=== PATIENT | male | born 1975 | race Caucasian/White ===

== ENCOUNTER 2016-06-03 14:25 | Emergency (ER) | payer OTHER ==
[2016-06-03] MEDS ORDERED: MORPHINE 4 MG/ML 1ML SYRINGE As Ordered ONE (16:33)
[2016-06-03] MEDS ORDERED: KETOROLAC 30 MG/ML VIAL (J1885) As Ordered ONE (16:33)
[2016-06-03] MEDS ORDERED: diphenhydrAMINE INJ 50MG/ML VIAL (J1200) As Ordered ONE ×2 (16:33→16:34)
[2016-06-03] MEDS ORDERED: PROMETHAZINE INJ 25 MG/ML VIAL (J2550) As Ordered ONE (16:33)
--- NOTE | 2016-06-03 17:58 | EDDOCDS ---
Physician Documentation [facility] Name: Ramakrishna Miller Age: 40 yrs Sex: Male : 1975 Arrival Date: 06/03/2016 Time: 14:25 Bed 8 Private MD: Batool Aguilar Disposition: 06/03/16 17:04 Discharged to Home/Self Care. Impression: Headache. - Condition is Stable. - Discharge Instructions: General Headache Without Cause. - Prescriptions for Fioricet 50- 300-40 mg Oral Capsule - take 1 capsule by ORAL route every 8 hours As needed MDD: 6 tabs; 10 capsule. - Medication Reconciliation, Local Pharmacy Hours form. - Follow up: Private Physician; When: Call to arrange an appointment; Reason: Continuance of care. Follow up: Batool Aguilar; When: Call to arrange an appointment; Reason: Continuance of care. - Problem is chronic. - Symptoms have improved. Historical: - Allergies: Amitriptyline; Effexor XR; Lrpmfrk-Ipl-Efe Reductase Inhibitors; - Home Meds: 1. aspirin 325 mg Oral TbEC 1 tab once daily 2. Crestor 10 mg Oral tab 1 tab once daily 3. lisinopril 2.5 mg oral tab 1 tab once daily 4. Magnesium Oxide Oral daily 5. metoprolol tartrate 50 mg Oral tab once daily 6. omeprazole 20 mg Oral cpDR 1 cap once daily 7. Vitamin B-2 oral daily 8. Plavix 50 mg Oral tab 1 tab once daily - PMHx: CVA; GERD; Hypercholesterolemia; Hypertension; - PSHx: exploratory laprotomy of abd; - Social history: Smoking status: Patient uses tobacco products, light tobacco smoker. No barriers to communication noted, The patient speaks fluent Paraguayan. - Family history: Not pertinent. - : The pt / caregiver states he / she is on anticoagulants: Plavix. Home medication list is obtained from the patient. - Exposure Risk Screening:: None identified. Vital Signs: 06/03 14:55 BP 139 / 87; Pulse 67; Resp 17; Temp 98.3(O); Pulse Ox 95% ; Weight 94.35 kg / 208.01 mb9 lbs; Height 5 ft. 10 in. (177.80 cm); Pain 9/10; 17:48 BP 141 / 66; Pulse 62; Resp 18; Temp 98; Pulse Ox 95% on R/A; Pain 4/10; bcj 14:55 Body Mass Index 29.84 (94.35 kg, 177.80 cm) mike MDM: 15:42 Financial registration complete. gjb 15:50 morphine 4 mg IVP once ordered. fg 15:50 ketorolac 30 mg IVP once ordered. fg 15:50 diphenhydrAMINE 25 mg IVP once ordered. fg 15:50 Promethazine 12.5 mg IVP once; dilute and administer 30-60 minutes ordered. fg 15:50 IV Saline Lock ordered. 16:11 [facility] Payment Agreement was scanned into [employer] and attached to record. gjb Administered Medications: 16:46 Drug: diphenhydrAMINE 25 mg [diphenhydramine 50 mg/mL injection solution (0.5 mL)] [facility] Route: IVP; Site: left hand; 16:46 Drug: Promethazine 12.5 mg [promethazine 25 mg/mL injection solution (0.5 mL)] Route: j IVP; Site: left hand; 16:47 Drug: morphine 4 mg [morphine 4 mg/mL intravenous cartridge (1 mL)] Route: IVP; Site: j left hand; 17:55 Follow up: Response: Pain is decreased [facility] 16:47 Drug: ketorolac 30 mg [ketorolac 30 mg/mL (1 mL) injection solution (1 mL)] Route: IVP; [facility] Site: left hand; 17:55 Follow up: Response: Pain is decreased [facility] Signatures: Al Contreras RN RN Ramakrishna Newman RN RN mb9 Yuko Pinto MD MD fg Beck, Gabriela gjb The chart was reviewed and I authenticate all verbal orders and agree with the evaluation and treatment provided.Attachments: 16:11 [facility] Payment Agreement gjb CORRY
--- NOTE | 2016-06-03 17:58 | EDDOCDS ---
Nurse's Notes [facility] Name: Ramakrishna Miller Age: 40 yrs Sex: Male : 1975 Arrival Date: 06/03/2016 Time: 14:25 Bed 8 Private MD: Batool Aguilar Diagnosis: Headache Presentation: 06/03 14:39 Presenting complaint: Patient states: "Earlier I was watching tv and I went to stand up mb9 and it felt like the energy drained out of me. Then I got this headache out of nowhere and the left side of my body was numb". pt reports he has a history of migraines but that this didn't feel like a typical migraine. pt also reports blurred vision at this time. This patient has no additional risk factors. Adult Sepsis Screening: The patient does not have new or worsening altered mentation. Patient's respiratory rate is less than 22. Systolic blood pressure is greater than 100. Patient has a qSOFA score of 0- Negative Sepsis Screen. Suicide/Homicide risk assessment- the patient denies having any suicidal and/or homicidal ideations and does not present with any other emotional, behavioral or mental health complaints. Status: Patient is not a dental service chief or dependent. Transition of care: patient was not received from another setting of care. Care prior to arrival: See EMS report. 14:39 Acuity: KATHERYN Level 2 mb9 14:39 Method Of Arrival: Ambulance mb9 Triage Assessment: 14:55 Headache History: A change in the character of the headache the patient is experiencing mb9 has occured. General: Appears in no apparent distress. Pain: Location: headache Pain currently is 9 out of 10 on a pain scale. Pain began 2 hours ago Also complains of no other associated symptoms. HIV screening NA for this visit Offered previously. The patient is triaged at the bedside. See Assessment in Nurses Notes section of ED record. Neurological: Level of Consciousness is awake, alert, Oriented to person, place, time, Travel Trailer Components Assembler are equal bilaterally Moves all extremities. Speech is normal, Facial symmetry appears normal, Pupils are PERRLA. Respiratory: Airway is patent Respiratory effort is even, unlabored. Historical: - Allergies: Amitriptyline; Effexor XR; Ipfsuzg-Pzs-Gco Reductase Inhibitors; - Home Meds: 1. aspirin 325 mg Oral TbEC 1 tab once daily 2. Crestor 10 mg Oral tab 1 tab once daily 3. lisinopril 2.5 mg oral tab 1 tab once daily 4. Magnesium Oxide Oral daily 5. metoprolol tartrate 50 mg Oral tab once daily 6. omeprazole 20 mg Oral cpDR 1 cap once daily 7. Vitamin B-2 oral daily 8. Plavix 50 mg Oral tab 1 tab once daily - PMHx: CVA; GERD; Hypercholesterolemia; Hypertension; - PSHx: exploratory laprotomy of abd; - Social history: Smoking status: Patient uses tobacco products, light tobacco smoker. No barriers to communication noted, The patient speaks fluent Faroese. - Family history: Not pertinent. - : The pt / caregiver states he / she is on anticoagulants: Plavix. Home medication list is obtained from the patient. - Exposure Risk Screening:: None identified. Screenin:49 Screening information is obtained from the patient. Fall risk: No risks identified. bcj Assistance ADL's: requires no assistance with activities of daily living. Abuse/DV Screen: The patient / caregiver reports he/she is: not in a situation that causes fear, pain or injury. Nutritional screening: No deficits noted. Advance Directives: Currently, there is no health care proxy. home support is adequate. Assessment: 16:49 General: Appears in no apparent distress, comfortable, Behavior is cooperative. Pain: bcj Location: face Pain currently is 9 out of 10 on a pain scale. Neurological: Level of Consciousness is awake, alert, Oriented to person, place, time, Travel Trailer Components Assembler are equal bilaterally Moves all extremities. Gait is steady. Derm: Skin is pink, warm & dry. 17:48 General: Appears in no apparent distress, comfortable, Behavior is cooperative. Pain: bcj Location: face Pain currently is 3 out of 10 on a pain scale. Derm: Skin is pink, warm & dry. Vital Signs: 14:55 BP 139 / 87; Pulse 67; Resp 17; Temp 98.3(O); Pulse Ox 95% ; Weight 94.35 kg; Height 5 mb9 ft. 10 in. (177.80 cm); Pain 9/10; 17:48 BP 141 / 66; Pulse 62; Resp 18; Temp 98; Pulse Ox 95% on R/A; Pain 4/10; bcj 14:55 Body Mass Index 29.84 (94.35 kg, 177.80 cm) mb9 Vitals: 14:55 Log In Time N/A - ambulance arrival. mb9 ED Course: 14:26 Patient visited by Laverne Dos Santos Infection Control Practitioner. lbd 14:26 Batool Aguilar is Private Physician. lbd 14:26 Patient moved to Waiting lbd 14:38 Patient moved to 8 lbd 14:53 Triage Initiated mb9 15:17 Yuko Pinto MD is Attending Physician. fg 15:17 Patient visited by Yuko Pinto MD. fg 16:11 [facility] Payment Agreement was scanned into [employer] and attached to record. gjb 16:49 No apparent distress. Resting quietly. Awaiting disposition. bcj 16:49 The patient / caregiver is instructed regarding the plan of care and ED course. bcj 16:49 Maintain field IV. Gauge & site: 20 LEFT HAND. bcj 16:51 Patient visited by Al Contreras RN. bcj 17:03 Batool Aguilar is Referral Physician. fg 17:55 No apparent distress. Resting quietly. Awaiting disposition. bcj 17:55 Discontinued lock intact. bcj 17:56 No procedures done that require assistance. bcj 17:57 Patient visited by Al Contreras, BERTA. bcj Administered Medications: 16:46 Drug: diphenhydrAMINE 25 mg [diphenhydramine 50 mg/mL injection solution (0.5 mL)] bcj Route: IVP; Site: left hand; 16:46 Drug: Promethazine 12.5 mg [promethazine 25 mg/mL injection solution (0.5 mL)] Route: bcj IVP; Site: left hand; 16:47 Drug: morphine 4 mg [morphine 4 mg/mL intravenous cartridge (1 mL)] Route: IVP; Site: bcj left hand; 17:55 Follow up: Response: Pain is decreased bcj 16:47 Drug: ketorolac 30 mg [ketorolac 30 mg/mL (1 mL) injection solution (1 mL)] Route: IVP; j Site: left hand; 17:55 Follow up: Response: Pain is decreased bcj Order Results: There are currently no results for this order. Outcome: 17:04 Discharge ordered by Provider. fg 17:55 Discharge Assessment: patient administered narcotics - yes. Pt provided with safe bcj discharge. The following High Risk Discharge criteria are identified: None. Discharged to home ambulatory, with family. Condition: stable. Discharge instructions given to patient, Instructed on discharge instructions, follow up and referral plans. medication usage, Prescriptions given X 1. No special radiology studies were completed. Property :Personal belongings accompany Pt. 17:57 Patient left the ED. [facility] Signatures: Laverne Dos Santos, Infection Control Practitioner Unit lbd Al Contreras RN RN bcj Belles, Michael, RN RN mb9 Yuko Pinto MD MD fg Beck, Gabriela gjb MTDD
--- NOTE | 2016-06-05 18:58 | EDDOCDS ---
Physician Documentation [facility] Name: Ramakrishna Miller Age: 40 yrs Sex: Male : 1975 Arrival Date: 06/03/2016 Time: 14:25 Bed 8 Private MD: Batool Aguilar Disposition: 06/03/16 17:04 Discharged to Home/Self Care. Impression: Headache. - Condition is Stable. - Discharge Instructions: General Headache Without Cause. - Prescriptions for Fioricet 50- 300-40 mg Oral Capsule - take 1 capsule by ORAL route every 8 hours As needed MDD: 6 tabs; 10 capsule. - Medication Reconciliation, Local Pharmacy Hours form. - Follow up: Private Physician; When: Call to arrange an appointment; Reason: Continuance of care. Follow up: Batool Aguilar; When: Call to arrange an appointment; Reason: Continuance of care. - Problem is chronic. - Symptoms have improved. Historical: - Allergies: Amitriptyline; Effexor XR; Pgmahjr-Jgn-Gpa Reductase Inhibitors; - Home Meds: 1. aspirin 325 mg Oral TbEC 1 tab once daily 2. Crestor 10 mg Oral tab 1 tab once daily 3. lisinopril 2.5 mg oral tab 1 tab once daily 4. Magnesium Oxide Oral daily 5. metoprolol tartrate 50 mg Oral tab once daily 6. omeprazole 20 mg Oral cpDR 1 cap once daily 7. Vitamin B-2 oral daily 8. Plavix 50 mg Oral tab 1 tab once daily - PMHx: CVA; GERD; Hypercholesterolemia; Hypertension; - PSHx: exploratory laprotomy of abd; - Social history: Smoking status: Patient uses tobacco products, light tobacco smoker. No barriers to communication noted, The patient speaks fluent Guinean. - Family history: Not pertinent. - : The pt / caregiver states he / she is on anticoagulants: Plavix. Home medication list is obtained from the patient. - Exposure Risk Screening:: None identified. Vital Signs: 06/03 14:55 BP 139 / 87; Pulse 67; Resp 17; Temp 98.3(O); Pulse Ox 95% ; Weight 94.35 kg / 208.01 mb9 lbs; Height 5 ft. 10 in. (177.80 cm); Pain 9/10; 17:48 BP 141 / 66; Pulse 62; Resp 18; Temp 98; Pulse Ox 95% on R/A; Pain 4/10; bcj 14:55 Body Mass Index 29.84 (94.35 kg, 177.80 cm) mike MDM: 15:42 Financial registration complete. gjb 15:50 morphine 4 mg IVP once ordered. fg 15:50 ketorolac 30 mg IVP once ordered. fg 15:50 diphenhydrAMINE 25 mg IVP once ordered. fg 15:50 Promethazine 12.5 mg IVP once; dilute and administer 30-60 minutes ordered. fg 15:50 IV Saline Lock ordered. fg 16:11 [facility] Payment Agreement was scanned into [employer] and attached to record. b 06/04 11:05 T-Sheet-- Draft Copy was scanned into [employer] and attached to record. gb 11:06 PCR was scanned into [employer] and attached to record. gb Administered Medications: 06/03 16:46 Drug: diphenhydrAMINE 25 mg [diphenhydramine 50 mg/mL injection solution (0.5 mL)] [facility] Route: IVP; Site: left hand; 16:46 Drug: Promethazine 12.5 mg [promethazine 25 mg/mL injection solution (0.5 mL)] Route: bcj IVP; Site: left hand; 16:47 Drug: morphine 4 mg [morphine 4 mg/mL intravenous cartridge (1 mL)] Route: IVP; Site: bcj left hand; 17:55 Follow up: Response: Pain is decreased [facility] 16:47 Drug: ketorolac 30 mg [ketorolac 30 mg/mL (1 mL) injection solution (1 mL)] Route: IVP; [facility] Site: left hand; 17:55 Follow up: Response: Pain is decreased [facility] Signatures: Al Contreras RN RN bcGianna Galaviz, Reg Reg Ramakrishna QuintanaRN RN mb9 Yuko Pinto MD MD fg Beck, Gabriela gjb The chart was reviewed and I authenticate all verbal orders and agree with the evaluation and treatment provided.Attachments: 16:11 [facility] Payment Agreement [facility] 06/04 11:05 T-Sheet-- Draft Copy gb Chart Complete MTDD
--- NOTE | 2016-06-05 18:58 | EDDOCDS ---
Nurse's Notes [facility] Name: Ramakrishna Miller Age: 40 yrs Sex: Male : 1975 Arrival Date: 06/03/2016 Time: 14:25 Bed 8 Private MD: Batool Aguilar Diagnosis: Headache Presentation: 06/03 14:39 Presenting complaint: Patient states: "Earlier I was watching tv and I went to stand up mb9 and it felt like the energy drained out of me. Then I got this headache out of nowhere and the left side of my body was numb". pt reports he has a history of migraines but that this didn't feel like a typical migraine. pt also reports blurred vision at this time. This patient has no additional risk factors. Adult Sepsis Screening: The patient does not have new or worsening altered mentation. Patient's respiratory rate is less than 22. Systolic blood pressure is greater than 100. Patient has a qSOFA score of 0- Negative Sepsis Screen. Suicide/Homicide risk assessment- the patient denies having any suicidal and/or homicidal ideations and does not present with any other emotional, behavioral or mental health complaints. Status: Patient is not a community service specialist or dependent. Transition of care: patient was not received from another setting of care. Care prior to arrival: See EMS report. 14:39 Acuity: KATHERYN Level 2 mb9 14:39 Method Of Arrival: Ambulance mb9 Triage Assessment: 14:55 Headache History: A change in the character of the headache the patient is experiencing mb9 has occured. General: Appears in no apparent distress. Pain: Location: headache Pain currently is 9 out of 10 on a pain scale. Pain began 2 hours ago Also complains of no other associated symptoms. HIV screening NA for this visit Offered previously. The patient is triaged at the bedside. See Assessment in Nurses Notes section of ED record. Neurological: Level of Consciousness is awake, alert, Oriented to person, place, time, Bulk System Operator are equal bilaterally Moves all extremities. Speech is normal, Facial symmetry appears normal, Pupils are PERRLA. Respiratory: Airway is patent Respiratory effort is even, unlabored. Historical: - Allergies: Amitriptyline; Effexor XR; Icgwbwt-Asj-Qie Reductase Inhibitors; - Home Meds: 1. aspirin 325 mg Oral TbEC 1 tab once daily 2. Crestor 10 mg Oral tab 1 tab once daily 3. lisinopril 2.5 mg oral tab 1 tab once daily 4. Magnesium Oxide Oral daily 5. metoprolol tartrate 50 mg Oral tab once daily 6. omeprazole 20 mg Oral cpDR 1 cap once daily 7. Vitamin B-2 oral daily 8. Plavix 50 mg Oral tab 1 tab once daily - PMHx: CVA; GERD; Hypercholesterolemia; Hypertension; - PSHx: exploratory laprotomy of abd; - Social history: Smoking status: Patient uses tobacco products, light tobacco smoker. No barriers to communication noted, The patient speaks fluent Luxembourgish. - Family history: Not pertinent. - : The pt / caregiver states he / she is on anticoagulants: Plavix. Home medication list is obtained from the patient. - Exposure Risk Screening:: None identified. Screenin:49 Screening information is obtained from the patient. Fall risk: No risks identified. bcj Assistance ADL's: requires no assistance with activities of daily living. Abuse/DV Screen: The patient / caregiver reports he/she is: not in a situation that causes fear, pain or injury. Nutritional screening: No deficits noted. Advance Directives: Currently, there is no health care proxy. home support is adequate. Assessment: 16:49 General: Appears in no apparent distress, comfortable, Behavior is cooperative. Pain: bcj Location: face Pain currently is 9 out of 10 on a pain scale. Neurological: Level of Consciousness is awake, alert, Oriented to person, place, time, Bulk System Operator are equal bilaterally Moves all extremities. Gait is steady. Derm: Skin is pink, warm & dry. 17:48 General: Appears in no apparent distress, comfortable, Behavior is cooperative. Pain: bcj Location: face Pain currently is 3 out of 10 on a pain scale. Derm: Skin is pink, warm & dry. Vital Signs: 14:55 BP 139 / 87; Pulse 67; Resp 17; Temp 98.3(O); Pulse Ox 95% ; Weight 94.35 kg; Height 5 mb9 ft. 10 in. (177.80 cm); Pain 9/10; 17:48 BP 141 / 66; Pulse 62; Resp 18; Temp 98; Pulse Ox 95% on R/A; Pain 4/10; bcj 14:55 Body Mass Index 29.84 (94.35 kg, 177.80 cm) mb9 Vitals: 14:55 Log In Time N/A - ambulance arrival. mb9 ED Course: 14:26 Patient visited by Laverne Dos Santos, Finisher Operator. lbd 14:26 Batool Aguilar is Private Physician. lbd 14:26 Patient moved to Waiting lbd 14:38 Patient moved to 8 lbd 14:53 Triage Initiated mb9 15:17 Yuko Pinto MD is Attending Physician. fg 15:17 Patient visited by Yuko Pinto MD. fg 16:11 [facility] Payment Agreement was scanned into [email or web address] and attached to record. gjb 16:49 No apparent distress. Resting quietly. Awaiting disposition. bcj 16:49 The patient / caregiver is instructed regarding the plan of care and ED course. bcj 16:49 Maintain field IV. Gauge & site: 20 LEFT HAND. bcj 16:51 Patient visited by Al Contreras, BERTA. bcj 17:03 Batool Aguilar is Referral Physician. fg 17:55 No apparent distress. Resting quietly. Awaiting disposition. bcj 17:55 Discontinued lock intact. bcj 17:56 No procedures done that require assistance. bcj 17:57 Patient visited by Al Contreras, BERTA. j 06/04 11:05 T-Sheet-- Draft Copy was scanned into [email or web address] and attached to record. gb 11:06 PCR was scanned into [email or web address] and attached to record. gb Administered Medications: 06/03 16:46 Drug: diphenhydrAMINE 25 mg [diphenhydramine 50 mg/mL injection solution (0.5 mL)] [facility] Route: IVP; Site: left hand; 16:46 Drug: Promethazine 12.5 mg [promethazine 25 mg/mL injection solution (0.5 mL)] Route: j IVP; Site: left hand; 16:47 Drug: morphine 4 mg [morphine 4 mg/mL intravenous cartridge (1 mL)] Route: IVP; Site: bcj left hand; 17:55 Follow up: Response: Pain is decreased [facility] 16:47 Drug: ketorolac 30 mg [ketorolac 30 mg/mL (1 mL) injection solution (1 mL)] Route: IVP; [facility] Site: left hand; 17:55 Follow up: Response: Pain is decreased [facility] Order Results: There are currently no results for this order. Outcome: 17:04 Discharge ordered by Provider. fg 17:55 Discharge Assessment: patient administered narcotics - yes. Pt provided with safe j discharge. The following High Risk Discharge criteria are identified: None. Discharged to home ambulatory, with family. Condition: stable. Discharge instructions given to patient, Instructed on discharge instructions, follow up and referral plans. medication usage, Prescriptions given X 1. No special radiology studies were completed. Property :Personal belongings accompany Pt. 17:57 Patient left the ED. [facility] Signatures: Laverne Dos Santos, Finisher Operator Unit lbd Al Contreras, RN RN Gianna Rodrigues, Reg Reg Ramakrishna QuintanaRN RN mb9 Yuko Pinto MD MD fg Beck, Gabriela gjb Chart Complete CORRY
--- NOTE | 2016-06-05 18:58 | EDDOCDS ---
Physician Documentation [facility] Name: Ramakrishna Miller Age: 40 yrs Sex: Male : 1975 Arrival Date: 06/03/2016 Time: 14:25 Bed 8 Private MD: Batool Aguilar Disposition: 06/03/16 17:04 Discharged to Home/Self Care. Impression: Headache. - Condition is Stable. - Discharge Instructions: General Headache Without Cause. - Prescriptions for Fioricet 50- 300-40 mg Oral Capsule - take 1 capsule by ORAL route every 8 hours As needed MDD: 6 tabs; 10 capsule. - Medication Reconciliation, Local Pharmacy Hours form. - Follow up: Private Physician; When: Call to arrange an appointment; Reason: Continuance of care. Follow up: Batool Aguilar; When: Call to arrange an appointment; Reason: Continuance of care. - Problem is chronic. - Symptoms have improved. Historical: - Allergies: Amitriptyline; Effexor XR; Ygpymbd-Dbb-Spw Reductase Inhibitors; - Home Meds: 1. aspirin 325 mg Oral TbEC 1 tab once daily 2. Crestor 10 mg Oral tab 1 tab once daily 3. lisinopril 2.5 mg oral tab 1 tab once daily 4. Magnesium Oxide Oral daily 5. metoprolol tartrate 50 mg Oral tab once daily 6. omeprazole 20 mg Oral cpDR 1 cap once daily 7. Vitamin B-2 oral daily 8. Plavix 50 mg Oral tab 1 tab once daily - PMHx: CVA; GERD; Hypercholesterolemia; Hypertension; - PSHx: exploratory laprotomy of abd; - Social history: Smoking status: Patient uses tobacco products, light tobacco smoker. No barriers to communication noted, The patient speaks fluent Austrian. - Family history: Not pertinent. - : The pt / caregiver states he / she is on anticoagulants: Plavix. Home medication list is obtained from the patient. - Exposure Risk Screening:: None identified. Vital Signs: 06/03 14:55 BP 139 / 87; Pulse 67; Resp 17; Temp 98.3(O); Pulse Ox 95% ; Weight 94.35 kg / 208.01 mb9 lbs; Height 5 ft. 10 in. (177.80 cm); Pain 9/10; 17:48 BP 141 / 66; Pulse 62; Resp 18; Temp 98; Pulse Ox 95% on R/A; Pain 4/10; bcj 14:55 Body Mass Index 29.84 (94.35 kg, 177.80 cm) mike MDM: 15:42 Financial registration complete. gjb 15:50 morphine 4 mg IVP once ordered. fg 15:50 ketorolac 30 mg IVP once ordered. fg 15:50 diphenhydrAMINE 25 mg IVP once ordered. fg 15:50 Promethazine 12.5 mg IVP once; dilute and administer 30-60 minutes ordered. fg 15:50 IV Saline Lock ordered. fg 16:11 [facility] Payment Agreement was scanned into [employer] and attached to record. b 06/04 11:05 T-Sheet-- Draft Copy was scanned into [employer] and attached to record. gb 11:06 PCR was scanned into [employer] and attached to record. gb Administered Medications: 06/03 16:46 Drug: diphenhydrAMINE 25 mg [diphenhydramine 50 mg/mL injection solution (0.5 mL)] [facility] Route: IVP; Site: left hand; 16:46 Drug: Promethazine 12.5 mg [promethazine 25 mg/mL injection solution (0.5 mL)] Route: bcj IVP; Site: left hand; 16:47 Drug: morphine 4 mg [morphine 4 mg/mL intravenous cartridge (1 mL)] Route: IVP; Site: bcj left hand; 17:55 Follow up: Response: Pain is decreased [facility] 16:47 Drug: ketorolac 30 mg [ketorolac 30 mg/mL (1 mL) injection solution (1 mL)] Route: IVP; [facility] Site: left hand; 17:55 Follow up: Response: Pain is decreased [facility] Signatures: Al Contreras RN RN bcGianna Galaviz, Reg Reg Ramakrishna QuintanaRN RN mb9 Yuko Pinto MD MD fg Beck, Gabriela gjb The chart was reviewed and I authenticate all verbal orders and agree with the evaluation and treatment provided.Attachments: 16:11 [facility] Payment Agreement [facility] 06/04 11:05 T-Sheet-- Draft Copy gb Chart Complete MTDD
== END 2016-06-03 17:57 | disposition home or self-care (01) ==
LOC: M ED 14:25
DX: G43.809 Other migraine, not intractable, without status migrainosus (principal); I10 Essential (primary) hypertension; E78.00 Pure hypercholesterolemia, unspecified; Z86.73 Personal history of transient ischemic attack (TIA), and cerebral infarction without residual deficits; F17.200 Nicotine dependence, unspecified, uncomplicated; Z79.899 Other long term (current) drug therapy; Z79.82 Long term (current) use of aspirin; Z79.02 Long term (current) use of antithrombotics/antiplatelets; Z88.8 Allergy status to other drugs, medicaments and biological substances
CPT/HCPCS: 96374; 96375; 99283; J1200; J1885

== ENCOUNTER 2018-01-16 22:08 | Emergency (ER) | payer OTHER ==
[2018-01-16] MEDS: PERCOCET 5MG/325MG TAB PO (22:43)
[2018-01-16] MEDS: OXYCODONE/APAP 5MG/325MG(BULK FOR ED) 1 TABLET PO (22:45)
== END 2018-01-16 23:33 | disposition home or self-care (01) ==
LOC: M ED 22:08
DX: S92.002D Unspecified fracture of left calcaneus, subsequent encounter for fracture with routine healing (principal); W11.XXXD Fall on and from ladder, subsequent encounter; Y92.9 Unspecified place or not applicable; Y93.9 Activity, unspecified; Y99.9 Unspecified external cause status; I25.10 Atherosclerotic heart disease of native coronary artery without angina pectoris; Z86.73 Personal history of transient ischemic attack (TIA), and cerebral infarction without residual deficits; K21.9 Gastro-esophageal reflux disease without esophagitis; Z86.718 Personal history of other venous thrombosis and embolism; Z79.01 Long term (current) use of anticoagulants; Z79.899 Other long term (current) drug therapy; Z88.1 Allergy status to other antibiotic agents; Z88.8 Allergy status to other drugs, medicaments and biological substances
CPT/HCPCS: 99284

== ENCOUNTER 2018-01-25 12:12 | Emergency (ER) | payer OTHER ==
[2018-01-25 13:18] LABS: BASO % 0.5 % (0.0-1.0); EOS # 0.1 10^3/uL (0.0-0.50); HEMATOCRIT 41.6 % (42.0-52.0); HEMOGLOBIN 14.7 g/dl (13.5-17.5); IMMATURE GRANULOCYTE % 0.3 % (0-3.0); LYMPH # 1.6 10^3/uL (1.5-4.5); LYMPH % 20.2 % (24.0-44.0); MEAN CORPUSCULAR HEMOGLOBIN 32.5 pg (27.0-33.0); MEAN CORPUSCULAR HGB CONC 35.3 g/dl (32.0-36.5); MONO # 0.9 10^3/uL (0.0-0.8); MONO % 10.8 % (0.0-5.0); NEUTROPHILS # 5.3 10^3/uL (1.8-7.7); NEUTROPHILS % 67.2 % (36.0-66.0); PLATELET COUNT, AUTOMATED 376 10^3/uL (150-450); RED BLOOD COUNT 4.52 10^6/uL (4.30-6.10); RED CELL DISTRIBUTION WIDTH 11.7 % (11.5-14.5); WHITE BLOOD COUNT 7.8 10^3/uL (4.0-10.0)
[2018-01-25] MEDS: NS 1,000 ML IV (13:21)
[2018-01-25] MEDS: METOCLOPRAMIDE INJ 10MG/2ML VIAL (J2765) IV (13:22)
[2018-01-25] MEDS: KETOROLAC 30 MG/ML VIAL (J1885) IV (13:22)
[2018-01-25 13:32] LABS: INR 0.98; KETONE, URINE AUTO RFX NEGATIVE (NEGATIVE); LEUKOCYTE ESTERASE UR AUTO RFX NEGATIVE (NEGATIVE); NITRITE, URINE AUTO RFX NEGATIVE (NEGATIVE); PROTHROMBIN TIME 13.1 SECONDS (12.1-14.4); RBC, URINE AUTO RFX 0 /HPF (0-3); SQUAM EPITHELIAL CELL UR AURFX 0 /HPF (0-6); WBC, URINE AUTO RFX 0 /HPF (0-3)
[2018-01-25 13:53] LABS: ALBUMIN 3.5 GM/DL (3.2-5.2); ALKALINE PHOSPHATASE 124 U/L (45-117); ALT/SGPT 27 U/L (12-78); ANION GAP 5 MEQ/L (8-16); AST/SGOT 20 U/L (7-37); BILIRUBIN,DIRECT 0.1 MG/DL (0.0-0.2); BILIRUBIN,TOTAL 0.4 MG/DL (0.2-1.0); BLOOD UREA NITROGEN 8 MG/DL (7-18); CALCIUM LEVEL 9.3 MG/DL (8.5-10.1); CARBON DIOXIDE LEVEL 27 MEQ/L (21-32); CHLORIDE LEVEL 105 MEQ/L (98-107); GLOMERULAR FILTRATION RATE > 60.0 (>60); GLUCOSE, FASTING 89 MG/DL (70-100); LIPASE 149 U/L (73-393); POTASSIUM SERUM 4.3 MEQ/L (3.5-5.1); SODIUM LEVEL 137 MEQ/L (136-145); TOTAL PROTEIN 7.4 GM/DL (6.4-8.2)
== END 2018-01-25 14:40 | disposition home or self-care (01) ==
LOC: M ED 12:12
DX: R10.9 Unspecified abdominal pain (principal); R11.0 Nausea; F17.200 Nicotine dependence, unspecified, uncomplicated; Z86.73 Personal history of transient ischemic attack (TIA), and cerebral infarction without residual deficits; Z79.899 Other long term (current) drug therapy; Z79.01 Long term (current) use of anticoagulants
CPT/HCPCS: J1885

== ENCOUNTER 2018-02-03 06:07 | Inpatient (IN) | payer OTHER ==
[2018-02-03] MEDS ORDERED: ROPIvacaine 0.5% 30 ML INJECTION (J2795 PER 1MG) (06:08)
[2018-02-03] MEDS ORDERED: EPINEPHrine INJ 1 MG/ML 1ML AMP (06:08)
[2018-02-03] MEDS ORDERED: dexameTHASONE 10 MG/1 ML VIAL PRES.FREE (J1100) (06:08)
[2018-02-03] MEDS ORDERED: LIDOCAINE 1% MDV 20ML VIAL (06:08)
[2018-02-03] MEDS ORDERED: MIDAZOLAM INJ 2 MG/2 ML VIAL (J2250) As Ordered ×2 (06:54→08:49)
[2018-02-03] MEDS ORDERED: fentaNYL 100 MCG/2 ML INJECTION (J3010) As Ordered (06:54)
[2018-02-03] MEDS ORDERED: ceFAZolin 2 GM/D5W 50 ML IV BAG (J0690 PER 500MG) As Ordered (07:01)
[2018-02-03] MEDS: MIDAZOLAM INJ 2 MG/2 ML VIAL (J2250) IV (07:21)
[2018-02-03] MEDS: fentaNYL 100 MCG/2 ML INJECTION (J3010) IV (07:21)
[2018-02-03] MEDS: ceFAZolin 2 GM/D5W 50 ML IV BAG (J0690 PER 500MG) As Ordered ×2 (08:44→13:05)
[2018-02-03] MEDS ORDERED: GLYCOPYRROLATE INJ 0.2 MG/ML 2 ML VIAL As Ordered (08:49)
[2018-02-03] MEDS ORDERED: METOCLOPRAMIDE INJ 10MG/2ML VIAL (J2765) As Ordered (08:49)
[2018-02-03] MEDS ORDERED: ROCURONIUM BROMIDE 50 MG/5 ML VIAL As Ordered ×3 (08:49→10:35)
[2018-02-03] MEDS ORDERED: dexameTHASONE 4 MG/ML 1ML VIAL (J1100) As Ordered (08:49)
[2018-02-03] MEDS ORDERED: PROPOFOL 200 MG/20 ML VIAL As Ordered (08:49)
[2018-02-03] MEDS ORDERED: HYDROmorphone HCL 2 MG/ML 1ML VIAL (J1170) As Ordered (08:49)
[2018-02-03] MEDS ORDERED: LIDOCAINE 2% INJ 100 MG/5 ML SDV (FOR ANES.) As Ordered (08:49)
[2018-02-03] MEDS ORDERED: fentaNYL 250 MCG/5 ML INJECTION (J3010) As Ordered ×2 (08:49→12:14)
[2018-02-03] MEDS ORDERED: NEOSTIGMINE 10 MG/10 ML VIAL (J2710) As Ordered (08:49)
[2018-02-03] MEDS ORDERED: ONDANSETRON 4MG/2ML VIAL (J2405) As Ordered (08:49)
[2018-02-03] MEDS ORDERED: LABETALOL HCL 100 MG/20 ML VIAL As Ordered (09:40)
[2018-02-03] MEDS ORDERED: ONDANSETRON 4MG/2ML VIAL (J2405) IV (14:30)
[2018-02-03] MEDS ORDERED: PERCOCET 5MG/325MG TAB PO (14:30)
[2018-02-03] MEDS: LR 1,000 ML IV ×2 (14:30)
[2018-02-03] MEDS ORDERED: MORPHINE 10 MG/ML 1ML VIAL (J2270) IV (14:30)
[2018-02-03] MEDS ORDERED: fentaNYL 100 MCG/2 ML INJECTION (J3010) IV (14:30)
[2018-02-03] MEDS ORDERED: oxyCODONE 5MG TAB PO (14:45)
[2018-02-03] MEDS: ACETAMINOPHEN 500 MG TAB PO ×2 (17:15→21:08)
[2018-02-03] MEDS: oxyCODONE 5MG TAB PO (21:34)
[2018-02-04] MEDS: ACETAMINOPHEN 500 MG TAB PO ×3 (05:36→21:45)
[2018-02-04] MEDS: oxyCODONE 5MG TAB PO ×4 (05:36→20:31)
[2018-02-04 06:45] LABS: HEMATOCRIT 33.3 % (42.0-52.0); HEMOGLOBIN 11.4 g/dl (13.5-17.5); MEAN CORPUSCULAR HGB CONC 34.2 g/dl (32.0-36.5); MEAN CORPUSCULAR VOLUME 93.5 fl (80.0-96.0); PLATELET COUNT, AUTOMATED 274 10^3/uL (150-450); RED BLOOD COUNT 3.56 10^6/uL (4.30-6.10); RED CELL DISTRIBUTION WIDTH 11.5 % (11.5-14.5); WHITE BLOOD COUNT 14.1 10^3/uL (4.0-10.0)
[2018-02-04 06:56] LABS: INR 0.99; PROTHROMBIN TIME 13.2 SECONDS (12.1-14.4)
[2018-02-04 07:06] LABS: ANION GAP 7 MEQ/L (8-16); BLOOD UREA NITROGEN 9 MG/DL (7-18); CALCIUM LEVEL 8.4 MG/DL (8.5-10.1); CARBON DIOXIDE LEVEL 28 MEQ/L (21-32); CHLORIDE LEVEL 105 MEQ/L (98-107); CREATININE FOR GFR 0.87 MG/DL (0.70-1.30); GLOMERULAR FILTRATION RATE > 60.0 (>60); GLUCOSE, FASTING 119 MG/DL (70-100); POTASSIUM SERUM 4.2 MEQ/L (3.5-5.1); SODIUM LEVEL 140 MEQ/L (136-145)
[2018-02-04] MEDS: APIXABAN 5 MG TAB (ELIQUIS) PO ×2 (09:40→20:30)
[2018-02-04] MEDS ORDERED: NITROGLYCERIN 0.3 MG SUBL TAB SL (11:30)
[2018-02-04] MEDS: OMEPRAZOLE 20 MG CAP PO (11:40)
[2018-02-04] MEDS: NITROGLYCERIN 0.3 MG SUBL TAB SL (11:41)
[2018-02-04] MEDS: MORPHINE 4 MG/ML 1ML VIAL/SYRINGE (J2270) IV ×3 (11:43→22:27)
[2018-02-04] MEDS: GI COCKTAIL 50ML BTL(HYOSCYAMINE/MAALOX/LIDOCAINE VISCOUS)(1:3:1) PO (12:00)
[2018-02-04 12:24] LABS: CPK CREATINE PHOSPHOKINASE 422 U/L (39-308); MB/CK RELATIVE INDEX 0.59 (< OR =4); TROPONIN I < 0.02 NG/ML (< 0.10)
[2018-02-04] MEDS ORDERED: ISOVUE-370 76% 100ML VIAL (Q9967) As Ordered (12:44)
[2018-02-04 18:18] LABS: CPK CREATINE PHOSPHOKINASE 498 U/L (39-308); TROPONIN I < 0.02 NG/ML (< 0.10)
[2018-02-04] MEDS: ROSUVASTATIN 10 MG TAB (CRESTOR) PO (20:30)
[2018-02-04 23:45] LABS: CPK CREATINE PHOSPHOKINASE 532 U/L (39-308); MB/CK RELATIVE INDEX 0.36 (< OR =4); TROPONIN I < 0.02 NG/ML (< 0.10)
[2018-02-05] MEDS: oxyCODONE 5MG TAB PO ×6 (00:36→23:46)
[2018-02-05] MEDS: MORPHINE 4 MG/ML 1ML VIAL/SYRINGE (J2270) IV ×3 (02:55→14:21)
[2018-02-05] MEDS: ACETAMINOPHEN 500 MG TAB PO ×3 (05:02→21:48)
[2018-02-05 07:13] LABS: HEMATOCRIT 31.4 % (42.0-52.0); HEMOGLOBIN 10.6 g/dl (13.5-17.5); MEAN CORPUSCULAR HEMOGLOBIN 31.7 pg (27.0-33.0); MEAN CORPUSCULAR HGB CONC 33.8 g/dl (32.0-36.5); PLATELET COUNT, AUTOMATED 252 10^3/uL (150-450); RED BLOOD COUNT 3.34 10^6/uL (4.30-6.10); RED CELL DISTRIBUTION WIDTH 11.8 % (11.5-14.5); WHITE BLOOD COUNT 11.2 10^3/uL (4.0-10.0)
[2018-02-05 07:23] LABS: INR 1.08; PROTHROMBIN TIME 14.1 SECONDS (12.1-14.4)
[2018-02-05 07:40] LABS: ANION GAP 6 MEQ/L (8-16); BLOOD UREA NITROGEN 7 MG/DL (7-18); CALCIUM LEVEL 8.2 MG/DL (8.5-10.1); CARBON DIOXIDE LEVEL 28 MEQ/L (21-32); CHLORIDE LEVEL 107 MEQ/L (98-107); CREATININE FOR GFR 0.76 MG/DL (0.70-1.30); GLOMERULAR FILTRATION RATE > 60.0 (>60); GLUCOSE, FASTING 90 MG/DL (70-100); POTASSIUM SERUM 3.8 MEQ/L (3.5-5.1); SODIUM LEVEL 141 MEQ/L (136-145)
[2018-02-05] MEDS: APIXABAN 5 MG TAB (ELIQUIS) PO ×2 (08:18→20:31)
[2018-02-05] MEDS: OMEPRAZOLE 20 MG CAP PO (08:18)
[2018-02-05] MEDS: ROSUVASTATIN 10 MG TAB (CRESTOR) PO (20:31)
[2018-02-05] MEDS: traZODone 50 MG TAB PO (21:48)
[2018-02-05] MEDS: MAGNESIUM CITRATE 300 ML BTL PO (23:44)
[2018-02-05] MEDS: ONDANSETRON 4 MG TAB (S0181) PO (23:46)
[2018-02-06] MEDS: ACETAMINOPHEN TAB 650MG DOSE (2X325MG) PO (02:20)
[2018-02-06] MEDS: METOCLOPRAMIDE INJ 10MG/2ML VIAL (J2765) IV ×2 (02:21→04:48)
[2018-02-06] MEDS: FLEET ENEMA PR (02:21)
[2018-02-06] MEDS: MORPHINE 4 MG/ML 1ML VIAL/SYRINGE (J2270) IV ×2 (03:46→08:04)
[2018-02-06] MEDS ORDERED: ISOVUE-370 76% 100ML VIAL (Q9967) As Ordered (04:45)
[2018-02-06] MEDS: ACETAMINOPHEN 500 MG TAB PO (05:47)
[2018-02-06] MEDS ORDERED: MAGNESIUM CITRATE 300 ML BTL PO (06:45)
[2018-02-06] MEDS ORDERED: FLEET ENEMA PR (06:45)
[2018-02-06 07:09] LABS: HEMOGLOBIN 12.4 g/dl (13.5-17.5); MEAN CORPUSCULAR HGB CONC 35.4 g/dl (32.0-36.5); MEAN CORPUSCULAR VOLUME 90.4 fl (80.0-96.0); PLATELET COUNT, AUTOMATED 279 10^3/uL (150-450); RED BLOOD COUNT 3.87 10^6/uL (4.30-6.10); RED CELL DISTRIBUTION WIDTH 11.6 % (11.5-14.5)
[2018-02-06 07:28] LABS: INR 0.98; PROTHROMBIN TIME 13.1 SECONDS (12.1-14.4)
[2018-02-06] MEDS ORDERED: MORPHINE 4 MG/ML 1ML VIAL/SYRINGE (J2270) IV ×2 (07:30→10:15)
[2018-02-06 07:40] LABS: ANION GAP 9 MEQ/L (8-16); BLOOD UREA NITROGEN 11 MG/DL (7-18); CALCIUM LEVEL 8.7 MG/DL (8.5-10.1); CARBON DIOXIDE LEVEL 27 MEQ/L (21-32); CHLORIDE LEVEL 100 MEQ/L (98-107); CREATININE FOR GFR 1.11 MG/DL (0.70-1.30); GLOMERULAR FILTRATION RATE > 60.0 (>60); GLUCOSE, FASTING 111 MG/DL (70-100); POTASSIUM SERUM 4.1 MEQ/L (3.5-5.1); SODIUM LEVEL 136 MEQ/L (136-145)
[2018-02-06] MEDS ORDERED: HEPARIN SOD (PORCINE) 5000 UNITS/ML VIAL IV (07:45)
[2018-02-06] MEDS: D5W/0.45% SODIUM CHLORIDE 1,000 ML IV (08:04)
[2018-02-06] MEDS: HEPARIN SOD (PORCINE) 5000 UNITS/ML VIAL IV (08:07)
[2018-02-06 08:11] LABS: LACTIC ACID SEPSIS PROTOCOL 1.3 MMOL/L (0.4-2.0)
[2018-02-06 08:12] LABS: PARTIAL THROMBOPLASTIN TIME 30.3 SECONDS (25.4-37.6)
[2018-02-06] MEDS: OMEPRAZOLE 20 MG CAP PO ×2 (08:38→08:41)
[2018-02-06] MEDS: HEPARIN DRIP 25,000 UNITS in APPROPRIATE DILUENT 1 EA IV (08:39)
[2018-02-06] MEDS: oxyCODONE 5MG TAB PO (10:33)
[2018-02-06] MEDS: KETOROLAC 30 MG/ML VIAL (J1885) IV (10:34)
== END 2018-02-06 11:14 | disposition short-term general hospital (02) | DRG 314 ==
LOC: M SDC 06:07 → M MS5PR 14:55 → M SDC 02-04 08:03 → M ICU 02-06 08:47 → M MS5PR 02-04 08:04
PROC: 0QSM04Z Reposition Left Tarsal with Internal Fixation Device, Open Approach (ICD-10-PCS; principal; 2018-02-03 07:43)
DX: S92.062A Displaced intraarticular fracture of left calcaneus, initial encounter for closed fracture (principal); K55.069 Acute infarction of intestine, part and extent unspecified; N28.0 Ischemia and infarction of kidney; I10 Essential (primary) hypertension; E78.00 Pure hypercholesterolemia, unspecified; K21.9 Gastro-esophageal reflux disease without esophagitis; Z79.01 Long term (current) use of anticoagulants; Z86.73 Personal history of transient ischemic attack (TIA), and cerebral infarction without residual deficits; W18.30XA Fall on same level, unspecified, initial encounter; Y92.009 Unspecified place in unspecified non-institutional (private) residence as the place of occurrence of the external cause; I71.4 Abdominal aortic aneurysm, without rupture; Z88.8 Allergy status to other drugs, medicaments and biological substances; G47.00 Insomnia, unspecified

== ENCOUNTER 2018-02-18 13:05 | Inpatient (IN) | payer OTHER ==
[2018-02-18 18:16] LABS: APPEARANCE, URINE CLEAR (CLEAR); BACTERIA, URINE AUTO NEGATIVE (NEGATIVE); BILIRUBIN, URINE AUTO NEGATIVE (NEGATIVE); BLOOD, URINE BLOOD 2+ (NEGATIVE); COLOR, URINE STRAW (YELLOW); GLUCOSE, URINE (UA) AUTO NEGATIVE (NEGATIVE); KETONE, URINE AUTO NEGATIVE (NEGATIVE); LEUKOCYTE ESTERASE, URINE AUTO NEGATIVE (NEGATIVE); MUCUS, URINE SMALL (NEGATIVE); NITRITE, URINE AUTO NEGATIVE (NEGATIVE); PROTEIN, URINE AUTO NEGATIVE (NEGATIVE); RBC, URINE AUTO 1 /HPF (0-3); SPECIFIC GRAVITY URINE AUTO 1.009 (1.002-1.035); SQUAMOUS EPITHELIAL CELL UR AU 0 /HPF (0-6); UROBILINOGEN, URINE AUTO 0.2 mg/dL (0.0-2.0); WBC, URINE AUTO 1 /HPF (0-3)
[2018-02-18] MEDS: APIXABAN 5 MG TAB (ELIQUIS) PO (21:12)
[2018-02-18] MEDS: DOCUSATE SODIUM 100 MG CAP PO (21:12)
[2018-02-18] MEDS: traZODone 50 MG TAB PO (21:13)
[2018-02-19] MEDS: ACETAMINOPHEN TAB 650MG DOSE (2X325MG) PO ×3 (01:27→20:35)
[2018-02-19] MEDS: METHOCARBAMOL 500 MG TAB PO ×2 (01:27→08:30)
[2018-02-19 07:36] LABS: BASO # 0.1 10^3/uL (0.0-0.2); BASO % 0.4 % (0.0-1.0); EOS # 0.2 10^3/uL (0.0-0.50); EOS % 1.9 % (0.0-3.0); HEMATOCRIT 25.5 % (42.0-52.0); HEMOGLOBIN 8.6 g/dl (13.5-17.5); IMMATURE GRANULOCYTE % 1.2 % (0-3.0); LYMPH # 2.6 10^3/uL (1.5-4.5); LYMPH % 23.1 % (24.0-44.0); MEAN CORPUSCULAR HEMOGLOBIN 31.6 pg (27.0-33.0); MEAN CORPUSCULAR HGB CONC 33.7 g/dl (32.0-36.5); MEAN CORPUSCULAR VOLUME 93.8 fl (80.0-96.0); MONO % 8.8 % (0.0-5.0); NEUTROPHILS # 7.3 10^3/uL (1.8-7.7); NEUTROPHILS % 64.6 % (36.0-66.0); PLATELET COUNT, AUTOMATED 588 10^3/uL (150-450); RED BLOOD COUNT 2.72 10^6/uL (4.30-6.10); RED CELL DISTRIBUTION WIDTH 13.3 % (11.5-14.5); WHITE BLOOD COUNT 11.3 10^3/uL (4.0-10.0)
[2018-02-19 08:00] LABS: ALBUMIN 2.8 GM/DL (3.2-5.2); ALBUMIN/GLOBULIN RATIO 0.68 (1.00-1.93); ALKALINE PHOSPHATASE 274 U/L (45-117); ALT/SGPT 83 U/L (12-78); ANION GAP 7 MEQ/L (8-16); AST/SGOT 51 U/L (7-37); BILIRUBIN,TOTAL 0.4 MG/DL (0.2-1.0); BLOOD UREA NITROGEN 13 MG/DL (7-18); CALCIUM LEVEL 8.7 MG/DL (8.5-10.1); CARBON DIOXIDE LEVEL 26 MEQ/L (21-32); CHLORIDE LEVEL 105 MEQ/L (98-107); CREATININE FOR GFR 1.37 MG/DL (0.70-1.30); GLOMERULAR FILTRATION RATE > 60.0 (>60); GLUCOSE, FASTING 109 MG/DL (70-100); POTASSIUM SERUM 4.1 MEQ/L (3.5-5.1); SODIUM LEVEL 138 MEQ/L (136-145); TOTAL PROTEIN 6.9 GM/DL (6.4-8.2)
[2018-02-19] MEDS: amLODIPine 5 MG TAB PO (08:29)
[2018-02-19] MEDS: OMEPRAZOLE 20 MG CAP PO (08:30)
[2018-02-19] MEDS: DOCUSATE SODIUM 100 MG CAP PO ×2 (08:30→21:22)
[2018-02-19] MEDS: CLOPIDOGREL 75 MG TAB PO (08:30)
[2018-02-19] MEDS: ROSUVASTATIN 10 MG TAB (CRESTOR) PO (08:30)
[2018-02-19] MEDS: POTASSIUM CHLORIDE 10 MEQ SR TABLET PO (08:30)
[2018-02-19] MEDS: APIXABAN 5 MG TAB (ELIQUIS) PO ×2 (08:30→21:22)
[2018-02-19 14:51] LABS: HEPATITIS C VIRUS ABY INDEX 0.2 INDEX (<0.8)
[2018-02-19 14:51] LABS: HEPATITIS A ANTIBODY IGM NEGATIVE (NEGATIVE); HEPATITIS B CORE ANTIBODY IGM NEGATIVE (NEGATIVE); HEPATITIS B SURFACE ANTIGEN NEGATIVE (NEGATIVE)
[2018-02-19 16:14] LABS: HEMATOCRIT 25.8 % (42.0-52.0); HEMOGLOBIN 8.4 g/dl (13.5-17.5); MEAN CORPUSCULAR HEMOGLOBIN 31.5 pg (27.0-33.0); MEAN CORPUSCULAR HGB CONC 32.6 g/dl (32.0-36.5); MEAN CORPUSCULAR VOLUME 96.6 fl (80.0-96.0); PLATELET COUNT, AUTOMATED 645 10^3/uL (150-450); RED BLOOD COUNT 2.67 10^6/uL (4.30-6.10); RED CELL DISTRIBUTION WIDTH 13.6 % (11.5-14.5); WHITE BLOOD COUNT 12.5 10^3/uL (4.0-10.0)
[2018-02-19] MEDS: traZODone 50 MG TAB PO (21:22)
[2018-02-19] MEDS: traMADol 50 MG TAB PO (21:33)
[2018-02-19 21:34] LABS: HEMATOCRIT 26.8 % (42.0-52.0); HEMOGLOBIN 8.9 g/dl (13.5-17.5); MEAN CORPUSCULAR HEMOGLOBIN 32.2 pg (27.0-33.0); MEAN CORPUSCULAR HGB CONC 33.2 g/dl (32.0-36.5); MEAN CORPUSCULAR VOLUME 97.1 fl (80.0-96.0); PLATELET COUNT, AUTOMATED 675 10^3/uL (150-450); RED BLOOD COUNT 2.76 10^6/uL (4.30-6.10); RED CELL DISTRIBUTION WIDTH 13.7 % (11.5-14.5); WHITE BLOOD COUNT 13.8 10^3/uL (4.0-10.0)
[2018-02-19] MEDS ORDERED: ISOVUE-370 76% 100ML VIAL (Q9967) As Ordered (22:50)
[2018-02-19] MEDS: NS 1,000 ML IV (23:33)
[2018-02-20 05:10] LABS: KETONE, URINE AUTO RFX NEGATIVE (NEGATIVE); LEUKOCYTE ESTERASE UR AUTO RFX NEGATIVE (NEGATIVE); NITRITE, URINE AUTO RFX NEGATIVE (NEGATIVE); RBC, URINE AUTO RFX 2 /HPF (0-3); SPECIFIC GRAVITY UR AUTO RFX 1.028 (1.002-1.035); SQUAM EPITHELIAL CELL UR AURFX 0 /HPF (0-6); WBC, URINE AUTO RFX 1 /HPF (0-3)
[2018-02-20 06:59] LABS: HEMATOCRIT 25.2 % (42.0-52.0); HEMOGLOBIN 8.5 g/dl (13.5-17.5); MEAN CORPUSCULAR HEMOGLOBIN 32.3 pg (27.0-33.0); MEAN CORPUSCULAR HGB CONC 33.7 g/dl (32.0-36.5); MEAN CORPUSCULAR VOLUME 95.8 fl (80.0-96.0); PLATELET COUNT, AUTOMATED 587 10^3/uL (150-450); RED BLOOD COUNT 2.63 10^6/uL (4.30-6.10); RED CELL DISTRIBUTION WIDTH 13.7 % (11.5-14.5); WHITE BLOOD COUNT 9.9 10^3/uL (4.0-10.0)
[2018-02-20 07:25] LABS: ALBUMIN 2.9 GM/DL (3.2-5.2); ALBUMIN/GLOBULIN RATIO 0.71 (1.00-1.93); ALKALINE PHOSPHATASE 269 U/L (45-117); ALT/SGPT 79 U/L (12-78); ANION GAP 8 MEQ/L (8-16); AST/SGOT 43 U/L (7-37); BILIRUBIN,TOTAL 0.4 MG/DL (0.2-1.0); BLOOD UREA NITROGEN 13 MG/DL (7-18); CALCIUM LEVEL 8.6 MG/DL (8.5-10.1); CARBON DIOXIDE LEVEL 24 MEQ/L (21-32); CHLORIDE LEVEL 102 MEQ/L (98-107); CREATININE FOR GFR 1.48 MG/DL (0.70-1.30); FERRITIN 428 NG/ML (26-388); GLOMERULAR FILTRATION RATE 55.5 (>60); GLUCOSE, FASTING 98 MG/DL (70-100); IRON (FE) 20 UG/DL (65-175); PERCENT SATURATION 7.1 % (19.7-50.0); POTASSIUM SERUM 4.5 MEQ/L (3.5-5.1); SODIUM LEVEL 134 MEQ/L (136-145); TOTAL IRON BINDING CAPACITY 281 UG/DL (250-450)
[2018-02-20 07:26] LABS: LACTIC ACID SEPSIS PROTOCOL 1.1 MMOL/L (0.4-2.0)
[2018-02-20] MEDS: CLOPIDOGREL 75 MG TAB PO (09:00)
[2018-02-20] MEDS: amLODIPine 5 MG TAB PO ×2 (09:19→16:11)
[2018-02-20] MEDS: APIXABAN 5 MG TAB (ELIQUIS) PO ×2 (09:19→20:12)
[2018-02-20] MEDS: OMEPRAZOLE 20 MG CAP PO (09:19)
[2018-02-20] MEDS: ROSUVASTATIN 10 MG TAB (CRESTOR) PO (09:19)
[2018-02-20] MEDS: DOCUSATE SODIUM 100 MG CAP PO ×3 (09:20→20:12)
[2018-02-20] MEDS: MIRALAX *UNIT DOSE* 17GM PACKET PO (09:20)
[2018-02-20] MEDS: traMADol 50 MG TAB PO ×3 (09:20→21:54)
[2018-02-20] MEDS: POTASSIUM CHLORIDE 10 MEQ SR TABLET PO (09:21)
[2018-02-20 10:39] LABS: C REACTIVE PROTEIN QUANTITATIV 2.43 MG/DL (0.00-0.30)
[2018-02-20 10:46] LABS: ERYTHROCYTE SEDIMENTATION RATE 74 mm/hr (0-15)
[2018-02-20 14:07] LABS: ESTIMATED AVERAGE GLUCOSE 88 MG/DL (60-110); HEMOGLOBIN A1c 4.7 %
[2018-02-20 14:30] LABS: CHOLESTEROL LEVEL 141 MG/DL (<200); GAMMA GLUTAMYLTRANSPEPTIDASE 365 U/L (15-85); HDL CHOLESTEROL 23 MG/DL (>40); LDL CHOLESTEROL 81 MG/DL (<100); NON-HDL-C 118 MG/DL; TRIGLYCERIDES LEVEL 186 MG/DL (<150)
[2018-02-20] MEDS: traZODone 50 MG TAB PO (20:12)
[2018-02-21 06:46] LABS: HEMOGLOBIN 8.7 g/dl (13.5-17.5); MEAN CORPUSCULAR HEMOGLOBIN 31.5 pg (27.0-33.0); MEAN CORPUSCULAR HGB CONC 33.5 g/dl (32.0-36.5); MEAN CORPUSCULAR VOLUME 94.2 fl (80.0-96.0); PLATELET COUNT, AUTOMATED 540 10^3/uL (150-450); RED BLOOD COUNT 2.76 10^6/uL (4.30-6.10); RED CELL DISTRIBUTION WIDTH 13.4 % (11.5-14.5); WHITE BLOOD COUNT 8.1 10^3/uL (4.0-10.0)
[2018-02-21 07:14] LABS: ALBUMIN 2.9 GM/DL (3.2-5.2); ALBUMIN/GLOBULIN RATIO 0.66 (1.00-1.93); ALKALINE PHOSPHATASE 243 U/L (45-117); ALT/SGPT 75 U/L (12-78); ANION GAP 8 MEQ/L (8-16); AST/SGOT 45 U/L (7-37); BILIRUBIN,TOTAL 0.4 MG/DL (0.2-1.0); BLOOD UREA NITROGEN 14 MG/DL (7-18); CALCIUM LEVEL 8.9 MG/DL (8.5-10.1); CARBON DIOXIDE LEVEL 25 MEQ/L (21-32); CHLORIDE LEVEL 100 MEQ/L (98-107); CREATININE FOR GFR 1.31 MG/DL (0.70-1.30); GLOMERULAR FILTRATION RATE > 60.0 (>60); GLUCOSE, FASTING 98 MG/DL (70-100); POTASSIUM SERUM 4.2 MEQ/L (3.5-5.1); SODIUM LEVEL 133 MEQ/L (136-145); TOTAL PROTEIN 7.3 GM/DL (6.4-8.2)
[2018-02-21] MEDS: CLOPIDOGREL 75 MG TAB PO (08:50)
[2018-02-21] MEDS: traMADol 50 MG TAB PO ×3 (08:50→20:43)
[2018-02-21] MEDS: amLODIPine 10 MG TAB PO (08:50)
[2018-02-21] MEDS: DOCUSATE SODIUM 100 MG CAP PO ×3 (08:50→20:42)
[2018-02-21] MEDS: MIRALAX *UNIT DOSE* 17GM PACKET PO (08:50)
[2018-02-21] MEDS: OMEPRAZOLE 20 MG CAP PO (08:50)
[2018-02-21] MEDS: APIXABAN 5 MG TAB (ELIQUIS) PO ×2 (08:51→20:43)
[2018-02-21] MEDS: POTASSIUM CHLORIDE 10 MEQ SR TABLET PO (08:51)
[2018-02-21] MEDS: traZODone 50 MG TAB PO (20:43)
[2018-02-22 07:16] LABS: HEMATOCRIT 26.8 % (42.0-52.0); HEMOGLOBIN 8.9 g/dl (13.5-17.5); MEAN CORPUSCULAR HEMOGLOBIN 31.3 pg (27.0-33.0); MEAN CORPUSCULAR HGB CONC 33.2 g/dl (32.0-36.5); MEAN CORPUSCULAR VOLUME 94.4 fl (80.0-96.0); PLATELET COUNT, AUTOMATED 533 10^3/uL (150-450); RED BLOOD COUNT 2.84 10^6/uL (4.30-6.10); RED CELL DISTRIBUTION WIDTH 13.2 % (11.5-14.5); WHITE BLOOD COUNT 7.4 10^3/uL (4.0-10.0)
[2018-02-22] MEDS: amLODIPine 10 MG TAB PO (07:35)
[2018-02-22] MEDS: traMADol 50 MG TAB PO ×2 (07:36→21:04)
[2018-02-22] MEDS: CLOPIDOGREL 75 MG TAB PO (07:36)
[2018-02-22] MEDS: POTASSIUM CHLORIDE 10 MEQ SR TABLET PO (07:36)
[2018-02-22] MEDS: OMEPRAZOLE 20 MG CAP PO (07:36)
[2018-02-22] MEDS: DOCUSATE SODIUM 100 MG CAP PO ×3 (07:36→21:03)
[2018-02-22] MEDS: MIRALAX *UNIT DOSE* 17GM PACKET PO (07:37)
[2018-02-22] MEDS: APIXABAN 5 MG TAB (ELIQUIS) PO ×2 (07:37→21:03)
[2018-02-22 07:41] LABS: ALBUMIN/GLOBULIN RATIO 0.67 (1.00-1.93); ALKALINE PHOSPHATASE 229 U/L (45-117); ALT/SGPT 66 U/L (12-78); ANION GAP 9 MEQ/L (8-16); AST/SGOT 38 U/L (7-37); BILIRUBIN,TOTAL 0.4 MG/DL (0.2-1.0); BLOOD UREA NITROGEN 16 MG/DL (7-18); CALCIUM LEVEL 8.9 MG/DL (8.5-10.1); CARBON DIOXIDE LEVEL 25 MEQ/L (21-32); CHLORIDE LEVEL 99 MEQ/L (98-107); CREATININE FOR GFR 1.27 MG/DL (0.70-1.30); GLOMERULAR FILTRATION RATE > 60.0 (>60); GLUCOSE, FASTING 100 MG/DL (70-100); POTASSIUM SERUM 4.1 MEQ/L (3.5-5.1); SODIUM LEVEL 133 MEQ/L (136-145); TOTAL PROTEIN 7.5 GM/DL (6.4-8.2)
[2018-02-22 10:05] LABS: FOLATE 5.2 NG/ML (>5.4)
[2018-02-22] MEDS: traZODone 50 MG TAB PO (21:03)
[2018-02-23] MEDS: traMADol 50 MG TAB PO ×2 (05:13→14:46)
[2018-02-23 06:59] LABS: HEMATOCRIT 27.4 % (42.0-52.0); HEMOGLOBIN 9.2 g/dl (13.5-17.5); MEAN CORPUSCULAR HEMOGLOBIN 31.8 pg (27.0-33.0); MEAN CORPUSCULAR HGB CONC 33.6 g/dl (32.0-36.5); MEAN CORPUSCULAR VOLUME 94.8 fl (80.0-96.0); PLATELET COUNT, AUTOMATED 529 10^3/uL (150-450); RED BLOOD COUNT 2.89 10^6/uL (4.30-6.10); RED CELL DISTRIBUTION WIDTH 13.1 % (11.5-14.5); WHITE BLOOD COUNT 8.2 10^3/uL (4.0-10.0)
[2018-02-23 07:31] LABS: ALBUMIN 2.9 GM/DL (3.2-5.2); ALBUMIN/GLOBULIN RATIO 0.66 (1.00-1.93); ALKALINE PHOSPHATASE 229 U/L (45-117); ALT/SGPT 56 U/L (12-78); ANION GAP 9 MEQ/L (8-16); AST/SGOT 26 U/L (7-37); BILIRUBIN,TOTAL 0.3 MG/DL (0.2-1.0); BLOOD UREA NITROGEN 19 MG/DL (7-18); CALCIUM LEVEL 8.9 MG/DL (8.5-10.1); CARBON DIOXIDE LEVEL 25 MEQ/L (21-32); CHLORIDE LEVEL 101 MEQ/L (98-107); CREATININE FOR GFR 1.32 MG/DL (0.70-1.30); GLOMERULAR FILTRATION RATE > 60.0 (>60); GLUCOSE, FASTING 96 MG/DL (70-100); SODIUM LEVEL 135 MEQ/L (136-145); TOTAL PROTEIN 7.3 GM/DL (6.4-8.2)
[2018-02-23] MEDS: OMEPRAZOLE 20 MG CAP PO (08:25)
[2018-02-23] MEDS: MIRALAX *UNIT DOSE* 17GM PACKET PO (08:25)
[2018-02-23] MEDS: POTASSIUM CHLORIDE 10 MEQ SR TABLET PO (08:25)
[2018-02-23] MEDS: CLOPIDOGREL 75 MG TAB PO (08:25)
[2018-02-23] MEDS: DOCUSATE SODIUM 100 MG CAP PO ×3 (08:25→20:29)
[2018-02-23] MEDS: amLODIPine 10 MG TAB PO (08:25)
[2018-02-23] MEDS: APIXABAN 5 MG TAB (ELIQUIS) PO ×2 (08:26→20:29)
[2018-02-23 14:13] LABS: CERULOPLASMIN 31.8 mg/dL (16.0-31.0)
[2018-02-23 14:13] LABS: ANTINUCLEAR ANTIBODIES DIRECT Negative (Negative)
[2018-02-23] MEDS: ROSUVASTATIN 10 MG TAB (CRESTOR) PO (14:46)
[2018-02-23] MEDS: traZODone 50 MG TAB PO (20:29)
[2018-02-24 06:48] LABS: HEMATOCRIT 26.8 % (42.0-52.0); MEAN CORPUSCULAR HEMOGLOBIN 31.1 pg (27.0-33.0); MEAN CORPUSCULAR HGB CONC 33.6 g/dl (32.0-36.5); MEAN CORPUSCULAR VOLUME 92.7 fl (80.0-96.0); PLATELET COUNT, AUTOMATED 552 10^3/uL (150-450); RED BLOOD COUNT 2.89 10^6/uL (4.30-6.10); RED CELL DISTRIBUTION WIDTH 13.1 % (11.5-14.5); WHITE BLOOD COUNT 8.6 10^3/uL (4.0-10.0)
[2018-02-24 07:12] LABS: ALBUMIN 3.1 GM/DL (3.2-5.2); ALBUMIN/GLOBULIN RATIO 0.79 (1.00-1.93); ALKALINE PHOSPHATASE 217 U/L (45-117); ALT/SGPT 56 U/L (12-78); ANION GAP 11 MEQ/L (8-16); AST/SGOT 30 U/L (7-37); BILIRUBIN,TOTAL 0.3 MG/DL (0.2-1.0); BLOOD UREA NITROGEN 19 MG/DL (7-18); CALCIUM LEVEL 9.2 MG/DL (8.5-10.1); CARBON DIOXIDE LEVEL 26 MEQ/L (21-32); CHLORIDE LEVEL 101 MEQ/L (98-107); CREATININE FOR GFR 1.28 MG/DL (0.70-1.30); GLOMERULAR FILTRATION RATE > 60.0 (>60); GLUCOSE, FASTING 102 MG/DL (70-100); POTASSIUM SERUM 4.2 MEQ/L (3.5-5.1); SODIUM LEVEL 138 MEQ/L (136-145)
[2018-02-24] MEDS: DOCUSATE SODIUM 100 MG CAP PO (08:34)
[2018-02-24] MEDS: ROSUVASTATIN 10 MG TAB (CRESTOR) PO (08:34)
[2018-02-24] MEDS: amLODIPine 10 MG TAB PO (08:35)
[2018-02-24] MEDS: CLOPIDOGREL 75 MG TAB PO (08:35)
[2018-02-24] MEDS: APIXABAN 5 MG TAB (ELIQUIS) PO (08:35)
[2018-02-24] MEDS: OMEPRAZOLE 20 MG CAP PO (08:35)
[2018-02-24] MEDS: POTASSIUM CHLORIDE 10 MEQ SR TABLET PO (08:35)
[2018-02-24] MEDS: traMADol 50 MG TAB PO (08:37)
[2018-02-24] MEDS: MIRALAX *UNIT DOSE* 17GM PACKET PO (08:38)
== END 2018-02-24 09:55 | disposition home or self-care (01) | DRG 862 ==
LOC: M PM&R 13:05
DX: S92.002D Unspecified fracture of left calcaneus, subsequent encounter for fracture with routine healing (principal); I10 Essential (primary) hypertension; S62.002D Unspecified fracture of navicular [scaphoid] bone of left wrist, subsequent encounter for fracture with routine healing; K21.9 Gastro-esophageal reflux disease without esophagitis; E78.5 Hyperlipidemia, unspecified; D50.0 Iron deficiency anemia secondary to blood loss (chronic); R94.5 Abnormal results of liver function studies; K92.1 Melena; R79.89 Other specified abnormal findings of blood chemistry; D63.8 Anemia in other chronic diseases classified elsewhere; R10.9 Unspecified abdominal pain; D72.829 Elevated white blood cell count, unspecified; E78.00 Pure hypercholesterolemia, unspecified; G47.00 Insomnia, unspecified; R53.81 Other malaise; Z95.9 Presence of cardiac and vascular implant and graft, unspecified; Z79.01 Long term (current) use of anticoagulants; Z79.02 Long term (current) use of antithrombotics/antiplatelets; Z79.899 Other long term (current) drug therapy; Z88.8 Allergy status to other drugs, medicaments and biological substances; W01.0XXD Fall on same level from slipping, tripping and stumbling without subsequent striking against object, subsequent encounter; Z86.73 Personal history of transient ischemic attack (TIA), and cerebral infarction without residual deficits; Z72.0 Tobacco use

== ENCOUNTER 2018-02-24 12:43 | Emergency (ER) | payer OTHER ==
[2018-02-24] MEDS: ACETAMINOPHEN TAB 650MG DOSE (2X325MG) PO (13:52)
[2018-02-24 14:32] LABS: INFLUENZA A AMPLIFICATION NEGATIVE (NEGATIVE); INFLUENZA B AMPLIFICATION NEGATIVE (NEGATIVE)
[2018-02-24 16:00] LABS: KETONE, URINE AUTO RFX NEGATIVE (NEGATIVE); LEUKOCYTE ESTERASE UR AUTO RFX NEGATIVE (NEGATIVE); NITRITE, URINE AUTO RFX NEGATIVE (NEGATIVE); RBC, URINE AUTO RFX 1 /HPF (0-3); SPECIFIC GRAVITY UR AUTO RFX 1.012 (1.002-1.035); SQUAM EPITHELIAL CELL UR AURFX 0 /HPF (0-6); WBC, URINE AUTO RFX 1 /HPF (0-3)
== END 2018-02-24 16:50 | disposition home or self-care (01) ==
LOC: M ED 12:43
DX: R50.9 Fever, unspecified (principal); R51 Headache; I10 Essential (primary) hypertension; K21.9 Gastro-esophageal reflux disease without esophagitis; Z95.828 Presence of other vascular implants and grafts
CPT/HCPCS: 74176

== ENCOUNTER → 2018-12-09 | Outpatient (REF) | payer OTHER ==
[~2018-12-09] MED LIST: ACET1TAB55 PO; AMLO10TA5 PO; AMLO5TAB6 PO; CLOP75TA2 PO; COLA100C5 PO; CRES10TA PO; DOCU100C16 PO; ELIQ5TAB PO; KLOR10TA76 PO; METH1TAB40 PO; OMEP10CASR PO; OMEP1CAP73 PO; OXYC1SOL3 PO; OXYCO5TA PO; PEG1POW PO; PERC5TAB12 PO; POTA20TA6 PO; TRAZ-252 PO; TRAZ1TAB10 PO
== END ==
LOC: M LABNEURO 10:09
PROVIDERS: ATTEND Physician Assistant Medical
DX: R56.9 Unspecified convulsions (principal)

== ENCOUNTER 2019-12-23 22:11 | Emergency (ER) | payer OTHER ==
[~2019-12-23] VITALS: Ht 177.8 cm; Wt 96.8 kg
[2019-12-23 22:11] VITALS: BP 141/100
[~2019-12-23 22:11] MED LIST changes: -AMLO10TA5 PO; +AMLO1TAB24 PO; +AMLO1TAB25 PO; -AMLO5TAB6 PO
[2019-12-23] MEDS ORDERED: LANS15CA PO (22:18)
[2019-12-23] MEDS ORDERED: KEPP10002 PO (22:26)
[2019-12-23] MEDS ORDERED: LISI-538 PO (22:26)
[2019-12-23] MEDS ORDERED: KEPP1TAB PO (22:26)
[2019-12-23] MEDS ORDERED: NS 1,000 ML IV ONE (22:45)
[2019-12-23] MEDS ORDERED: METOCLOPRAMIDE INJ 10MG/2ML VIAL (J2765 PER 1) IV ONE (22:45)
[2019-12-23] MEDS ORDERED: GASTROGRAFIN SOLUTION 30ML (Q9963) As Ordered ONE (23:00)
--- NOTE | 2019-12-23 23:13 | REPVR ---
PROCEDURE INFORMATION: Exam: CT Head Without Contrast Exam date and time: 12/23/2019 10:56 PM Age: 44 years old Clinical indication: Pain; Headache; Additional info: HTN, headache TECHNIQUE: Imaging protocol: Computed tomography of the head without contrast. Radiation optimization: All CT scans at this facility use at least one of these dose optimization techniques: automated exposure control; mA and/or kV adjustment per patient size (includes targeted exams where dose is matched to clinical indication); or iterative reconstruction. COMPARISON: No relevant prior studies available. FINDINGS: Brain: Chronic right temporal lobe infarct. Small chronic infarct at the right lentiform nucleus. Small chronic right cerebellar infarct. No acute intracranial hemorrhage or midline shift. Small calcification at the right centrum semiovale, likely dystrophic. Ventricles: No hydrocephalus. Bones/joints: Unremarkable. No acute fracture. Sinuses: Mild paranasal sinus disease. Mastoid air cells: Visualized mastoid air cells are well aerated. Soft tissues: Unremarkable. IMPRESSION: No acute intracranial abnormality. Electronically signed by: Indra Briones On 12/23/2019 23:12:56 PM
[2019-12-23] MEDS: GASTROGRAFIN SOLUTION 30ML PO SCH ×2 (23:18→23:50)
[2019-12-23 23:25] LABS: BASO # 0.1 10^3/uL (0.0-0.2); BASO % 1.1 % (0.0-1.0); EOS # 0.3 10^3/uL (0.0-0.5); HEMATOCRIT 43.7 % (42.0-52.0); HEMOGLOBIN 14.9 g/dl (13.5-17.5); LYMPH # 3.5 10^3/uL (1.5-5.0); LYMPH % 41.9 % (24.0-44.0); MEAN CORPUSCULAR HEMOGLOBIN 32.1 pg (27.0-33.0); MEAN CORPUSCULAR HGB CONC 34.1 g/dl (32.0-36.5); MEAN CORPUSCULAR VOLUME 94.2 fl (80.0-96.0); MONO % 11.6 % (0.0-5.0); NEUTROPHILS # 3.5 10^3/uL (1.5-8.5); NEUTROPHILS % 42.2 % (36.0-66.0); PLATELET COUNT, AUTOMATED 293 10^3/uL (150-450); RED BLOOD COUNT 4.64 10^6/uL (4.30-6.10); WHITE BLOOD COUNT 8.4 10^3/uL (4.0-10.0)
[2019-12-23] MEDS ORDERED: ISOVUE-370 76% 100ML VIAL As Ordered ONE (23:36)
[2019-12-23 23:53] LABS: ALBUMIN 3.5 GM/DL (3.2-5.2); ALT/SGPT 39 U/L (12-78); BILIRUBIN,DIRECT 0.1 MG/DL (0.0-0.2); BILIRUBIN,TOTAL 0.2 MG/DL (0.2-1.0); BLOOD UREA NITROGEN 13 MG/DL (7-18); CARBON DIOXIDE LEVEL 25 MEQ/L (21-32); CHLORIDE LEVEL 106 MEQ/L (98-107); CREATININE FOR GFR 1.27 MG/DL (0.70-1.30); GLOMERULAR FILTRATION RATE > 60.0 (>60); GLUCOSE, FASTING 98 MG/DL (70-100); LIPASE 234 U/L (73-393); POTASSIUM SERUM 4.1 MEQ/L (3.5-5.1); SODIUM LEVEL 138 MEQ/L (136-145); TOTAL PROTEIN 6.8 GM/DL (6.4-8.2)
[2019-12-24] MEDS ORDERED: ACETAMINOPHEN TAB 650MG DOSE (2X325MG) PO ONE
--- NOTE | 2019-12-24 00:37 | REPVR ---
PROCEDURE INFORMATION: Exam: CT Abdomen And Pelvis With Contrast Exam date and time: 12/23/2019 10:39 PM Age: 44 years old Clinical indication: Abdominal pain; Generalized; Additional info: Gen abd pain TECHNIQUE: Imaging protocol: Computed tomography of the abdomen and pelvis with intravenous contrast. Radiation optimization: All CT scans at this facility use at least one of these dose optimization techniques: automated exposure control; mA and/or kV adjustment per patient size (includes targeted exams where dose is matched to clinical indication); or iterative reconstruction. Contrast material: ISO; Contrast volume: 100 ml; Contrast route: INTRAVENOUS (IV); COMPARISON: CT ABD PELVIS W/O CONTRAST 02/24/2018 1:48 PM FINDINGS: Liver: Normal. No mass. Gallbladder and bile ducts: Normal. No calcified stones. No ductal dilation. Pancreas: Normal. No ductal dilation. Spleen: Normal. No splenomegaly. Adrenals: Normal. No mass. Kidneys and ureters: There is cortical scarring involving both kidneys. Stomach and bowel: Diverticulosis without diverticulitis. Regions of colonic thickening likely secondary to under distention. Appendix: Normal appendix. Intraperitoneal space: Unremarkable. No free air. No significant fluid collection. Vasculature: There has been previous stenting of the proximal SMA. Stent appears occluded. There is reconstitution of the SMA distal to the stent. Vascular calcification. Lymph nodes: Unremarkable. No enlarged lymph nodes. Bladder: Unremarkable as visualized. Reproductive: Unremarkable as visualized. Bones/joints: Unremarkable. No acute fracture. Soft tissues: Unremarkable. IMPRESSION: 1. No acute inflammatory process. 2. Stent at the proximal aspect of the SMA is occluded. SMA is reconstituted distal to the stent. Electronically signed by: Indra Briones On 12/24/2019 00:37:12 AM
--- NOTE | 2019-12-24 06:49 | ED PDOC ---
Post-Departure Follow-Up dr marquez and khalida sanches faxed formal report of ct abd/p for fu Chris Snider MD Dec 24, 2019 06:49
== END 2019-12-24 01:48 | disposition home or self-care (01) ==
LOC: M ED 22:11
DX: R51 Headache (principal); R10.9 Unspecified abdominal pain; I10 Essential (primary) hypertension; K21.9 Gastro-esophageal reflux disease without esophagitis; I65.29 Occlusion and stenosis of unspecified carotid artery; G12.9 Spinal muscular atrophy, unspecified; Z86.73 Personal history of transient ischemic attack (TIA), and cerebral infarction without residual deficits; Z90.49 Acquired absence of other specified parts of digestive tract; F17.200 Nicotine dependence, unspecified, uncomplicated; Z79.01 Long term (current) use of anticoagulants; Z79.899 Other long term (current) drug therapy; Z88.8 Allergy status to other drugs, medicaments and biological substances
CPT/HCPCS: 70450; 74177; 80048; 80076; 81001; 83605; 83690; 85025; 93041; 96361; 96374; 99284; J2765; Q9967

== ENCOUNTER → 2020-01-23 | Outpatient (CLI) | payer OTHER ==
[~2020-01-23] MED LIST changes: +KEPP10002 PO; +KEPP1TAB PO; +LANS15CA PO; +LISI-538 PO
--- NOTE | 2020-01-30 15:05 | REP ---
MESENTERIC ARTERIAL ULTRASOUND HISTORY: Superior mesenteric artery (SMA) stent. FINDINGS: The supraceliac aortic peak systolic flow velocity is recorded at 73.3 cm/s. The proximal SMA stent is occluded. At mid SMA beyond the stent, a peak systolic flow velocity is recorded in the SMA of 159.6 cm/s. Celiac axis peak systolic velocity (PSV) is 288.4 cm/s. 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 MTDD
== END ==
LOC: M RAD 07:11
PROVIDERS: ATTEND Surgery
DX: K55.069 Acute infarction of intestine, part and extent unspecified (principal)

== ENCOUNTER 2020-04-23 23:27 | Emergency (ER) | payer OTHER ==
[~2020-04-23] VITALS: Ht 177.8 cm; Wt 101.2 kg
[~2020-04-23 23:27] MED LIST changes: -LISI-538 PO; +LISI20TA33 PO; +METH-1164 PO; -METH1TAB40 PO
[2020-04-23 23:29] VITALS: BP 117/80
[2020-04-23] MEDS ORDERED: LISI30TA4 (23:41)
[2020-04-23] MEDS ORDERED: PROP10TA56 (23:41)
[2020-04-24] MEDS ORDERED: NS 1,000 ML IV ONE (00:30)
[2020-04-24] MEDS ORDERED: METOCLOPRAMIDE INJ 10MG/2ML VIAL (J2765 PER 1) IV ONE (00:30)
[2020-04-24] MEDS ORDERED: MORPHINE 4 MG/ML 1ML VIAL/SYRINGE (J2270) IV ONE (00:45)
[2020-04-24 00:56] LABS: BASO # 0.1 10^3/uL (0.0-0.2); BASO % 0.6 % (0.0-1.0); EOS # 0.4 10^3/uL (0.0-0.5); EOS % 3.9 % (0.0-3.0); HEMATOCRIT 44.8 % (42.0-52.0); HEMOGLOBIN 14.5 g/dl (13.5-17.5); LYMPH # 3.4 10^3/uL (1.5-5.0); LYMPH % 36.5 % (24.0-44.0); MEAN CORPUSCULAR HEMOGLOBIN 30.6 pg (27.0-33.0); MEAN CORPUSCULAR HGB CONC 32.4 g/dl (32.0-36.5); MEAN CORPUSCULAR VOLUME 94.5 fl (80.0-96.0); MONO # 1.1 10^3/uL (0.0-0.8); MONO % 11.8 % (0.0-5.0); NEUTROPHILS # 4.4 10^3/uL (1.5-8.5); PLATELET COUNT, AUTOMATED 257 10^3/uL (150-450); RED BLOOD COUNT 4.74 10^6/uL (4.30-6.10); WHITE BLOOD COUNT 9.4 10^3/uL (4.0-10.0)
[2020-04-24 01:07] LABS: INR 1.01; PROTHROMBIN TIME 13.5 SECONDS (12.5-14.3)
[2020-04-24 01:08] LABS: PARTIAL THROMBOPLASTIN TIME 29.2 SECONDS (24.2-38.5)
[2020-04-24 01:31] LABS: ALBUMIN 3.7 GM/DL (3.2-5.2); ALT/SGPT 34 U/L (12-78); BILIRUBIN,DIRECT 0.1 MG/DL (0.0-0.2); BILIRUBIN,TOTAL 0.2 MG/DL (0.2-1.0); BLOOD UREA NITROGEN 14 MG/DL (7-18); CALCIUM LEVEL 9.3 MG/DL (8.5-10.1); CARBON DIOXIDE LEVEL 27 MEQ/L (21-32); CHLORIDE LEVEL 108 MEQ/L (98-107); CREATININE FOR GFR 1.29 MG/DL (0.70-1.30); GLOMERULAR FILTRATION RATE > 60.0 (>60); GLUCOSE, FASTING 96 MG/DL (70-100); LIPASE 201 U/L (73-393); SODIUM LEVEL 139 MEQ/L (136-145); TOTAL PROTEIN 7.1 GM/DL (6.4-8.2)
[2020-04-24] MEDS ORDERED: ISOVUE-370 76% 100ML VIAL As Ordered ONE (01:31)
--- NOTE | 2020-04-24 02:17 | REPVR ---
PROCEDURE INFORMATION: Exam: CT Abdomen And Pelvis With Contrast Exam date and time: 04/24/2020 12:30 AM Age: 44 years old Clinical indication: Abdominal pain; Localized; Right; Additional info: R sided abd pain x 2 days, HX occluded stent for similar TECHNIQUE: Imaging protocol: Computed tomography of the abdomen and pelvis with intravenous contrast. Radiation optimization: All CT scans at this facility use at least one of these dose optimization techniques: automated exposure control; mA and/or kV adjustment per patient size (includes targeted exams where dose is matched to clinical indication); or iterative reconstruction. Contrast material: ISO; Contrast volume: 100 ml; Contrast route: INTRAVENOUS (IV); COMPARISON: CT ABD/PEL W/IV ORAL CONTRAS 12/24/2019 12:05 AM FINDINGS: Lungs: No suspicious mass or airspace process in the visualized lung bases. Liver: Liver appears normal with no focal abnormality. Gallbladder and bile ducts: Gallbladder is present and shows no evidence of gallstone. Pancreas: Pancreas appears normal. No focal mass or peripancreatic inflammation. Spleen: Spleen appears homogeneous without focal mass. Adrenal glands: Adrenal glands are normal in appearance. Kidneys and ureters: Kidneys are unremarkable aside from areas of lobular scarring. Stomach and bowel: No evidence of small bowel obstruction. Terminal ileum has normal appearance. No evidence of acute diverticulitis. Appendix: Normal caliber appendix is identified, with no adjacent inflammation. Intraperitoneal space: No pneumoperitoneum. Focal right lower abdomen omental infarct anterior to the ascending colon, axial image [id number] and coronal image [id number] . Vasculature: No aortic aneurysm. SMA stent is present with partial opacification through the stent and normal opacification distal to the stent. Unchanged appearance. Main portal and splenic veins enhance normally. Lymph nodes: . No enlarged lymph nodes. Urinary bladder: Urinary bladder appears normal. Reproductive: No overt enlargement of the prostate gland. Bones/joints: Bony structures show no acute fracture or destructive process. IMPRESSION: 1. Findings are suggestive of a small omental infarct in the right lower quadrant anterior to the cecum. This is generally a self-limited but painful entity. The adjacent bowel is unremarkable. 2. SMA stent with unchanged appearance since the prior CT with limited enhancement through the stent but normal enhancement distal to the stent. Electronically signed by: Angelo Brown On 04/24/2020 02:17:48 AM
--- OUTSIDE RECORDS SUMMARY | 2020-05-21 09:58 | CCD | Continuity of Care Document ---
Author Author Ramakrishna ALEGRE P.A.-C. Organization Unknown Address [address] [place] [id number] Phone [phone] Care Team Providers Care X Ray Technologist Name Role Phone Batool Aguilar D.O. AUTM [phone] Problems Active Problems Provider Date Headache Orly Turcios M.D. Onset: 06/25/2016 Paresthesia Orly Turcios M.D. Onset: 07/08/2018 Altered mental status Orly Turcios M.D. Onset: 07/08/2018 Aphasia Orly Turcios M.D. Onset: 07/08/2018 Social History Type Date Description Comments Sex Unknown Tobacco Use Start: Unknown Patient is a current smoker, smo kes every day Allergies, Adverse Reactions, Alerts Active Allergies Reaction Severity Comments Date Statins 06/25/2016 Lexapro headache, mental fogginess 0 10/25/2019 Amitriptyline 01/27/2020 Medications Active Medications SIG Qnty Indications Ordering Provide r Date Aimovig 70mg/ml Solution Auto-Inje ct inject 70mg subcutaneously once monthly 1ml Orly zamora M.D. 04/06/2020 Levetiracetam 500mg Tablets Take One Tablet By Mouth Every Morning And 2 AT Bedtime Maximum Daily Dose = 3 270tabs Orly Turcios M.D. 01/30/2020 Propranolol HCL 10mg Tablets Take One Tablet By Mouth AT Bedtime Maximum Daily Dose = 1 30tabs G43.009 Orly Turcios M.D. 01/25/2020 Medrol 4mg TBPK take d osepak as directed 1pack R51 Orly Turcios M.D. 08/10/2019 Plavix 75mg Tablets 1 by mouth every day Unknown Eliquis 5mg Tablets Unknown Immunizations Description No Information Available Vital Signs Date Vital Result Comment 01/25/2020 4:45am BP Systolic 130 mmHg BP Diastolic 80 mmHg Heart Rate 80 /min Respiratory Rate 16 /min 04/18/2019 7:51am BP Systolic 110 mmHg BP Diastolic 80 mmHg Heart Rate 76 /min Respiratory Rate 16 /min Results Description No Information Available Procedures Description No Information Available Medical Devices Description No Information Available Encounters Type Date Location Provider Dx Diagnosis Office Visit 04/24/2020 12:00p Main office - [place] Magalis rosenberg P.A.-C. G43.719 Chronic migraine w/o aura, intractable, w/o stat migr I63.89 Other cerebral infarction G40.89 Other seizures Office Visit 04/02/2020 8:30a Main office - [place] Magalis rosenberg P.A.-C. G43.719 Chronic migraine w/o aura, intractable, w/o stat migr G40.89 Other seizures I63.89 Other cerebral infarction F51.02 Adjustment insomnia G56.03 Carpal tunnel syndrome, bila teral upper limbs Office Visit 01/25/2020 8:45a Main office - [place] Magalis rosenberg P.A.-C. I63.89 Other cerebral infarction G40.89 Other seizures G43.009 Migraine w/o aura, not intra ctable, w/o status migrainosus G56.03 Carpal tunnel syndrome, bila teral upper limbs F51.02 Adjustment insomnia Assessments Date Code Description Provider 04/24/2020 G43.719 Chronic migraine wit hout aura, intractable, without status migrainosus Magalis Alegre P.A.-C. 04/24/2020 I63.89 Other cerebral infarction Magalis Alegre P.A.-C. 04/24/2020 G40.89 Other seizures Magalis Alegre P.A.-C. 04/02/2020 G43.719 Chronic migraine wit hout aura, intractable, without status migrainosus Magalis Alegre P.A.-C. 04/02/2020 G40.89 Other seizures Magalis Alegre P.A.-C. 04/02/2020 I63.89 Other cerebral infarction Raymundo Chen.A.-C. 04/02/2020 F51.02 Adjustment insomnia Raymundo Hankins.A.-C. 04/02/2020 G56.03 Carpal tunnel syndrome, bilatera l upper limbs Magalis Alegre P.A.-C. 01/25/2020 I63.89 Other cerebral infarction Magalis Alegre P.A.-C. 01/25/2020 G40.89 Other seizures Magalis Alegre P.A.-C. 01/25/2020 G43.009 Migraine without aur a, not intractable, without status migrainosus Raymundo Emanuel.A.-C. 01/25/2020 G56.03 Carpal tunnel syndrome, bilatera l upper limbs Magalis Alegre P.A.-C. 01/25/2020 F51.02 Adjustment insomnia Raymundo Hankins.A.-C. Plan of Treatment 04/24/2020 - Raymundo Emanuel.A.-C.* G43.719 Chronic migraine without aura, intractable, without status migrainosus* Comments:* I will speak to the staff about his Aimovig authorization. 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 Lot # [id number] with exp date of 05/10. Add Medrol dosepak to break this headache cycle. He will check with his PCP regarding Medrol due to his recent diagnosis of blood clotting disorder. * I63.89 Other cerebral infarction* Comments:* He has resumed Eliquis and Plavix. Follow up with hematology. * G40.89 Other seizures* Comments:* Continue Keppra. * Follow up:* 1 month Functional Status Description No Information Available Mental Status Description No Information Available Referrals Description No Information Available
--- OUTSIDE RECORDS SUMMARY | 2020-05-21 09:58 | CCD | Summary of Care ---
Author Author [facility] Organization [facility] Address Unknown Phone Unavailable Care Team Providers Care Staff Training And Development Manager Name Role Phone Batool Aguilar DO PCP Reason for Visit * Reason Comments New Patient * Consultation (Routine) Referred By Contact Referred To Contact Status Reason Specialty Diagnoses / Procedures Nate Arshad MD [address] [facility] 4th Floor [address] [place] [id number] Email: [email or web address] Oncology-[facility] [address] [place] [address] Open Specialty Services Hematology and Diagnoses Required Oncology Superior mesenteric artery thrombosis Encounter Details Care Team Description Date Type Department Yoshi Patten, [facility] [address] [facility] 4th Floor, [address] [place] [id number] [phone] Kaila Barr MD [address] [place] [address] [phone] Hypercoagulable state (Primary Dx) 04/30/2020 Office Visit Hematology Oncology [address] [place] [address] Allergies Comments Active Allergy Reactions Severity Noted Date Amitriptyline Nausea Only Medium 07/13/2012 Venlafaxine Hydrochloride Nausea Only Medium 06/19 Cramps, muscle weakness Atorvastatin Calcium Other (See Medium 3 Comments) Cramp, muscle weakness Statins Other (See Medium 05/27/2014 Comments) documented as of this encounter (statuses as of 05/08/2020) Medications End Date Status Medication Sig Dispensed Refills Start Date Active rosuvastatin (CRESTOR) 10 Take 1 tablet 0 01/20 MG tablet by mouth 8 daily Additional Information Patient taking differently: 10 mg Oral Nightly, Reported on 03/03/2018 2:36 PM Active amlodipine (NORVASC) 5 MG Take 1 tablet 30 tablet 11 tablet by mouth 8 daily Additional Information Patient taking differently: 5 mg Oral Every morning, Reported on 03/03/2018 2:36 PM Active apixaban (ELIQUIS) 5 MG Take 1 tablet 60 tablet 0 tablet by mouth Two 8 Times Daily Active levETIRAcetam (KEPPRA) Take 500 mg 5 01 500 MG tablet by mouth 9 nightly Active lisinopril Take 20 mg by 6 (PRINIVIL,ZESTRIL) 20 MG mouth daily 9 tablet Active levETIRAcetam 500 MG Oral Take 1,000 mg 0 Tablet (KEPPRA) by mouth Two Times Daily 1000 qam, 500 qhs 01/18/2020 Active Clopidogrel Bisulfate 75 Take 75 mg by 0 MG Oral Tablet (PLAVIX) mouth daily Active Lansoprazole 15 MG Oral Take 15 mg by 0 Capsule Delayed Release mouth daily 0 (PREVACID) Active Propranolol HCl 10 MG Take 10 mg by 0 Oral Tablet (INDERAL) mouth every evening Active Aimovig 70 MG/ML Inject 70 mg 0 Subcutaneous Solution into the skin Auto-injector every 30 (erenumab-aooe) (thirty) days 05/07/2021 Active Folic Acid 1 MG Oral Take 1 tablet 60 tablet 11 Tablet by mouth Two 1 (FOLVITE)Indications: Times Daily Hypercoagulable state documented as of this encounter (statuses as of 05/08/2020) Active Problems Problem Noted Date Acute ischemic stroke 04/14/2020 Anal fissure 12/08/2019 Colon polyp 12/08/2019 Bilateral carpal tunnel syndrome 04/27/2019 Mesenteric artery insufficiency 03/03/2019 Migraine without aura 03/03/2019 Overview: Has frequent migraine headaches Occlusion of superior mesenteric artery 03/02/2019 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 of brachial artery 03/05/2018 Pain and swelling of upper extremity, right 03/02/20 18 Overview: Added automatically from request for jones rgery [id number] Pseudoaneurysm of brachial artery following procedure 03/02/2018 Overview: Added automatically from request for jones rgery [id number] Superior mesenteric artery thrombosis 02/06/2018 Renal infarct 06/10/2017 Abscess of abdominal cavity 05/10/2015 Partial small bowel obstruction 05/10/2015 Small bowel stricture 04/27/2015 Leukocytosis 03/27/2015 Ileus, postoperative 03/13/2015 Superior mesenteric artery (trunk) injury 03/06/2015 Mixed hyperlipidemia 03/05/2015 Overview: Continue statin Gastroesophageal reflux disease without esophagitis 03/05/2015 Overview: Protonix IV BID Epigastric pain 03/04/2015 Essential hypertension 03/04/2015 Overview: Continue Lisinopril History of CVA (cerebrovascular accident) 03/04/2015 documented as of this encounter (statuses as of 05/08/2020) Resolved Problems Problem Noted Date Resolved Date Occlusion of stent of peripheral artery 03/02/2019 03/03/2019 documented as of this encounter (statuses as of 05/08/2020) Immunizations Name Administration Dates Next Due Influenza Quad IM with 05/10/2015 Pres (0.5 mL dose) documented as of this encounter Social History Date Tobacco Use Types Packs/Day Years Used Quit: 02/2019 Current Every Day Smoker Cigarettes, 0.25 15 Cigars Smokeless Tobacco: Never Used Comments: cigars 1-2 daily 01/18/2020 Drinks/Week oz/Week Comments Alcohol Use 0 Glasses of wine 0 Cans of beer 0 Shots of liquor 0 Standard drinks or equivalent 0.0 3-4 beers yearly Not Currently Sex Assigned at Date Recorded Not on file Date Recorded COVID-19 Exposure Response 04/30/2020 11:00 AM EST In the last month, have you been in contact with No / Unsure someone who was confirmed or suspected to have Coronavirus / COVID-19? documented as of this encounter Last Filed Vital Signs Reading Time Taken Comments Vital Sign 105/75 04/30/2020 11:21 AM EST Blood Pressure 89 04/30/2020 11:21 AM EST Pulse 36.7 C (98 F) 04/30/2020 11:21 AM EST Temperature 14 04/30/2020 11:21 AM EST Respiratory Rate 98% 04/30/2020 11:21 AM EST ra Oxygen Saturation - - Inhaled Oxygen Concentration 103.1 kg (227 lb 6.4 oz) 04/30/2020 11:21 AM EST Weight 177.8 cm (5' 10") 04/30/2020 11:21 AM EST Height 32.63 04/30/2020 11:21 AM EST Body Mass Index documented in this encounter Progress Notes * Kaila Barr MD - 04/30/2020 11:00 AM EST I saw and evaluated the patient with the resident. I discussed findings and mounika n and I agree with documentation by the resident. Labwork shows elevated homocy steine and factor VIII levels, both contribute to thrombophilia. Will prescribe d folic acid 1 mg po bid; continue lifelong anticoagulation. Can check MTHFR mu tation to see if there is a hereditary component. Office Visit on 04/30/2020 Component Date Value Ref Range Status Homocysteine 04/30/2020 37.8* <15.0 umol/L Final Hemolyzed White Blood Cell 04/30/2020 10.9* 4 - 10 10*3/uL Final Red Blood Cell 04/30/2020 5.05 4.6 - 6.1 10*6/uL Final Hemoglobin 04/30/2020 16.2 13.5 - 18 g/dL Final Hematocrit 04/30/2020 48.0 41 - 53 % Final Mean Cell Volume 04/30/2020 95.0 80 - 96 fL Final Mean Cell Hemoglobin 04/30/2020 32.0 27 - 33 pg Final Mean Cell Hgb Conc 04/30/2020 33.7 32.0 - 36.0 g/dL Final Red Cell Dist Width 04/30/2020 13.4 11.5 - 14.5 % Final Platelet Count 04/30/2020 328 150 - 400 10*3/uL Final Differential Type 04/30/2020 Automated Diff Final Neutrophil 04/30/2020 63 % Final Lymphocyte 04/30/2020 24 % Final Monocyte 04/30/2020 9 % Final Eosinophil 04/30/2020 3 % Final Basophil 04/30/2020 1 % Final Abs Neutrophil 04/30/2020 6.84 1.8 - 7.0 10*3/uL Final Abs Lymphocyte 04/30/2020 2.63 1.2 - 4.0 10*3/uL Final Abs Monocyte 04/30/2020 0.95* 0 - 0.8 10*3/uL Final Abs Eosinophil 04/30/2020 0.36 0 - 0.5 10*3/uL Final Abs Basophil 04/30/2020 0.11 0 - 0.2 10*3/uL Final Nucleated Red Blood Cells 04/30/2020 0 0 - 0 /100 Final Albumin 04/30/2020 4.7 3.5 - 5.2 g/dL Final Bilirubin, Total 04/30/2020 0.4 <1.2 mg/dL Final Calcium 04/30/2020 9.5 8.6 - 10.0 mg/dL Final Chloride 04/30/2020 103 98 - 107 mmol/L Final Creatinine 04/30/2020 1.37* 0.70 - 1.20 mg/dL Final Glucose 04/30/2020 96 70 - 140 mg/dL Final Alkaline Phosphatase 04/30/2020 91 40 - 129 U/L Final Potassium 04/30/2020 4.5 3.4 - 5.1 mmol/L Final Total Protein 04/30/2020 7.7 6.4 - 8.3 g/dL Final Sodium 04/30/2020 138 136 - 145 mmol/L Final AST/SGO 04/30/2020 13 <40 U/L Final Blood Urea Nitrogen 04/30/2020 15 6 - 20 mg/dL Final Osmolality, Eric 04/30/2020 287 275 - 300 mosm/kg Final BUN/Cre Ratio 04/30/2020 11 Final Bicarbonate 04/30/2020 25 22 - 29 mmol/L Final ALT/SGP 04/30/2020 18 <41 U/L Final Anion Gap 04/30/2020 10 8 - 15 mmol/L Final GFR Non 2008 CDK-* 04/30/2020 61 >60 mL/min/1.73m2 Final GFR 2008 CKD-EPI 04/30/2020 71 >60 mL/min/1.73m2 Final PT Patient 04/30/2020 13.8 12.5 - 14.9 s Final Int'l Normalized Ratio 04/30/2020 1.05 Final Routine intensity oral anticoagulation INR is typically 2.0-3.0. Target INR mus t be clinically individualized. PTT 04/30/2020 28.0 24.0 - 33.0 s Final PTT 1:1 Mix Immediate 04/30/2020 Not Indicated s Final PTT 1:1 Mix Incubated 04/30/2020 Not Indicated s Final PTT Mix Interpretation 04/30/2020 Mixing studies not performed if PTT<38 seconds Final dRVV Ratio 04/30/2020 1.09 <1.20 Ratio Final Hex Phase Phospho Neut 04/30/2020 3.7 <8.0 sec Final Cardiolipin IgM Ab 04/30/2020 9.8 <20.0 U/mL Final Negative results do not rule out Antiphospholipid syndrome. Additional APL test ing should be considered. Cardiolipin IgG Ab 04/30/2020 <2.6 <20.0 U/mL Final Negative results do not rule out Antiphospholipid syndrome. Additional APL test ing should be considered. B2 Glycoprotein IgM 04/30/2020 3.3 <20.0 U/mL Final Negative results do not rule out Antiphospholipid syndrome. Other APL testing s hould be considered. B2 Glycoprotein IgG 04/30/2020 <6.4 <20.0 U/mL Final Negative results do not rule out Antiphospholipid syndrome. Other APL testing s hould be considered. Factor VIII Activity 04/30/2020 292* 50 - 150 U/dL Final ] * Hernandez Cummings MD - 04/30/2020 11:00 AM EST ID: Ramakrishna Miller is a 44 y.o. male No chief complaint on file. PCP: Batool Aguilar DO Reason for current visit: New patient visit Diagnosis: Concern for hypercoagulable state Current Treatment: Eliquis Performance Status: 1- Restricted in physically strenuous activity but ambulator y and able to carry out work of a light or sedentary nature, e.g., light house w ork, office work HISTORY OF PRESENT ILLNESS Mr. Ramakrishna Miller is a 44 y.o. 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 In regards to patient's history, he was initially diagnosed with a CVA in 2006 a nd was on ASA+Plavis. Subsequently, years later, he was noted to have a SMA diss ection that was being medically managed. In 05/2017, he was noted to have a right kidney infarct and was placed on Coumadin. Then in January 2018, patient fractu res his foot, underwent elective ORIF, but was then diagnosed with acute SMA thr ombosis and underwent stent placement at [facility]. He was started on Eliquis and continued on Plavix. In 02/2019, patient had abdominal pain and imaging showed o cclusion of SMA, but patient celiac and retrograde/collateral filling of SMA dis jose alfredo branches as well as HIDA showing acute cholecystitis managed with cholecysto stomy catheter. Due to his complex history, vascular intervention was not recomm ended. Patient mentions a family history of grandfather had stomach cancer (25 years ag o), maternal uncle of a colon cancer, father from a heart attac k thought to be secondary to [employer]. 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 Social drinker (2 beers/month). Lives at home with his kids (3) and fianc e. PAST MEDICAL / SURGICAL / SOCIAL / FAMILY HISTORY (including ADR & MEDs) PAST MEDICAL HISTORY: Past Medical History: Diagnosis Date Blood clotting disorder Unknown diagnosis per patient Carpal tunnel syndrome Clotting disorder blood clot with Stroke 11 yrs ago and recent clott 01/2018. 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 10/20/2018 Renal infarct 06/10/2017 Seizures 11/2018 "6 Months ago, well controlled with medications" Does not lose conciousness Small bowel stricture 04/27/2015 Stroke 2007 No deficits PAST SURGICAL HISTORY: Past Surgical History: Procedure Laterality Date ABDOMINAL SURGERY ANKLE FRACTURE SURGERY CARPAL TUNNEL RELEASE Right COLON SURGERY EXPLORATORY LAPAROTOMY N/A 03/09/2015 Procedure: EXPLORATORY LAPAROTOMY; Surgeon: Adrian Garner MD; Location: OR 5E; Service: General; Laterality: N/A; EXPLORATORY LAPAROTOMY N/A 05/10/2015 Procedure: EXPLORATORY LAPAROTOMY WITH RESECTION FO SMALL BOWEL STRICTURE, SMAL L BOWEL RESTECTION X1, AND LYSIS OF ADHESIONS PER DR. SÁNCHEZ; Surgeon: Farhad Sánchez MD; Location: OR 5E; Service: General; Laterality: N/A; FOOT SURGERY FRACTURE SURGERY Left heel HUMERUS FRACTURE SURGERY INTESTINAL BYPASS MN EGD TRANSORAL BIOPSY SINGLE/MULTIPLE N/A 04/18/2015 Procedure: UPPER GI ENDOSCOPY W/BX, SINGLE/MULTIPLE; Surgeon: Segundo Almonte MD; Location: OR ENDO; Service: Endoscopy; Laterality: N/A; MN ENDOSCOPY UPPER SMALL INTESTINE N/A 04/18/2015 Procedure: SMALL INTESTINAL ENDO/ENTEROSCOPY, > 2ND PORTION DUODENUM, NOT W/ILEUM DX W/WO SPECIMEN (SEP PROC); Surgeon: Segundo Almonte MD; Location: OR ENDO; Service: Endoscopy; Laterality: N/A; MN ENDOSCOPY UPPER SMALL INTESTINE W/BIOPSY N/A 03/06/2015 Procedure: SMALL INTESTINAL ENDO/ENTEROSCOPY, > 2ND PORTION DUODENUM, NOT W/ILEUM W/BX, SINGLE/MULTIPLE; Surgeon: Segundo Almonte MD; Location: OR ENDO; Service: Endoscopy; Laterality: N/A; MN ESOPHAGOGASTRODUODENOSCOPY SUBMUCOSAL INJECTION N/A 04/18/2015 Procedure: UPPER GI ENDOSCOPY W/DIRECTED SUBMUCOSAL INJECTION(S), ANY SUBSTANCE ; Surgeon: Segundo Almonte MD; Location: OR ENDO; Service: Endoscopy; Lateral ity: N/A; MN REBL VES DIRECT,UP EXTREM Right 03/05/2018 Procedure: REPAIR RIGHT BRACHIAL ARTERY PSEUDOANEURYSM; Surgeon: Ramakrishna oconnor MD; Location: OR 5E; Service: Vascular; Laterality: Right; MN WRIST ARTHROSCOP,RELEASE XVERS LIG Right 05/30/2019 Procedure: RIGHT ENDOSCOPIC CARPAL TUNNEL RELEASE; Surgeon: Ramakrishna Ventura MD; Location: OR ; Service: Orthopedics; Laterality: Right; MN WRIST ARTHROSCOP,RELEASE XVERS LIG Left 06/20/2019 Procedure: LEFT ENDOSCOPIC CARPAL TUNNEL RELEASE; Surgeon: Ramakrishna Ventura MD; Location: OR CC; Service: Orthopedics; Laterality: Left; RADIAL ARTERY ANEURYSM REPAIR Right Stent in Mesenteric Artery UPPER GASTROINTESTINAL ENDOSCOPY VASCULAR SURGERY Right 2006 removed 3 blood clots Patient Active Problem List Diagnosis Epigastric pain Essential hypertension History of CVA (cerebrovascular accident) Mixed hyperlipidemia Gastroesophageal reflux disease without esophagitis Superior mesenteric artery (trunk) injury Ileus, postoperative Leukocytosis Small bowel stricture Abscess of abdominal cavity Partial small bowel obstruction Renal infarct Superior mesenteric artery thrombosis Pain and swelling of upper extremity, right Pseudoaneurysm of brachial artery following procedure 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 Migraine without aura Bilateral carpal tunnel syndrome Anal fissure Colon polyp Acute ischemic stroke ALLERGIES: Allergies Allergen Reactions Amitriptyline Nausea Only Effexor [Venlafaxine Hydrochloride] Nausea Only Lipitor [Atorvastatin Calcium] Other (See Comments) Cramps, muscle weakness Statins Other (See Comments) Cramp, muscle weakness MEDICATIONS: Current Outpatient Medications on File Prior to Visit Medication Sig Dispense Refill Aimovig 70 MG/ML Subcutaneous Solution Auto-injector (erenumab-aooe) Inje ct 70 mg into the skin every 30 (thirty) days apixaban (ELIQUIS) 5 MG tablet Take 1 tablet by mouth Two Times Daily 60 tablet Clopidogrel Bisulfate 75 MG Oral Tablet (PLAVIX) Take 75 mg by mouth jayson y Lansoprazole 15 MG Oral Capsule Delayed Release (PREVACID) Take 15 mg by mouth daily levETIRAcetam (KEPPRA) 500 MG tablet Take 500 mg by mouth nightly 5 levETIRAcetam 500 MG Oral Tablet (KEPPRA) Take 1,000 mg by mouth Two Time s Daily 1000 qam, 500 qhs 01/18/2020 lisinopril (PRINIVIL,ZESTRIL) 20 MG tablet Take 20 mg by mouth daily 6 Propranolol HCl 10 MG Oral Tablet (INDERAL) Take 10 mg by mouth every mere manjit rosuvastatin (CRESTOR) 10 MG tablet Take 1 tablet by mouth daily (Patient taking differently: Take 10 mg by mouth nightly ) amlodipine (NORVASC) 5 MG tablet Take 1 tablet by mouth daily (Patient ta trino differently: Take 5 mg by mouth every morning ) 30 tablet 11 No current facility-administered medications on file prior to visit. SOCIAL AND FAMILY HISTORY: Social History Socioeconomic History Marital status: Legally Spouse name: Micaela Miller Number of children: 3 Years of education: None Highest education level: None Occupational History None Social Needs Financial resource strain: None Food insecurity Worry: None Inability: None Transportation needs Medical: None Non-medical: None Tobacco Use Smoking status: Current Every Day Smoker Packs/day: 0.25 Years: 15.00 Pack years: 3.75 Types: Cigarettes, Cigars Last attempt to quit: 02/2019 Years since quittin.1 Smokeless tobacco: Never Used Tobacco comment: cigars 1-2 daily 01/18/2020 Substance and Sexual Activity Alcohol use: Not Currently Alcohol/week: 0.0 standard drinks Comment: 3-4 beers yearly Drug use: No Sexual activity: Never Partners: Female control/protection: Condom Lifestyle Physical activity Days per week: None Minutes per session: None Stress: None Relationships Social connections Talks on phone: None Gets together: None Attends oriental orthodox service: None Active member of club or organization: None Attends meetings of clubs or organizations: None Relationship status: None Intimate partner violence Fear of current or ex partner: None Emotionally abused: None Physically abused: None Forced sexual activity: None Other Topics Concern None Social History Narrative None family history includes Colon cancer in his maternal uncle; Heart disease in his father. REVIEW OF SYSTEMS 1. Constitutional: fever, chills, night sweats, changes in appetite. 2. Cardiovascular: chest pressure or pain, palpitations, edema. 3. Respiratory: shortness of breath, wheeze, cough, sputum/phlegm. 4. GI: abdominal pain, nausea, vomiting, diarrhea, constipation, heartburn, and blood in stool. 5. Neurology: headache, dizziness, weakness, numbness, and tingling. 6. Musculoskeletal: joint/extremity pain and back pain. 7. Skin: rash and pruritis. 8. : dysuria, frequency, urgency, and hematuria. ALL ABOVE SYSTEMS REVIEWED LISTED AND ARE NEGATIVE, EXCEPT THOSE MENTIONED IN HPI. PHYSICAL EXAM The following systems were examined: Neck: Neck* and thyroid* inspection and palpation for mass or tenderness. CV: Auscultation* for normal heart sounds without murmur or gallop at apex and b ase. Calves and legs inspection and palpation for suppleness, edema* Respiratory: inspection for respiratory effort; auscultationof lungs for normal vesicular breath sounds without wheezes, crackles Abdomen: palpation for firmness, tenderness, mass; palpation, percussion for HSM . Psychiatric: assessment for normal mood and affect*, judgment and insight* Neurological: assessment of: cognition, speech Musculoskeletal: station, gait General Appearance: (habitus, hygiene, grooming, demeanor, major deformity, size , gross mobility)* Vital signs Visit Vitals BP 105/75 (BP Location: Right arm, Patient Position: Sitting, Cuff size: Adult L arge) Pulse 89 Temp 36.7 C (98 F) (Oral) Resp 14 Ht 1.778 m (5' 10") Wt 103.1 kg (227 lb 6.4 oz) SpO2 98% Comment: ra BMI 32.63 kg/m THE ABOVE SYSTEMS UNREMARKABLE EXCEPT: Patient appears in no acute distress. Cruz ign cardiac, lung, abdominal and musculoskeletal exam with no evidence of murmur s/rubs, crackles/wheezes, tenderness/distention or focal neurological deficits. DATA REVIEW Labs: Lab Results Component Value Date WBC 7.0 04/15/2020 RBC 4.38 (L) 04/15/2020 HGB 13.9 04/15/2020 HCT 41.5 04/15/2020 MCV 94.7 04/15/2020 MCH 31.8 04/15/2020 MCHC 33.5 04/15/2020 RDW 13.3 04/15/2020 PLT 266 04/15/2020 LYMPHOPCT 34 04/14/2020 MONOPCT 12 04/14/2020 EOSPCT 4 04/14/2020 NEUTROABS 3.95 04/14/2020 EOSABS 0.28 04/14/2020 BASOSABS 0.07 04/14/2020 Lab Results Component Value Date NA 136 04/15/2020 K 4.5 04/15/2020 CL 107 04/15/2020 BICARBONATE 21 (L) 04/15/2020 ANIONGAP 8 04/15/2020 GLUCOSE 90 04/15/2020 BUN 13 04/15/2020 CREATININE 1.21 (H) 04/15/2020 GFRAA 83 04/15/2020 GFRNONAA 71 04/15/2020 CALCIUM 9.1 04/15/2020 TBILI 0.2 04/14/2020 TBILI Duplicate Request 04/14/2020 ALKPHOS 83 04/14/2020 ALKPHOS Duplicate Request 04/14/2020 ALT 26 04/14/2020 ALT Duplicate Request 04/14/2020 AST 17 04/14/2020 AST Duplicate Request 04/14/2020 ALBUMIN 3.6 04/14/2020 ALBUMIN Duplicate Request 04/14/2020 PROT 6.2 (L) 04/14/2020 PROT Duplicate Request 04/14/2020 ASSESSMENT AND PLAN: Mr. Ramakrishna Miller is a 44 y.o. male with a complicated PMH of HTN/HLD, cur rent tobacco use (20 pack years), prior ICA stroke (2006) on Plavix, superior me senteric artery occlusion s/p stent placement (01/2018) and on Eliquis, migraine s, h/o right renal infarct and seizure disorder ([facility]) who presented on for evaluation and management of suspected undiagnosed hypercoagulable state . Reviewed patient's complicated HPI and available records. Given persistent clott ing episodes, will perform comprehensive hypercogulable work-up including evalua tion for antiphospholipid antibody syndrome. Previously has been tested for Fact or V Leiden and Prothrombin gene mutations in 2014 and found to be negative, bernard s will hold off on repeating those. Patient to continue on ASA and Eliquis as he appears to be tolerating it fine. Also awaiting genetic counseling given titi us polyps on recent GI assessment with possible consideration for FAP? Lastly, andra durham reports being transitioned from Warfarin to Eliquis as a matter of conven ience (not failure). # Palliative Measures: - Pain: Tylenol - Constipation: No - Nausea: No - Anxiety/ depression: Seems coping with disease, we offered support - Nutrition: Tolerating a regular diet - Code status and advance directive: Not discussed - Nicotine abuse: None RTC telemedicine on 05/28/2020 for labs review. Advised patient that if he develop s any problems or issues prior to return to clinic, he should give our office a call. In addition, we have a 24-hour on-call service. Patient agreeable with mounika n of care. Patient did have questions answered to his satisfaction and to the be st of my knowledge. Patient was discussed with Dr. Barr who agrees with the above assessment and plan Hernandez Cummings MD Hematology & Oncology Fellow [phone] documented in this encounter Plan of Treatment Care Team Description Date Type Specialty Kaila Barr MD [address], [place] [id number] 05/28/2020 Telemedicine Hematology and Onco Alejandra Freire NP [address] [facility] [address] [place], [place] [id number] 08/21/2020 Office Visit Neurology Yonatan Byrd MD [address] [facility] [address] [place] [address] 03/28/2021 Office Visit Surgery Order Schedule Name Type Priority Associated Diag noses Expected: 08/06/2020, Expires: Molecular Diagnostics, Pathology and Routine [facility] Genetics Cytology 1 Occurrences starting 05/08/2020 until 11/05/2020 Homocysteine, serum Lab Routine [facility] Health Maintenance Due Date Last Done Comments MMR Vaccines (1 of - 1976 Standard series) Varicella Vaccines (1 of 1976 2 - 2-dose childhood series) Pneumococcal Vaccine: 1981 Pediatrics (0 to 5 Years) and At-Risk Patients (6 to 64 Years) (1 of 1 - PPSV23) HIV Screening 1988 DTaP,Tdap,and Td Vaccines 05/18/2012 04/20/2012 (2 - Tdap) Influenza Vaccine 01/19/2020 03/24/2019, 02/02/2018, 02/02/2018, Additional history exists Pneumococcal Vaccine: 65+ 2040 Years (1 of 1 - PPSV23) HIB Vaccines Aged Out No longer eligible based on patient's age to complete this topic Hepatitis A Vaccines Aged Out No longer eligibl e based on patient's age to complete this topic Hepatitis B Vaccines Aged Out No longer eligibl e based on patient's age to complete this topic IPV Vaccines Aged Out No longer eligible based on patient's age to complete this topic documented as of this encounter Implants Device Identifier Shelf Expiration Date Model / Serial / L ot Implanted Type Area Manufactur er 05/20/2017 [id number] / / [id number] Barrier Adhesion Seprafilm 5x6 - N/A: Abdomen GENZ YME [id number] SURGICAL Implanted: Qty: 1 on 05/10/2015 by Farhad Brown MD at OR 5E 10/17/2020 [id number] / / Stent-Omnilnk Elt [id number] - [facility] [id number] [facility] Implanted: Qty: 1 on 02/07/2018 by Ramakrishna Gould MD at [facility] INPATIENT 08/18/2019 [id number] / / [id number] Vas Radhika - Mynx Elizabeth-5fr - NO [id number] MANUFACTUR Implanted: Qty: 1 on 02/07/2018 by Ramakrishna Swanson MD at [facility] INPATIENT [id number] / / [id number] Drn - Resolve - 8 Fr. - [id number] Right: Abdomen ME RIT Implanted: Qty: 1 on 03/07/2019 by Binta Kelley MD at [facility] INPATIENT 07/13/2021 [id number] / / [id number] Resolution Clip - [id number] N/A: Colon [place]ON Implanted: Qty: 1 on 03/28/2020 by Yonatan Martínez MD at OR ENDO documented as of this encounter Procedures Comments Procedure Name Priority Date/Time Associated Diag nosis PTT MIXING STUDIES Routine 04/30/2020 Hypercoagul able state 12:41 PM EST B2 GLYCOPROTEIN IGG/IGM Routine 04/30/2020 Hyperc oagulable state 12:41 PM EST HEXAGONAL PHASE PHOSPHO Routine 04/30/2020 Hyperc oagulable state NEUT 12:41 PM EST CARDIOLIPIN IGG/IGM AB Routine 04/30/2020 Hyperco agulable state 12:41 PM EST PROTIME INR STAT 04/30/2020 Hypercoagulable state 12:41 PM EST DRVVT Routine 04/30/2020 Hypercoagulable state 12:41 PM EST FACTOR 8 ASSAY Routine 04/30/2020 Hypercoagulable state 12:41 PM EST CBC AND DIFFERENTIAL STAT 04/30/2020 Hypercoag ulable state 12:41 PM EST HOMOCYSTEINE, SERUM Routine 04/30/2020 Hypercoagu lable state 12:41 PM EST COMPREHENSIVE METABOLIC Routine 04/30/2020 Hyperc oagulable state PANEL 12:41 PM EST documented in this encounter Results * Homocysteine, serum (04/30/2020 12:41 PM EST) Homocysteine 37.8 (H)Comment: Hemolyzed <15.0 umol/L [facility] CLINICAL PATHOLOGY Specimen Plasma Performing Organization Address [facility] one Number [facility] [address] [place], [place] [address] PATHOLOGY * Factor 8 assay (04/30/2020 12:41 PM EST) Factor VIII 292 (H) 50 - 150 U/dL [facility] Clin Pathology Specimen Plasma Performing Organization Address [facility] one Number [address] [address] Clin Pathology * B2 glycoprotein IgG/IgM (04/30/2020 12:41 PM EST) B2 Glycoprotein 3.3Comment: Negative results <20.0 U/mL [facility] IgM do not rule out [facility] Clin Antiphospholipid syndrome. Pathology Other APL testing should be considered. B2 Glycoprotein <6.4Comment: Negative results <20.0 U/mL [facility] IgG do not rule out [facility] Clin Antiphospholipid syndrome. Pathology Other APL testing should be considered. Specimen Serum Performing Organization Address [facility] one Number [facility] [address] [place], [place] [address] [address] Clin Pathology * Cardiolipin IgG/IgM Ab (04/30/2020 12:41 PM EST) Cardiolipin IgM 9.8Comment: Negative results <20.0 U/mL [facility] Ab do not rule out [facility] Clin Antiphospholipid syndrome. Pathology Additional APL testing should be considered. Cardiolipin IgG <2.6Comment: Negative results <20.0 U/mL [facility] Ab do not rule out [facility] Clin Antiphospholipid syndrome. Pathology Additional APL testing should be considered. Specimen Serum Performing Organization Address [facility] one Number [facility] [address] [place], [place] [address] [address] Clin Pathology * Hexagonal Phase Phospho Neut (04/30/2020 12:41 PM EST) Pathologist [facility] Hex Phase 3.7 <8.0 sec [facility] Phospho Neut Med [facility] Clin Pathology Specimen Plasma Performing Organization Address [facility] one Number [address] [address] Clin Pathology * DRVVT (04/30/2020 12:41 PM EST) Pathologist [facility] dRVV Ratio 1.09 <1.20 Ratio [facility] Clin Pathology Specimen Plasma Performing Organization Address [facility] one Number [address] [address] Clin Pathology * PTT MIXING STUDIES (04/30/2020 12:41 PM EST) PTT 28.0 24.0 - 33.0 s [facility] Univ Clin Pathology PTT 1:1 Mix Not Indicated s [facility] Immediate Med Univ Clin Pathology PTT 1:1 Mix Not Indicated s [facility] Incubated Med Univ Clin Pathology PTT Mix Mixing studies not performed [facility] Interpretation if PTT<38 seconds Med Univ Clin Pathology Specimen Plasma Performing Organization Address [facility] Ph one Number [address] 132[address] PATHOLOGY [facility] [address] [place], [place] [address] Clin Pathology * Protime-INR (04/30/2020 12:41 PM EST) PT Patient 13.8 12.5 - 14.9 s [facility] Clin Pathology Int'l 1.05Comment: Routine intensity [facility] U pstate Normalized oral anticoagulation INR is Med [facility] Clin Ratio typically 2.0-3.0. Target INR Patholo gy must be clinically individualized. Specimen Plasma Performing Organization Address City/State/[facility] Ph one Number [facility] [address] [place], [place] [address] PATHOLOGY [facility] [address] [place], [place] [address] Clin Pathology * Comprehensive Metabolic Panel (04/30/2020 12:41 PM EST) Albumin 4.7 3.5 - 5.2 g/dL [facility] CLINICAL PATHOLOGY Bilirubin, 0.4 <1.2 mg/dL [facility] Total CLINICAL PATHOLOGY Calcium 9.5 8.6 - 10.0 mg/dL [facility] CLINICAL PATHOLOGY Chloride 103 98 - 107 mmol/L [facility] CLINICAL PATHOLOGY Creatinine 1.37 (H) 0.70 - 1.20 mg/dL [facility] CLINICAL PATHOLOGY Glucose 96 70 - 140 mg/dL [facility] CLINICAL PATHOLOGY Alkaline 91 40 - 129 U/L [facility] Phosphatase CLINICAL PATHOLOGY Potassium 4.5 3.4 - 5.1 mmol/L [facility] CLINICAL PATHOLOGY Total Protein 7.7 6.4 - 8.3 g/dL [facility] CLINICAL PATHOLOGY Sodium 138 136 - 145 mmol/L [facility] CLINICAL PATHOLOGY AST/SGO 13 <40 U/L [facility] CLINICAL PATHOLOGY Blood Urea 15 6 - 20 mg/dL [facility] Nitrogen CLINICAL PATHOLOGY Osmolality, Eric 287 275 - 300 mosm/kg [facility] CLINICAL PATHOLOGY BUN/Cre Ratio 11 [facility] CLINICAL PATHOLOGY Bicarbonate 25 22 - 29 mmol/L [facility] CLINICAL PATHOLOGY ALT/SGP 18 <41 U/L [facility] PATHOLOGY Anion Gap 10 8 - 15 mmol/L [facility] CLINICAL PATHOLOGY GFR Non 61 >60 mL/min/1.73m2 [facility] 2008 CLINICAL CDK-EPI PATHOLOGY GFR 71 >60 mL/min/1.73m2 [facility] 2009 CLINICAL CKD-EPI PATHOLOGY Specimen Plasma Performing Organization Address City/[facility]/Zipcode Ph one Number [facility] [address] [place], [place] [address] PATHOLOGY * CBC and differential (04/30/2020 12:41 PM EST) White Blood 10.9 (H) 4 - 10 10*3/uL [facility] Cell [facility] Univ Clin Pathology Red Blood Cell 5.05 4.6 - 6.1 10*6/uL [facility] Clin Pathology Hemoglobin 16.2 13.5 - 18 g/dL [facility] Clin Pathology Hematocrit 48.0 41 - 53 % [facility] Clin Pathology Mean Cell 95.0 80 - 96 fL [facility] Volume [facility] Univ Clin Pathology Mean Cell 32.0 27 - 33 pg [facility] Hemoglobin [facility] Univ Clin Pathology Mean Cell Hgb 33.7 32.0 - 36.0 g/dL [facility] Univ Clin Pathology Red Cell Dist 13.4 11.5 - 14.5 % [facility] Width [facility] Univ Clin Pathology Platelet Count 328 150 - 400 10*3/uL [facility] Clin Pathology Differential Automated Diff [facility] Type [facility] Univ Clin Pathology Neutrophil 63 % [facility] Clin Pathology Lymphocyte 24 % [facility] Clin Pathology Monocyte 9 % [facility] Clin Pathology Eosinophil 3 % [facility] Clin Pathology Basophil 1 % [facility] Clin Pathology Abs Neutrophil 6.84 1.8 - 7.0 10*3/uL [facility] Clin Pathology Abs Lymphocyte 2.63 1.2 - 4.0 10*3/uL [facility] Clin Pathology Abs Monocyte 0.95 (H) 0 - 0.8 10*3/uL [facility] Clin Pathology Abs Eosinophil 0.36 0 - 0.5 10*3/uL [facility] Clin Pathology Abs Basophil 0.11 0 - 0.2 10*3/uL [facility] Clin Pathology Nucleated Red 0 0 - 0 /100{WBCs} [facility] Blood Cells [facility] Clin Pathology Specimen EDTA Whole Blood Performing Organization Address City/[facility]/Zipcode Ph one Number [facility] [address] [place], [place] [address] PATHOLOGY [place] [address] [place], [place] [address] Clin Pathology documented in this encounter Visit Diagnoses Diagnosis Hypercoagulable state - Primary Primary hypercoagulable state documented in this encounter
--- OUTSIDE RECORDS SUMMARY | 2020-05-21 09:58 | CCD | Continuity of Care Document ---
Author Author Ramakrishna ALEGRE P.A.-C. Organization Unknown Address [address] [place] [address] Phone [phone] Care Team Providers Care Welding Tester Name Role Phone Batool Aguilar D.O. AUTM [phone] Problems Active Problems Provider Date Headache Orly [...] Date Location Provider Dx Diagnosis Office Visit 04/02/2020 8:30a Main office - [place] Magalis rosenberg P.A.-C. G43.719 Chronic migraine w/o aura, intractable, w/o stat migr G40.89 Other seizures I63.89 Other cerebral infarction F51.02 Adjustment insomnia G56.03 Carpal tunnel syndrome, bila teral upper limbs Office Visit 01/25/2020 8:45a Main office - [place] Raymundo Hankins.A.-C. I63.89 Other cerebral infarction G40.89 Other seizures G43.009 Migraine w/o aura, not intra ctable, w/o status migrainosus G56.03 Carpal tunnel syndrome, bila teral upper limbs F51.02 Adjustment insomnia Office Visit 10/24/2019 10:30a Main office - [place] Raymundo Hankins.A.-C. G40.89 Other seizures I63.89 Other cerebral infarction R51 Headache R26.81 Unsteadiness on feet G56.03 Carpal tunnel syndrome, bila teral upper limbs F51.02 Adjustment insomnia Assessments Date Code Description Provider 04/24/2020 G43.719 Chronic migraine wit hout aura, intractable, without status migrainosus Magalis Alegre P.A.-C. 04/24/2020 I63.89 Other cerebral infarction Magalis Alegre P.A.-C. 04/24/2020 G40.89 Other seizures Magalis Alegre P.A.-C. 04/24/2020 F51.02 Adjustment insomnia Magalis rosenberg P.A.-C. 04/24/2020 G56.03 Carpal tunnel syndrome, bilatera l upper limbs Magalis Alegre P.A.-C. 04/02/2020 G43.719 Chronic migraine wit hout aura, intractable, without status migrainosus Magalis Chetna Alegre, P.A.-C. 04/02/2020 G40.89 Other seizures Magalis Chetna Alegre, P.A.-C. 04/02/2020 I63.89 Other cerebral infarction Magalis Alegre, P.A.-C. 04/02/2020 F51.02 Adjustment insomnia Magalis Chetna rosenberg, P.A.-C. 04/02/2020 G56.03 Carpal tunnel syndrome, bilatera l upper limbs Magalis Chetna Alegre, P.A.-C. 01/25/2020 I63.89 Other cerebral infarction Magalis Todd Alegre, P.A.-C. 01/25/2020 G40.89 Other seizures Magalis Chetna Alegre, P.A.-C. 01/25/2020 G43.009 Migraine without aur a, not intractable, without status migrainosus Magalis Alegre, P.A.-C. 01/25/2020 G56.03 Carpal tunnel syndrome, bilatera l upper limbs Magalis Chetna Alegre, P.A.-C. 01/25/2020 F51.02 Adjustment insomnia Magalis rosenberg, P.A.-C. 10/24/2019 G40.89 Other seizures Magalis Chetna Alegre, P.A.-C. 10/24/2019 I63.89 Other cerebral infarction Magalis Alegre, P.A.-C. 10/24/2019 R51 Headache Magalis Chetna Alegre, P.A.-C. 10/24/2019 R26.81 Unsteadiness on feet Magalis wild, P.A.-C. 10/24/2019 G56.03 Carpal tunnel syndrome, bilatera l upper limbs Magalis Chetna Alegre, P.A.-C. 10/24/2019 F51.02 Adjustment insomnia Magalis rosenberg, P.A.-C. Plan of Treatment No Information Available Functional Status Description No Information Available Mental Status Description No Information Available Referrals Description No Information Available
--- OUTSIDE RECORDS SUMMARY | 2020-05-21 10:28 | CCD ---
Author Author [facility] Organization [facility] Address Unknown Phone Unavailable Care Team Providers Care Frame Hand Name Role Phone Maria Isabel BIGGS MD Unavailable Unavailable SUROWIEMaria Isabel Cope MD Unavailable Unavailable SUROWIEMaria Isabel Cope MD Unavailable Unavailable SUROWIEMaria Isabel Cope MD Unavailable Unavailable SUROWIEMaria Isabel Cope MD Unavailable Unavailable SUROWIEMaria Isabel Cope MD Unavailable Unavailable SUROWIEMaria Isabel Cope MD Unavailable Unavailable SUROWIEMaria Isabel Cope MD Unavailable Unavailable SUROWIEMaria Isabel Cope MD Unavailable Unavailable SUROWIEMaria Isabel Cope MD Unavailable Unavailable SUROWIECMaria Isabel MD Unavailable Unavailable SUROWIECMaria Isabel MD Unavailable Unavailable ESEOWMaria Isabel SCHNEIDER MD Unavailable Unavailable SUROWMaria Isabel SCHNEIDER MD Unavailable Unavailable SUROWIEMaria Isabel Cope MD Unavailable Unavailable SUROWIEMaria Isabel Cope MD Unavailable Unavailable SUROWIEMaria Isabel Cope MD Unavailable Unavailable ESEOWMaria Isabel SCHNEIDER MD Unavailable Unavailable ESEOWMaria Isabel SCHNEIDER MD Unavailable Unavailable ESEOWKENZIECMaria Isabel MD Unavailable Unavailable SUROWKENZIECMaria Isabel MD Unavailable Unavailable SUROWIECMaria Isabel MD Unavailable Unavailable SUROWIEC, Maria Isabel LUNDBERG MD Unavailable Unavailable SUROWIEC, Maria Isabel LUNDBERG MD Unavailable Unavailable SUROWIEC, Maria Isabel LUNDBERG MD Unavailable Unavailable SUROWIEC, Maria Isabel LUNDBERG MD Unavailable Unavailable SUROWIEC, Maria Isabel LUNDBERG MD Unavailable Unavailable SUROWIEC, Maria Isabel LUNDBERG MD Unavailable Unavailable SUROWIEC, Maria Isabel LUNDBERG MD Unavailable Unavailable SUROWIEC, Maria Isabel LUNDBERG MD Unavailable Unavailable SUROWIEC, Maria Isabel LUNDBERG MD Unavailable Unavailable SUROWIEC, Maria Isabel LUNDBERG MD Unavailable Unavailable SUROWIEC, Maria Isabel LUNDBERG MD Unavailable Unavailable SUROWIEC, Maria Isabel LUNDBERG MD Unavailable Unavailable SUROWIEC, Maria Isabel LUNDBERG MD Unavailable Unavailable SUROWIEC, Maria Isabel LUNDBERG MD Unavailable Unavailable SUROWIEC, Maria Isabel LUNDBERG MD Unavailable Unavailable SUROWIEC, Maria Isabel LUNDBERG MD Unavailable Unavailable SUROWIEC, Maria Isabel LUNDBERG MD Unavailable Unavailable SUROWIEC, Maria Isabel LUNDBERG MD Unavailable Unavailable SUROWIEC, Maria Isabel LUNDBERG MD Unavailable Unavailable SUROWIEC, Maria Isabel LUNDBERG MD Unavailable Unavailable SUROWIEC, Maria Isabel LUNDBERG MD Unavailable Unavailable SUROWIEC, Maria Isabel LUNDBERG MD Unavailable Unavailable SUROWIEC, Maria Isabel LUNDBERG MD Unavailable Unavailable SUROWIEC, Maria Isabel LUNDBERG MD Unavailable Unavailable SUROWIEC, Maria Isabel LUNDBERG MD Unavailable Unavailable SUROWIEC, Maria Isabel LUNDBERG MD Unavailable Unavailable SUROWIEC, Maria Isabel LUNDBERG MD Unavailable Unavailable SUROWIEC, Maria Isabel LUNDBERG MD Unavailable Unavailable SUROWIEC, Maria Isabel LUNDBERG MD Unavailable Unavailable SUROWIEC, Maria Isabel LUNDBERG MD Unavailable Unavailable SUROWIEC, Maria Isabel LUNDBERG MD Unavailable Unavailable SUROWIEC, Maria Isabel LUNDBERG MD Unavailable Unavailable SUROWIEC, Maria Isabel ULNDBERG MD Unavailable Unavailable SUROWIEC, Maria Isabel LUNDBERG MD Unavailable Unavailable SUROWIEC, Maria Isabel LUNDBERG MD Unavailable Unavailable SUROWIEC, Maria Isabel LUNDBERG MD Unavailable Unavailable SUROWIEC, Maria Isabel LUNDBERG MD Unavailable Unavailable SUROWIEC, Maria Isabel LUNDBERG MD Unavailable Unavailable SUROWIEC, Maria Isabel LUNDBERG MD Unavailable Unavailable SUROWIEC, Maria Isabel LUNDBERG MD Unavailable Unavailable SUROWIEC, Maria Isabel LUNDBERG MD Unavailable Unavailable SUROWIEC, Maria Isabel LUNDBERG MD Unavailable Unavailable SUROWIEC, Maria Isabel LUNDBERG MD Unavailable Unavailable SUROWIEC, Maria Isabel LUNDBERG MD Unavailable Unavailable SUROWIEC, Maria Isabel LUNDBERG MD Unavailable Unavailable SUROWIEC, Maria Isabel LUNDBERG MD Unavailable Unavailable SUROWIEC, Maria Isabel LUNDBERG MD Unavailable Unavailable SUROWIEC, Maria Isabel LUNDBERG MD Unavailable Unavailable SUROWIEC, Maria Isabel LUNDBERG MD Unavailable Unavailable SUROWIEC, Maria Isabel LUNDBERG MD Unavailable Unavailable SUROWIEC, Maria Isabel LUNDBERG MD Unavailable Unavailable SUROWIEC, Maria Isabel LUNDBERG MD Unavailable Unavailable SUROWIEC, Maria Isabel LUNDBERG MD Unavailable Unavailable SUROWIEC, Maria Isabel LUNDBERG MD Unavailable Unavailable SUROWIEC, Maria Isabel LUNDBERG MD Unavailable Unavailable SUROWIEC, Maria Isabel LUNDBERG MD Unavailable Unavailable GIANFRANCO CASTELAN MD Unavailable Unavailable GIANFRANCO CASTELAN MD Unavailable Unavailable GIANFRANCO CASTELAN MD Unavailable Unavailable GIANFRANCO CASTELAN MD Unavailable Unavailable GIANFRANCO CASTELAN MD Unavailable Unavailable GIANFRANCO CASTELAN MD Unavailable Unavailable GIANFRANCO CASTELAN MD Unavailable Unavailable GIANFRANCO CASTELAN MD Unavailable Unavailable GIANFRANCO CASTELAN MD Unavailable Unavailable GIANFRANCO CASTELAN MD Unavailable Unavailable GIANFRANCO CASTELAN MD Unavailable Unavailable GIANFRANCO CASTELAN MD Unavailable Unavailable GIANFRANCO CASTELAN MD Unavailable Unavailable GIANFRANCO CASTELAN MD Unavailable Unavailable GIANFRANCO CASTELAN MD Unavailable Unavailable GIANFRANCO CASTELAN MD Unavailable Unavailable GIANFRANCO CASTELAN MD Unavailable Unavailable GIANFRANCO CASTELAN MD Unavailable Unavailable GIANFRANCO CASTELAN MD Unavailable Unavailable GIANFRANCO CASTELAN MD Unavailable Unavailable GIANFRANCO CASTELAN MD Unavailable Unavailable GIANFRANCO CASTELAN MD Unavailable Unavailable GIANFRANCO CASTELAN MD Unavailable Unavailable GIANFRANCO CASTELAN MD Unavailable Unavailable GIANFRANCO CASTELAN MD Unavailable Unavailable GIANFRANCO CASTELAN MD Unavailable Unavailable GIANFRANCO CASTELAN MD Unavailable Unavailable GIANFRANCO CASTELAN MD Unavailable Unavailable GIANFRANCO CASTELAN MD Unavailable Unavailable GIANFRANCO CASTELAN MD Unavailable Unavailable GIANFRANCO CASTELAN MD Unavailable Unavailable GIANFRANCO CASTELAN MD Unavailable Unavailable GIANFRANCO CASTELAN MD Unavailable Unavailable GIANFRANCO CASTELAN MD Unavailable Unavailable GIANFRANCO CASTELAN MD Unavailable Unavailable GIANFRANCO CASTELAN MD Unavailable Unavailable GIANFRANCO CASTELAN MD Unavailable Unavailable GIANFRANCO CASTELAN MD Unavailable Unavailable GIANFRANCO CASTELAN MD Unavailable Unavailable GIANFRANCO CASTELAN MD Unavailable Unavailable GIANFRANCO CASTELAN MD Unavailable Unavailable GIANFRANCO CASTELAN MD Unavailable Unavailable GIANFRANCO CASTELAN MD Unavailable Unavailable GIANFRANCO CASTELAN MD Unavailable Unavailable GIANFRANCO CASTELAN MD Unavailable Unavailable GIANFRANCO CASTELAN MD Unavailable Unavailable GIANFRANCO CASTELAN MD Unavailable Unavailable FLIPGIANFRANCO MD Unavailable Unavailable GIANFRANCO CASTELAN MD Unavailable Unavailable Plocek, Phyllis MD Unavailable Unavailable PlPhyllis isaac MD Unavailable Unavailable PlPhyllis isaac MD Unavailable Unavailable PlPhyllis isaac MD Unavailable Unavailable PlPhyllis isaac MD Unavailable Unavailable PlPhyllis isaac MD Unavailable Unavailable PlPhyllis isaac MD Unavailable Unavailable PlPhyllis isaac MD Unavailable Unavailable PlPhyllis isaac MD Unavailable Unavailable PlPhyllis isaac MD Unavailable Unavailable PlPhyllis isaac MD Unavailable Unavailable PlPhyllis isaac MD Unavailable Unavailable PlPhyllis isaac MD Unavailable Unavailable PlPhyllis isaac MD Unavailable Unavailable PlPhyllis isaac MD Unavailable Unavailable PlPhyllis isaac MD Unavailable Unavailable PlPhyllis isaac MD Unavailable Unavailable Phyllis Morfin MD Unavailable Unavailable Phyllis Morfin MD Unavailable Unavailable Phyllis Morfin MD Unavailable Unavailable Phyllis Morfin MD Unavailable Unavailable Phyllis Morfin MD Unavailable Unavailable Phyllis Morfin MD Unavailable Unavailable Phyllis Morfin MD Unavailable Unavailable Phyllis Morfin MD Unavailable Unavailable Phyllis Morfin MD Unavailable Unavailable Phyllis Morfin MD Unavailable Unavailable Phyllis Morfin MD Unavailable Unavailable Phyllis Morfin MD Unavailable Unavailable Phyllis Morfin MD Unavailable Unavailable Phyllis Morfin MD Unavailable Unavailable Phyllis Morfin MD Unavailable Unavailable Phyllis Morfin MD Unavailable Unavailable Phyllis Morfin MD Unavailable Unavailable Phlylis Morfin MD Unavailable Unavailable Phyllis Morfin MD Unavailable Unavailable Phyllis Morfin MD Unavailable Unavailable Phyllis Morfin MD Unavailable Unavailable Phyllis Morfin MD Unavailable Unavailable Phyllis Morfin MD Unavailable Unavailable Phyllis Morfin MD Unavailable Unavailable Phyllis Morfin MD Unavailable Unavailable PlPhyllis isaac MD Unavailable Unavailable Phyllis Morfin MD Unavailable Unavailable Phyllis Morfin MD Unavailable Unavailable Phyllis Morfin MD Unavailable Unavailable Phyllis Morfin MD Unavailable Unavailable Phyllis Morfin MD Unavailable Unavailable PlPhyllis isaac MD Unavailable Unavailable PlPhyllis isaac MD Unavailable Unavailable Plocek, Phyllis MD Unavailable Unavailable PlPhyllis isaac MD Unavailable Unavailable PlPhyllis isaac MD Unavailable Unavailable PlPhyllis isaac MD Unavailable Unavailable PlPhyllis isaac MD Unavailable Unavailable PlPhyllis isaac MD Unavailable Unavailable PlPhyllis isaac MD Unavailable Unavailable PlPhyllis isaac MD Unavailable Unavailable PlPhyllis isaac MD Unavailable Unavailable PlPhyllis isaac MD Unavailable Unavailable PlPhyllis isaac MD Unavailable Unavailable PlPhyllis isaac MD Unavailable Unavailable PlPhyllis isaac MD Unavailable Unavailable PlPhyllis isaac MD Unavailable Unavailable PlPhyllis isaac MD Unavailable Unavailable PlPhyllis isaac MD Unavailable Unavailable PlPhyllis isaac MD Unavailable Unavailable Phyllis Morfin MD Unavailable Unavailable PlPhyllis isaac MD Unavailable Unavailable PlPhyllis isaac MD Unavailable Unavailable PlPhyllis isaac MD Unavailable Unavailable LINDSAY, W SHAHANA PA Unavailable Unavailable LINDSAY, W SHAHANA PA Unavailable Unavailable LINDSAY, W SHAHANA PA Unavailable Unavailable LINDSAY, W SHAHANA PA Unavailable Unavailable LINDSAY, W SHAHANA PA Unavailable Unavailable LINDSAY, W SHAHANA PA Unavailable Unavailable LINDSAY, W SHAHANA PA Unavailable Unavailable LINDSAY, W SHAHANA PA Unavailable Unavailable LINDSAY, W SHAHANA PA Unavailable Unavailable LINDSAY, W SHAHANA PA Unavailable Unavailable LINDSAY, W SHAHANA PA Unavailable Unavailable LINDSAY, W SHAHANA PA Unavailable Unavailable LINDSAY, W SHAHANA PA Unavailable Unavailable LINDSAY, W SHAHANA PA Unavailable Unavailable LINDSAY, W SHAHANA PA Unavailable Unavailable LINDSAY, W SHAHANA PA Unavailable Unavailable LINDSAY, W SHAHANA PA Unavailable Unavailable LINDSAY, W SHAHANA PA Unavailable Unavailable LINDSAY, W SHAHANA PA Unavailable Unavailable LINDSAY, W SHAHANA PA Unavailable Unavailable LINDSAY, W SHAHANA PA Unavailable Unavailable LINDSAY, W SHAHANA PA Unavailable Unavailable LINDSAY, W SHAHANA PA Unavailable Unavailable LINDSAY, W SHAHANA PA Unavailable Unavailable LINDSAY, W SHAHANA PA Unavailable Unavailable LINDSAY, W SHAHANA PA Unavailable Unavailable LINDSAY, W SHAHANA PA Unavailable Unavailable LINDSAY, W SHAHANA PA Unavailable Unavailable LINDSAY, W SHAHANA PA Unavailable Unavailable LINDSAY, W SHAHANA PA Unavailable Unavailable LINDSAY, W SHAHANA PA Unavailable Unavailable LINDSAY, W SHAHANA PA Unavailable Unavailable LINDSAY, W SHAHANA PA Unavailable Unavailable LINDSAY, W SHAHANA PA Unavailable Unavailable LINDSAY, W SHAHANA PA Unavailable Unavailable LINDSAY, W SHAHANA PA Unavailable Unavailable LINDSAY, W SHAHANA PA Unavailable Unavailable LINDSAY, W SHAHANA PA Unavailable Unavailable LINDSAY, W SHAHANA PA Unavailable Unavailable LINDSAY, W SHAHANA PA Unavailable Unavailable LINDSAY, W SHAHANA PA Unavailable Unavailable LINDSAY, W SHAHANA PA Unavailable Unavailable LINDSAY, W SHAHANA PA Unavailable Unavailable LINDSAY, W SHAHANA PA Unavailable Unavailable LINDSAY, W SHAHANA PA Unavailable Unavailable LINDSAY, W SHAHANA PA Unavailable Unavailable ALIASES , DEFAULT / GENERIC / UNKNOWN PROVIDER * Unavailable Unavailable ALIASES , DEFAULT / GENERIC / UNKNOWN PROVIDER * Unavailable Unavailable ALIASES , DEFAULT / GENERIC / UNKNOWN PROVIDER * Unavailable Unavailable ALIASES , DEFAULT / GENERIC / UNKNOWN PROVIDER * Unavailable Unavailable ALIASES , DEFAULT / GENERIC / UNKNOWN PROVIDER * Unavailable Unavailable ALIASES , DEFAULT / GENERIC / UNKNOWN PROVIDER * Unavailable Unavailable ALIASES , DEFAULT / GENERIC / UNKNOWN PROVIDER * Unavailable Unavailable ALIASES , DEFAULT / GENERIC / UNKNOWN PROVIDER * Unavailable Unavailable ALIASES , DEFAULT / GENERIC / UNKNOWN PROVIDER * Unavailable Unavailable ALIASES , DEFAULT / GENERIC / UNKNOWN PROVIDER * Unavailable Unavailable ALIASES , DEFAULT / GENERIC / UNKNOWN PROVIDER * Unavailable Unavailable ALIASES , DEFAULT / GENERIC / UNKNOWN PROVIDER * Unavailable Unavailable ALIASES , DEFAULT / GENERIC / UNKNOWN PROVIDER * Unavailable Unavailable ALIASES , DEFAULT / GENERIC / UNKNOWN PROVIDER * Unavailable Unavailable ALIASES , DEFAULT / GENERIC / UNKNOWN PROVIDER * Unavailable Unavailable ALIASES , DEFAULT / GENERIC / UNKNOWN PROVIDER * Unavailable Unavailable ALIASES , DEFAULT / GENERIC / UNKNOWN PROVIDER * Unavailable Unavailable ALIASES , DEFAULT / GENERIC / UNKNOWN PROVIDER * Unavailable Unavailable ALIASES , DEFAULT / GENERIC / UNKNOWN PROVIDER * Unavailable Unavailable ALIASES , DEFAULT / GENERIC / UNKNOWN PROVIDER * Unavailable Unavailable ALIASES , DEFAULT / GENERIC / UNKNOWN PROVIDER * Unavailable Unavailable ALIASES , DEFAULT / GENERIC / UNKNOWN PROVIDER * Unavailable Unavailable ALIASES , DEFAULT / GENERIC / UNKNOWN PROVIDER * Unavailable Unavailable ALIASES , DEFAULT / GENERIC / UNKNOWN PROVIDER * Unavailable Unavailable ALIASES , DEFAULT / GENERIC / UNKNOWN PROVIDER * Unavailable Unavailable ALIASES , DEFAULT / GENERIC / UNKNOWN PROVIDER * Unavailable Unavailable ALIASES , DEFAULT / GENERIC / UNKNOWN PROVIDER * Unavailable Unavailable ALIASES , DEFAULT / GENERIC / UNKNOWN PROVIDER * Unavailable Unavailable ALIASES , DEFAULT / GENERIC / UNKNOWN PROVIDER * Unavailable Unavailable ALIASES , DEFAULT / GENERIC / UNKNOWN PROVIDER * Unavailable Unavailable ALIASES , DEFAULT / GENERIC / UNKNOWN PROVIDER * Unavailable Unavailable ALIASES , DEFAULT / GENERIC / UNKNOWN PROVIDER * Unavailable Unavailable ALIASES , DEFAULT / GENERIC / UNKNOWN PROVIDER * Unavailable Unavailable ALIASES , DEFAULT / GENERIC / UNKNOWN PROVIDER * Unavailable Unavailable ALIASES , DEFAULT / GENERIC / UNKNOWN PROVIDER * Unavailable Unavailable ALIASES , DEFAULT / GENERIC / UNKNOWN PROVIDER * Unavailable Unavailable ALIASES , DEFAULT / GENERIC / UNKNOWN PROVIDER * Unavailable Unavailable ALIASES , DEFAULT / GENERIC / UNKNOWN PROVIDER * Unavailable Unavailable ALIASES , DEFAULT / GENERIC / UNKNOWN PROVIDER * Unavailable Unavailable ALIASES , DEFAULT / GENERIC / UNKNOWN PROVIDER * Unavailable Unavailable ALIASES , DEFAULT / GENERIC / UNKNOWN PROVIDER * Unavailable Unavailable ALIASES , DEFAULT / GENERIC / UNKNOWN PROVIDER * Unavailable Unavailable ALIASES , DEFAULT / GENERIC / UNKNOWN PROVIDER * Unavailable Unavailable ALIASES , DEFAULT / GENERIC / UNKNOWN PROVIDER * Unavailable Unavailable ALIASES , DEFAULT / GENERIC / UNKNOWN PROVIDER * Unavailable Unavailable ALIASES , DEFAULT / GENERIC / UNKNOWN PROVIDER * Unavailable Unavailable [place], A Debi AUTOMOBILE DESIGNER Unavailable Unavailable [place], A Debi AUTOMOBILE DESIGNER Unavailable Unavailable [place], A Debi AUTOMOBILE DESIGNER Unavailable Unavailable [place], A Debi AUTOMOBILE DESIGNER Unavailable Unavailable Rno, A Debi AUTOMOBILE DESIGNER Unavailable Unavailable [place], A Debi AUTOMOBILE DESIGNER Unavailable Unavailable Ron, A Debi AUTOMOBILE DESIGNER Unavailable Unavailable Ron, A Debi AUTOMOBILE DESIGNER Unavailable Unavailable [place], A Debi AUTOMOBILE DESIGNER Unavailable Unavailable [place], A Debi AUTOMOBILE DESIGNER Unavailable Unavailable [place], A Debi AUTOMOBILE DESIGNER Unavailable Unavailable [place], A Debi AUTOMOBILE DESIGNER Unavailable Unavailable [place], A Debi AUTOMOBILE DESIGNER Unavailable Unavailable [place], A Debi AUTOMOBILE DESIGNER Unavailable Unavailable [place], A Debi AUTOMOBILE DESIGNER Unavailable Unavailable [place], A Debi AUTOMOBILE DESIGNER Unavailable Unavailable [place], A Debi AUTOMOBILE DESIGNER Unavailable Unavailable [place], A Debi AUTOMOBILE DESIGNER Unavailable Unavailable Ron, A Debi AUTOMOBILE DESIGNER Unavailable Unavailable Ron, A Debi AUTOMOBILE DESIGNER Unavailable Unavailable [place], A Debi AUTOMOBILE DESIGNER Unavailable Unavailable Naun Briones MD Unavailable Unavailable Naun Briones MD Unavailable Unavailable Naun Briones MD Unavailable Unavailable Naun Briones MD Unavailable Unavailable Naun Briones MD Unavailable Unavailable Naun Briones MD Unavailable Unavailable Naun Briones MD Unavailable Unavailable Naun Briones MD Unavailable Unavailable Naun Briones MD Unavailable Unavailable Naun Briones MD Unavailable Unavailable Naun Briones MD Unavailable Unavailable Naun Briones MD Unavailable Unavailable Naun Briones MD Unavailable Unavailable Naun Briones MD Unavailable Unavailable Naun Briones MD Unavailable Unavailable Naun Briones MD Unavailable Unavailable Naun Briones MD Unavailable Unavailable Naun Briones MD Unavailable Unavailable Naun Briones MD Unavailable Unavailable Naun Briones MD Unavailable Unavailable Naun Briones MD Unavailable Unavailable Naun Briones MD Unavailable Unavailable Naun Briones MD Unavailable Unavailable Naun Briones MD Unavailable Unavailable Naun Briones MD Unavailable Unavailable Naun Briones MD Unavailable Unavailable Naun Briones MD Unavailable Unavailable Naun Briones MD Unavailable Unavailable Naun Briones MD Unavailable Unavailable Naun Briones MD Unavailable Unavailable Naun Briones MD Unavailable Unavailable Naun Briones MD Unavailable Unavailable Naun Briones MD Unavailable Unavailable Naun Briones MD Unavailable Unavailable Nanu Briones MD Unavailable Unavailable Naun Briones MD Unavailable Unavailable Naun Briones MD Unavailable Unavailable Naun Briones MD Unavailable Unavailable Naun Briones MD Unavailable Unavailable Naun Briones MD Unavailable Unavailable Naun Briones MD Unavailable Unavailable Naun Briones MD Unavailable Unavailable Naun Briones MD Unavailable Unavailable Naun Briones MD Unavailable Unavailable Naun Briones MD Unavailable Unavailable Naun Briones MD Unavailable Unavailable Naun Briones MD Unavailable Unavailable Naun Briones MD Unavailable Unavailable Naun Briones MD Unavailable Unavailable Naun Briones MD Unavailable Unavailable Naun Briones MD Unavailable Unavailable Naun Briones MD Unavailable Unavailable Naun Briones MD Unavailable Unavailable Naun Briones MD Unavailable Unavailable Naun Briones MD Unavailable Unavailable Naun Briones MD Unavailable Unavailable Naun Briones MD Unavailable Unavailable Naun Briones MD Unavailable Unavailable Naun Briones MD Unavailable Unavailable Naun Briones MD Unavailable Unavailable Naun Briones MD Unavailable Unavailable Naun Briones MD Unavailable Unavailable Naun Briones MD Unavailable Unavailable Naun Briones MD Unavailable Unavailable Naun Briones MD Unavailable Unavailable Naun Briones MD Unavailable Unavailable Naun Briones MD Unavailable Unavailable Naun Briones MD Unavailable Unavailable Naun Briones MD Unavailable Unavailable Naun Briones MD Unavailable Unavailable Naun Briones MD Unavailable Unavailable Naun Briones MD Unavailable Unavailable Naun Briones MD Unavailable Unavailable Naun Briones MD Unavailable Unavailable Naun Briones MD Unavailable Unavailable Naun Briones MD Unavailable Unavailable Naun Briones MD Unavailable Unavailable Naun Briones MD Unavailable Unavailable Naun Briones MD Unavailable Unavailable Naun Briones MD Unavailable Unavailable Maria Isabel YEE Unavailable Unavailable Sun, Rajat DO Unavailable Unavailable Sun, Rajat DO Unavailable Unavailable Sun, Rajat DO Unavailable Unavailable Sun, Rajat DO Unavailable Unavailable Sun, Rajat DO Unavailable Unavailable Sun, Rajat DO Unavailable Unavailable Sun, Rajat DO Unavailable Unavailable Sun, Rajat DO Unavailable Unavailable Sun, Rajat DO Unavailable Unavailable Sun, Rajat DO Unavailable Unavailable Sun, Rajat DO Unavailable Unavailable Sun, Rajat DO Unavailable Unavailable Sun, Rajat DO Unavailable Unavailable Sun, Rajat DO Unavailable Unavailable Sun, Rajat DO Unavailable Unavailable Sun, Rajat DO Unavailable Unavailable Sun, Rajat DO Unavailable Unavailable Sun, Rajat DO Unavailable Unavailable Sun, Rajat DO Unavailable Unavailable Sun, Rajat DO Unavailable Unavailable Sun, Rajat DO Unavailable Unavailable Sun, Rajat DO Unavailable Unavailable Sun, Rajat DO Unavailable Unavailable Sun, Rajat DO Unavailable Unavailable Sun, Rajat DO Unavailable Unavailable Sun, Rajat DO Unavailable Unavailable Sun, Rajat DO Unavailable Unavailable Sun, Rajat DO Unavailable Unavailable Sun, Rajat DO Unavailable Unavailable Sun, Rajat DO Unavailable Unavailable Sun, Rajat DO Unavailable Unavailable Sun, Rajat DO Unavailable Unavailable Sun, Rajat DO Unavailable Unavailable Sun, Rajat DO Unavailable Unavailable Sun, Rajat DO Unavailable Unavailable Sun, Rajat DO Unavailable Unavailable Sun, Rajat DO Unavailable Unavailable Sun, Rajat DO Unavailable Unavailable Sun, Rajat DO Unavailable Unavailable Sun, Rajat DO Unavailable Unavailable Sun, Rajat DO Unavailable Unavailable Sun, Rajat DO Unavailable Unavailable Sun, Rajat DO Unavailable Unavailable Sun, Rajat DO Unavailable Unavailable Sun, Rajat DO Unavailable Unavailable Sun, Rajat DO Unavailable Unavailable Sun, Rajat DO Unavailable Unavailable Sun, Rajat DO Unavailable Unavailable Sun, Rajat DO Unavailable Unavailable Sun, Rajat DO Unavailable Unavailable Sun, Rajat DO Unavailable Unavailable Sun, Rajat DO Unavailable Unavailable Sun, Rajat DO Unavailable Unavailable Sun, Rajat DO Unavailable Unavailable Sun, Rajat DO Unavailable Unavailable Sun, Rajat DO Unavailable Unavailable Sun, Rajat DO Unavailable Unavailable Sun, Rajat DO Unavailable Unavailable Sun, Rajat DO Unavailable Unavailable Sun, Rajat DO Unavailable Unavailable Sun, Rajat DO Unavailable Unavailable Sun, Rajat DO Unavailable Unavailable Sun, Rajat DO Unavailable Unavailable NGHIA BOSTON MD Unavailable NGHIA BOSTON MD Unavailable NGHIA BOSTON MD Unavailable NGHIA BOSTON MD Unavailable Maria Isabel Cunningham MD Unavailable Unavailable Maria Isabel Cunningham MD Unavailable Unavailable Maria Isabel Cunningham MD Unavailable Unavailable Maria Isabel Cunningham MD Unavailable Unavailable Maria Iasbel Cunningham MD Unavailable Unavailable Maria Isabel Cunningham MD Unavailable Unavailable Maria Isabel Cunningham MD Unavailable Unavailable Maria Isabel Cunningham MD Unavailable Unavailable Maria Isabel Cunningham MD Unavailable Unavailable Maria Isabel Cunningham MD Unavailable Unavailable Maria Isabel Cunningham MD Unavailable Unavailable Maria Isabel Cunningham MD Unavailable Unavailable ANISHA [id number], E JITENDRA [id number] Unavailable Unavailab le ANISHA [id number], E JITENDRA [id number] Unavailable Unavailab le ANISHA [id number], E JITENDRA [id number] Unavailable Unavailab le TAMIKO III, J STEVE Unavailable Unavailable TAMIKO III, J STEVE Unavailable Unavailable TAMIKO III, J STEVE Unavailable Unavailable TAMIKO III, J STEVE Unavailable Unavailable TAMIKO III, J STEVE Unavailable Unavailable TAMIKO III, J STEVE Unavailable Unavailable Ilana LAMAR MD Unavailable Unavailable Ilana LAMAR MD Unavailable Unavailable Ilana LAMAR MD Unavailable Unavailable Ilana LAMAR MD Unavailable Unavailable Ilana LAMAR MD Unavailable Unavailable Ilana LAMAR MD Unavailable Unavailable Ilana LAMAR MD Unavailable Unavailable Ilana LAMAR MD Unavailable Unavailable Ilana LAMAR MD Unavailable Unavailable Ilana LAMAR MD Unavailable Unavailable Ilana LAMAR MD Unavailable Unavailable Ilana LAMAR MD Unavailable Unavailable Ilana LAMAR MD Unavailable Unavailable Ilana LAMAR MD Unavailable Unavailable OPAL ZARAGOZA MD Unavailable Unavailable OPAL ZARAGOZA MD Unavailable Unavailable OPAL ZARAGOZA MD Unavailable Unavailable OPAL ZARAGOZA MD Unavailable Unavailable OPAL ZARAGOZA MD Unavailable Unavailable OPAL ZARAGOZA MD Unavailable Unavailable OPAL ZARAGOZA MD Unavailable Unavailable OPAL ZARAGOZA MD Unavailable Unavailable OPAL ZARAGOZA MD Unavailable Unavailable OPAL ZARAGOZA MD Unavailable Unavailable OPAL ZARAGOZA MD Unavailable Unavailable OPAL ZARAGOZA MD Unavailable Unavailable OPAL ZARAGOZA MD Unavailable Unavailable OPAL ZARAGOZA MD Unavailable Unavailable OPAL ZARAGOZA MD Unavailable Unavailable OPAL ZARAGOZA MD Unavailable Unavailable OPAL ZARAGOZA MD Unavailable Unavailable OPAL ZARAGOZA MD Unavailable Unavailable OPAL ZARAGOZA MD Unavailable Unavailable OPAL ZARAGOZA MD Unavailable Unavailable OPAL ZARAGOZA MD Unavailable Unavailable OPAL ZARAGOZA MD Unavailable Unavailable OPAL ZARAGOZA MD Unavailable Unavailable OPAL ZARAGOZA MD Unavailable Unavailable OPAL ZARAGOZA MD Unavailable Unavailable OPAL ZARAGOZA MD Unavailable Unavailable OPAL ZARAGOZA MD Unavailable Unavailable OPAL ZARAGOZA MD Unavailable Unavailable OPAL ZARAGOZA MD Unavailable Unavailable OPAL ZARAGOZA MD Unavailable Unavailable OPAL ZARAGOZA MD Unavailable Unavailable OPAL ZARAGOZA MD Unavailable Unavailable OPAL ZARAGOZA MD Unavailable Unavailable OPAL ZARAGOZA MD Unavailable Unavailable OPAL ZARAGOZA MD Unavailable Unavailable OPAL ZARAGOZA MD Unavailable Unavailable OPAL ZARAGOZA MD Unavailable Unavailable OPAL ZARAGOZA MD Unavailable Unavailable OPAL ZARAGOZA MD Unavailable Unavailable OPAL ZARAGOZA MD Unavailable Unavailable OPAL ZARAGOZA MD Unavailable Unavailable OPAL ZARAGOZA MD Unavailable Unavailable OPAL ZARAGOZA MD Unavailable Unavailable OPAL ZARAGOZA MD Unavailable Unavailable OPAL ZARAGOZA MD Unavailable Unavailable OPAL ZARAGOZA MD Unavailable Unavailable OPAL ZARAGOZA MD Unavailable Unavailable OPAL ZARAGOZA MD Unavailable Unavailable Todd CERVANTES [id number] Unavailable Unavailable Ryan CABRERA MD Unavailable Unavailable ANDRyan BUSH MD Unavailable Unavailable ANDRyan BUSH MD Unavailable Unavailable ANDRyan BUSH MD Unavailable Unavailable ANDRyan BUSH MD Unavailable Unavailable ANDRyan BUSH MD Unavailable Unavailable Ryan CABRERA MD Unavailable Unavailable Ryan CABRERA MD Unavailable Unavailable Todd BLOUNT MD Unavailable Unavailable Todd BLOUNT MD Unavailable Unavailable Todd BLOUNT MD Unavailable Unavailable Todd BLOUNT MD Unavailable Unavailable Todd BLOUNT MD Unavailable Unavailable Todd BLOUNT MD Unavailable Unavailable Todd BLOUNT MD Unavailable Unavailable Todd BLOUNT MD Unavailable Unavailable Todd BLOUNT MD Unavailable Unavailable Todd BLOUNT MD Unavailable Unavailable Todd BLOUNT MD Unavailable Unavailable Todd BLOUNT MD Unavailable Unavailable Todd BLOUNT MD Unavailable Unavailable Todd BLOUNT MD Unavailable Unavailable Todd BLOUNT MD Unavailable Unavailable Todd BLOUNT MD Unavailable Unavailable Todd BLOUNT MD Unavailable Unavailable Todd BLOUNT MD Unavailable Unavailable Todd BLOUNT MD Unavailable Unavailable Todd BLOUNT MD Unavailable Unavailable Todd BLOUNT MD Unavailable Unavailable Todd BLOUNT MD Unavailable Unavailable Todd BLOUNT MD Unavailable Unavailable Todd BLOUNT MD Unavailable Unavailable Todd BLOUNT MD Unavailable Unavailable Todd BLOUNT MD Unavailable Unavailable Todd BLOUNT MD Unavailable Unavailable Todd BLOUNT MD Unavailable Unavailable Todd BLOUNT MD Unavailable Unavailable Todd BLOUNT MD Unavailable Unavailable Todd BLOUNT MD Unavailable Unavailable Todd BLOUNT MD Unavailable Unavailable Todd BLOUNT MD Unavailable Unavailable Todd BLOUNT MD Unavailable Unavailable Todd BLOUNT MD Unavailable Unavailable Todd BLOUNT MD Unavailable Unavailable Todd BLOUNT MD Unavailable Unavailable Todd BLOUNT MD Unavailable Unavailable Todd BLOUNT MD Unavailable Unavailable Todd BLOUNT MD Unavailable Unavailable Todd BLOUNT MD Unavailable Unavailable Todd BLOUNT MD Unavailable Unavailable Todd BLOUNT MD Unavailable Unavailable Todd BLOUNT MD Unavailable Unavailable Todd BLOUNT MD Unavailable Unavailable Todd BLOUNT MD Unavailable Unavailable Todd BLOUNT MD Unavailable Unavailable Todd BLOUNT MD Unavailable Unavailable Todd BLOUNT MD Unavailable Unavailable Todd BLOUNT MD Unavailable Unavailable Todd BLOUNT MD Unavailable Unavailable Todd BLOUNT MD Unavailable Unavailable Todd BLOUNT MD Unavailable Unavailable Todd BLOUNT MD Unavailable Unavailable Todd BLOUNT MD Unavailable Unavailable Tdod BLOUNT MD Unavailable Unavailable Todd BLOUNT MD Unavailable Unavailable Todd BLOUNT MD Unavailable Unavailable Todd BLOUNT MD Unavailable Unavailable Todd BLOUNT MD Unavailable Unavailable Todd BLOUNT MD Unavailable Unavailable Todd BLOUNT MD Unavailable Unavailable Todd BLOUNT MD Unavailable Unavailable Todd BLOUNT MD Unavailable Unavailable Todd BLOUNT MD Unavailable Unavailable Laura Gonzalez MD Unavailable Unavailable Laura Gonzalez MD Unavailable Unavailable Laura Gonzalez MD Unavailable Unavailable Laura Gonzalez MD Unavailable Unavailable Laura Gonzalez MD Unavailable Unavailable Laura Gonzalez MD Unavailable Unavailable Laura Gonzalez MD Unavailable Unavailable Laura Gonzalez MD Unavailable Unavailable NiLaura clark MD Unavailable Unavailable NizamLaura MD Unavailable Unavailable NizamLaura MD Unavailable Unavailable NizamLaura MD Unavailable Unavailable Maria RzamLaura MD Unavailable Unavailable Laura Gonzalez MD Unavailable Unavailable Laura Gonzalez MD Unavailable Unavailable Maria RzaLaura nicolas MD Unavailable Unavailable NizaLaura nicolas MD Unavailable Unavailable NizamLaura MD Unavailable Unavailable NizaLaura nicolas MD Unavailable Unavailable NizaLaura nicolas MD Unavailable Unavailable Maria RzaLaura nicolas MD Unavailable Unavailable NiLaura clark MD Unavailable Unavailable NizamLaura MD Unavailable Unavailable Nizam Rayjr PICHARDO Unavailable Unavailable Nizam Rayjr MD Unavailable Unavailable Nizam, Rayjr MD Unavailable Unavailable Nizam Rayjr MD Unavailable Unavailable Nizam Rayjr MD Unavailable Unavailable Nizam Rayjr MD Unavailable Unavailable Nizam Rayjr MD Unavailable Unavailable Nizam Rayees MD Unavailable Unavailable Nizam, Rayjr MD Unavailable Unavailable Nizam, Rayjr MD Unavailable Unavailable Nizam Rayjr MD Unavailable Unavailable Nizam Rayjr MD Unavailable Unavailable Nizam Rayees MD Unavailable Unavailable Nizam Rayees MD Unavailable Unavailable Nizam, Rayees MD Unavailable Unavailable Nizam, Rayjr MD Unavailable Unavailable Nizam, Rayjr MD Unavailable Unavailable Nizam Rayjr PICHARDO Unavailable Unavailable Nizam Rayjr PICHARDO Unavailable Unavailable Nizam Rayjr MD Unavailable Unavailable Nizam Rayjr MD Unavailable Unavailable Nizam Rayjr MD Unavailable Unavailable Nizam Rayjr MD Unavailable Unavailable Nizam Rayjr PICHARDO Unavailable Unavailable Nizamaria isabel Rayjr PICHARDO Unavailable Unavailable Nieduardo Rayjr PICHARDO Unavailable Unavailable Nizam Rayjr PICHARDO Unavailable Unavailable Nizam Rayjr MD Unavailable Unavailable Nizam Rayjr MD Unavailable Unavailable Nizam, Rayjr MD Unavailable Unavailable Nizam, Rayjr PICHARDO Unavailable Unavailable Nieduardo Rayjr PICHARDO Unavailable Unavailable Nieduardo Rayjr PICHARDO Unavailable Unavailable Nizamaria isabel Rayjr PICHARDO Unavailable Unavailable Nizam Rayjr MD Unavailable Unavailable Nizamaria isabel Rayjr MD Unavailable Unavailable Nizamaria isabel Rayjr MD Unavailable Unavailable Nieduardo Rayjr PICHARDO Unavailable Unavailable Carlos Rayjr PICHARDO Unavailable Unavailable Laura Gonzalez MD Unavailable Unavailable Nieduardo Rayjr PICHARDO Unavailable Unavailable Nizamaria isabel Rayjr PICHARDO Unavailable Unavailable Nizamaria isabel Rayjr PICHARDO Unavailable Unavailable Nizam, Rayjr PICHARDO Unavailable Unavailable Nizam, Rayjr PICHARDO Unavailable Unavailable Nieduardo Rayjr PICHARDO Unavailable Unavailable Nieduardo Rayjr PICHARDO Unavailable Unavailable Nieduardo Rayjr PICHARDO Unavailable Unavailable Nieduardo Rayjr PICHARDO Unavailable Unavailable Nizamaria isabel Rayjr PICHARDO Unavailable Unavailable Nizamaria isabel Rayjr PICHARDO Unavailable Unavailable Nizamaria isabel Rayjr PICHARDO Unavailable Unavailable Carlos, Rayjr PICHARDO Unavailable Unavailable Zuleyka Duran MD Unavailable Unavailable Zuleyka Duran MD Unavailable Unavailable Zuleyka Duran MD Unavailable Unavailable CarsonZuleyka MD Unavailable Unavailable LorettoZuleyka MD Unavailable Unavailable CarsonZuleyka MD Unavailable Unavailable LorettoZuleyka MD Unavailable Unavailable LorettoZuleyka MD Unavailable Unavailable CarsonZuleyka MD Unavailable Unavailable LorettoZuleyka MD Unavailable Unavailable CarsonZuleyka MD Unavailable Unavailable CarsonZuleyka MD Unavailable Unavailable LorettoZuleyka MD Unavailable Unavailable CarsonZuleyka MD Unavailable Unavailable LorettoZuleyka MD Unavailable Unavailable CarsonZuleyka MD Unavailable Unavailable LorettoZuleyka MD Unavailable Unavailable CarsonZuleyka MD Unavailable Unavailable CarsonZuleyka MD Unavailable Unavailable CarsonZuleyka MD Unavailable Unavailable LorettoZuleyka MD Unavailable Unavailable CarsonZuleyka MD Unavailable Unavailable CarsonZuleyka MD Unavailable Unavailable LorettoZuleyka MD Unavailable Unavailable CarsonZuleyka MD Unavailable Unavailable CarsonZuleyka MD Unavailable Unavailable LorettoZuleyka MD Unavailable Unavailable LorettoZuleyka MD Unavailable Unavailable CarsonZuleyka MD Unavailable Unavailable CarsonZuleyka MD Unavailable Unavailable LorettoZuleyka MD Unavailable Unavailable LorettoZuleyka MD Unavailable Unavailable LorettoZuleyka MD Unavailable Unavailable LorettoZuleyka MD Unavailable Unavailable CarsonZuleyka MD Unavailable Unavailable CarsonZuleyka MD Unavailable Unavailable LorettoZuleyka MD Unavailable Unavailable LorettoZuleyka MD Unavailable Unavailable CarsonZuleyka MD Unavailable Unavailable LorettoZuleyka MD Unavailable Unavailable LorettoZuleyka MD Unavailable Unavailable LorettoZuleyka MD Unavailable Unavailable CarsonZuleyka MD Unavailable Unavailable Balog, Deya Unavailable Unavailable Balog, Deya Unavailable Unavailable Balog, Deya Unavailable Unavailable Balog, Deya Unavailable Unavailable Balog, Deya Unavailable Unavailable Gael Hua Unavailable Todd Alegre PA Unavailable Unavailable Trickey J Magalis PA Unavailable Unavailable Trickey J Magalis PA Unavailable Unavailable Trickey J Magalis PA Unavailable Unavailable Trickey, J Magalis PA Unavailable Unavailable Trickey, J Magalis PA Unavailable Unavailable Trickey, J Magalis PA Unavailable Unavailable Trickey, J Magalis PA Unavailable Unavailable Trickey, J Magalis PA Unavailable Unavailable Trickey, J Magalis PA Unavailable Unavailable Trickey, J Magalis PA Unavailable Unavailable Trickey, J Magalis PA Unavailable Unavailable Trickey, J Magalis PA Unavailable Unavailable Trickey, J Magalis PA Unavailable Unavailable Trickey, J Magalis PA Unavailable Unavailable Trickey, J Magalis PA Unavailable Unavailable Trickey, J Magalis PA Unavailable Unavailable Trickey, J Magalis PA Unavailable Unavailable Trickey, J Magalis PA Unavailable Unavailable Trickey, J Magalis PA Unavailable Unavailable Trickey, J Magalis PA Unavailable Unavailable Trickey, J Magalis PA Unavailable Unavailable Trickey, J Magalis PA Unavailable Unavailable Trickey, J Magalis PA Unavailable Unavailable Trickey, J Magalis PA Unavailable Unavailable Trickey, J Magalis PA Unavailable Unavailable Trickey, J Magalis PA Unavailable Unavailable Trickey, J Magalis PA Unavailable Unavailable Trickey, J Magalis PA Unavailable Unavailable Trickey, J Magalis PA Unavailable Unavailable Trickey, J Magalis PA Unavailable Unavailable Trickey, J Magalis PA Unavailable Unavailable Trickey, J Magalis PA Unavailable Unavailable Trickey, J Magalis PA Unavailable Unavailable Trickey, J Magalis PA Unavailable Unavailable Trickey, J Magalis PA Unavailable Unavailable Trickey, J Magalis PA Unavailable Unavailable Trickey, J Magalis PA Unavailable Unavailable Trickey, J Magalis PA Unavailable Unavailable Trickey, J Magalis PA Unavailable Unavailable Trickey, J Magalis PA Unavailable Unavailable Trickey, J Magalis PA Unavailable Unavailable Trickey, J Magalis PA Unavailable Unavailable Trickey, J Magalis PA Unavailable Unavailable Trickey, J Magalis PA Unavailable Unavailable Trickey, J Magalis PA Unavailable Unavailable Trickey, J Magalis PA Unavailable Unavailable Trickey, J Magalis PA Unavailable Unavailable Trickey, J Magalis PA Unavailable Unavailable Trickey, J Magalis PA Unavailable Unavailable Trickey, J Magalis PA Unavailable Unavailable Trickey, J Magalis PA Unavailable Unavailable Maria Isabel HENRIQUEZ MD Unavailable Unavailable Maria Isabel HENRIQUEZ MD Unavailable Unavailable Maria Isabel HENRIQUEZ MD Unavailable Unavailable Maria Isabel HENRIQUEZ MD Unavailable Unavailable Maria Isabel HENRIQUEZ MD Unavailable Unavailable Maria Isabel HENRIQUEZ MD Unavailable Unavailable Maria Isabel HENRIQUEZ MD Unavailable Unavailable Maria Isabel HENRIQUEZ MD Unavailable Unavailable VANVALKENBURG, M TOÑO PICHARDO Unavailable Unavailable VANVALKENBURG, M TOÑO PICHARDO Unavailable Unavailable VANVALKENBURG, M TOÑO PICHARDO Unavailable Unavailable VANVALKENBURG, M TOÑO PICHARDO Unavailable Unavailable VANVALKENBURG, M TOÑO PICHARDO Unavailable Unavailable VANVALKENBURG, Maria Isabel LUNDBERG MD Unavailable Unavailable VANVALKENBURG, Maria Isabel LUNDBERG MD Unavailable Unavailable VANVALKENBURG, Maria Isabel LUNDBERG MD Unavailable Unavailable VANVALKENBURG, M TOÑO PICHARDO Unavailable Unavailable VANVALKENBURG, M TOÑO PICHARDO Unavailable Unavailable VANVALKENBURG, M TOÑO PICHARDO Unavailable Unavailable VANVALKENBURG, M TOÑO PICHARDO Unavailable Unavailable VANVALKENBURG, M TOÑO PICHARDO Unavailable Unavailable VANVALKENBURG, M TOÑO PICHARDO Unavailable Unavailable VANVALKENBURG, M TOÑO PICHARDO Unavailable Unavailable VANVALKENBURG, M TOÑO PICHARDO Unavailable Unavailable VANVALKENBURG, M TOÑO PICHARDO Unavailable Unavailable VANVALKENBURG, M TOÑO PICHARDO Unavailable Unavailable VANVALKENBURG, M TOÑO PICHARDO Unavailable Unavailable VANVALKENBURG, Maria Isabel LUNDBERG MD Unavailable Unavailable VANVALKENBURG, M TOÑO PICHARDO Unavailable Unavailable VANVALKENBURG, Maria Isabel LUNDBERG MD Unavailable Unavailable VANVALKENBURG, M TOÑO PICHARDO Unavailable Unavailable VANVALKENBURG, Maria Isabel LUNDBERG MD Unavailable Unavailable VANVALKENBURG, Maria Isabel LUNDBERG MD Unavailable Unavailable VANVALKENBURG, Maria Isabel LUNDBERG MD Unavailable Unavailable VANVALKENBURG, M TOÑO PICHARDO Unavailable Unavailable VANVALKENBURG, Maria Isabel LUNDBERG MD Unavailable Unavailable VANVALKENBURG, M TOÑO PICHARDO Unavailable Unavailable VANVALKENBURG, Maria Isabel LUNDBERG MD Unavailable Unavailable VANVALKENBURG, Maria Isabel LUNDBERG MD Unavailable Unavailable VANVALKENBURG, Maria Isabel LUNDBERG MD Unavailable Unavailable VANVALKENBURG, Maria Isabel LUNDBERG MD Unavailable Unavailable VANVALKENBURG, Maria Isabel LUNDBERG MD Unavailable Unavailable VANVALKENBURG, Maria Isabel LUNDBERG MD Unavailable Unavailable VANVALKENBURG, Maria Isabel LUNDBERG MD Unavailable Unavailable VANVALKENBURG, Maria Isabel LUNDBERG MD Unavailable Unavailable VANVALKENBURG, Maria Isabel LUNDBERG MD Unavailable Unavailable VANVALKENBURG, Maria Isabel LUNDBERG MD Unavailable Unavailable VANVALKENBURG, Maria Isabel LUNDBERG MD Unavailable Unavailable VANVALKENBURG, Maria Isabel LUNDBERG MD Unavailable Unavailable VANVALKENBURG, Maria Isabel LUNDBERG MD Unavailable Unavailable VANVALKENBURG, Maria Isabel LUNDBERG MD Unavailable Unavailable VANVALKENBURG, Maria Isabel LUNDBERG MD Unavailable Unavailable VANVALKENBURG, Maria Isabel LUNDBERG MD Unavailable Unavailable VANVALKENBURG, Maria Isabel LUNDBERG MD Unavailable Unavailable VANVALKENBURG, Maria Isabel LUNDBERG MD Unavailable Unavailable VANVALKENBURG, Maria Isabel LUNDBERG MD Unavailable Unavailable VANVALKENBURG, Maria Isabel LUNDBERG MD Unavailable Unavailable VANVALKENBURG, Maria Isabel LUNDBERG MD Unavailable Unavailable VANVALKENBURG, M TOÑO MD Unavailable Unavailable Maria Isabel HENRIQUEZ MD Unavailable Unavailable Maria Isabel HENRIQUEZ MD Unavailable Unavailable Maria Isabel HENRIQUEZ MD Unavailable Unavailable Maria Isabel HENRIQUEZ MD Unavailable Unavailable LINDSAY, W SHAHANA PA Unavailable Unavailable LINDSAY, W SHAHANA PA Unavailable Unavailable LINDSAY, W SHAHANA PA Unavailable Unavailable LINDSAY, W SHAHANA PA Unavailable Unavailable LINDSAY, W SHAHANA PA Unavailable Unavailable LINDSAY, W SHAHANA PA Unavailable Unavailable LINDSAY, W SHAHANA PA Unavailable Unavailable LINDSAY, W SHAHANA PA Unavailable Unavailable LINDSAY, W SHAHANA PA Unavailable Unavailable LINDSAY, W SHAHANA PA Unavailable Unavailable LINDSAY, W SHAHANA PA Unavailable Unavailable LINDSAY, W SHAHANA PA Unavailable Unavailable LINDSAY, W SHAHANA PA Unavailable Unavailable LINDSAY, W SHAHANA PA Unavailable Unavailable LINDSAY, W SHAHANA PA Unavailable Unavailable LINDSAY, W SHAHANA PA Unavailable Unavailable LINDSAY, W SHAHANA PA Unavailable Unavailable LINDSAY, W SHAHANA PA Unavailable Unavailable LINDSAY, W SHAHANA PA Unavailable Unavailable LINDSAY, W SHAHANA PA Unavailable Unavailable LINDSAY, W SHAHANA PA Unavailable Unavailable LINDSAY, W SHAHANA PA Unavailable Unavailable LINDSAY, W SHAHANA PA Unavailable Unavailable LINDSAY, W SHAHANA PA Unavailable Unavailable LINDSAY, W SHAHANA PA Unavailable Unavailable LINDSAY, W SHAHANA PA Unavailable Unavailable LINDSAY, W SHAHANA PA Unavailable Unavailable LINDSAY, W SHAHANA PA Unavailable Unavailable LINDSAY, W SHAHANA PA Unavailable Unavailable LINDSAY, W SHAHANA PA Unavailable Unavailable LINDSAY, W SHAHANA PA Unavailable Unavailable LINDSAY, W SHAHANA PA Unavailable Unavailable LINDSAY, W SHAHANA PA Unavailable Unavailable LINDSAY, W SHAHANA PA Unavailable Unavailable LINDSAY, W SHAHANA PA Unavailable Unavailable LINDSAY, W SHAHANA PA Unavailable Unavailable LINDSAY, W SHAHANA PA Unavailable Unavailable LINDSAY, W SHAHANA PA Unavailable Unavailable LINDSAY, W SHAHANA PA Unavailable Unavailable LINDSAY, W SHAHANA PA Unavailable Unavailable LINDSAY, W SHAHANA PA Unavailable Unavailable LINDSAY, W SHAHANA PA Unavailable Unavailable LINDSAY, W SHAHANA PA Unavailable Unavailable LINDSAY, W SHAHANA PA Unavailable Unavailable LINDSAY, W SHAHANA PA Unavailable Unavailable LINDSAY, W SHAHANA PA Unavailable Unavailable Maria Isabel Romano MD Unavailable Unavailable Maria Isabel Romano MD Unavailable Unavailable Maria Isabel Romano MD Unavailable Unavailable Romano, M Burnham MD Unavailable Unavailable Romano, M Burnham MD Unavailable Unavailable Romano, M Burnham MD Unavailable Unavailable Romano, M Burnham MD Unavailable Unavailable Romano, M Burnham MD Unavailable Unavailable Romano, M Burnham MD Unavailable Unavailable Romano, M Burnham MD Unavailable Unavailable Romano, M Burnham MD Unavailable Unavailable Romano, M Burnham MD Unavailable Unavailable Romano, M Burnham MD Unavailable Unavailable Romano, M Burnham MD Unavailable Unavailable Romano, M Burnham MD Unavailable Unavailable Romano, M Burnham MD Unavailable Unavailable Romano, M Burnham MD Unavailable Unavailable Romano, M Burnham MD Unavailable Unavailable Romano, M Burnham MD Unavailable Unavailable Romano, M Burnham MD Unavailable Unavailable Romano, M Burnham MD Unavailable Unavailable Romano, M Burnham MD Unavailable Unavailable Romano, M Burnham MD Unavailable Unavailable Romano, M Burnham MD Unavailable Unavailable Romano, M Burnham MD Unavailable Unavailable Romano, M Burnham MD Unavailable Unavailable Romano, M Burnham MD Unavailable Unavailable Romano, M Burnham MD Unavailable Unavailable Romano, M Burnham MD Unavailable Unavailable Romano, M Burnham MD Unavailable Unavailable Romano, M Burnham MD Unavailable Unavailable Romano, M Burnham MD Unavailable Unavailable Romano, M Burnham MD Unavailable Unavailable Romano, M Burnham MD Unavailable Unavailable Romano, M Burnham MD Unavailable Unavailable Romano, M Burnham MD Unavailable Unavailable Romano, M Burnham MD Unavailable Unavailable Romano, M Burnham MD Unavailable Unavailable Romano, M Burnham MD Unavailable Unavailable Romano, M Burnham MD Unavailable Unavailable Romano, M Burnham MD Unavailable Unavailable Romano, M Burnham MD Unavailable Unavailable Romano, M Burnham MD Unavailable Unavailable Romano, M Burnham MD Unavailable Unavailable Romano, M Burnham MD Unavailable Unavailable Romano, M Burnham MD Unavailable Unavailable Romano, M Burnham MD Unavailable Unavailable Romano, M Burnham MD Unavailable Unavailable Romano, M Burnham MD Unavailable Unavailable Romano, M Burnham MD Unavailable Unavailable Romano, M Burnham MD Unavailable Unavailable Romano, M Burnham MD Unavailable Unavailable Romano, M Burnham MD Unavailable Unavailable Romano, M Burnham MD Unavailable Unavailable Romano, M Burnham MD Unavailable Unavailable Romano, M Burnham MD Unavailable Unavailable Romano, M Burnham MD Unavailable Unavailable Romano, M Burnham MD Unavailable Unavailable Romano, M Burnham MD Unavailable Unavailable Romano, M Burnham MD Unavailable Unavailable Maria Isabel Romano MD Unavailable Unavailable Porfirio ARSHADHAN Unavailable Unavailable MEEHANCHARLES MD Unavailable Unavailable MEEHANCHARLES MD Unavailable Unavailable MEEHANCHARLES MD Unavailable Unavailable MEEHANCHARLES MD Unavailable Unavailable MEEHANCHARLES MD Unavailable Unavailable MEEHANCHARLES MD Unavailable Unavailable MEEHANCHARLES MD Unavailable Unavailable MEEHANCHARLES MD Unavailable Unavailable MEEHANCHARLES MD Unavailable Unavailable MEEHANCHARLES MD Unavailable Unavailable MEEHANCHARLES MD Unavailable Unavailable MEEHANCHARLES MD Unavailable Unavailable MEEHANCHARLES MD Unavailable Unavailable MEEHANCHARLES MD Unavailable Unavailable MEEHANCHARLES MD Unavailable Unavailable MEEHANCHARLES MD Unavailable Unavailable MEEHANCHARLES MD Unavailable Unavailable MEEHANCHARLES MD Unavailable Unavailable MEEHANCHARLES MD Unavailable Unavailable MEEHANCHARLES MD Unavailable Unavailable MEEHANCHARLES MD Unavailable Unavailable MEEHANCHARLES MD Unavailable Unavailable MEEHANCHARLES MD Unavailable Unavailable MEEHANCHARLES MD Unavailable Unavailable MEEHANCHARLES MD Unavailable Unavailable MEEHANCHARLES MD Unavailable Unavailable MEEHANCHARLES MD Unavailable Unavailable MEEHANCHARLES MD Unavailable Unavailable MEEHANCHARLES MD Unavailable Unavailable MEEHANCHARLES MD Unavailable Unavailable Moore, Sadiq Lopez MD Unavailable Unavailable Moore, Sadiq Lopez MD Unavailable Unavailable Mooer, Sadiq Lopez MD Unavailable Unavailable Moore, Sadiq Lopez MD Unavailable Unavailable Moore, Sadiq Lopez MD Unavailable Unavailable Moore, Sadiq Lopez MD Unavailable Unavailable Moore, Sadiq Lopez MD Unavailable Unavailable Moore, Sadiq Lopez MD Unavailable Unavailable Moore, Sadiq Lopez MD Unavailable Unavailable Moore, Sadiq Lopez MD Unavailable Unavailable Moore, Sadiq Lopez MD Unavailable Unavailable Moore, Sadiq Lopez MD Unavailable Unavailable Moore, Sadiq Lopez MD Unavailable Unavailable Moore, Sadiq Lopez MD Unavailable Unavailable Moore, Sadiq Lopez MD Unavailable Unavailable Moore, Sadiq Lopez MD Unavailable Unavailable Adlakha, Jasjit Unavailable Unavailable Adlakha, Jasjit Unavailable Unavailable Adlakha, Jasjit Unavailable Unavailable Adlakha, Jasjit Unavailable Unavailable Adlakha, Jasjit Unavailable Unavailable Maria Isabel HAWK MD Unavailable Unavailable Maria Isabel HAWK MD Unavailable Unavailable Maria Isabel HAWK MD Unavailable Unavailable Maria Isabel HAWK MD Unavailable Unavailable Maria Isabel HAWK MD Unavailable Unavailable Maria Isabel HAWK MD Unavailable Unavailable Maria Isabel HAWK MD Unavailable Unavailable Maria Isabel HAWK MD Unavailable Unavailable Maria Isabel HAWK MD Unavailable Unavailable Maria Isabel HAWK MD Unavailable Unavailable Maria Isabel HAWK MD Unavailable Unavailable Maria Isabel HAWK MD Unavailable Unavailable Maria Isabel HAWK MD Unavailable Unavailable Maria Isabel HAWK MD Unavailable Unavailable Maria Isabel HAWK MD Unavailable Unavailable Maria Isabel HAWK MD Unavailable Unavailable Maria Isabel HAWK MD Unavailable Unavailable Maria Isabel HAWK MD Unavailable Unavailable Maria Isabel HAWK MD Unavailable Unavailable Maria Isabel HAWK MD Unavailable Unavailable Maria Isabel HAWK MD Unavailable Unavailable Maria Isabel HAWK MD Unavailable Unavailable Maria Isabel HAWK MD Unavailable Unavailable Maria Isabel HAWK MD Unavailable Unavailable Maria Isabel HAWK MD Unavailable Unavailable Maria Isabel HAWK MD Unavailable Unavailable Maria Isabel HAWK MD Unavailable Unavailable Maria Isabel HAWK MD Unavailable Unavailable Maria Isabel HAWK MD Unavailable Unavailable Maria Isabel HAWK MD Unavailable Unavailable Maria Isabel HAWK MD Unavailable Unavailable Maria Isabel HAWK MD Unavailable Unavailable Maria Isaebl HAWK MD Unavailable Unavailable Maria Isabel HAWK MD Unavailable Unavailable Maria Isabel HAWK MD Unavailable Unavailable Maria Isabel HAWK MD Unavailable Unavailable Maria Isabel HAWK MD Unavailable Unavailable Maria Isabel HAWK MD Unavailable Unavailable Maria Isabel HAWK MD Unavailable Unavailable Maria Isabel HAWK MD Unavailable Unavailable Maria Isabel HAWK MD Unavailable Unavailable Maria Isabel HAWK MD Unavailable Unavailable Maria Isabel HAWK MD Unavailable Unavailable Maria Isabel HAWK MD Unavailable Unavailable Maria Isabel HAWK MD Unavailable Unavailable Maria Isabel HAWK MD Unavailable Unavailable Maria Isabel HAWK MD Unavailable Unavailable Maria Isabel HAWK MD Unavailable Unavailable Anne M Terri PA Unavailable Unavailable Anne, M Terri PA Unavailable Unavailable Anne, M Terri PA Unavailable Unavailable Anne, M Terri PA Unavailable Unavailable Anne, M Terri PA Unavailable Unavailable Anne, M Terri PA Unavailable Unavailable Anne, M Terri PA Unavailable Unavailable Anne, M Terri PA Unavailable Unavailable Anne, M Terri PA Unavailable Unavailable Anne, M Terri PA Unavailable Unavailable Anne, M Terri PA Unavailable Unavailable Anne, M Terri PA Unavailable Unavailable Anne, M Terri PA Unavailable Unavailable Anne, M Terri PA Unavailable Unavailable Anne, M Terri PA Unavailable Unavailable Anne, M Terri PA Unavailable Unavailable Anne, M Terri PA Unavailable Unavailable Anne, M Terri PA Unavailable Unavailable Anne, M Terri PA Unavailable Unavailable Anne, M Terri PA Unavailable Unavailable Anne, M Terri PA Unavailable Unavailable Anne, M Terri PA Unavailable Unavailable Anne, M Terri PA Unavailable Unavailable Anne, M Terri PA Unavailable Unavailable Anne, M Terri PA Unavailable Unavailable Anne, M Terri PA Unavailable Unavailable Anne, M Terri PA Unavailable Unavailable Ray, L Batool Unavailable Unavailable Ray, L Batool Unavailable Unavailable Ray, L Batool Unavailable Unavailable Ray, L Batool Unavailable Unavailable Ray, L Batool Unavailable Unavailable Ray, L Batool Unavailable Unavailable Ray, L Batool Unavailable Unavailable Ray, L Batool Unavailable Unavailable Ray, L Batool Unavailable Unavailable Ray, L Batool Unavailable Unavailable Ray, L Batool Unavailable Unavailable Ray, L Batool Unavailable Unavailable Ray, L Batool Unavailable Unavailable Ray, L Batool Unavailable Unavailable Ray, L Batool Unavailable Unavailable Ray, L Batool Unavailable Unavailable Ray, L Batool Unavailable Unavailable Ray, L Batool Unavailable Unavailable Ray, L Batool Unavailable Unavailable Ray, L Batool Unavailable Unavailable Ray, L Batool Unavailable Unavailable Ray, L Batool Unavailable Unavailable Ray, L Batool Unavailable Unavailable Ray, L Batool Unavailable Unavailable Ray, L Batool Unavailable Unavailable Ray, L Batool Unavailable Unavailable Ray, L Batool Unavailable Unavailable Ray, L Batool Unavailable Unavailable Ray, L Batool Unavailable Unavailable Ray, L Batool Unavailable Unavailable Ray, L Batool Unavailable Unavailable Ray, L Batool Unavailable Unavailable Ray, L Batool Unavailable Unavailable Ray, L Batool Unavailable Unavailable Ray, L Batool Unavailable Unavailable Ray, L Batool Unavailable Unavailable Ray, L Batool Unavailable Unavailable Ray, L Batool Unavailable Unavailable Ray, L Batool Unavailable Unavailable Ray, L Batool Unavailable Unavailable Ray, L Batool Unavailable Unavailable Ray, L Btaool Unavailable Unavailable Ray, L Batool Unavailable Unavailable Ray, L Batool Unavailable Unavailable Ray, L Batool Unavailable Unavailable Ray, L Batool Unavailable Unavailable Ray, L Batool Unavailable Unavailable Ray, L Batool Unavailable Unavailable Ray, L Batool Unavailable Unavailable Ray, L Batool Unavailable Unavailable Ray, L Batool Unavailable Unavailable Ray, L Batool Unavailable Unavailable Ray, L Batool Unavailable Unavailable Ray, L Batool Unavailable Unavailable Ray, L Batool Unavailable Unavailable Ray, L Batool Unavailable Unavailable Ray, L Batool Unavailable Unavailable Ray, L Batool Unavailable Unavailable Ray, L Batool Unavailable Unavailable Ray, L Batool Unavailable Unavailable Ray, L Batool Unavailable Unavailable Ray, L Batool Unavailable Unavailable Ray, L Batool Unavailable Unavailable Ray, L Batool Unavailable Unavailable Ray, L Batool Unavailable Unavailable Ray, L Batool Unavailable Unavailable Ray, L Batool Unavailable Unavailable Ray, L Batool Unavailable Unavailable Ray, L Batool Unavailable Unavailable Ray, L Batool Unavailable Unavailable Ray, L Batool Unavailable Unavailable Ray, L Batool Unavailable Unavailable Todd BLOUNT MD Unavailable Unavailable Todd BLOUNT MD Unavailable Unavailable Todd BLOUNT MD Unavailable Unavailable Todd BLOUNT MD Unavailable Unavailable Todd BLOUNT MD Unavailable Unavailable Todd BLOUNT MD Unavailable Unavailable Todd BLOUNT MD Unavailable Unavailable Todd BLOUNT MD Unavailable Unavailable Todd BLOUNT MD Unavailable Unavailable Todd BLOUNT MD Unavailable Unavailable Todd BLOUNT MD Unavailable Unavailable Todd BLOUNT MD Unavailable Unavailable Todd BLOUNT MD Unavailable Unavailable Todd BLOUNT MD Unavailable Unavailable Todd BLOUNT MD Unavailable Unavailable Todd BLOUNT MD Unavailable Unavailable Todd BLOUNT MD Unavailable Unavailable Todd BLOUNT MD Unavailable Unavailable Todd BLOUNT MD Unavailable Unavailable Todd BLOUNT MD Unavailable Unavailable Todd BLOUNT MD Unavailable Unavailable Todd BLOUNT MD Unavailable Unavailable Todd BLOUNT MD Unavailable Unavailable Todd BLOUNT MD Unavailable Unavailable Todd BLOUNT MD Unavailable Unavailable Todd BLOUNT MD Unavailable Unavailable Todd BLOUNT MD Unavailable Unavailable Todd BLOUNT MD Unavailable Unavailable Todd BLOUNT MD Unavailable Unavailable Todd BLOUNT MD Unavailable Unavailable Todd BLOUNT MD Unavailable Unavailable Todd BLOUNT MD Unavailable Unavailable Todd BLOUNT MD Unavailable Unavailable Todd BLOUNT MD Unavailable Unavailable Todd BLOUNT MD Unavailable Unavailable Todd BLOUNT MD Unavailable Unavailable Todd BLOUNT MD Unavailable Unavailable Todd BLOUNT MD Unavailable Unavailable Todd BLOUNT MD Unavailable Unavailable Todd BLOUNT MD Unavailable Unavailable Todd BLOUNT MD Unavailable Unavailable Todd BLOUNT MD Unavailable Unavailable Todd BLOUNT MD Unavailable Unavailable Todd BLOUNT MD Unavailable Unavailable Todd BLOUNT MD Unavailable Unavailable Todd BLOUNT MD Unavailable Unavailable Todd BLOUNT MD Unavailable Unavailable Todd BLOUNT MD Unavailable Unavailable Todd BLOUNT MD Unavailable Unavailable Todd BLOUNT MD Unavailable Unavailable Todd BLOUNT MD Unavailable Unavailable Todd BLOUNT MD Unavailable Unavailable Todd BLOUNT MD Unavailable Unavailable Todd BLOUNT MD Unavailable Unavailable Todd BLOUNT MD Unavailable Unavailable Todd BLOUNT MD Unavailable Unavailable Todd BLOUNT MD Unavailable Unavailable Todd BLOUNT MD Unavailable Unavailable Todd BLOUNT MD Unavailable Unavailable Todd BLOUNT MD Unavailable Unavailable Todd BLOUNT MD Unavailable Unavailable Todd BLOUNT MD Unavailable Unavailable Todd BLOUNT MD Unavailable Unavailable Todd BLOUNT MD Unavailable Unavailable Todd BLOUNT MD Unavailable Unavailable Ahmed, Ali Sullivan Unavailable Unavailable Ahmed, Ali Sullivan Unavailable Unavailable Ahmed, Ali Sullivan Unavailable Unavailable Ahmed, Ali Sullivan Unavailable Unavailable Ahmed, Ali Sullivan Unavailable Unavailable Ahmed, Ali Sullivan Unavailable Unavailable Ahmed, Ali Sullivan Unavailable Unavailable Latham, Huma Nanette PA Unavailable Unavailable Latham, Huma Nanette PA Unavailable Unavailable Latham, Huma Nanette PA Unavailable Unavailable Latham, Huma Nanette PA Unavailable Unavailable Latham, Huma Nanette PA Unavailable Unavailable Latham, Huma Nanette PA Unavailable Unavailable Latham, Huam Nanette PA Unavailable Unavailable Latham, Huma Nanette PA Unavailable Unavailable Latham, Huma Nanette PA Unavailable Unavailable Latham, Huma Nanette PA Unavailable Unavailable Latham, Huma Nanette PA Unavailable Unavailable Latham, Huma Nanette PA Unavailable Unavailable Latham, Huma Nanette PA Unavailable Unavailable Latham, Huma Nanette PA Unavailable Unavailable Latham, Huma Nanette PA Unavailable Unavailable Latham, Huma Nanette PA Unavailable Unavailable Latham, Huma Nanette PA Unavailable Unavailable Latham, Huma Nanette PA Unavailable Unavailable Latham, Huma Nanette PA Unavailable Unavailable Walker, Kelly Baston Jaqueline AUTOMOBILE DESIGNER Unavailable Unavaila ble Walker, Kelly Baston Jaqueline AUTOMOBILE DESIGNER Unavailable Unavaila ble Walker, Kelly Baston Jaqueline AUTOMOBILE DESIGNER Unavailable Unavaila ble Walker, Kelly Baston Jaqueline AUTOMOBILE DESIGNER Unavailable Unavaila ble Walker, Kelly Baston Jaqueline AUTOMOBILE DESIGNER Unavailable Unavaila ble Walker, Kelly Baston Jaqueline AUTOMOBILE DESIGNER Unavailable Unavaila ble Walker, Kelly Baston Jaqueline AUTOMOBILE DESIGNER Unavailable Unavaila ble Walker, Kelly Baston Jaqueline AUTOMOBILE DESIGNER Unavailable Unavaila ble Walker, Kelly Baston Jaqueline AUTOMOBILE DESIGNER Unavailable Unavaila ble Walker, Kelly Baston Jaqueline AUTOMOBILE DESIGNER Unavailable Unavaila ble Walker, Kelly Baston Jaqueline AUTOMOBILE DESIGNER Unavailable Unavaila ble Walker, Kelly Baston Jaqueline AUTOMOBILE DESIGNER Unavailable Unavaila ble Walker, Kelly Baston Jaqueline AUTOMOBILE DESIGNER Unavailable Unavaila ble Walker, Kelly Baston Jaqueline AUTOMOBILE DESIGNER Unavailable Unavaila ble Walker, Kelly Baston Jaqueline AUTOMOBILE DESIGNER Unavailable Unavaila ble Walker, Kelly Baston Jaqueline AUTOMOBILE DESIGNER Unavailable Unavaila ble Walker, Kelly Baston Jaqueline AUTOMOBILE DESIGNER Unavailable Unavaila ble Walker, Kelly Baston Jaqueline AUTOMOBILE DESIGNER Unavailable Unavaila ble Walker, Kelly Baston Jaqueline AUTOMOBILE DESIGNER Unavailable Unavaila ble Walker, Kelly Baston Jaqueline AUTOMOBILE DESIGNER Unavailable Unavaila ble Walker, Kelly Baston Jaqueline AUTOMOBILE DESIGNER Unavailable Unavaila ble Walker, Kelly Baston Jaqueline AUTOMOBILE DESIGNER Unavailable Unavaila ble Walker, Kelly Baston Jaqueline AUTOMOBILE DESIGNER Unavailable Unavaila ble Walker, Kelly Baston Jaqueline AUTOMOBILE DESIGNER Unavailable Unavaila ble Walker, Kelly Baston Jaqueline AUTOMOBILE DESIGNER Unavailable Unavaila ble Walker, Kelly Baston Jaqueline AUTOMOBILE DESIGNER Unavailable Unavaila ble Walker, Kelly Baston Jaqueline AUTOMOBILE DESIGNER Unavailable Unavaila ble Walker, Kelly Baston Jaqueline AUTOMOBILE DESIGNER Unavailable Unavaila ble Walker, Kelly Baston Jaqueline AUTOMOBILE DESIGNER Unavailable Unavaila ble Walker, Kelly Baston Jaqueline AUTOMOBILE DESIGNER Unavailable Unavaila ble Walker, Kelly Baston Jaqueline AUTOMOBILE DESIGNER Unavailable Unavaila ble Walker, Kelly Baston Jaqueline AUTOMOBILE DESIGNER Unavailable Unavaila ble Walker, Kelly Baston Jaqueline AUTOMOBILE DESIGNER Unavailable Unavaila ble Walker, Kelly Baston Jaqueline AUTOMOBILE DESIGNER Unavailable Unavaila ble Walker, Kelly Baston Jaqueline AUTOMOBILE DESIGNER Unavailable Unavaila ble Walker, Kelly Baston Jaqueline AUTOMOBILE DESIGNER Unavailable Unavaila ble Supa, Anatoliy Etienne MD Unavailable Unavailable Supa, Anatoliy Etienne MD Unavailable Unavailable Supa, Anatoliy Etienne MD Unavailable Unavailable Supa, Anatoliy Etienne MD Unavailable Unavailable Supa, Anatoliy Etienne MD Unavailable Unavailable Supa, Anatoliy Etienne MD Unavailable Unavailable Supa, Anatoliy Etienne MD Unavailable Unavailable Supa, Anatoliy Etienne MD Unavailable Unavailable Supa, Anatoliy Etienne MD Unavailable Unavailable Supa, Anatoliy Etienne MD Unavailable Unavailable Supa, Anatoliy Etienne MD Unavailable Unavailable Supa, Anatoliy Etienne MD Unavailable Unavailable Loveless, A Alejandra AUTOMOBILE DESIGNER Unavailable Unavailable Loveless, A Alejandra AUTOMOBILE DESIGNER Unavailable Unavailable Loveless, A Alejandra AUTOMOBILE DESIGNER Unavailable Unavailable Loveless, A Alejandra AUTOMOBILE DESIGNER Unavailable Unavailable Loveless, A Alejandra AUTOMOBILE DESIGNER Unavailable Unavailable Loveless, A Alejandra AUTOMOBILE DESIGNER Unavailable Unavailable Loveless, A Alejandra AUTOMOBILE DESIGNER Unavailable Unavailable Loveless, A Alejandra AUTOMOBILE DESIGNER Unavailable Unavailable Loveless, A Alejandra AUTOMOBILE DESIGNER Unavailable Unavailable Loveless, A Alejandra AUTOMOBILE DESIGNER Unavailable Unavailable Loveless, A Alejandra AUTOMOBILE DESIGNER Unavailable Unavailable Loveless, A Alejandra AUTOMOBILE DESIGNER Unavailable Unavailable Loveless, A Alejandra AUTOMOBILE DESIGNER Unavailable Unavailable Loveless, A Alejandra AUTOMOBILE DESIGNER Unavailable Unavailable Loveless, A Alejandra AUTOMOBILE DESIGNER Unavailable Unavailable Loveless, A Alejandra AUTOMOBILE DESIGNER Unavailable Unavailable Loveless, A Alejandra AUTOMOBILE DESIGNER Unavailable Unavailable Loveless, A Alejandra AUTOMOBILE DESIGNER Unavailable Unavailable Loveless, A Alejandra AUTOMOBILE DESIGNER Unavailable Unavailable Loveless, A Alejandra AUTOMOBILE DESIGNER Unavailable Unavailable Loveless, A Alejandra AUTOMOBILE DESIGNER Unavailable Unavailable Loveless, A Alejandra AUTOMOBILE DESIGNER Unavailable Unavailable Loveless, A Alejandra AUTOMOBILE DESIGNER Unavailable Unavailable Loveless, A Alejandra AUTOMOBILE DESIGNER Unavailable Unavailable Loveless, A Alejandra AUTOMOBILE DESIGNER Unavailable Unavailable Loveless, A Alejandra AUTOMOBILE DESIGNER Unavailable Unavailable Loveless, A Alejandra AUTOMOBILE DESIGNER Unavailable Unavailable Loveless, A Alejandra AUTOMOBILE DESIGNER Unavailable Unavailable Loveless, A Alejandra AUTOMOBILE DESIGNER Unavailable Unavailable Loveless, A Alejandra AUTOMOBILE DESIGNER Unavailable Unavailable CHARLES MEEHAN MD Unavailable Unavailable CHARLES MEEHAN MD Unavailable Unavailable CHARLES MEEHAN MD Unavailable Unavailable CHARLES MEEHAN MD Unavailable Unavailable CHARLES MEEHAN MD Unavailable Unavailable CHARLES MEEHAN MD Unavailable Unavailable CHARLES MEEHAN MD Unavailable Unavailable CHARLES MEEHAN MD Unavailable Unavailable CHARLES MEEHAN MD Unavailable Unavailable CHARLES MEEHAN MD Unavailable Unavailable CHARLES MEEHAN MD Unavailable Unavailable CHARLES MEEHAN MD Unavailable Unavailable CHARLES MEEHAN MD Unavailable Unavailable CHARLES MEEHAN MD Unavailable Unavailable CHARLES MEEHAN MD Unavailable Unavailable CHARLES MEEHAN MD Unavailable Unavailable CHARLES MEEHAN MD Unavailable Unavailable CHARLES MEEHAN MD Unavailable Unavailable CHARLES MEEHAN MD Unavailable Unavailable CHARLES MEEHAN MD Unavailable Unavailable CHARLES MEEHAN MD Unavailable Unavailable CHARLES MEEHAN MD Unavailable Unavailable CHARLES MEEHAN MD Unavailable Unavailable CHARLES MEEHAN MD Unavailable Unavailable CHARLES MEEHAN MD Unavailable Unavailable CHARLES MEEHAN MD Unavailable Unavailable CHARLES MEEHAN MD Unavailable Unavailable CHARLES MEEHAN MD Unavailable Unavailable CHARLES MEEHAN MD Unavailable Unavailable CHARLES MEEHAN MD Unavailable Unavailable Re-disclosure Warning The records that you are about to access may contain information from federally-assisted alcohol or drug abuse programs. If such information is present, then the following federally mandated warning applies: This information has been disclosed to you from records protected by federal confidentiality rules (42 CFR part 2). The federal rules prohibit you from making any further disclosure of this information unless further disclosure is expressly permitted by the written consent of the person to whom it pertains or as otherwise permitted by 42 CFR part 2. A general authorization for the release of medical or other information is NOT sufficient for this purpose. The Federal rules restrict any use of the information to criminally investigate or prosecute any alcohol or drug abuse patient.The records that you are about to access may contain highly sensitive health information, the redisclosure of which is protected by Article 27-F of the [facility] Public Health law. If you continue you may have access to information: Regarding HIV / AIDS; Provided by facilities licensed or operated by the [facility] Office of Mental Health; or Provided by the [facility] Office for People With Developmental Disabilities. If such information is present, then the following [facility] mandated warning applies: This information has been disclosed to you from confidential records which are protected by state law. State law prohibits you from making any further disclosure of this information without the specific written consent of the person to whom it pertains, or as otherwise permitted by law. Any unauthorized further disclosure in violation of state law may result in a fine or custodial sentence or both. A general authorization for the release of medical or other information is NOT sufficient authorization for further disc losure. Advance Directives Directive Description [place] Turner Status Observation Descr iption Data Source(s) Ebola Screening Performed completed Ebol a Screening Performed [facility] ([facility]) Note: Within the last month, have you tr aveled outside of the [place]? -NO Ebola Screening Performed completed Ebol a Screening Performed [facility] ([facility]) Note: Within the last month, have you tr aveled outside of the [place]? -NO packet given Pt Bill of Rights, Priv Prac, Ad Dir completed packet given Pt Bill of Rights, Priv Prac, Ad Dir [facility] ([facility]) Note: Pt declined AD packet Ebola Screening Performed completed Ebol a Screening Performed [facility] ([facility]) Note: Within the last month, have you tr aveled outside of the [place]? -NO Ebola Screening Performed completed Ebol a Screening Performed [facility] ([facility]) Note: Within the last month, have you tr aveled outside of the [place]? -NO Ebola Screening Performed completed Ebol a Screening Performed [facility] ([facility]) Note: Within the last month, have you tr aveled outside of the [place]? -NO Ebola Screening Performed completed Ebol a Screening Performed [facility] ([facility]) Note: Within the last month, have you tr aveled outside of the [place]? -NO Family History Family Member Name Family Member Gender Family Member Status Date o f Status Description Data Source(s) Unknown Male Problem [facility] ([facility]) Encounters Encounter Providers Location Date Indications Data Source(s ) Outpatient Attender: Yonatan Duran MD 03/28/2021 12:00: 00 AM [facility] Outpatient Attender: Alejandra Rodarte NP 08/21/2020 12:0 0:00 AM [facility] Outpatient Attender: LARA HAWK MD 05/28/2020 12:00:00 AM [facility] Outpatient Attender: LARA HAWK MDReferrer: Nate leyva [id number] 04/30/2020 12:00:00 AM EST - 04/30/2020 12:20:51 PM EST 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 Unknown<td ID="encounterTypeDescriptionI D1">Chart Update</td><td>Debi Velasquez NP</td><td></td><td>04/15/2020</td><td>04/10/2020 8:11PM</td><td>04/10/2020 11:59PM</td><td></td> Attender: Debi Velasquez NP 04/10/2020 08 :11:00 PM EST - 04/10/2020 11:59:00 PM EST [facility] ([facility]) Unknown<td ID="encounterTypeDescriptionI D0">Chart Update</td><td>Batool Aguilar DO</td><td></td><td>04/16/2020</td><td>04/10/2020 11:50AM</td><td>04/10/2020 11:59PM</td><td></td> Attender: Batool Aguilar 04/10/2020 11:50: 00 AM EST - 04/10/2020 11:59:00 PM EST [facility] ([facility]) Outpatient<td ID="encounterTypeDescripti onID2">Acute L3</td><td>Debi Velasquez NP</td><td>[facility]</td><td>04/10/2020</td><td>10:13AM</td><td>11:18AM</td><td><content ID="encounterDiagnosisID2-0">Peripheral Vascular Disease</content>, <content ID="encounterDiagnosisID2-1">Limb Pain Right Arm</content>, <content ID="encounterDiagnosisID2-2">Numbness of Right Upper Arm</content></td> Attender: Debi Velasquez NP [facility] 04/10/2020 10:13:00 AM EST - 04/10/2020 11:18:39 AM EST Numbness of Right Upper ArmLimb Pain Rig ht ArmNumbness of Right Upper ArmLimb Pain Right ArmNumbness of Right Upper ArmLimb Pain Right ArmPeripheral Vascular DiseasePeripheral Vascular DiseasePeripheral Vascular Disease [facility] ([facility]) Numbness of Right Upper Arm Limb Pain Right Arm Numbness of Right Upper Arm Limb Pain Right Arm Numbness of Right Upper Arm Limb Pain Right Arm Peripheral Vascular Disease Peripheral Vascular Disease Peripheral Vascular Disease Unknown<td ID="encounterTypeDescriptionI D3">Chart Update</td><td>Batool Monroy Ray DO</td><td></td><td>04/02/2020</td><td>01/12/2020 3:51PM</td><td>01/12/2020 11:59PM</td><td></td> Attender: Batool Aguilar 04/02/2020 03:51: 00 PM EST - 01/12/2020 11:59:00 PM EDT [facility] ([facility]) Outpatient Attender: Magalis Alegre [facility] office [facility] 04/02/2020 07:30:00 AM EST [facility] ([facility]) Unknown<td ID="encounterTypeDescriptionI D4">Chart Update</td><td>Batool Monroy Ray DO</td><td></td><td>03/30/2020</td><td>01/12/2020 5:14PM</td><td>01/12/2020 11:59PM</td><td></td> Attender: Batool Aguilar 03/30/2020 05:14: 00 PM EST - 01/12/2020 11:59:00 PM EDT [facility] ([facility]) Outpatient Attender: Yonatan Duran MD [id number] 01:45:58 PM EST [facility] Emergency Attender: DEFAULT / GENE MICKY / UNKNOWN PROVIDER ALIASES Attender: NGHIA LAMAR MDAttender: STEVE MORRISON IIIReferrer: NAOMI ARSHAD [id number] 03/29/2020 12:00:00 AM EST - 03/29/2020 10:06:00 AM EST Generalized abdominal pain [facility] Generalized abdominal pain Patient discharged. Outpatient Attender: Yonatan Duran MDAdmitter: Todd Duran MD [id number] 03/28/2020 12:00:00 AM EST - 03/28/2020 12:00:00 AM ES T multiple colon polyps per 12/07 office visit notes; FHX of colon cancer [facility] multiple colon polyps per 12/07 office v isit notes; FHX of colon cancer Patient discharged. Outpatient Attender: DEFAULT / GENE MICKY / UNKNOWN PROVIDER ALIASES Attender: SADIQ YEEReferrer: Yonatan Duran MD [id number] 03/23/2020 12:00:00 AM [facility] Outpatient Attender: Terri PARRY [id number] 03/21 12:00:00 AM EST - 03/21/2020 02:36:47 PM [facility] Outpatient [id number] 02/14/2020 04:03:41 PM EDT [facility] Outpatient Attender: GILDA BLOUNT MD 02/07/2020 12:00: 00 AM EDT [facility] Outpatient Attender: GILDA BLOUNT MD 01/31/2020 11:00: 00 AM EDT [facility] Outpatient SJP.PUL-[email or web address].PUL 01/31/2020 12:00 :00 AM EDT - 01/31/2020 10:01:44 AM EDT [facility] Outpatient [facility] 01/31/2020 12:00:00 AM EDT eCW1 ([facility]) Unknown<td ID="encounterTypeDescriptionI D5">Chart Update</td><td>Debi Velasquez NP</td><td></td><td>01/30/2020</td><td>01/12/2020 7:02PM</td><td>01/12/2020 11:59PM</td><td></td> Attender: Debi Velasquez NP 01/30/2020 07 :02:00 PM EDT - 01/12/2020 11:59:00 PM EDT [facility]) Unknown<td ID="encounterTypeDescriptionI D6">Chart Update</td><td>Debi Velasquez NP</td><td></td><td>01/27/2020</td><td>01/12/2020 6:50AM</td><td>01/12/2020 11:59PM</td><td></td> Attender: Debi Velasquez NP 01/27/2020 06 :50:00 AM EDT - 01/12/2020 11:59:00 PM EDT [facility] ([facility]) Emergency Attender: JANIS CABRERA MDA ttender: STEVE MORRISON IIIReferrer: Deya Anderson [id number] 01/26/2020 07:03:00 PM EDT - 01/27/2020 04:16:00 AM EDT Unspecified appendicitis [facility] Unspecified appendicitis Patient discharged. Outpatient Attender: Magalis PARRY Main office [facility] 01/25/2020 08:45:[address] [facility] ([facility]) Outpatient Attender: Terri PARRY [id number] 01/18/2020 12: 00:00 AM EDT Benign neoplasm of sigmoid colon [facility] Benign neoplasm of sigmoid colon Outpatient<td ID="encounterTypeDescripti onID7">Chronic Disease Follow- up</td><td>Debi Velasquez NP</td><td>[facility]</td><td>01/12/2020</td><td>4:31PM</td><td>5:24PM</td><td><content ID="encounterDiagnosisID7-0">Eczema</content>, <content ID="encounterDiagnosisID7-1">Hypertension (Systemic)</content>, <content ID="encounterDiagnosisID7-2">Epilepsy and Recurrent Seizures</content>, <content ID="encounterDiagnosisID7-3">Migraine Headache</content>, <content ID="encounterDiagnosisID7-4">Peripheral Vascular Disease</content>, <content ID="encounterDiagnosisID7-5">Colon Polyps</content>, <content ID="encounterDiagnosisID7-6">Edema</content></td> Attender: Debi Velasquez [facility] 01/12/2020 04:31:00 PM EDT - 01/12/2020 05:24:55 PM ED T EdemaEczemaEdemaEczemaEdemaEczemaEdemaEczemaEdemaEczemaEdemaEczemaEdemaEczemaCol PolypsColon PolypsColon PolypsColon PolypsColon PolypsColon PolypsColon PolypsPeripheral Vascular DiseasePeripheral Vascular DiseasePeripheral Vascular DiseasePeripheral Vascular DiseasePeripheral Vascular DiseasePeripheral Vascular DiseasePeripheral Vascular DiseaseEpilepsy and Recurrent SeizuresEpilepsy and Recurrent SeizuresEpilepsy and Recurrent SeizuresEpilepsy and Recurrent Seizures Epilepsy and Recurrent SeizuresEpilepsy and Recurrent SeizuresEpilepsy and Recurrent SeizuresMigraine HeadacheMigraine HeadacheMigraine HeadacheMigraine HeadacheMigraine HeadacheMigraine HeadacheMigraine HeadacheHypertension (Systemic)Hypertension (Systemic)Hypertension (systemic)Hypertension (systemic)Hypertension (systemic)Hypertension (systemic)Hypertension (systemic) [facility] ([facility]) Edema Eczema Edema Eczema Edema Eczema Edema Eczema Edema Eczema Edema Eczema Edema Eczema Colon Polyps Colon Polyps Colon Polyps Colon Polyps Colon Polyps Colon Polyps Colon Polyps Peripheral Vascular Disease Peripheral Vascular Disease Peripheral Vascular Disease Peripheral Vascular Disease Peripheral Vascular Disease Peripheral Vascular Disease Peripheral Vascular Disease Epilepsy and Recurrent Seizures Epilepsy and Recurrent Seizures Epilepsy and Recurrent Seizures Epilepsy and Recurrent Seizures Epilepsy and Recurrent Seizures Epilepsy and Recurrent Seizures Epilepsy and Recurrent Seizures Migraine Headache Migraine Headache Migraine Headache Migraine Headache Migraine Headache Migraine Headache Migraine Headache Hypertension (Systemic) Hypertension (Systemic) Hypertension (systemic) Hypertension (systemic) Hypertension (systemic) Hypertension (systemic) Hypertension (systemic) Unknown<td ID="encounterTypeDescriptionI D8">Chart Update</td><td>Batool Porfirio Aguilar DO</td><td></td><td>01/11/2020</td><td>12/06/2019 1:27PM</td><td>12/06/2019 11:59PM</td><td></td> Attender: Batool Aguilar 01/11/2020 01:27: 00 PM EDT - 12/06/2019 11:59:00 PM EDT [facility] ([facility]) Outpatient Attender: Nanette Carrenoender: OPAL ZARAGOZA MD SJP .PUL-[email or web address].PUL 01/10/2020 12:00:00 AM EDT - 01/10/2020 04:19:22 PM EDT [facility] Unknown<td ID="encounterTypeDescriptionI D9">Chart Update</td><td>Debi Velasquez [employer]</td><td></td><td>12/30/2019</td><td>12/06/2019 11:58AM</td><td>12/06/2019 11:59PM</td><td></td> Attender: Debi Velasquez NP 12/30/2019 11 :58:00 AM EDT - 12/06/2019 11:59:00 PM EDT [facility] ([facility]) Unknown<td ID="encounterTypeDescriptionI D10">Referral Order</td><td>Batool Aguilar DO</td><td></td><td>12/15/2019</td><td>12/06/2019 1:33PM</td><td>12/06/2019 11:59PM</td><td></td> Attender: Batool Aguilar 12/15/2019 01:33: 00 PM EDT - 12/06/2019 11:59:00 PM EDT [facility] ([facility]) Outpatient Attender: Yonatan Duran MD [id number] 12:00:00 AM EDT - 12/08/2019 11:04:56 AM [facility]<td ID="encounterTypeDescripti onID11">Chronic Disease Follow- up</td><td>Batool Aguilar DO</td><td>[facility]</td><td>12/06/2019</td><td>1:40PM</td><td>2:40PM</td><td><content ID="iklfxxzrzXmuxyckstEH73-4">Migraine Headache</content>, <content ID="hhiiabummRwwvytpkyVM19-4">Rectal Bleeding</content>, <content ID="ohmpexiiiXuzodmdunYO16-3">Colon Polyps</content></td> Attender: Batool Aguilar [facility] 12/06/2019 01:40:00 PM EDT - 12/06/2019 02:40:24 PM ED T Colon PolypsColon PolypsColon PolypsColon PolypsColon PolypsColon PolypsColon PolypsColon PolypsColon PolypsColon PolypsRectal BleedingRectal BleedingRectal BleedingRectal BleedingRectal BleedingRectal BleedingRectal BleedingRectal BleedingRectal BleedingRectal BleedingMigraine HeadacheMigraine HeadacheMigraine HeadacheMigraine HeadacheMigraine HeadacheMigraine HeadacheMigraine HeadacheMigraine HeadacheMigraine HeadacheMigraine Headache [facility] ([facility]) Colon Polyps Colon Polyps Colon Polyps Colon Polyps Colon Polyps Colon Polyps Colon Polyps Colon Polyps Colon Polyps Colon Polyps Rectal Bleeding Rectal Bleeding Rectal Bleeding Rectal Bleeding Rectal Bleeding Rectal Bleeding Rectal Bleeding Rectal Bleeding Rectal Bleeding Rectal Bleeding Migraine Headache Migraine Headache Migraine Headache Migraine Headache Migraine Headache Migraine Headache Migraine Headache Migraine Headache Migraine Headache Migraine Headache Unknown<td ID="encounterTypeDescriptionI D12">Chart Prep</td><td>Gael Hua</td><td></td><td>12/02/2019</td><td>11/16/2019 4:57PM</td><td>11/16/2019 11:59PM</td><td></td> Attender: Gael Hua 12/02/2019 04:57:00 PM EDT - 11/16/2019 11:59:00 PM EDT [facility] ([facility]) Outpatient Attender: CHARLES MEEHAN MD Physical Therapy 02:00:00 PM EDT [facility] ([facility] ) Unknown<td ID="encounterTypeDescriptionI D13">Chart Update</td><td>Batool Aguilar DO</td><td></td><td>11/23/2019</td><td>11/16/2019 5:12PM</td><td>11/16/2019 11:59PM</td><td></td> Attender: Batool Aguilar 11/23/2019 05:12: 00 PM EDT - 11/16/2019 11:59:00 PM EDT [facility] ([facility]) Unknown<td ID="encounterTypeDescriptionI D14">Chart Update</td><td>Batool Monroy Ray DO</td><td></td><td>11/22/2019</td><td>11/16/2019 3:43PM</td><td>11/16/2019 11:59PM</td><td><content ID="xbmpkkhimRkqsgxjbzWY44-0">Colon Polyps</content></td> Attender: Batool Aguilar 11/22/2019 03:43: 00 PM EDT - 11/16/2019 11:59:00 PM EDT Colon PolypsColon PolypsColon PolypsColo n PolypsColon PolypsColon PolypsColon PolypsColon PolypsColon PolypsColon PolypsColon PolypsColon Polyps [facility] ([facility]) Colon Polyps Colon Polyps Colon Polyps Colon Polyps Colon Polyps Colon Polyps Colon Polyps Colon Polyps Colon Polyps Colon Polyps Colon Polyps Colon Polyps Outpatient Attender: Phyllis Stack 11/22/2019 02:00:0 0 PM EDT [facility] ([facility]) Unknown<td ID="encounterTypeDescriptionI D15">Correspondence</td><td>Batool L Ray DO</td><td></td><td>11/17/2019</td><td>11/16/2019 8:08AM</td><td>11/16/2019 11:59PM</td><td></td> Attender: Batool Aguilar 11/17/2019 08:08: 00 AM EDT - 11/16/2019 11:59:00 PM EDT [facility] ([facility]) Outpatient Attender: Batool Aguilar 11/16/2019 01:33:00 PM EDT Lab [facility] Lab Outpatient<td ID="encounterTypeDescripti onID16">Acute L3</td><td>Batool L Ray DO</td><td>[facility]</td><td>11/16/2019</td><td>12:58PM</td><td>1:35PM</td><td><content ID="cnmyerqmqYdrsxcufnIE36-9">Rectal Bleeding</content>, <content ID="vzozghjeoIgiwxotpqCJ68-1">Epilepsy and Recurrent Seizures</content></td> Attender: Batool Aguilar [facility] 11/16/2019 12:58:00 PM EDT - 11/16/2019 01:35:49 PM EDT Rectal BleedingRectal BleedingRectal Ble edingRectal BleedingRectal BleedingRectal BleedingRectal BleedingRectal BleedingRectal BleedingRectal BleedingRectal BleedingRectal BleedingRectal BleedingEpilepsy and Recurrent SeizuresEpilepsy and Recurrent SeizuresEpilepsy and Recurrent SeizuresEpilepsy and Recurrent SeizuresEpilepsy and Recurrent SeizuresEpilepsy and Recurrent SeizuresEpilepsy and Recurrent SeizuresEpilepsy and Recurrent SeizuresEpilepsy and Recurrent SeizuresEpilepsy and Recurrent SeizuresEpilepsy and Recurrent SeizuresEpilepsy and Recurrent SeizuresEpilepsy and Recurrent Seizures [facility] ([facility]) Rectal Bleeding Rectal Bleeding Rectal Bleeding Rectal Bleeding Rectal Bleeding Rectal Bleeding Rectal Bleeding Rectal Bleeding Rectal Bleeding Rectal Bleeding Rectal Bleeding Rectal Bleeding Rectal Bleeding Epilepsy and Recurrent Seizures Epilepsy and Recurrent Seizures Epilepsy and Recurrent Seizures Epilepsy and Recurrent Seizures Epilepsy and Recurrent Seizures Epilepsy and Recurrent Seizures Epilepsy and Recurrent Seizures Epilepsy and Recurrent Seizures Epilepsy and Recurrent Seizures Epilepsy and Recurrent Seizures Epilepsy and Recurrent Seizures Epilepsy and Recurrent Seizures Epilepsy and Recurrent Seizures Outpatient Attender: Magalis PARRY Main office - [facility] 10/24/2019 10:30:00 AM EDT [facility] ([facility] ) Unknown<td ID="encounterTypeDescriptionI D17">Correspondence</td><td>Batool Aguilar DO</td><td></td><td>10/05/2019</td><td>06/07/2019 11:37AM</td><td>06/07/2019 11:59PM</td><td></td> Attender: Batool Aguilar 10/05/2019 11:37: 00 AM EDT - 06/07/2019 11:59:00 PM EST [facility] Outpatient<td ID="encounterTypeDescripti onID18">Medication Order</td><td>Batool Aguilar DO</td><td></td><td>10/05/2019</td><td>06/07/2019 10:13AM</td><td>06/07/2019 11:59PM</td><td></td> Attender: Batoolruth ann Aguilar 10/05/2019 10:13:00 AM EDT - 06/07/2019 11:59:00 PM EST [facility] ([facility]) Unknown<td ID="encounterTypeDescriptionI D19">Chart Update</td><td>Batool Monroy Jeff DO</td><td></td><td>08/15/2019</td><td>06/07/2019 11:57AM</td><td>06/07/2019 11:59PM</td><td></td> Attender: Batoolruth ann Aguilar 08/15/2019 11:57: 00 AM EDT - 06/07/2019 11:59:00 PM EST [facility] ([facility]) Outpatient Attender: Magalis PARRY 08/10/2019 11:29:00 A M EDT Lab [facility] Lab Outpatient Attender: Magalis PARRY [facility] n 08/10/2019 08:45:00 AM EDT [facility] ([facility]) Outpatient Attender: Laura Gonzalez MD [place] [id number] 08/02/2019 11 :00:00 AM EDT [facility] ([facility]) Outpatient Attender: Magalis PARRY [facility] n 07/20/2019 10:45:00 AM EDT [facility] ([facility]) Outpatient Attender: GILDA CERVANTES [id number] 07/05/2019 12: 00:00 AM EDT [facility] Outpatient Attender: TOÑO HENRIQUEZ MDReferrer : GILDA CERVANTES [id number] 07/01/2019 12:00:00 AM EDT - 07/01/2019 01:45:47 PM ED T Other specified postprocedural states [facility] Other specified postprocedural states Outpatient Referrer: CHARLES MEEHAN MD 06/27/2019 11:31:0 0 AM EDT [facility] Outpatient Referrer: Janis Cowart MD 06/27/2019 11:29:00 A M EDT [facility] Outpatient Attender: CHARLES MEEHAN MD Physical Therapy 10:30:00 AM EST [facility] ([facility]) Outpatient Attender: GILDA CERVANTES [id number] 06/22/2019 12: 00:00 AM [facility] Outpatient Attender: GILDA CERVANTES [id number] : GILDA CERVANTES [id number] 06/20/2019 10:29:44 AM EST - 06/20/2019 02:25:00 PM ES T Bilateral carpal tunnel syndrome [G56.03] [facility] Bilateral carpal tunnel syndrome [G56.03 ] Patient discharged. Outpatient Referrer: OPAL ZARAGOZA MD [email or web address].[email or web address].SYR 06/16/2019 02:52:10 [facility] Unknown<td ID="encounterTypeDescriptionI D20">Chart Update</td><td>Batool Aguilar DO</td><td></td><td>06/15/2019</td><td>06/07/2019 7:28PM</td><td>06/07/2019 11:59PM</td><td></td> Attender: Batool Aguilar 06/15/2019 07:28: 00 PM EST - 06/07/2019 11:59:00 PM EST [facility] ([facility] Outpatient Attender: GILDA CERVANTES [id number] 06/14/2019 12:00:00 AM [facility] Unknown<td ID="encounterTypeDescriptionI D21">Referral Order</td><td>Batool Monroy Ray DO</td><td></td><td>2019</td><td>06/07/2019 8:54AM</td><td>06/07/2019 11:59PM</td><td></td> Attender: Batool Aguilar 2019 08:54: 00 AM EST - 06/07/2019 11:59:00 PM EST [facility] ([facility]) Outpatient<td ID="encounterTypeDescripti onID22">Problem Evaluation</td><td>Batool Aguilar DO</td><td>[facility]</td><td>06/07/2019</td><td>12:58PM</td><td>1:24PM</td><td><content ID="kkdfxstvdBlrfqdfyeDZ90-3">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</content>, <content ID="sigromzwoYcgrdshkeYT04-2">Necrosis of Intestine Acute, Massive</content>, <content ID="xkdfvghbmLjmlosfboHK48-7">Superior Mesenteric Artery Atheroma</content>, <content ID="kduzmcileWwfwdqfnqLJ13- 3">Bright Red Blood Per Rectum</content></td> Attender: Batool Aguilar [facility] 06/07/2019 12:58:00 PM EST - 06/07/2019 01:24:58 PM ES T Bright Red Blood Per RectumBright Red Blood Per RectumBright Red Blood Per RectumBright Red Blood Per RectumBright Red Blood Per RectumBright Red Blood Per RectumBright Red Blood Per RectumBright Red Blood Per RectumBright Red Blood Per RectumBright Red Blood Per RectumBright Red Blood Per RectumBright Red Blood Per RectumBright Red Blood Per RectumBright Red Blood Per RectumBright Red Blood Per RectumBright Red Blood Per RectumSuperior Mesenteric Artery AtheromaSuperior Mesenteric Artery AtheromaSuperior Mesenteric Artery AtheromaSuperior Mesenteric Artery AtheromaSuperior Mesenteric Artery AtheromaSuperior Mesenteric Artery AtheromaSuperior Mesenteric Artery AtheromaSuperior Mesenteric Artery Atheroma Superior Mesenteric Artery AtheromaSuperior Mesenteric Artery AtheromaSuperior Mesenteric Artery AtheromaSuperior Mesenteric Artery AtheromaSuperior Mesenteric Artery AtheromaSuperior Mesenteric Artery AtheromaSuperior Mesenteric Artery AtheromaSuperior Mesenteric Artery AtheromaNecrosis of Intestine Acute, Massive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Necrosis of Intestine Acute, Massive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 Necrosis of Intestine Acute, Massive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Necrosis of Intestine Acute, Massive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Necrosis of Intestine Acute, Massive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Necrosis of Intestine Acute, Massive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Necrosis of Intestine Acute, Massive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 Necrosis of Intestine Acute, Massive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Necrosis of Intestine Acute, Massive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Necrosis of Intestine Acute, Massive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Necrosis of Intestine Acute, Massive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Necrosis of Intestine Acute, Massive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 Necrosis of Intestine Acute, Massive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Necrosis of Intestine Acute, Massive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Necrosis of Intestine Acute, Massive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Necrosis of Intestine Acute, Massive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 [facility] ([facility]) Bright Red Blood Per Rectum Bright Red Blood Per Rectum Bright Red Blood Per Rectum Bright Red Blood Per Rectum Bright Red Blood Per Rectum Bright Red Blood Per Rectum Bright Red Blood Per Rectum Bright Red Blood Per Rectum Bright Red Blood Per Rectum Bright Red Blood Per Rectum Bright Red Blood Per Rectum Bright Red Blood Per Rectum Bright Red Blood Per Rectum Bright Red Blood Per Rectum Bright Red Blood Per Rectum Bright Red Blood Per Rectum 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 Necrosis of Intestine Acute, Massive Dissection of Celiac Trunk Superior Mese nteric Artery Necrosis of Intestine Acute, Massive Dissection of Celiac Trunk Superior Mese nteric Artery Necrosis of Intestine Acute, Massive Dissection of Celiac Trunk Superior Mese nteric Artery Necrosis of Intestine Acute, Massive Dissection of Celiac Trunk Superior Mese nteric Artery Necrosis of Intestine Acute, Massive Dissection of Celiac Trunk Superior Mese nteric Artery Necrosis of Intestine Acute, Massive Dissection of Celiac Trunk Superior Mese nteric Artery Necrosis of Intestine Acute, Massive Dissection of Celiac Trunk Superior Mese nteric Artery Necrosis of Intestine Acute, Massive Dissection of Celiac Trunk Superior Mese nteric Artery Necrosis of Intestine Acute, Massive Dissection of Celiac Trunk Superior Mese nteric Artery Necrosis of Intestine Acute, Massive Dissection of Celiac Trunk Superior Mese nteric Artery Necrosis of Intestine Acute, Massive Dissection of Celiac Trunk Superior Mese nteric Artery Necrosis of Intestine Acute, Massive Dissection of Celiac Trunk Superior Mese nteric Artery Necrosis of Intestine Acute, Massive Dissection of Celiac Trunk Superior Mese nteric Artery Necrosis of Intestine Acute, Massive Dissection of Celiac Trunk Superior Mese nteric Artery Necrosis of Intestine Acute, Massive Dissection of Celiac Trunk Superior Mese nteric Artery Necrosis of Intestine Acute, Massive Dissection of Celiac Trunk Superior Mese nteric Artery Outpatient Attender: Nanette PARRY 06/06/2019 11:46:00 AM EST Lab [facility] Outpatient Attender: Nanette Carrenoender: OPAL LYN .PUL-[email or web address].PUL 06/06/2019 10:10:09 AM EST - 06/06/2019 11:43:59 AM EST [facility] Outpatient Attender: GILDA CERVANTES [id number] : GILDA CERVANTES [id number] [facility] 05/30/2019 09:38:10 AM EST - 05/30/2019 01:55:00 PM ES T Bilateral carpal tunnel syndrome [G56.03] [facility] Bilateral carpal tunnel syndrome [G56.03 ] Patient discharged. Unknown<td ID="encounterTypeDescriptionI D23">Correspondence</td><td>Batool L Ray DO</td><td></td><td>05/23/2019</td><td>05/19/2019 11:57AM</td><td>05/19/2019 11:59PM</td><td></td> Attender: Batool Aguilar 05/23/2019 11:57: 00 AM EST - 05/19/2019 11:59:00 PM EST [facility] ([facility]) Outpatient Attender: Batool Aguilar 05/20/2019 10:43:00 AM EST Xray Lab [facility] Outpatient<td ID="encounterTypeDescripti onID24">Pre Op</td><td>Batool L Ray DO</td><td>[facility]</td><td>05/19/2019</td><td>11:00AM</td><td>11:57AM</td><td><content ID="mqtimozbtLaqzuqyewBB48-2">Carpal Tunnel Syndrome</content>, <content ID="qkqfaxgrmAbzrnrhuhYW88-4">Aneurysm of Right Brachial Artery</content>, <content ID="oxppklhejJcpzopqlpAK34-8">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</content>, <content ID="lyblmemurVyyootuvfEB37-5">Epilepsy and Recurrent Seizures</content>, <content ID="wgbhqeqyoMvmlvuulqEK47-0"> Hypertension (Systemic)</content>, <content ID="zxivamgeiHlagwynvpGO04- 5">Peripheral Vascular Disease</content>, <content ID="hrlshpzqfSdptkjnqfSL11- 6">Renal Infarction</content>, <content ID="qbpiivvypTiafozpfiZG41-3">Stroke - Ischemic</content>, <content ID="fzsjprbjpNzfbzfumzBS67-4">Visit For: Preoperative Exam</content></td> Attender: Batool Molina [facility] 2019 11:00:00 AM EST - 05/19/2019 11:57:56 AM EST Visit For: Preoperative ExamCarpal Tunnel SyndromeVisit For: Preoperative ExamCarpal Tunnel SyndromeVisit For: Preoperative ExamCarpal Tunnel SyndromeVisit For: Preoperative ExamCarpal Tunnel SyndromeVisit For: Preoperative ExamCarpal Tunnel SyndromeVisit For: Preoperative ExamCarpal Tunnel SyndromeVisit For: Preoperative ExamCarpal Tunnel SyndromeVisit For: Preoperative ExamCarpal Tunnel SyndromeVisit For: Preoperative ExamCarpal Tunnel SyndromeVisit For: Preoperative ExamCarpal Tunnel SyndromeVisit For: Preoperative ExamCarpal Tunnel SyndromeVisit For: Preoperative ExamCarpal Tunnel SyndromeVisit For: Preoperative ExamCarpal Tunnel SyndromeVisit For: Preoperative ExamCarpal Tunnel SyndromeVisit For: Preoperative ExamCarpal Tunnel SyndromeVisit For: Preoperative ExamCarpal Tunnel SyndromeVisit For: Preoperative ExamCarpal Tunnel SyndromeVisit For: Preoperative ExamCarpal Tunnel SyndromePeripheral Vascular DiseasePeripheral Vascular DiseasePeripheral Vascular DiseasePeripheral Vascular DiseasePeripheral Vascular DiseasePeripheral Vascular DiseasePeripheral Vascular DiseasePeripheral Vascular DiseasePeripheral Vascular DiseasePeripheral Vascular DiseasePeripheral Vascular DiseasePeripheral Vascular DiseasePeripheral Vascular DiseasePeripheral Vascular DiseasePeripheral Vascular DiseasePeripheral Vascular DiseasePeripheral Vascular DiseasePeripheral Vascular DiseaseEpilepsy and Recurrent SeizuresEpilepsy and Recurrent SeizuresEpilepsy and Recurrent SeizuresEpilepsy and Recurrent SeizuresEpilepsy and Recurrent SeizuresEpilepsy and Recurrent SeizuresEpilepsy and Recurrent SeizuresEpilepsy and Recurrent SeizuresEpilepsy and Recurrent SeizuresEpilepsy and Recurrent SeizuresEpilepsy and Recurrent SeizuresEpilepsy and Recurrent SeizuresEpilepsy and Recurrent SeizuresEpilepsy and Recurrent SeizuresEpilepsy and Recurrent SeizuresEpilepsy and Recurrent SeizuresEpilepsy and Recurrent SeizuresEpilepsy and Recurrent SeizuresAneurysm of Right Brachial ArteryAneurysm of Right Brachial ArteryAneurysm of Right Brachial ArteryAneurysm of Right Brachial ArteryAneurysm of Right Brachial ArteryAneurysm of Right Brachial ArteryAneurysm of Right Brachial ArteryAneurysm of Right Brachial ArteryAneurysm of Right Brachial ArteryAneurysm of Right Brachial ArteryAneurysm of Right Brachial ArteryAneurysm of Right Brachial ArteryAneurysm of Right Brachial ArteryAneurysm of Right Brachial ArteryAneurysm of Right Brachial ArteryAneurysm of Right Brachial ArteryAneurysm of Right Brachial ArteryAneurysm of Right Brachial ArteryRenal InfarctionRenal InfarctionRenal InfarctionRenal InfarctionRenal InfarctionRenal InfarctionRenal InfarctionRenal InfarctionRenal InfarctionRenal InfarctionRenal InfarctionRenal InfarctionRenal InfarctionRenal InfarctionRenal InfarctionRenal InfarctionRenal InfarctionRenal Infarction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Stroke - IschemicStroke - IschemicStroke - IschemicStroke - IschemicStroke - IschemicStroke - IschemicStroke - IschemicStroke - IschemicStroke - IschemicStroke - IschemicStroke - IschemicStroke - IschemicStroke - IschemicStroke - IschemicStroke - IschemicStroke - IschemicStroke - IschemicStroke - IschemicHypertension (Systemic)Hypertension (Systemic)Hypertension (systemic)Hypertension (systemic)Hypertension (systemic)Hypertension (systemic)Hypertension (systemic)Hypertension (systemic)Hypertension (systemic)Hypertension (systemic)Hypertension (systemic)Hypertension (systemic)Hypertension (systemic)Hypertension (systemic)Hypertension (systemic)Hypertension (systemic)Hypertension (systemic)Hypertension (systemic) [facility] For: Preoperative Exam Carpal Tunnel Syndrome Visit For: Preoperative Exam Carpal Tunnel Syndrome Visit For: Preoperative Exam Carpal Tunnel Syndrome Visit For: Preoperative Exam Carpal Tunnel Syndrome Visit For: Preoperative Exam Carpal Tunnel Syndrome Visit For: Preoperative Exam Carpal Tunnel Syndrome Visit For: Preoperative Exam Carpal Tunnel Syndrome Visit For: Preoperative Exam Carpal Tunnel Syndrome Visit For: Preoperative Exam Carpal Tunnel Syndrome Visit For: Preoperative Exam Carpal Tunnel Syndrome Visit For: Preoperative Exam Carpal Tunnel Syndrome Visit For: Preoperative Exam Carpal Tunnel Syndrome Visit For: Preoperative Exam Carpal Tunnel Syndrome Visit For: Preoperative Exam Carpal Tunnel Syndrome Visit For: Preoperative Exam Carpal Tunnel Syndrome Visit For: Preoperative Exam Carpal Tunnel Syndrome Visit For: Preoperative Exam Carpal Tunnel Syndrome Visit For: Preoperative Exam Carpal Tunnel Syndrome Peripheral Vascular Disease Peripheral Vascular Disease Peripheral Vascular Disease Peripheral Vascular Disease Peripheral Vascular Disease Peripheral Vascular Disease Peripheral Vascular Disease Peripheral Vascular Disease Peripheral Vascular Disease Peripheral Vascular Disease Peripheral Vascular Disease Peripheral Vascular Disease Peripheral Vascular Disease Peripheral Vascular Disease Peripheral Vascular Disease Peripheral Vascular Disease Peripheral Vascular Disease Peripheral Vascular Disease Epilepsy and Recurrent Seizures Epilepsy and Recurrent Seizures Epilepsy and Recurrent Seizures Epilepsy and Recurrent Seizures Epilepsy and Recurrent Seizures Epilepsy and Recurrent Seizures Epilepsy and Recurrent Seizures Epilepsy and Recurrent Seizures Epilepsy and Recurrent Seizures Epilepsy and Recurrent Seizures Epilepsy and Recurrent Seizures Epilepsy and Recurrent Seizures Epilepsy and Recurrent Seizures Epilepsy and Recurrent Seizures Epilepsy and Recurrent Seizures Epilepsy and Recurrent Seizures Epilepsy and Recurrent Seizures Epilepsy and Recurrent Seizures 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 Artery Renal Infarction Renal Infarction Renal Infarction Renal Infarction Renal Infarction Renal Infarction Renal Infarction Renal Infarction Renal Infarction Renal Infarction Renal Infarction Renal Infarction Renal Infarction Renal Infarction Renal Infarction Renal Infarction Renal Infarction Renal Infarction 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 nteric Artery Stroke - Ischemic Stroke - Ischemic Stroke - Ischemic Stroke - Ischemic Stroke - Ischemic Stroke - Ischemic Stroke - Ischemic Stroke - Ischemic Stroke - Ischemic Stroke - Ischemic Stroke - Ischemic Stroke - Ischemic Stroke - Ischemic Stroke - Ischemic Stroke - Ischemic Stroke - Ischemic Stroke - Ischemic Stroke - Ischemic Hypertension (Systemic) Hypertension (Systemic) Hypertension (systemic) Hypertension (systemic) Hypertension (systemic) Hypertension (systemic) Hypertension (systemic) Hypertension (systemic) Hypertension (systemic) Hypertension (systemic) Hypertension (systemic) Hypertension (systemic) Hypertension (systemic) Hypertension (systemic) Hypertension (systemic) Hypertension (systemic) Hypertension (systemic) Hypertension (systemic) Outpatient<td ID="encounterTypeDescripti [email or web address]">Problem Evaluation</td><td>Batool L Ray DO</td><td>[facility]</td><td>05/13/2019</td><td>12:53PM</td><td>2:05PM</td><td><content ID="[id number]">Acute Bowel Ischemia / Infarction</content>, <content ID="[id number]">Aseptic Necrosis Idiopathic Other Site</content>, <content ID="[id number]">Closed Fracture of Heel Left</content>, <content ID="[id number]">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</content>, <content ID="[id number] 4">Epilepsy and Recurrent Seizures</content>, <content ID="[id number]">Necrosis of Intestine Acute, Massive</content>, <content ID="[id number]">Renal Infarction</content>, <content ID="[id number]">Stroke - Ischemic</content>, <content ID="[id number]">Superior Mesenteric Artery Atheroma</content></td> [facility] 12[facility]53[facility]00 PM EST - 05/13/2019 02:05:24 PM EST Aseptic Necrosis Idiopathic Other SiteAs eptic Necrosis Idiopathic Other SiteAseptic Necrosis Idiopathic Other SiteAseptic Necrosis Idiopathic Other SiteAseptic Necrosis Idiopathic Other SiteAseptic Necrosis Idiopathic Other SiteAseptic Necrosis Idiopathic Other SiteAseptic Necrosis Idiopathic Other SiteAseptic Necrosis Idiopathic Other SiteAseptic Necrosis Idiopathic Other SiteAseptic Necrosis Idiopathic Other SiteAseptic Necrosis Idiopathic Other SiteAseptic Necrosis Idiopathic Other SiteAseptic Necrosis Idiopathic Other SiteAseptic Necrosis Idiopathic Other SiteAseptic Necrosis Idiopathic Other SiteAseptic Necrosis Idiopathic Other SiteAseptic Necrosis Idiopathic Other SiteAseptic Necrosis Idiopathic Other SiteEpilepsy and Recurrent SeizuresEpilepsy and Recurrent SeizuresEpilepsy and Recurrent SeizuresEpilepsy and Recurrent SeizuresEpilepsy and Recurrent SeizuresEpilepsy and Recurrent SeizuresEpilepsy and Recurrent SeizuresEpilepsy and Recurrent SeizuresEpilepsy and Recurrent SeizuresEpilepsy and Recurrent SeizuresEpilepsy and Recurrent SeizuresEpilepsy and Recurrent SeizuresEpilepsy and Recurrent SeizuresEpilepsy and Recurrent SeizuresEpilepsy and Recurrent SeizuresEpilepsy and Recurrent SeizuresEpilepsy and Recurrent SeizuresEpilepsy and Recurrent SeizuresEpilepsy and Recurrent SeizuresClosed Fracture of Heel LeftClosed Fracture of Heel LeftClosed Fracture of Heel LeftClosed Fracture of Heel LeftClosed Fracture of Heel LeftClosed Fracture of Heel LeftClosed Fracture of Heel LeftClosed Fracture of Heel LeftClosed Fracture of Heel LeftClosed Fracture of Heel LeftClosed Fracture of Heel LeftClosed Fracture of Heel LeftClosed Fracture of Heel LeftClosed Fracture of Heel LeftClosed Fracture of Heel LeftClosed Fracture of Heel LeftClosed Fracture of Heel LeftClosed Fracture of Heel LeftClosed Fracture of Heel LeftSuperior Mesenteric Artery AtheromaSuperior Mesenteric Artery AtheromaSuperior Mesenteric Artery AtheromaSuperior Mesenteric Artery AtheromaSuperior Mesenteric Artery AtheromaSuperior Mesenteric Artery AtheromaSuperior Mesenteric Artery AtheromaSuperior Mesenteric Artery AtheromaSuperior Mesenteric Artery AtheromaSuperior Mesenteric Artery AtheromaSuperior Mesenteric Artery AtheromaSuperior Mesenteric Artery AtheromaSuperior Mesenteric Artery AtheromaSuperior Mesenteric Artery AtheromaSuperior Mesenteric Artery AtheromaSuperior Mesenteric Artery AtheromaSuperior Mesenteric Artery AtheromaSuperior Mesenteric Artery AtheromaSuperior Mesenteric Artery AtheromaAcute Bowel Ischemia / Infarction Acute Bowel Ischemia / InfarctionAcute Bowel Ischemia / InfarctionAcute Bowel Ischemia / InfarctionAcute Bowel Ischemia / InfarctionAcute Bowel Ischemia / InfarctionAcute Bowel Ischemia / InfarctionAcute Bowel Ischemia / Infarction Acute Bowel Ischemia / InfarctionAcute Bowel Ischemia / InfarctionAcute Bowel Ischemia / InfarctionAcute Bowel Ischemia / InfarctionAcute Bowel Ischemia / InfarctionAcute Bowel Ischemia / InfarctionAcute Bowel Ischemia / Infarction Acute Bowel Ischemia / InfarctionAcute Bowel Ischemia / InfarctionAcute Bowel Ischemia / InfarctionAcute Bowel Ischemia / InfarctionRenal InfarctionRenal InfarctionRenal InfarctionRenal InfarctionRenal InfarctionRenal InfarctionRenal InfarctionRenal InfarctionRenal InfarctionRenal InfarctionRenal InfarctionRenal InfarctionRenal InfarctionRenal InfarctionRenal InfarctionRenal InfarctionRenal InfarctionRenal InfarctionRenal InfarctionNecrosis of Intestine Acute, Massive 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Necrosis of Intestine Acute, Massive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Necrosis of Intestine Acute, Massive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 Necrosis of Intestine Acute, Massive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Necrosis of Intestine Acute, Massive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Necrosis of Intestine Acute, Massive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Necrosis of Intestine Acute, Massive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Necrosis of Intestine Acute, Massive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 Necrosis of Intestine Acute, Massive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Necrosis of Intestine Acute, Massive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Necrosis of Intestine Acute, Massive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Necrosis of Intestine Acute, Massive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Necrosis of Intestine Acute, Massive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 Necrosis of Intestine Acute, Massive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Necrosis of Intestine Acute, Massive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Necrosis of Intestine Acute, Massive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Necrosis of Intestine Acute, Massive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Necrosis of Intestine Acute, Massive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 Necrosis of Intestine Acute, Massive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Stroke - IschemicStroke - IschemicStroke - IschemicStroke - IschemicStroke - IschemicStroke - IschemicStroke - IschemicStroke - IschemicStroke - IschemicStroke - IschemicStroke - IschemicStroke - IschemicStroke - IschemicStroke - IschemicStroke - IschemicStroke - IschemicStroke - IschemicStroke - IschemicStroke - Ischemic GAVIN ([facility]) 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 Epilepsy and Recurrent Seizures Epilepsy and Recurrent Seizures Epilepsy and Recurrent Seizures Epilepsy and Recurrent Seizures Epilepsy and Recurrent Seizures Epilepsy and Recurrent Seizures Epilepsy and Recurrent Seizures Epilepsy and Recurrent Seizures Epilepsy and Recurrent Seizures Epilepsy and Recurrent Seizures Epilepsy and Recurrent Seizures Epilepsy and Recurrent Seizures Epilepsy and Recurrent Seizures Epilepsy and Recurrent Seizures Epilepsy and Recurrent Seizures Epilepsy and Recurrent Seizures Epilepsy and Recurrent Seizures Epilepsy and Recurrent Seizures Epilepsy and Recurrent Seizures Closed Fracture of Heel Left Closed Fracture of Heel Left Closed Fracture of Heel Left Closed Fracture of Heel Left Closed Fracture of Heel Left Closed Fracture of Heel Left Closed Fracture of Heel Left Closed Fracture of Heel Left Closed Fracture of Heel Left Closed Fracture of Heel Left Closed Fracture of Heel Left Closed Fracture of Heel Left Closed Fracture of Heel Left Closed Fracture of Heel Left Closed Fracture of Heel Left Closed Fracture of Heel Left Closed Fracture of Heel Left Closed Fracture of Heel Left Closed Fracture of Heel Left 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 Acute Bowel Ischemia / Infarction Acute Bowel Ischemia / Infarction Acute Bowel Ischemia / Infarction Acute Bowel Ischemia / Infarction Acute Bowel Ischemia / Infarction Acute Bowel Ischemia / Infarction Acute Bowel Ischemia / Infarction Acute Bowel Ischemia / Infarction Acute Bowel Ischemia / Infarction Acute Bowel Ischemia / Infarction Acute Bowel Ischemia / Infarction Acute Bowel Ischemia / Infarction Acute Bowel Ischemia / Infarction Acute Bowel Ischemia / Infarction Acute Bowel Ischemia / Infarction Acute Bowel Ischemia / Infarction Acute Bowel Ischemia / Infarction Acute Bowel Ischemia / Infarction Acute Bowel Ischemia / Infarction Renal Infarction Renal Infarction Renal Infarction Renal Infarction Renal Infarction Renal Infarction Renal Infarction Renal Infarction Renal Infarction Renal Infarction Renal Infarction Renal Infarction Renal Infarction Renal Infarction Renal Infarction Renal Infarction Renal Infarction Renal Infarction Renal Infarction Necrosis of Intestine Acute, Massive Dissection of Celiac Trunk Superior Mese nteric Artery Necrosis of Intestine Acute, Massive Dissection of Celiac Trunk Superior Mese nteric Artery Necrosis of Intestine Acute, Massive Dissection of Celiac Trunk Superior Mese nteric Artery Necrosis of Intestine Acute, Massive Dissection of Celiac Trunk Superior Mese nteric Artery Necrosis of Intestine Acute, Massive Dissection of Celiac Trunk Superior Mese nteric Artery Necrosis of Intestine Acute, Massive Dissection of Celiac Trunk Superior Mese nteric Artery Necrosis of Intestine Acute, Massive Dissection of Celiac Trunk Superior Mese nteric Artery Necrosis of Intestine Acute, Massive Dissection of Celiac Trunk Superior Mese nteric Artery Necrosis of Intestine Acute, Massive Dissection of Celiac Trunk Superior Mese nteric Artery Necrosis of Intestine Acute, Massive Dissection of Celiac Trunk Superior Mese nteric Artery Necrosis of Intestine Acute, Massive Dissection of Celiac Trunk Superior Mese nteric Artery Necrosis of Intestine Acute, Massive Dissection of Celiac Trunk Superior Mese nteric Artery Necrosis of Intestine Acute, Massive Dissection of Celiac Trunk Superior Mese nteric Artery Necrosis of Intestine Acute, Massive Dissection of Celiac Trunk Superior Mese nteric Artery Necrosis of Intestine Acute, Massive Dissection of Celiac Trunk Superior Mese nteric Artery Necrosis of Intestine Acute, Massive Dissection of Celiac Trunk Superior Mese nteric Artery Necrosis of Intestine Acute, Massive Dissection of Celiac Trunk Superior Mese nteric Artery Necrosis of Intestine Acute, Massive Dissection of Celiac Trunk Superior Mese nteric Artery Necrosis of Intestine Acute, Massive Dissection of Celiac Trunk Superior Mese nteric Artery Stroke - Ischemic Stroke - Ischemic Stroke - Ischemic Stroke - Ischemic Stroke - Ischemic Stroke - Ischemic Stroke - Ischemic Stroke - Ischemic Stroke - Ischemic Stroke - Ischemic Stroke - Ischemic Stroke - Ischemic Stroke - Ischemic Stroke - Ischemic Stroke - Ischemic Stroke - Ischemic Stroke - Ischemic Stroke - Ischemic Stroke - Ischemic Outpatient Attender: GILDA CERVANTES [id number] 04/27/2019 12:00:00 AM EST - 04/27/2019 12:24:56 PM EST 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, le ft hand [facility] 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, le ft hand Outpatient Referrer: GILDA CERVANTES [id number] 04/27/19 12:00:00 AM EST Pain in left wrist [facility] Pain in left wrist Outpatient Referrer: Janis Cowart MD 04/26/2019 01:37:00 P M EST [facility] Radiology Imaging Outpatient Referrer: Janis Cowart MD 04/26/2019 01:10:00 P M EST [facility] Radiology Imaging Outpatient Referrer: Janis Cowart MD 04/26/2019 01:05:00 P M EST [facility] Radiology Imaging Outpatient Referrer: Janis Cowart MD 04/26/2019 01:01:00 P M EST [facility] Radiology Imaging Outpatient Attender: Magalis PARRY Main office - [facility] 04/18/2019 07:30:00 AM EST [facility] ([facility]) Outpatient<td ID="encounterTypeDescripti [email or web address]">Chronic Disease Follow- up</td><td>Batool L Ray DO</td><td>[facility]</td><td>04/08/2019</td><td><content ID="[id number]"> Superior Mesenteric Artery Atheroma</content>, <content ID="[id number]">Stroke - Ischemic</content>, <content ID="[id number]">Peripheral Vascular Disease</content>, <content ID="[id number]">Migraine Headache</content>, <content ID="[id number]">Hypertension (systemic)</content>, <content ID="[id number]">Epilepsy and Recurrent Seizures</content>, <content ID="[id number]">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</content>, <content ID="[id number]">Depression</content></td> Attender: Batool Molina [facility] 04/08/2019 05:23:00 PM EST - 04/08/2019 06:16:40 PM ES T DepressionDepressionDepressionDepressionDepressionDepressionDepressionDepression Vascular DiseasePeripheral Vascular DiseasePeripheral Vascular DiseasePeripheral Vascular DiseasePeripheral Vascular DiseasePeripheral Vascular DiseasePeripheral Vascular DiseasePeripheral Vascular DiseasePeripheral Vascular DiseasePeripheral Vascular DiseasePeripheral Vascular DiseasePeripheral Vascular DiseasePeripheral Vascular DiseasePeripheral Vascular DiseasePeripheral Vascular DiseasePeripheral Vascular DiseasePeripheral Vascular DiseaseEpilepsy and Recurrent SeizuresEpilepsy and Recurrent SeizuresEpilepsy and Recurrent SeizuresEpilepsy and Recurrent SeizuresEpilepsy and Recurrent SeizuresEpilepsy and Recurrent SeizuresEpilepsy and Recurrent SeizuresEpilepsy and Recurrent SeizuresEpilepsy and Recurrent SeizuresEpilepsy and Recurrent SeizuresEpilepsy and Recurrent SeizuresEpilepsy and Recurrent SeizuresEpilepsy and Recurrent SeizuresEpilepsy and Recurrent SeizuresEpilepsy and Recurrent SeizuresEpilepsy and Recurrent SeizuresEpilepsy and Recurrent SeizuresSuperior Mesenteric Artery AtheromaSuperior Mesenteric Artery AtheromaSuperior Mesenteric Artery AtheromaSuperior Mesenteric Artery AtheromaSuperior Mesenteric Artery At heromaSuperior Mesenteric Artery AtheromaSuperior Mesenteric Artery AtheromaSuperior Mesenteric Artery AtheromaSuperior Mesenteric Artery AtheromaSuperior Mesenteric Artery AtheromaSuperior Mesenteric Artery AtheromaSuperior Mesenteric Artery AtheromaSuperior Mesenteric Artery Atheroma Superior Mesenteric Artery AtheromaSuperior Mesenteric Artery AtheromaSuperior Mesenteric Artery AtheromaSuperior Mesenteric Artery Atheroma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Migraine HeadacheStroke - IschemicMigraine HeadacheStroke - IschemicMigraine HeadacheStroke - IschemicMigraine HeadacheStroke - IschemicMigraine HeadacheStroke - IschemicMigraine HeadacheStroke - IschemicMigraine HeadacheStroke - IschemicMigraine HeadacheStroke - IschemicMigraine HeadacheStroke - IschemicMigraine HeadacheStroke - IschemicMigraine HeadacheStroke - IschemicMigraine HeadacheStroke - IschemicMigraine HeadacheStroke - IschemicMigraine HeadacheStroke - IschemicMigraine HeadacheStroke - IschemicMigraine HeadacheStroke - IschemicMigraine HeadacheStroke - IschemicHypertension (systemic)Hypertension (systemic)Hypertension (systemic)Hypertension (systemic)Hypertension (systemic) Hypertension (systemic)Hypertension (systemic)Hypertension (systemic)Hypertension (systemic)Hypertension (systemic)Hypertension (systemic)Hypertension (systemic)Hypertension (systemic)Hypertension (systemic)Hypertension (systemic)Hypertension (systemic)Hypertension (systemic) G[facility] ([facility]) Depression Depression Depression Depression Depression Depression Depression Depression Depression Depression Depression Depression Depression Depression Depression Depression Depression Peripheral Vascular Disease Peripheral Vascular Disease Peripheral Vascular Disease Peripheral Vascular Disease Peripheral Vascular Disease Peripheral Vascular Disease Peripheral Vascular Disease Peripheral Vascular Disease Peripheral Vascular Disease Peripheral Vascular Disease Peripheral Vascular Disease Peripheral Vascular Disease Peripheral Vascular Disease Peripheral Vascular Disease Peripheral Vascular Disease Peripheral Vascular Disease Peripheral Vascular Disease Epilepsy and Recurrent Seizures Epilepsy and Recurrent Seizures Epilepsy and Recurrent Seizures Epilepsy and Recurrent Seizures Epilepsy and Recurrent Seizures Epilepsy and Recurrent Seizures Epilepsy and Recurrent Seizures Epilepsy and Recurrent Seizures Epilepsy and Recurrent Seizures Epilepsy and Recurrent Seizures Epilepsy and Recurrent Seizures Epilepsy and Recurrent Seizures Epilepsy and Recurrent Seizures Epilepsy and Recurrent Seizures Epilepsy and Recurrent Seizures Epilepsy and Recurrent Seizures Epilepsy and Recurrent Seizures 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 nteric Artery Migraine Headache Stroke - Ischemic Migraine Headache Stroke - Ischemic Migraine Headache Stroke - Ischemic Migraine Headache Stroke - Ischemic Migraine Headache Stroke - Ischemic Migraine Headache Stroke - Ischemic Migraine Headache Stroke - Ischemic Migraine Headache Stroke - Ischemic Migraine Headache Stroke - Ischemic Migraine Headache Stroke - Ischemic Migraine Headache Stroke - Ischemic Migraine Headache Stroke - Ischemic Migraine Headache Stroke - Ischemic Migraine Headache Stroke - Ischemic Migraine Headache Stroke - Ischemic Migraine Headache Stroke - Ischemic Migraine Headache Stroke - Ischemic Hypertension (systemic) Hypertension (systemic) Hypertension (systemic) Hypertension (systemic) Hypertension (systemic) Hypertension (systemic) Hypertension (systemic) Hypertension (systemic) Hypertension (systemic) Hypertension (systemic) Hypertension (systemic) Hypertension (systemic) Hypertension (systemic) Hypertension (systemic) Hypertension (systemic) Hypertension (systemic) Hypertension (systemic) Emergency Referrer: SHAHANA PARRY 02/2019 01:07:00 PM EST - 03/30/2019 04:59:00 PM EST increasing abd pain, vomiting and diarrhea [facility] increasing abd pain, vomiting and diarrh ea Patient discharged. OutpatientOFFICE/OUTPATIENT VISIT, EST 03/30/2019 Attender: SHAHANA PARRY 03/30/2019 12:04:07 PM EST [facility] ([facility]) Emergency Attender: DEFAULT / GENE MICKY / UNKNOWN PROVIDER ALIASES [id number] 03/30/2019 12:00:00 AM EST - 03/31/2019 02:12:00 AM EST Generalized abdominal pain [facility] Generalized abdominal pain Patient discharged. Outpatient Attender: Jaqueline Love NP [id number] 12:00:00 AM EST - 03/29/2019 11:37:10 AM EST [facility] Outpatient Attender: Batool Aguilar 03/25/2019 12:00:[address] 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</content>, <content ID="encounterDiagnosisID3-1">Cholecystitis</content>, <content ID="encounterDiagnosisID3-2">Depression</content></td> Att[facility]: [facility] 03/24/2019 04:24:00 PM EST - 03/24/2019 05:32:30 PM EST CholecystitisCholecystitisCholecystitisCholecystitisCholecystitisCholecystitisCh olecystitisCholecystitisCholecystitisCholecystitisCholecystitisCholecystitisChol ecystitisCholecystitisCholecystitisCholecystitisDepressionDepressionDepression DepressionDepressionDepressionDepressionDepressionDepressionDepressionDepression DepressionDepressionDepressionDepressionDepression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 [facility] ([facility]) Cholecystitis Cholecystitis Cholecystitis Cholecystitis Cholecystitis Cholecystitis Cholecystitis Cholecystitis Cholecystitis Cholecystitis Cholecystitis Cholecystitis Cholecystitis Cholecystitis Cholecystitis Cholecystitis Depression Depression Depression Depression Depression Depression Depression Depression Depression Depression Depression Depression Depression Depression Depression Depression 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 nteric Artery Inpatient Attender: GIANFRANCO CASTELAN MDAtt [place]: Atif Cunningham MDAdmitter: Naun Briones MDReferrer: Atif Cunningham MDConsultant: John Moore MDConsultant: Rajat Vargas DOConsultant: Laura Gonzalez MDConsultant: Naun Briones MDConsultant: TOÑO BIGGS MDConsultant: Chacha Romano MDConsultant: GILDA BLOUNT MDConsultant: GIANFRANCO CASTELAN MD [id number] 03/02/2019 12:00:00 AM EST - 03/15/2019 11:07:00 AM EST Acute infarction of intestine, part and extent unspecified [facility] Acute infarction of intestine, part and extent unspecified Patient discharged. Outpatient 06/09/2017 07:03:25 PM [facility] Immunizations Vaccine Date Status Description Data Source(s) pneumococcal polysaccharide PPV23 03/24/2019 05:31:00 PM EST com pleted PCV (Pneumovax 23) 1 03/24/2019 Right Deltoid Complete (Administer ed) [facility] ([facility]) Note: prevnar 23 on try 1 L arm got stuc k, removed needle, looked like a full dose,discarded and got new needle and new vaccine that was successful. IIV3. This is one of two codes replacing CVX 15, which is being retired. 03/24/2019 05:31:00 PM EST completed Influenza, seasonal, injectable 2 03/24/2019 Left Deltoid Complete (Administered) [facility] GAVIN ([facility]) Medications Medication Brand Name Start Date Product Form Dose Route Admi nistrative Instructions Pharmacy Instructions Status Indications Reaction Description Data Source(s) Folic Acid 1 MG Oral Tablet Folic Acid 1 MG Oral Table t (FOLVITE) Folic Acid 1 MG Oral Tablet (FOLVITE) 05/08/2020 12:00:00 AM EST 1 mg Oral active Hypercoagulable state Take 1 tablet by mouth Two Times Daily [facility] Hypercoagulable state 70 mg/mL 04/25/2020 12:00:00 AM EST auto-injector 1 INJECT 70 MG UNDER THE SKIN ONCE A MONTH INJECT 70 MG UNDER THE SKIN ONCE A MONTH SOLD: 04/26/2020 [facility] 4 mg 04/24/2020 12:00:00 AM EST tablet 21 USE A S DIRECTED USE DIRECTED SOLD: 04/24/2020 [facility] 100 mg 04/19/2020 12:00:00 AM EST capsule 60 TAKE ONE CAPSULE BY MOUTH TWICE A DAY TAKE ONE CAPSULE BY MOUTH TWICE A DAY SOLD: 04/21/2020 [facility] 30 mg 04/19/2020 12:00:00 AM EST tablet 30 TAKE ONE TABLET BY MOUTH EVERY DAY TAKE ONE TABLET BY MOUTH EVERY DAY SOLD: 04/21/2020 [facility] Rosuvastatin calcium 10 MG Oral Tablet rosuvastatin (C RESTOR) tablet 10 mg rosuvastatin (CRESTOR) tablet 10 mg 04/15/2020 09:00:00 AM EST 10 mg Oral active 10 mg, Oral, Daily Standard, First dose on 04/15/20 at 0900, For 30 days [facility] Medication administered onsite Lisinopril 20 MG Oral Tablet lisinopril (ZESTRIL) tabl et 20 mg lisinopril (ZESTRIL) tablet 20 mg 04/15/2020 09:00:00 AM EST 20 mg Oral active 20 mg, Oral, Daily Standard, First dose on 04/15/20 at 0900, For 30 days
Check vital signs before administering
[facility] Medication administered onsite clopidogrel 75 MG Oral Tablet clopidogrel (PLAVIX) tab let 75 mg clopidogrel (PLAVIX) tablet 75 mg 04/15/2020 09:00:00 AM EST 75 mg Oral active 75 mg, Oral, Daily Standard, First dose on 04/15/20 at 0900, For 30 days [facility] Medication administered onsite Levetiracetam 500 MG Oral Tablet levETIRAcetam (KEPPRA ) tablet 500 mg levETIRAcetam (KEPPRA) tablet 500 mg 04/15/2020 09:00:00 AM EST 500 m g Oral active 500 mg, Oral, Jasper brianna Standard, First dose on 04/15/20 at 0900, For 30 days [facility] Medication administered onsite 1 ML Ketorolac Tromethamine 15 MG/ML [place] [facility] ketorolac (TORADOL) 15 MG/ML injection 15 mg ketorolac (TORADOL) 15 MG/ML injection 15 mg 0 07:49:11 AM EST 15 mg Intravenous active 15 m g, Intravenous, Every 6 hours PRN, Moderate Pain (Pain Scale Score 4-6), headache, Starting 04/15/20 at 0749, For 1 day [facility] Medication administered onsite magnesium sulfate in dextrose 5 % infusion (premix) 1 g 0409 -6727-23 04/15/2020 04:15:00 AM EST 1 g Intravenous completed 1 g, Intravenous, Administer over 60 Minutes, Once, 04/15/20 at 0415, For 1 dose [facility] Medication administered onsite Metoclopramide 10 MG Oral Tablet metoclopramide (FAISAL N) tablet 10 mg metoclopramide (REGLAN) tablet 10 mg 04/15/2020 04:15:00 AM EST 10 mg Oral completed 10 mg, Oral, Once, Sun 04/15 at 0415, For 1 dose [facility] Medication administered onsite influenza vac split quad (FLUARIX) injection 6 months and ol barbara 0.5 mL [id number] 04/14/2020 11:37:34 PM EST 0.5 mL Intramuscular active 0.5 mL, Intramuscular, Give Now, Starting 04/14/20 at 2337, For 1 dose [facility] Medication administered onsite Acetaminophen 325 MG Oral Tablet acetaminophen (TYLENO L) tablet 650 mg acetaminophen (TYLENOL) tablet 650 mg 04/14/2020 10:17:10 PM EST 65 0 mg Oral active 650 mg, Oral, E very 6 hours PRN, Mild Pain (Pain Scale Score 1- 3), Starting 04/14/20 at 2217, For 30 days
Maximum daily dose of acetaminophen is 3,000 mg from all sources in 24 hours.
[facility] Medication administered onsite Levetiracetam 500 MG Oral Tablet levETIRAcetam (KEPPRA ) tablet 1,000 mg levETIRAcetam (KEPPRA) tablet 1,000 mg 04/14/2020 10:00:00 PM EST 1000 mg Oral active 1,000 mg, Oral , Nightly, First dose on 04/14/20 at 2200, For 30 days [facility] Medication administered onsite Propranolol Hydrochloride 10 MG Oral Tablet propranolo l (INDERAL) tablet 10 mg propranolol (INDERAL) tablet 10 mg 04/14/2020 09:00:00 PM EST 10 mg Oral active 10 mg, Oral, Every e vening, First dose on 04/14/20 at 2100, For 30 days
Check vital signs before administering
[facility] Medication administered onsite apixaban 5 MG Oral Tablet apixaban (ELIQUIS) tablet 5 mg apixaban (ELIQUIS) tablet 5 mg 04/14/2020 09:00:00 PM EST 5 mg Oral active 5 mg, Oral, 2 Times Daily, First dose on 04/14/20 at 2100, For 30 days [facility] Medication administered onsite NaCl infusion 0.9 % [id number] 04/14/2020 06:45:00 PM EST Intravenous active at 75 mL/hr, Intrave nous, Continuous, Starting 04/14/20 at 1845, For 24 hours [facility] Medication administered onsite iohexol (OMNIPAQUE) 350 MG/ML contrast injection 75 mL [id number] 04/14/2020 06:15:00 PM EST 75 mL Given by IV completed 75 mL, Given by IV, 1 TIME IMAGING, 04/14/20 at 1815, For 1 dose [facility] Medication administered onsite Aimovig Aimovig 04/06/2020 12:00:00 AM EST SUBCUTANEOUS active MEDENT ([facility]) iohexol (OMNIPAQUE) 300 MG/ML contrast injection 100 mL [id number] 03/29/2020 07:15:00 AM EST 100 mL Given by IV completed 100 mL, Given by IV, 1 TIME IMAGING, Mahsa 03/29/20 at 0715, For 1 dose [facility] Medication administered onsite sodium chloride 0.9 % bolus 1,000 mL 0759-1912-46 03/29/2020 06:45: 00 AM EST 1000 mL Intravenous completed 1,000 mL , Intravenous, Once, Mahsa 03/29/20 at 0645, For 1 dose [facility] Medication administered onsite fentaNYL (SUBLIMAZE) (PF) injection 50 mcg [id number] 03/29/2020 06:00:00 AM EST 50 ug Intravenous completed 50 mcg, Intravenous, Once, Mahsa 03/29/20 at 0600, For 1 dose [facility] Medication administered onsite 100 mg/mL 03/28/2020 12:00:00 AM EST syringe 20 INJECT 1ML UNDER THE SKIN TWO TIMES A DAY INJECT 1ML UNDER THE SKIN TWO TIMES A DAY SOLD: 03/29/2020 [facility] 1 ML Enoxaparin sodium 100 MG/ML Prefill ed Syringe Enoxaparin Sodium 100 MG/ML Subcutaneous Solution (LOVENOX) Enoxaparin Sodium 100 MG/ML Subcutaneous Solution (LOVENOX) 03/28/2020 12:00:00 AM EST 100 mg Subcutaneous aborted Occlusion of superior mesenteric artery Inject 1 mL in to the skin Two Times Daily [facility] Occlusion of superior mesenteric artery 10 mg 03/23/2020 12:00:00 AM EST tablet 30 TAKE ONE TABLET BY MOUTH AT BEDTIME TAKE ONE TABLET BY MOUTH AT BEDTIME SOLD: 03/24/2020 [facility] Propranolol Hydrochloride 10 MG Oral Tablet Propranolo l HCl 10 MG Oral Tablet Propranolol HCl 10 MG Oral Tablet 03/23/2020 12:00:00 AM EST 1 active propranolol hydrochloride 10 MG Oral Tablet [facility] ( [facility]) 100 mg/mL 03/22/2020 12:00:00 AM EST syringe 4 INJECT 1 SYRINGE UNDER THE SKIN TWO TIMES A DAY FOR 2 DAYS - THURSDAY AND THURSDAY BEFORE THURSDAY PROCEDURE INJECT 1 SYRINGE UNDER THE SKIN TWO TIMES A DAY FOR 2 DAYS - THURSDAY AND THURSDAY BEFORE THURSDAY PROCEDURE SOLD: 03/24/2020 [facility] 236-22.74-6.74 -5.86 gram 03/22/2020 12:00:00 AM EST recon s oln 4000 USE DIRECTED BEFORE PROCEDURE USE DIRECTED BEFORE PROCEDURE SOLD: 03/24/2020 [facility] 1 ML Enoxaparin sodium 100 MG/ML Prefill ed Syringe Enoxaparin Sodium 100 MG/ML Subcutaneous Solution Enoxaparin Sodium 100 MG/ML Subcutaneous Solution 03/22/2020 12:00:00 AM EST active 1 ML enoxaparin sodium 100 MG/ML Prefilled Syringe G[facility] ([facility]) POLYETHYLENE GLYCOL 3350 59 MG/ML / Pota ssium Chloride 0.01 MEQ/ML / Sodium Bicarbonate 0.02 MEQ/ML / Sodium Chloride 0.025 MEQ/ML / sodium sulfate 0.04 MEQ/ML Oral Solution PEG [id number] 236 GM Oral Solution Reconstituted (GoLYTELY,NuLYTELY) PEG [id number] 236 GM Or al Solution Reconstituted (GoLYTELY,NuLYTELY) 03/21/2020 12:00:00 AM EST aborted Use as directed before procedure [facility] 1 ML Enoxaparin sodium 100 MG/ML Prefill ed Syringe Enoxaparin Sodium 100 MG/ML Subcutaneous Solution (Lovenox) Enoxaparin Sodium 100 MG/ML Subcutaneous Solution (Lovenox) 03/21/2020 12:00:00 AM EST 100 mg Subcutaneous aborted Inject 1 mL into the skin Tw o Times Daily for 2 daysOn Thursday and Thursday before Thursday's procedure. [facility] 650 mg 02/23/2020 12:00:00 AM EST tablet extended release 60 TAKE ONE TABLET BY MOUTH EVERY 8 HOURS NEEDED FOR PAIN FOR UP TO 10 DAYS TAKE ONE TABLET BY MOUTH EVERY 8 HOURS NEEDED FOR PAIN FOR UP TO 10 DAYS SOLD: 02/25/2020 [facility] 15 mg 02/07/2020 12:00:00 AM EDT capsule,delayed release (DR/EC) 30 TAKE ONE CAPSULE BY MOUTH EVERY DAY TAKE ONE CAPSULE BY MOUTH EVERY DAY SOLD: 03/13/2020 [facility] 15 mg 02/07/2020 12:00:00 AM EDT capsule,delayed release (DR/EC) 30 TAKE ONE CAPSULE BY MOUTH EVERY DAY TAKE ONE CAPSULE BY MOUTH EVERY DAY SOLD: 04/11/2020 [facility] 15 mg 02/07/2020 12:00:00 AM EDT capsule,delayed release (DR/EC) 30 TAKE ONE CAPSULE BY MOUTH EVERY DAY TAKE ONE CAPSULE BY MOUTH EVERY DAY SOLD: 02/07/2020 [facility] Levetiracetam 500 MG Oral Tablet Levetiracetam 01/30/2020 12:00:00 AM EDT active [facility] ([facility]) 500 mg 01/30/2020 12:00:00 AM EDT tablet 270 TAKE ONE TABLET BY MOUTH EVERY MORNING AND 2 TABLETS AT BEDTIME MAXIMUM DAILY DOSE = 3 TAKE ONE TABLET BY MOUTH EVERY MORNING AND 2 TABLETS AT BEDTIME MAXIMUM DAILY DOSE = 3 SOLD: 02/06/2020 [facility] apixaban 5 MG Oral Tablet [Eliquis] Eliquis 5 MG Oral Tablet Eliquis 5 MG Oral Tablet 01/29/2020 12:00:00 AM EDT 1 aborted apixaban 5 MG Oral Tablet [Eliquis] [facility] ([facility]) Amoxicillin 875 MG / Clavulanate 125 MG Oral Tablet amoxicillin-clavulanate (AUGMENTIN) 875-125 MG per tablet 1 tablet amoxicillin-clavulanate (AUGMENTIN) 875-125 MG per tablet 1 tablet 01/27/2020 03:30:00 AM EDT 1 {tbl} Or al completed 1 tablet, Oral, Once, Thu 0 at 0330, For 1 dose [facility] Medication administered onsite Oxycodone Hydrochloride 5 MG Oral Tablet oxyCODONE (ROXICODONE) immediate release tablet 5 mg oxyCODONE (ROXICODONE) immediate release tablet 5 mg 01/27/2020 03:30:00 AM EDT 5 mg Oral completed 5 mg, Oral, Once, Thu01/27/20 at 0330, For 1 dose
Oxycodone immediate release is limited to 10 mg per dose. Higher doses ( only) require Pain Service consultation and approval.
[facility] Medication administered onsite iohexol (OMNIPAQUE) 300 MG/ML contrast injection 100 mL 1776 02 01/27/2020 01:15:00 AM EDT 100 mL Given by IV completed 100 mL, Given by IV, 1 TIME IMAGING, Thu01/27/20 at 0115, For 1 dose [facility] Medication administered onsite 5 mg 01/27/2020 12:00:00 AM EDT tablet 9 TAKE ONE TABLET BY MOUTH EVERY 8 HOURS NEEDED FOR PAIN MAXIMUM DAILY DOSE = 3 TAKE ONE TABLET BY MOUTH EVERY 8 HOURS NEEDED FOR PAIN MAXIMUM DAILY DOSE = 3 SOLD: 01/27/2020 [facility] 100 mg 01/27/2020 12:00:00 AM EDT capsule 30 TAKE ONE CAPSULE BY MOUTH THREE TIMES A DAY FOR 10 DAYS TAKE ONE CAPSULE BY MOUTH THREE TIMES A DAY FOR 10 DAYS SOLD: 01/27/2020 [facility] 875-125 mg 01/27/2020 12:00:00 AM EDT tablet 42 TAKE ONE TABLET BY MOUTH THREE TIMES A DAY TAKE ONE TABLET BY MOUTH THREE TIMES A DAY SOLD: 01/27/2020 [facility] Docusate Sodium 100 MG Oral Capsule Docu sate Sodium 100 MG Oral Capsule (COLACE) Docusate Sodium 100 MG Oral Capsule (COLACE) 01/27/2020 12:00:00 AM EDT 100 mg Oral active Take 1 capsule by mouth Three times daily for 10 days [facility] Amoxicillin 875 MG / Clavulanate 125 MG Oral Tablet Amoxicillin-Pot Clavulanate 875-125 MG Oral Tablet (AUGMENTIN) Amoxicillin-Pot Clavulanate 875-125 MG O ral Tablet (AUGMENTIN) 01/27/2020 12:00:00 AM EDT 1 {tbl} Oral active Take 1 tablet by mouth Three times daily [facility] Oxycodone Hydrochloride 5 MG Oral Tablet oxyCODONE HCl 5 MG Oral Tablet (ROXICODONE) oxyCODONE HCl 5 MG Oral Tablet (ROXICODONE) 01/27/2020 12:00:00 AM EDT 5 mg Oral active Typhlitis Take 1 tablet by mouth every 8 (eight) hours as needed for Pain (acute) for up to 3 days, Max Daily Dose: 15 mg [facility] Typhlitis sodium chloride 0.9 % bolus 1,000 mL [id number] 01/26/2020 11:15: 00 PM EDT 1000 mL Intravenous completed 1,000 mL , Intravenous, Once, Mahsa 01/26/20 at 2315, For 1 dose [facility] Medication administered onsite ondansetron (ZOFRAN) injection 4 mg [id number] 01/26/2020 11:15:0 0 PM EDT 4 mg Intravenous completed 4 mg, In travenous, Once, Mahsa 01/26/20 at 2315, For 1 dose [facility] Medication administered onsite morphine sulfate (PF) injection 4 mg [id number] 01/26/2020 11:15: 00 PM EDT 4 mg Intravenous completed 4 mg, In travenous, Once, Mahsa 01/26/20 at 2315, For 1 dose [facility] Medication administered onsite 10 mg 01/25/2020 12:00:00 AM EDT tablet 30 TAKE ONE TABLET BY MOUTH AT BEDTIME MAXIMUM DAILY DOSE = 1 TAKE ONE TABLET BY MOUTH AT BEDTIME MAXI MUM DAILY DOSE = 1 SOLD: 01/27/2020 [facility] 10 mg 01/25/2020 12:00:00 AM EDT tablet 30 TAKE ONE TABLET BY MOUTH AT BEDTIME MAXIMUM DAILY DOSE = 1 TAKE ONE TABLET BY MOUTH AT BEDTIME MAXI MUM DAILY DOSE = 1 SOLD: 02/25/2020 [facility] Propranolol Hydrochloride 10 MG Oral Tablet Propranolol HCL 01/25/2020 12:00:00 AM EDT active [facility] ([facility]) Docusate Sodium 100 MG Oral Capsule Docusate Sodium 100 MG O ral Capsule 12/06/2019 12:00:00 AM EDT 1 active docusate sodium 100 MG Oral Capsule [facility] ([facility]) 0.3 % 11/22/2019 12:00:00 AM EDT Ointment 60 APPLY A PEA SIZE AMOUNT TO ANUS FOUR TIMES A DAY APPLY A PEA SIZE AMOUNT TO ANUS FOUR TIMES A DAY SOLD: 11/24/2019 [facility] Nifedipine Compound In Petralatum 11/22/2019 12:00:00 AM EDT active [facility] ([facility]) 10 mg 11/16/2019 12:00:00 AM EDT tablet 30 TAKE ONE TABLET BY MOUTH EVERY DAY TAKE ONE TABLET BY MOUTH EVERY DAY SOLD: 03/24/2020 [facility] 10 mg 11/16/2019 12:00:00 AM EDT tablet 30 TAKE ONE TABLET BY MOUTH EVERY DAY TAKE ONE TABLET BY MOUTH EVERY DAY SOLD: 02/25/2020 [facility] Rosuvastatin calcium 10 MG Oral Tablet Rosuvastatin Ca lcium 10 MG Oral Tablet Rosuvastatin Calcium 10 MG Oral Tablet 11/16/2019 12:00:00 AM EDT 1 active rosuvastatin calcium 10 MG Oral Tablet [facility] ([facility]) lansoprazole 15 MG Delayed Release Oral Capsule Lansoprazole 15 MG Oral Capsule Delayed Release Lansoprazole 15 MG Oral Capsule Delayed Release 2019 12:00:00 AM EDT 1 active lansoprazole 15 MG Delayed Release Oral Capsule [facility] ([facility]) Rosuvastatin calcium 10 MG Oral Tablet ROSUVASTATIN CALCIUM 11/16/2019 12:00:00 AM EDT tablet 30 TAKE ONE TABLET BY MOUTH GUSTAVO DAY TAKE ONE TABLET BY MOUTH EVERY DAY SOLD: 04/23/2020 [facility] Rosuvastatin calcium 10 MG Oral Tablet ROSUVASTATIN CALCIUM 11/16/2019 12:00:00 AM EDT tablet 30 TAKE ONE TABLET BY MOUTH GUSTAVO DAY TAKE ONE TABLET BY MOUTH EVERY DAY SOLD: 11/19/2019 [facility] apixaban 5 MG Oral Tablet [Eliquis] Eliquis 5 MG Oral Tablet Eliquis 5 MG Oral Tablet 10/29/2019 12:00:00 AM EDT 1 aborted apixaban 5 MG Oral Tablet [Eliquis] [facility] ([facility]) 75 mg 10/06/2019 12:00:00 AM EDT tablet 30 TAKE ONE TABLET BY MOUTH EVERY DAY TAKE ONE TABLET BY MOUTH EVERY DAY SOLD: 04/23/2020 [facility] 75 mg 10/06/2019 12:00:00 AM EDT tablet 30 TAKE ONE TABLET BY MOUTH EVERY DAY TAKE ONE TABLET BY MOUTH EVERY DAY SOLD: 11/19/2019 [facility] 75 mg 10/06/2019 12:00:00 AM EDT tablet 30 TAKE ONE TABLET BY MOUTH EVERY DAY TAKE ONE TABLET BY MOUTH EVERY DAY SOLD: 10/13/2019 [facility] 75 mg 10/06/2019 12:00:00 AM EDT tablet 30 TAKE ONE TABLET BY MOUTH EVERY DAY TAKE ONE TABLET BY MOUTH EVERY DAY SOLD: 03/24/2020 [facility] 75 mg 10/06/2019 12:00:00 AM EDT tablet 30 TAKE ONE TABLET BY MOUTH EVERY DAY TAKE ONE TABLET BY MOUTH EVERY DAY SOLD: 02/25/2020 [facility] clopidogrel 75 MG Oral Tablet [Plavix] Plavix 75 MG Or al Tablet Plavix 75 MG Oral Tablet 10/05/2019 12:00:00 AM EDT 1 active clopidogrel 75 MG Oral Tablet [Plavix] [facility] ([facility]) Medrol Medrol 08/10/2019 12:00:00 AM EDT active [facility] ([facility] ) Acetaminophen 325 MG / butalbital 50 MG / Caffeine 40 MG Oral Tablet Butalbital/Acetaminophen/Caffeine 08/10/2019 12:00:00 AM EDT ORAL completed [facility] ([facility]) 4 mg 08/10/2019 12:00:00 AM EDT tablets,dose pack 21 USE DIRECTED USE DIRECTED SOLD: 08/10/2019 [facility] 50-325-40 mg 08/10/2019 12:00:00 AM EDT tablet 14 TAKE 1 TABLET BY MOUTH AT THE ONSET OF UNCONTROLLED MIGRAINE MAXIMUM DAILY DOSE = 2 TAKE 1 TABLET BY MOUTH AT THE ONSET OF UNCONTROLLED MIGRAINE MAXIMUM DAILY DOSE = 2 SOLD: 08/10/2019 [facility] 500 mg 07/20/2019 12:00:00 AM EDT tablet 270 TAKE ONE TABLET BY MOUTH EVERY MORNING AND 2 AT BEDTIME MAXIMUM DAILY DOSE = 3 TAKE ONE TABLET BY MOUTH EVERY MORNING AND 2 AT BEDTIME MAXIMUM DAILY DOSE = 3 SOLD: 07/27/2019 [facility] 500 mg 07/20/2019 12:00:00 AM EDT tablet 270 TAKE ONE TABLET BY MOUTH EVERY MORNING AND 2 AT BEDTIME MAXIMUM DAILY DOSE = 3 TAKE ONE TABLET BY MOUTH EVERY MORNING AND 2 AT BEDTIME MAXIMUM DAILY DOSE = 3 SOLD: 11/04/2019 [facility] Escitalopram 10 MG Oral Tablet ESCITALOPRAM OXALATE 06/30/2019 1 2:00:00 AM EDT tablet 30 TAKE ONE TABLET BY MOUTH EVERY D AY TAKE ONE TABLET BY MOUTH EVERY DAY SOLD: 07/03/2019 [facility] Escitalopram 10 MG Oral Tablet ESCITALOPRAM OXALATE 06/30/2019 1 2:00:00 AM EDT tablet 30 TAKE ONE TABLET BY MOUTH EVERY D AY TAKE ONE TABLET BY MOUTH EVERY DAY SOLD: 09/09/2019 [facility] Escitalopram 10 MG Oral Tablet ESCITALOPRAM OXALATE 06/30/2019 1 2:00:00 AM EDT tablet 30 TAKE ONE TABLET BY MOUTH EVERY D AY TAKE ONE TABLET BY MOUTH EVERY DAY SOLD: 10/13/2019 [facility] Escitalopram 10 MG Oral Tablet ESCITALOPRAM OXALATE 06/30/2019 1 2:00:00 AM EDT tablet 30 TAKE ONE TABLET BY MOUTH EVERY D AY TAKE ONE TABLET BY MOUTH EVERY DAY SOLD: 08/04/2019 [facility] ondansetron (ZOFRAN) injection 4 mg [id number] 06/20/2019 01:04:5 9 PM EST 4 mg Intravenous active 4 mg, In travenous, Once PRN, Nausea, Vomiting, Starting Thu06/20/19 at 1304, For 1 dose, [facility] [place] Medication administered onsite HYDROmorphone (DILAUDID) injection 0.5 mg [id number] 06/20/2019 01:04:59 PM EST 0.5 mg Intravenous active 0.5 mg, Intravenous, Every 5 min PRN, Severe Pain (Pain Scale Score 7-10), Starting Thu06/20/19 at 1304, For 4 doses, [facility] Medication administered onsite fentaNYL (SUBLIMAZE) (PF) injection 25 mcg [id number] 06/20/2019 01:04:59 PM EST 25 ug Intravenous active 25 m cg, Intravenous, Every 5 min PRN, Moderate Pain (Pain Scale Score 4-6), Starting Thu06/20/19 at 1304, For 10 doses, [facility] [place] Medication administered onsite oxyCODONE (ROXICODONE) immediate release tablet 5 mg 06/20/2019 12:01:50 PM EST 5 mg Oral active [Order 1 Start] Name: oxyCODONE (ROXICODONE) immediate release tablet 5 mg Signed Summary: 5 mg, Oral, Every 4 hours PRN, Moderate Pain (Pain Scale Score 4-6), Starting Thu06/20/19 at 1201, For 3 da ys
Oxycodone immediate release is limited to 10 mg per dose. Higher doses ( only) require Pain Service consultation and approval.
[Order 1 End] [Order 2 Start] Name: oxyCODONE (ROXICODONE) immediate release tablet 10 mg Signed Sum umesh: 10 mg, Oral, Every 4 hours PRN, Severe Pain (Pain Scale Score 7-10), Starting Thu06/20/19 at 1201, For 3 days
Oxycodone immediate release is limited to 10 mg per dose. Higher doses ( only) require Pain Service consultation and approval.
[Order 2 End] [facility] Medication administered onsite Calcium Chloride 0.0014 MEQ/ML / Potassi um Chloride 0.004 MEQ/ML / Sodium Chloride 0.103 MEQ/ML / Sodium Lactate 0.028 MEQ/ML Injectable Solution lactated ringers infusion lactated ringers infusion 06/20/2019 10:45:00 AM EST 100 mL/h Intravenous active at 100 m L/hr, Intravenous, Continuous, Starting Thu06/20/19 at 1045, For 30 days, Pre-op [facility] Medication administered onsite Oxycodone Hydrochloride 5 MG Oral Tablet oxyCODONE HCl 5 MG Oral Tablet (Roxicodone) oxyCODONE HCl 5 MG Oral Tablet (Roxicodone) 06/20/2019 12:00:00 AM EST 5 mg Oral active Take 1 t ablet by mouth every 4 (four) hours as needed for up to 3 days, Max Daily Dose: 30 mg [facility] Trazodone Hydrochloride 50 MG Oral Tablet traZODone HC l 50 MG Oral Tablet traZODone HCl 50 MG Oral Tablet 06/07/2019 12:00:00 AM EST 1 aborted trazodone hydrochloride 50 MG Oral Tablet [facility] ([facility]) Rosuvastatin calcium 10 MG Oral Tablet Rosuvastatin Ca lcium 10 MG Oral Tablet Rosuvastatin Calcium 10 MG Oral Tablet 06/07/2019 12:00:00 AM EST 1 aborted rosuvastatin calcium 10 MG Oral Tablet [facility] ([facility]) Escitalopram 10 MG Oral Tablet [Lexapro] Lexapro 10 MG Oral Tablet Lexapro 10 MG Oral Tablet 06/07/2019 12:00:00 AM EST 1 abort ed escitalopram 10 MG Oral Tablet [Lexapro] [facility] ([facility]) oxyCODONE (ROXICODONE) immediate release tablet 5 mg 05/30/2019 10:30:32 AM EST 5 mg Oral active [Order 1 Start] Name: oxyCODONE (ROXICODONE) immediate release tablet 5 mg Signed Summary: 5 mg, Oral, Every 4 hours PRN, Moderate Pain (Pain Scale Score 4-6), Starting 05/30/19 at 1030, For 3 d ays
Oxycodone immediate release is limited to 10 mg per dose. Higher doses ([facility] only) require Pain Service consultation and approval.
[Order 1 End] [Order 2 Start] Name: oxyCODONE (ROXICODONE) immediate release tablet 10 mg Signed Summary: 10 mg, Oral, Every 4 hours PRN, Severe Pain (Pain Scale Score 7-10), Starting 05/30/19 at 1030, For 3 days
Oxycodone immediate release is limited to 10 mg per dose. Higher doses ([facility] only) require Pain Service consultation and approval.
[Order 2 End] [facility] Medication administered onsite Calcium Chloride 0.0014 MEQ/ML / Potassi um Chloride 0.004 MEQ/ML / Sodium Chloride 0.103 MEQ/ML / Sodium Lactate 0.028 MEQ/ML Injectable Solution lactated ringers infusion lactated ringers infusion 05/30/2019 10:00:00 AM EST 100 mL/h Intravenous active at 100 m L/hr, Intravenous, Continuous, Starting Thu05/30/19 at 1000, For 30 days, Pre-op [facility] Medication administered onsite 8 HR Acetaminophen 650 MG Extended Relea se Oral Tablet Acetaminophen ER 650 MG Oral Tablet Extended Release (TYLENOL 8 HOUR) Acetaminophen ER 650 MG Oral Tablet Extended Release (TYLENOL 8 HOUR) 05/30/2019 12:00:00 AM EST 650 mg Oral active Take 1 tablet by mouth every 8 (eight) hours as needed for Pain for up to 10 days [facility] 8 HR Acetaminophen 650 MG Extended Relea se Oral Tablet Acetaminophen ER 650 MG Oral Tablet Extended Release (TYLENOL 8 HOUR) Acetaminophen ER 650 MG Oral Tablet Extended Release (TYLENOL 8 HOUR) 05/30/2019 12:00:00 AM EST 650 mg Oral aborted Take 1 tablet by mouth every 8 (eight) hours as needed for Pain for up to 10 days [facility] Ondansetron 8 MG Oral Tablet Ondansetron HCl 8 MG Oral Tablet (ZOFRAN) Ondansetron HCl 8 MG Oral Tablet (ZOFRAN) 05/30/2019 12:00:00 AM EST 8 mg Oral aborted Take 1 tablet by mouth every 8 (eight) hours as needed for Nausea or Vomiting for up to 7 days [facility] Oxycodone Hydrochloride 5 MG Oral Tablet oxyCODONE HCl 5 MG Oral Tablet (ROXICODONE) oxyCODONE HCl 5 MG Oral Tablet (ROXICODONE) 05/30/2019 12:00:00 AM EST 5 mg Oral aborted Take 1 t ablet by mouth every 4 (four) hours as needed for up to 3 days, Max Daily Dose: 30 mg [facility] Oxycodone Hydrochloride 5 MG Oral Tablet oxyCODONE HCl 5 MG Oral Tablet (ROXICODONE) oxyCODONE HCl 5 MG Oral Tablet (ROXICODONE) 05/30/2019 12:00:00 AM EST 5 mg Oral active Take 1 t ablet by mouth every 4 (four) hours as needed for up to 3 days, Max Daily Dose: 30 mg [facility] Ondansetron 8 MG Oral Tablet Ondansetron HCl 8 MG Oral Tablet (ZOFRAN) Ondansetron HCl 8 MG Oral Tablet (ZOFRAN) 05/30/2019 12:00:00 AM EST 8 mg Oral aborted Take 1 tablet by mouth every 8 (eight) hours as needed for Nausea or Vomiting for up to 7 days [facility] 8 HR Acetaminophen 650 MG Extended Relea se Oral Tablet Acetaminophen ER 650 MG Oral Tablet Extended Release (TYLENOL 8 HOUR) Acetaminophen ER 650 MG Oral Tablet Extended Release (TYLENOL 8 HOUR) 05/30/2019 12:00:00 AM EST 650 mg Oral aborted Take 1 tablet by mouth every 8 (eight) hours as needed for Pain for up to 10 days [facility] Oxycodone Hydrochloride 5 MG Oral Tablet oxyCODONE HCl 5 MG Oral Tablet (ROXICODONE) oxyCODONE HCl 5 MG Oral Tablet (ROXICODONE) 05/30/2019 12:00:00 AM EST 5 mg Oral aborted Take 1 t ablet by mouth every 4 (four) hours as needed for up to 3 days, Max Daily Dose: 30 mg [facility] Ondansetron 8 MG Oral Tablet Ondansetron HCl 8 MG Oral Tablet (ZOFRAN) Ondansetron HCl 8 MG Oral Tablet (ZOFRAN) 05/30/2019 12:00:00 AM EST 8 mg Oral active Take 1 tablet by mouth every 8 (eight) hours as needed for Nausea or Vomiting for up to 7 days [facility] 15 mg 05/20/2019 12:00:00 AM EST capsule,delayed release (DR/EC) 30 TAKE ONE CAPSULE BY MOUTH EVERY DAY TAKE ONE CAPSULE BY MOUTH EVERY DAY SOLD: 09/09/2019 [facility] 15 mg 05/20/2019 12:00:00 AM EST capsule,delayed release (DR/EC) 30 TAKE ONE CAPSULE BY MOUTH EVERY DAY TAKE ONE CAPSULE BY MOUTH EVERY DAY SOLD: 10/13/2019 [facility] 15 mg 05/20/2019 12:00:00 AM EST capsule,delayed release (DR/EC) 30 TAKE ONE CAPSULE BY MOUTH EVERY DAY TAKE ONE CAPSULE BY MOUTH EVERY DAY SOLD: 06/03/2019 [facility] 15 mg 05/20/2019 12:00:00 AM EST capsule,delayed release (DR/EC) 30 TAKE ONE CAPSULE BY MOUTH EVERY DAY TAKE ONE CAPSULE BY MOUTH EVERY DAY SOLD: 08/04/2019 [facility] 15 mg 05/20/2019 12:00:00 AM EST capsule,delayed release (DR/EC) 30 TAKE ONE CAPSULE BY MOUTH EVERY DAY TAKE ONE CAPSULE BY MOUTH EVERY DAY SOLD: 07/03/2019 [facility] lansoprazole 15 MG Delayed Release Oral Capsule Lansoprazole 15 MG Oral Capsule Delayed Release (PREVACID) Lansoprazole 15 MG Oral Capsule Delayed Release (PREVACID) 05/20/2019 12:00:00 AM EST 15 mg Oral active Take 15 mg by mouth daily [facility] 15 mg 05/20/2019 12:00:00 AM EST capsule,delayed release (DR/EC) 30 TAKE ONE CAPSULE BY MOUTH EVERY DAY TAKE ONE CAPSULE BY MOUTH EVERY DAY SOLD: 11/19/2019 [facility] lansoprazole 15 MG Delayed Release Oral Capsule Lansoprazole 15 MG Oral Capsule Delayed Release Lansoprazole 15 MG Oral Capsule Delayed Release 2019 12:00:00 AM EST 1 aborted lansoprazole 15 MG Delayed Release Oral Capsule [facility] ([facility]) 5 mg 04/28/2019 12:00:00 AM EST tablet 180 TAKE ONE TABLET BY MOUTH TWICE A DAY TAKE ONE TABLET BY MOUTH TWICE A DAY SOLD: 05/02/2019 [facility] 5 mg 04/28/2019 12:00:00 AM EST tablet 180 TAKE ONE TABLET BY MOUTH TWICE A DAY TAKE ONE TABLET BY MOUTH TWICE A DAY SOLD: 08/04/2019 [facility] 5 mg 04/28/2019 12:00:00 AM EST tablet 180 TAKE ONE TABLET BY MOUTH TWICE A DAY TAKE ONE TABLET BY MOUTH TWICE A DAY SOLD: 11/04/2019 [facility] 5 mg 04/28/2019 12:00:00 AM EST tablet 180 TAKE ONE TABLET BY MOUTH TWICE A DAY TAKE ONE TABLET BY MOUTH TWICE A DAY SOLD: 02/06/2020 [facility] Escitalopram 10 MG Oral Tablet ESCITALOPRAM OXALATE 04/25/2019 1 2:00:00 AM EST tablet 30 TAKE ONE TABLET BY MOUTH EVERY D AY TAKE ONE TABLET BY MOUTH EVERY DAY SOLD: 06/03/2019 [facility] Escitalopram 10 MG Oral Tablet ESCITALOPRAM OXALATE 04/25/2019 1 2:00:00 AM EST tablet 30 TAKE ONE TABLET BY MOUTH EVERY D AY TAKE ONE TABLET BY MOUTH EVERY DAY SOLD: 04/27/2019 [facility] Escitalopram 10 MG Oral Tablet [Lexapro] Lexapro 10 MG Oral Tablet Lexapro 10 MG Oral Tablet 04/08/2019 12:00:00 AM EST 1 abort ed escitalopram 10 MG Oral Tablet [Lexapro] [facility] ([facility]) ondansetron (ZOFRAN) injection 4 mg [id number] 03/31/2019 01:00:0 0 AM EST 4 mg Intravenous completed 4 mg, In travenous, Once, [facility] 03/31/19 at 0100, For 1 dose [facility] Medication administered onsite magnesium sulfate in dextrose 5 % infusion (premix) 8 mEq 09-6727-03/31/2019 12:30:00 AM EST 8 meq Intravenous completed 8 mEq, Intravenous, Administer over 60 Minutes, Once, [facility] 03/31/19 at 0030, For 1 dose
each 8 mEq equivalent to 1 gm
[facility] Medication administered onsite sodium chloride 0.9 % bolus 1,000 mL [id number] 03/31/2019 12:00: 00 AM EST 1000 mL Intravenous completed 1,000 mL , Intravenous, Once, [facility] 03/31/19 at 0000, For 1 dose [facility] Medication administered onsite iohexol (OMNIPAQUE) 350 MG/ML contrast injection 100 mL [id number] 03/30/2019 10:29:47 PM EST 100 mL Given by IV active 100 mL, Given by IV, IMG once PRN, Other, Starting Thu03/30/19 at 2229, For 1 day [facility] Medication administered onsite morphine sulfate (PF) injection 4 mg [id number] 03/30/2019 09:15: 00 PM EST 4 mg Intravenous completed 4 mg, In travenous, Once, Thu03/30/19 at 2115, For 1 dose [facility] Medication administered onsite 2 ML Metoclopramide 5 MG/ML Prefilled Sy ringe metoclopramide (REGLAN) injection 10 mg metoclopramide (REGLAN) injection 10 mg 03/30/2019 08:45:[address] 10 mg Intravenous completed 10 mg, I ntravenous, Once, Thu03/30/19 at 5, For 1 dose [facility] Medication administered onsite sodium chloride 0.9 % bolus 1,000 mL [id number] 03/30/2019 08:45: 00 PM EST 1000 mL Intravenous completed 1,000 mL , Intravenous, Once, Thu03/30/19 at 2045, For 1 dose [facility] Medication administered onsite Escitalopram 5 MG Oral Tablet ESCITALOPRAM OXALATE 03/25/2019 12 :00:00 AM EST tablet 30 TAKE ONE TABLET BY MOUTH EVERY D AY TAKE ONE TABLET BY MOUTH EVERY DAY SOLD: 03/25/2019 [facility] 75 mg 03/25/2019 12:00:00 AM EST tablet 30 TAKE ONE TABLET BY MOUTH EVERY DAY TAKE ONE TABLET BY MOUTH EVERY DAY SOLD: 08/04/2019 [facility] 20 mg 03/25/2019 12:00:00 AM EST tablet 30 TAKE ONE TABLET BY MOUTH EVERY DAY TAKE ONE TABLET BY MOUTH EVERY DAY SOLD: 03/25/2019 [facility] 75 mg 03/25/2019 12:00:00 AM EST tablet 30 TAKE ONE TABLET BY MOUTH EVERY DAY TAKE ONE TABLET BY MOUTH EVERY DAY SOLD: 09/09/2019 [facility] 75 mg 03/25/2019 12:00:00 AM EST tablet 30 TAKE ONE TABLET BY MOUTH EVERY DAY TAKE ONE TABLET BY MOUTH EVERY DAY SOLD: 07/03/2019 [facility] 20 mg 03/25/2019 12:00:00 AM EST tablet 30 TAKE ONE TABLET BY MOUTH EVERY DAY TAKE ONE TABLET BY MOUTH EVERY DAY SOLD: 09/09/2019 [facility] 20 mg 03/25/2019 12:00:00 AM EST tablet 30 TAKE ONE TABLET BY MOUTH EVERY DAY TAKE ONE TABLET BY MOUTH EVERY DAY SOLD: 11/19/2019 [facility] 75 mg 03/25/2019 12:00:00 AM EST tablet 30 TAKE ONE TABLET BY MOUTH EVERY DAY TAKE ONE TABLET BY MOUTH EVERY DAY SOLD: 06/03/2019 [facility] 75 mg 03/25/2019 12:00:00 AM EST tablet 30 TAKE ONE TABLET BY MOUTH EVERY DAY TAKE ONE TABLET BY MOUTH EVERY DAY SOLD: 04/23/2019 [facility] 20 mg 03/25/2019 12:00:00 AM EST tablet 30 TAKE ONE TABLET BY MOUTH EVERY DAY TAKE ONE TABLET BY MOUTH EVERY DAY SOLD: 03/24/2020 [facility] 20 mg 03/25/2019 12:00:00 AM EST tablet 30 TAKE ONE TABLET BY MOUTH EVERY DAY TAKE ONE TABLET BY MOUTH EVERY DAY SOLD: 08/04/2019 [facility] 20 mg 03/25/2019 12:00:00 AM EST tablet 30 TAKE ONE TABLET BY MOUTH EVERY DAY TAKE ONE TABLET BY MOUTH EVERY DAY SOLD: 10/13/2019 [facility] 20 mg 03/25/2019 12:00:00 AM EST tablet 30 TAKE ONE TABLET BY MOUTH EVERY DAY TAKE ONE TABLET BY MOUTH EVERY DAY SOLD: 04/23/2019 [facility] 20 mg 03/25/2019 12:00:00 AM EST tablet 30 TAKE ONE TABLET BY MOUTH EVERY DAY TAKE ONE TABLET BY MOUTH EVERY DAY SOLD: 07/03/2019 [facility] 20 mg 03/25/2019 12:00:00 AM EST tablet 30 TAKE ONE TABLET BY MOUTH EVERY DAY TAKE ONE TABLET BY MOUTH EVERY DAY SOLD: 06/03/2019 [facility] 20 mg 03/25/2019 12:00:00 AM EST tablet 30 TAKE ONE TABLET BY MOUTH EVERY DAY TAKE ONE TABLET BY MOUTH EVERY DAY SOLD: 02/25/2020 [facility] 75 mg 03/25/2019 12:00:00 AM EST tablet 30 TAKE ONE TABLET BY MOUTH EVERY DAY TAKE ONE TABLET BY MOUTH EVERY DAY SOLD: 03/25/2019 [facility] clopidogrel 75 MG Oral Tablet [Plavix] Plavix 75 MG Or al Tablet Plavix 75 MG Oral Tablet 03/24/2019 12:00:00 AM EST 1 aborte d clopidogrel 75 MG Oral Tablet [Plavix] [facility] ([facility]) Escitalopram 5 MG Oral Tablet [Lexapro] Lexapro 5 MG O ral Tablet Lexapro 5 MG Oral Tablet 03/24/2019 12:00:00 AM EST 1 aborte d escitalopram 5 MG Oral Tablet [Lexapro] [facility] ([facility]) Amlodipine 5 MG Oral Tablet amLODIPine Besylate 5 MG O ral Tablet amLODIPine Besylate 5 MG Oral Tablet 03/18/2019 12:00:00 AM EST 1 aborted amlodipine 5 MG Oral Tablet [facility] ([facility]) Calcium Carbonate 500 MG Chewable Tablet calcium carbonate (TUMS) chewable tablet 500 mg calcium carbonate (TUMS) chewable tablet 500 mg 2018 02:37:15 PM EST 500 mg Oral active 500 mg, Oral, Daily PRN, Indigestion, Starting 03/13/19 at 1437, For 30 days [facility] Medication administered onsite 0.4 ML Enoxaparin sodium 100 MG/ML Prefi lled Syringe enoxaparin sodium (LOVENOX) injection 40 mg enoxaparin sodium (LOVENOX) injection 40 mg 03/13/2019 10:00:00 AM EST 40 mg Subcutaneous active 40 mg, Subcutaneous, Daily Standard, First dose on Thu03/13/19 at 1000, For 30 days [facility] Medication administered onsite Glucose 50 MG/ML / Potassium Chloride 0. 02 MEQ/ML / Sodium Chloride 0.154 MEQ/ML Injectable Solution dextrose 5 % and 0.9 % NaCl with KCl 20 mEq infusion dextrose 5 % and 0.9 % NaCl with KCl 20 mEq infusion 03/11/2019 10:45:00 AM EST Intravenous active at 75 mL/hr, Intravenous, Continuous, Starting Thu03/11/19 at 1045, For 30 days [facility] Medication administered onsite Bisacodyl 10 MG Rectal Suppository bisacodyl (DULCOLAX ) suppository 10 mg bisacodyl (DULCOLAX) suppository 10 mg 03/11/2019 09:51:38 AM EST 10 mg Rectal active 10 mg, Rectal, Daily PRN, Constipation, Starting Thu03/11/19 at 0951, For 30 days
IF NO BM X 1 DAY OFFER SUPPOSITORY OR OTHER LAXITIVE
[facility] Medication administered onsite POLYETHYLENE GLYCOL 3350 142 MG/ML Oral Solution polyethylene glycol (MIRALAX) packet 17 g polyethylene glycol (MIRALAX) packet 17 g 03/10/2019 0 9:00:00 AM EST 17 g Oral active 17 g, Or al, Daily Standard, First dose on Thu03/10/19 at 0900, For 30 days
Mix in 8 ounces of water, juice or milk. Avoid use in patients who require thickened liquids due to potential increased risk for aspiration.
[facility] Medication administered onsite Magnesium Hydroxide 80 MG/ML Oral Suspen chey magnesium hydroxide (MILK OF MAGNESIA) 400 MG/5ML suspension 15 mL magnesium hydroxide (MILK OF MAGNESIA) 4 00 MG/5ML suspension 15 mL 03/10/2019 08:11:37 AM EST 15 mL Oral active 15 mL, Oral, Daily PRN, Constipation, Starting [place] 03/10/19 at 0811, For 30 days
If serum creatinine > 2 notify provider before administering.
[facility] Medication administered onsite Docusate Sodium 100 MG Oral Capsule docusate sodium (C OLACE) capsule 200 mg docusate sodium (COLACE) capsule 200 mg 03/07/2019 09:00:00 PM EST 200 mg Oral active 200 mg, Oral, 2 Times Daily, First dose on Thu03/07/19 at 2100, For 30 days [facility] Medication administered onsite Acetaminophen 325 MG / butalbital 50 MG / Caffeine 40 MG Oral Tablet [id number]-gfagimewpadus-weqkyklj (FIORICET, ESGIC) per tablet 1 tablet [id number] (FIORICET, ESGIC) per tablet 1 tablet 03/05/2019 04:29:50 AM EST 1 {tbl} Oral active 1 tablet, Oral, Every 4 hours PRN, Headaches, Migraine, Starting 03/05/19 at 0429, For 30 days
Maximum daily dose of acetaminophen is 3,000 mg from all sources in 24 hours.
[facility] Medication administered onsite Sodium Chloride 0.0619258 MEQ/MG Nasal Gel AYR SALINE NASAL (AYR) AYR SALINE NASAL (AYR) 03/04/2019 05:00:00 PM EST Each Nare act jeffrey Each Nare, PRN, Dry nose, Starting Thu03/04/19 at 1700, For 30 days [facility] Medication administered onsite Lisinopril 10 MG Oral Tablet lisinopril (PRINIVIL,ZEST RIL) tablet 10 mg lisinopril (PRINIVIL,ZESTRIL) tablet 10 mg 03/04/2019 09:00:00 AM EST 10 mg Oral active 10 mg, Oral, D aily Standard, First dose (after last modification) on Thu03/04/19 at 0900, For 29 doses
Check vital signs before administering
[facility] Medication administered onsite Benzocaine 15 MG / Menthol 3.6 MG Oral L ozenge Benzocaine-Menthol (CEPACOL) 15- 3.6 MG lozenge 1 lozenge Benzocaine-Menthol (CEPACOL) 15-3.6 MG l ozenge 1 lozenge 03/04/2019 03:26:56 AM EST 1 {lozenge} Mouth/Throat active 1 lozenge, Mouth/Throat, Every 2 hours PRN, Other, Starting Thu03/04/19 at 0326, For 30 days [facility] Medication administered onsite Rosuvastatin calcium 10 MG Oral Tablet rosuvastatin (C RESTOR) tablet 10 mg rosuvastatin (CRESTOR) tablet 10 mg 03/03/2019 10:00:00 PM EST 10 mg Oral active 10 mg, Oral, Nightly , First dose on Thu03/03/19 at 2200, For 30 days [facility] Medication administered onsite pantoprazole 40 MG Delayed Release Oral Tablet pantoprazole (PROTONIX) EC tablet 40 mg pantoprazole (PROTONIX) EC tablet 40 mg 03/03/2019 03:00:[address] 40 mg Oral active 40 mg, Ora l, Daily Standard, First dose (after last modification) on Thu03/03/19 at 1500, For 30 days
Do not crush or chew
[facility] Medication administered onsite Levetiracetam 500 MG Oral Tablet levETIRAcetam (KEPPRA ) tablet 500 mg levETIRAcetam (KEPPRA) tablet 500 mg 03/03/2019 09:00:00 AM EST 500 m g Oral active 500 mg, Oral, 2 Times Daily, First dose on Thu03/03/19 at 0900, For 30 days [facility] Medication administered onsite ondansetron (ZOFRAN) injection 4 mg [id number] 03/02/2019 11:14:3 7 PM EST 4 mg Intravenous active 4 mg, In travenous, Every 6 hours PRN, Nausea, Vomiting, Starting Thu03/02/19 at 2314, For 30 days [facility] Medication administered onsite benzonatate 100 MG Oral Capsule [Tessalo n Perles] Tessalon Perles 100 mg capsule Tessalon Perles 100 mg capsule 02/20/2019 12:00:00 AM EDT 1 completed 03/30/2019 [facility] ([facility]) 60 ACTUAT Albuterol 0.09 MG/ACTUAT Meter ed Dose Inhaler [Ventolin] Ventolin HFA 90 mcg/actuation aerosol inhaler Ventolin HFA 90 mcg/actuation aerosol inhaler 02/20/2019 12:00:00 AM EDT 2 completed 03/30/2019 [facility] ([facility]) Prednisone 20 MG Oral Tablet predniSONE 20 mg tablet predniS ONE 20 mg tablet 02/20/2019 12:00:00 AM EDT 2 completed 03/30/2019 [facility] ([facility]) 20 mg 01/07/2019 12:00:00 AM EDT capsule,delayed release (DR/EC) 30 TAKE ONE CAPSULE BY MOUTH EVERY DAY TAKE ONE CAPSULE BY MOUTH EVERY DAY SOLD: 03/23/2019 [facility] 20 mg 01/07/2019 12:00:00 AM EDT capsule,delayed release (DR/EC) 30 TAKE ONE CAPSULE BY MOUTH EVERY DAY TAKE ONE CAPSULE BY MOUTH EVERY DAY SOLD: 04/23/2019 [facility] Omeprazole 20 MG Delayed Release Oral Ca psule Omeprazole 20MG Oral Capsule Delayed Release Omeprazole 20MG Oral Capsule Delayed Release 9 12:00:00 AM EDT aborted omeprazole 20 M G Delayed Release Oral Capsule ARMSTRONG ([facility]) Rosuvastatin calcium 10 MG Oral Tablet Rosuvastatin Ca lcium 10MG Oral Tablet Rosuvastatin Calcium 10MG Oral Tablet 12/30/2018 12:00:00 AM EDT 1 aborted rosuvastatin calcium 10 MG Oral Tablet GAVIN ([facility]) Trazodone Hydrochloride 50 MG Oral Tablet traZODone HC l 50MG Oral Tablet traZODone HCl 50MG Oral Tablet 12/30/2018 12:00:00 AM EDT 1 aborted trazodone hydrochloride 50 MG Oral Tablet GAVIN ([facility]) clopidogrel 75 MG Oral Tablet [Plavix] Plavix 75MG Ora l Tablet Plavix 75MG Oral Tablet 09/29/2018 12:00:00 AM EDT 1 aborted clopidogrel 75 MG Oral Tablet [Plavix] [facility] Prednisone 20 MG Oral Tablet predniSONE 20 mg tablet predniS ONE 20 mg tablet 07/06/2018 12:00:00 AM EDT 2 completed 03/30/2019 CHARTWIKER ([facility]) Potassium Chloride 20 MEQ Extended Relea se Oral Tablet Potassium Chloride ER 20MEQ Oral Tablet Extended Release Potassium Chloride ER 20MEQ Oral Tablet Extended Release 04/02/2018 12:00:00 AM EST 1 a borted potassium chloride 20 MEQ Extended Release Oral Tablet GAVIN ([facility]) Omeprazole 20 MG Delayed Release Oral Ca psule omeprazole (PRILOSEC) 20 MG capsule omeprazole (PRILOSEC) 20 MG capsule 02/17/2018 12:00:00 AM EDT 20 mg Oral aborted Take 1 capsule by mo uth daily [facility] Trazodone Hydrochloride 50 MG Oral Tablet trazodone (D ESYREL) 50 MG tablet trazodone (DESYREL) 50 MG tablet 02/17/2018 12:00:00 AM EDT 50 mg Oral aborted Take 1 tablet by mouth nightly [facility] apixaban 5 MG Oral Tablet [Eliquis] Eliquis 5MG Oral T ablet Eliquis 5MG Oral Tablet 06/29/2017 12:00:00 AM EDT aborted apixaban 5 MG Oral Tablet [Eliquis] GAVIN ([facility]) Acetaminophen 325 MG Oral Tablet Acetaminophen 325MG O ral Tablet Acetaminophen 325MG Oral Tablet 06/15/2017 12:00:00 AM EST aborted acetaminophen 325 MG Oral Tablet [facility] pantoprazole 20 MG Delayed Release Oral Tablet Pantoprazole Sodium 20 MG Oral Tablet Delayed Release (PROTONIX) Pantoprazole Sodium 20 MG Oral Tablet De layed Release (PROTONIX) 20 mg Oral aborted Take 20 mg by mouth daily [facility] Escitalopram 10 MG Oral Tablet Escitalopram Oxalate 10 MG Oral Tablet (LEXAPRO) Escitalopram Oxalate 10 MG Oral Tablet (LEXAPRO) 5 mg Oral aborted Take 5 mg by mouth nightly [facility] Insurance Providers Payer name Policy type / Coverage type Policy ID Covered constitution party ID Covered constitution party's relationship to byrnes Policy Byrnes Plan Information [facility] COMM[facility] [id number] [facility](MCAID) O [id number] S [id number] [facility] I [id number] Self [id number] [employer] Policy 0 Self 0 [employer] Group Policy 0 Self 0 [employer] Group Policy 0 Self 0 [employer] Group Policy 0 Self 0 [employer] Group Policy 0 Self 0 [employer] Group Policy 0 Self 0 [facility] MEDICAID [id number] Chandrika [id number] [facility] MEDICAID [id number] S [id number] [employer] Group Policy 0 Self 0 [facility] COMMUNITY PLAN [facility] [id number] SP [id number] [employer] Policy 0 Self 0 [employer] Group Policy 0 Self 0 [employer] Group Policy 0 Self 0 [employer] Group Policy 0 Self 0 [facility] I [id number] Self [id number] [employer] Policy 0 Self 0 [employer] Group Policy 0 Self 0 SELF PAY [facility] COMMUNITY PLAN [id number] SP [id number] [employer] Policy 0 Self 0 [employer] Group Policy 0 Self 0 SELF PAY [facility] COMMUNITY PLAN [id number] SP [id number] [employer] Group Policy 0 Self 0 [employer] Group Policy 0 Self 0 SELF PAY [facility] COMMUNITY PLAN [id number] SP [id number] UNITED H [id number] Self [id number] [employer] Policy 0 Self 0 SELF PAY [facility] COMMUNITY PLAN [id number] SP [id number] [employer] Group Policy 0 Self 0 [facility] O [id number] S [id number] [employer] Group Policy 0 Self 0 ID IDENTIFICATION [id number] Other In surance [id number] [facility] CARE COMMUNITY PLAN [id number] [employer] Insurance [id number] MEDICAID M [id number] Self [id number] SELF PAY [facility] COMMUNITY PLAN [id number] SP [id number] [employer] Group Policy 0 Self 0 [employer] Group Policy 0 Self 0 [facility] [id number] [facility] [id number] [employer] Group Policy 0 Self 0 [employer] Group Policy 0 Self 0 SELF PAY [facility] COMMUNITY PLAN [id number] SP [id number] SELF PAY [employer] Group Policy 0 Self 0 [employer] Group Policy 0 Self 0 [employer] Group Policy [address] [facility] Community Plan Commercial [id number] Self [id number] [employer] Group Policy 0 Self 0 SELF PAY [facility] COMMUNITY PLAN [id number] SP [id number] [employer] Group Policy 0 Self 0 [employer] Group Policy 0 Self 0 [employer] Group Policy 0 Self 0 [employer] Group Policy 0 Self 0 [employer] Group Policy 0 Self 0 [employer] Group Policy 0 Self 0 [facility] COMMUNITY PLAN [facility] [id number] SP [id number] [employer] Group Policy [address] [facility] Community Plan Commercial [id number] Self [id number] [employer] Group Policy 0 Self 0 [employer] [facility] [place] Other 02 Self 02 [employer] Group Policy 0 Self 0 [employer] Group Policy 0 Self 0 [facility] MEDICAID PI PI [facility] UNAVAILABLE UNAVAILABLE [facility] [id number] Chandrika [id number] [employer] Group Policy 0 Self 0 [employer] Group Policy 0 Self 0 [employer] Group Policy 0 Self 0 [employer] Group Policy 0 Self 0 [employer] Group Policy 0 Self 0 [employer] Group Policy 0 Self 0 [facility] CARE COMMUNITY PLAN [id number] Comme rcial Insurance [id number] UnitedHealthcare Group Policy 0 Self 0 [employer] Group Policy 0 Self 0 [facility] COMMUNITY PLAN [id number] SP [id number] [facility] CARE COMMUNITY PLAN [facility] CARE COMMUNITY PLAN Commercial Insurance [facility] CARE COMMUNITY PLAN [facility] COMMUNITY PLAN [id number] SP [id number] [facility] COMMUNITY PLAN [id number] SP [id number] [facility] Hmo Commercial Self [employer] [id number] SP [id number] WC-PENDING UNAVAILABLE SP UNAVAIL ABLE [facility] I [id number] Self [id number] MEDICAID [id number] Self [id number] [facility] I [id number] Self [id number] [facility] COMM PLAN BILL W [id number] S [id number] [facility] [id number] SP [id number] [facility] PL [id number] SP [id number] O [id number] S [id number] Problems, Conditions, and Diagnoses Code Display Name Description Problem Type Effective Dates Data Source(s) K55.1 [id number] Superior mesenteric artery stenosis Probl em 01/31/2020 12:00:00 AM EDT eCW1 ([facility]) D68.59 [id number] Acquired hypercoagulable state Problem 01/31/2020 12:00:00 AM EDT eCW1 ([facility]) 558.9 Other specified noninfective gastroenter itis and colitis Other specified noninfective gastroenteritis and colitis Problem 01/27/2020 12:00:00 AM EDT GAVIN ([facility]) 558.9 Other specified noninfective gastroenter itis and colitis Other specified noninfective gastroenteritis and colitis Problem 01/27/2020 12:00:00 AM EDT GAVIN ([facility]) 558.9 Other specified noninfective gastroenter itis and colitis Other specified noninfective gastroenteritis and colitis Problem 01/27/2020 12:00:00 AM EDT GAVIN ([facility]) 558.9 Other specified noninfective gastroenter itis and colitis Other specified noninfective gastroenteritis and colitis Problem 01/27/2020 12:00:00 AM EDT GAVIN ([facility]) 558.9 Other specified noninfective gastroenter itis and colitis Other specified noninfective gastroenteritis and colitis Problem 01/27/2020 12:00:00 AM EDT GAVIN ([facility]) 558.9 Other specified noninfective gastroenter itis and colitis Other specified noninfective gastroenteritis and colitis Problem 01/27/2020 12:00:00 AM EDT GAVIN ([facility]) 565.0 Acute anal fissure Acute anal fissure Problem 0 12:00:00 AM EDT GAVIN ([facility]) 565.0 Acute anal fissure Acute anal fissure Problem 0 12:00:00 AM EDT GAVIN ([facility]) 565.0 Acute anal fissure Acute anal fissure Problem 0 12:00:00 AM EDT GAVIN ([facility]) 565.0 Acute anal fissure Acute anal fissure Problem 0 12:00:00 AM EDT GAVIN ([facility]) 565.0 Acute anal fissure Acute anal fissure Problem 0 12:00:00 AM EDT GAVIN ([facility]) 565.0 Acute anal fissure Acute anal fissure Problem 0 12:00:00 AM EDT GAVIN ([facility]) 565.0 Acute anal fissure Acute anal fissure Problem 0 12:00:00 AM EDT GAVIN ([facility]) 565.0 Acute anal fissure Acute anal fissure Problem 0 12:00:00 AM EDT GAVIN ([facility]) 565.0 Acute anal fissure Acute anal fissure Problem 0 12:00:00 AM EDT GAVIN ([facility]) 565.0 Acute anal fissure Acute anal fissure Problem 0 12:00:00 AM EDT [facility]IN [facility] 565.0 Acute anal fissure Acute anal fissure Problem 0 12:00:00 AM EDT GAVIN [facility] 211.3 Colon Polyps Colon Polyps Problem 11/22/2019 12:00:00 A M EDT GAVIN [facility] 211.3 Colon Polyps Colon Polyps Problem 11/22/2019 12:00:00 A M EDT GAVIN [facility] 211.3 Colon Polyps Colon Polyps Problem 11/22/2019 12:00:00 A M EDT GAVIN [facility] 211.3 Colon Polyps Colon Polyps Problem 11/22/2019 12:00:00 A M EDT GAVIN [facility] 211.3 Colon Polyps Colon Polyps Problem 11/22/2019 12:00:00 A M EDT [facility]AVIN [facility] 211.3 Colon Polyps Colon Polyps Problem 11/22/2019 12:00:00 A M EDT GAVIN [facility] 211.3 Colon Polyps Colon Polyps Problem 11/22/2019 12:00:00 A M EDT GAVIN [facility] 211.3 Colon Polyps Colon Polyps Problem 11/22/2019 12:00:00 A M EDT GAVIN [facility] 211.3 Colon Polyps Colon Polyps Problem 11/22/2019 12:00:00 A M EDT GAVIN [facility] [id number] Essential hypertension Essential hypertension Problem 11/22/2019 12:00:00 AM EDT MEDENT ([facility]) 211.3 Colon Polyps Colon Polyps Problem 11/22/2019 12:00:00 A M EDT GAVIN ([facility]) 211.3 Colon Polyps Colon Polyps Problem 11/22/2019 12:00:00 A M EDT GAVIN ([facility]) 211.3 Colon Polyps Colon Polyps Problem 11/22/2019 12:00:00 A M EDT GAVIN ([facility]) 569.3 Rectal Bleeding Rectal Bleeding Problem 11/16/2019 12:0 0:00 AM EDT GAVIN [facility] 569.3 Rectal Bleeding Rectal Bleeding Problem 11/16/2019 12:0 0:00 AM EDT [facility]AVIN [facility] 569.3 Rectal Bleeding Rectal Bleeding Problem 11/16/2019 12:0 0:00 AM EDT GAVIN [facility] 569.3 Rectal Bleeding Rectal Bleeding Problem 11/16/2019 12:0 0:00 AM EDT GAVIN ([facility]) 569.3 Rectal Bleeding Rectal Bleeding Problem 11/16/2019 12:0 0:00 AM EDT GAVIN [facility] 569.3 Rectal Bleeding Rectal Bleeding Problem 11/16/2019 12:0 0:00 AM EDT GAVIN ([facility]) 569.3 Rectal Bleeding Rectal Bleeding Problem 11/16/2019 12:0 0:00 AM EDT GAVIN ([facility]) 569.3 Rectal Bleeding Rectal Bleeding Problem 11/16/2019 12:0 0:00 AM EDT GAVIN ([facility]) 569.3 Rectal Bleeding Rectal Bleeding Problem 11/16/2019 12:0 0:00 AM EDT GAVIN ([facility] 569.3 Rectal Bleeding Rectal Bleeding Problem 11/16/2019 12:0 0:00 AM EDT GAVIN ([facility]) 569.3 Rectal Bleeding Rectal Bleeding Problem 11/16/2019 12:0 0:00 AM EDT GAVIN ([facility]) 569.3 Rectal Bleeding Rectal Bleeding Problem 11/16/2019 12:0 0:00 AM EDT GAVIN ([facility]) 569.3 Rectal Bleeding Rectal Bleeding Problem 11/16/2019 12:0 0:00 AM EDT GAVIN ([facility]) 578.1 Bright Red Blood Per Rectum Bright Red Blood Per Rectu m Problem 06/07/2019 12:00:00 AM EST GAVIN ([facility] 578.1 Bright Red Blood Per Rectum Bright Red Blood Per Rectu m Problem 06/07/2019 12:00:00 AM EST [facility]AVIN ([facility] 578.1 Bright Red Blood Per Rectum Bright Red Blood Per Rectu m Problem 06/07/2019 12:00:00 AM EST GAVIN ([facility]) 578.1 Bright Red Blood Per Rectum Bright Red Blood Per Rectu m Problem 06/07/2019 12:00:00 AM EST GAVIN ([facility]) 578.1 Bright Red Blood Per Rectum Bright Red Blood Per Rectu m Problem 06/07/2019 12:00:00 AM EST GAVIN ([facility]) 578.1 Bright Red Blood Per Rectum Bright Red Blood Per Rectu m Problem 06/07/2019 12:00:00 AM EST GAVIN ([facility]) 578.1 Bright Red Blood Per Rectum Bright Red Blood Per Rectu m Problem 06/07/2019 12:00:00 AM EST GAVIN ([facility]) 578.1 Bright Red Blood Per Rectum Bright Red Blood Per Rectu m Problem 06/07/2019 12:00:00 AM EST GAVIN ([facility]) 578.1 Bright Red Blood Per Rectum Bright Red Blood Per Rectu m Problem 06/07/2019 12:00:00 AM EST GAVIN ([facility]) 578.1 Bright Red Blood Per Rectum Bright Red Blood Per Rectu m Problem 06/07/2019 12:00:00 AM EST GAVIN ([facility]) 578.1 Bright Red Blood Per Rectum Bright Red Blood Per Rectu m Problem 06/07/2019 12:00:00 AM EST GAVIN ([facility]) 578.1 Bright Red Blood Per Rectum Bright Red Blood Per Rectu m Problem 06/07/2019 12:00:00 AM EST GAVIN ([facility]) 578.1 Bright Red Blood Per Rectum Bright Red Blood Per Rectu m Problem 06/07/2019 12:00:00 AM EST GAVIN ([facility]) 578.1 Bright Red Blood Per Rectum Bright Red Blood Per Rectu m Problem 06/07/2019 12:00:00 AM EST GAVIN ([facility]) 578.1 Bright Red Blood Per Rectum Bright Red Blood Per Rectu m Problem 06/07/2019 12:00:00 AM EST GAVIN ([facility]) 578.1 Bright Red Blood Per Rectum Bright Red Blood Per Rectu m Problem 06/07/2019 12:00:00 AM EST GAVIN ([facility]) G56.0 Carpal Tunnel Syndrome Carpal Tunnel Syndrome Problem 05/19/2019 12:00:00 AM EST GAVIN ([facility]) G56.0 Carpal Tunnel Syndrome Carpal Tunnel Syndrome Problem 05/19/2019 12:00:00 AM EST GAVIN ([facility]) G56.0 Carpal Tunnel Syndrome Carpal Tunnel Syndrome Problem 05/19/2019 12:00:00 AM EST GAVIN ([facility]) G56.0 Carpal Tunnel Syndrome Carpal Tunnel Syndrome Problem 05/19/2019 12:00:00 AM EST GAVIN ([facility]) G56.0 Carpal Tunnel Syndrome Carpal Tunnel Syndrome Problem 05/19/2019 12:00:00 AM EST GAVIN ([facility]) G56.0 Carpal Tunnel Syndrome Carpal Tunnel Syndrome Problem 05/19/2019 12:00:00 AM EST GAVIN ([facility]) G56.0 Carpal Tunnel Syndrome Carpal Tunnel Syndrome Problem 05/19/2019 12:00:00 AM EST GAVIN ([facility]) G56.0 Carpal Tunnel Syndrome Carpal Tunnel Syndrome Problem 05/19/2019 12:00:00 AM EST GAVIN ([facility]) G56.0 Carpal Tunnel Syndrome Carpal Tunnel Syndrome Problem 05/19/2019 12:00:00 AM EST GAVIN ([facility]) G56.0 Carpal Tunnel Syndrome Carpal Tunnel Syndrome Problem 05/19/2019 12:00:00 AM EST GAVIN ([facility]) G56.0 Carpal Tunnel Syndrome Carpal Tunnel Syndrome Problem 05/19/2019 12:00:00 AM EST GAVIN ([facility]) G56.0 Carpal Tunnel Syndrome Carpal Tunnel Syndrome Problem 05/19/2019 12:00:00 AM EST GAVIN ([facility]) G56.0 Carpal Tunnel Syndrome Carpal Tunnel Syndrome Problem 05/19/2019 12:00:00 AM EST GAVIN ([facility]) G56.0 Carpal Tunnel Syndrome Carpal Tunnel Syndrome Problem 05/19/2019 12:00:00 AM EST GAVIN ([facility]) G56.0 Carpal Tunnel Syndrome Carpal Tunnel Syndrome Problem 05/19/2019 12:00:00 AM EST GAVIN ([facility]) G56.0 Carpal Tunnel Syndrome Carpal Tunnel Syndrome Problem 05/19/2019 12:00:00 AM EST GAVIN ([facility]) G56.0 Carpal Tunnel Syndrome Carpal Tunnel Syndrome Problem 05/19/2019 12:00:00 AM EST [facility]IN [facility] G56.0 Carpal Tunnel Syndrome Carpal Tunnel Syndrome Problem 05/19/2019 12:00:00 AM EST [facility]AVIN [facility] R10.9 Unspecified abdominal pain Unspecified abdominal pain (R10.9) 03/30/2019 [id number] 03/30/2019 12:04:07 PM EST CHARTMAKER ([facility]) R11.2 Nausea with vomiting, unspecified Nausea with vomiting, unspecified (R11.2) 03/30/2019 [id number] 03/30/2019 12:04:07 PM EST CHARTMAKER ([facility]) R19.7 Diarrhea, unspecified Diarrhea, unspecified (R19.7) [id number] 03/30/2019 12:04:07 PM EST CHARTMAKER ([facility]) R05 Cough Cough (R05) 03/30/2019 [id number] 02/20 02:16:14 PM EST - 03/30/2019 12:00:00 AM EST CHARTMAKER ([facility]) R06.2 Wheezing Wheezing (R06.2) 03/30/2019 [id number] 02/20/2019 02:16:14 PM EST - 03/30/2019 12:00:00 AM EST CHARTMAKER ([facility]) 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 Other primary thrombophili a Diagnosis 04/30/2020 11:03:06 AM [facility] I63.9 Cerebral infarction, unspecified Cerebral infarc tion, unspecified Diagnosis 04/14/2020 05:49:00 PM [facility] R/O CVA R/O CVA Diagnosis 04/14/2020 05:49:00 PM [facility] R10.84 Generalized abdominal pain Generalized abdominal pain Diagnosis 03/29/2020 04:42:00 AM [facility] abd pain abd pain Diagnosis 03/29/2020 04:42:00 AM [facility] Gastroesophageal reflux disease without esophagitis [K21.9] Gastroesophageal reflux disease without esophagitis [K21.9] Diagnosis 03/28/2020 09:25: 00 AM [facility] multiple colon polyps per 12/07 office v isit notes; FHX of colon cancer multiple colon polyps per 12/07 office visit notes; FHX of colon cancer Diagnosis 03/28/2020 09:25:00 AM [facility] K63.5 Polyp of colon POLYP OF COLON Diagnosis 01/31/2020 11:00: 00 AM [facility] 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 OTHER PRIMARY THROMBOPHILI A Diagnosis 01/31/2020 11:00:00 AM [facility] K55.1 Chronic vascular disorders of intestine CHRONIC VASCULAR DISORDERS OF INTESTINE Diagnosis 01/31/2020 [facility] Unspecified appendicitis Unspecified appendicitis Diag nosis 01/26/2020 07:03:00 PM [facility] Lower abdominal pain Lower abdominal pain Diagnosis 01/26/2020 07:03:00 PM [facility] I65.23 Occlusion and stenosis of bilateral darnell tid arteries Occlusion and stenosis of bilateral darnell Diagnosis 01/10/2020 03:24:53 PM EDT [facility] I10 Essential (primary) hypertension Essential (primary) h ypertension Diagnosis 01/10/2020 03:24:53 PM EDT [facility] Z86.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), and cerebral infarction without residual deficits Personal history of transient ischemic a Diagnosis 01/10/2020 03:24:53 PM EDT [facility] R07.9 Chest pain, unspecified Chest pain, unspecified Diagno sis 01/10/2020 03:24:53 PM EDT [facility] I73.9 Peripheral vascular disease, unspecified Peripheral vascular disease, unspecified Diagnosis 01/10/2020 03:24:53 PM EDT [facility] R00.1 Bradycardia, unspecified Bradycardia, unspecified Diag nosis 01/10/2020 03:24:53 PM EDT [facility] R94.31 Abnormal electrocardiogram [ECG] [EKG] A bnormal electrocardiogram (ECG) (EKG) Diagnosis 01/10/2020 03:24:53 PM EDT [facility] E78.2 Mixed hyperlipidemia Mixed hyperlipidemia Diagnosis 01/10/2020 03:24:53 PM EDT [facility] D12.5 Benign neoplasm of sigmoid colon Benign neoplasm of sigmoid colon Diagnosis 12/08/2019 05:41:01 PM EDT [facility] new pt new pt Diagnosis 12/08/2019 09:40:57 AM ED [facility] G40.89 Other seizures G40.89 - Other seizures Diagnosis 01:33:00 PM [facility] M19.072 Primary osteoarthritis, 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, left ankle and foot Diagnosis 07/01/2019 08:03:28 AM EDT [facility] S92.062D Displaced intraarticular fra cture of left calcaneus, subsequent encounter for fracture with routine healing Displaced intraarticular fracture of left calcaneus, subsequent encounter for fracture with routine healing Diagnosis 07/01/2019 08:03:28 AM [facility] Z98.890 Other specified postprocedural states Ot her specified postprocedural states Diagnosis 07/01/2019 08:03:28 AM T [facility] Bilateral carpal tunnel syndrome [G56.03 ] Bilateral carpal tunnel syndrome [G56.03] Diagnosis 06/20/2019 10:29:44 AM [facility] R94.31 Abnormal electrocardiogram [ECG] [EKG] R 94.31 - Abnormal electrocardiogram [ECG] [EKG] Diagnosis 06/06/2019 11:46:00 AM [facility] [employer] N28.0 Ischemia and infarction of kidney Ischemia and i nfarction of kidney Diagnosis 06/06/2019 10:10:09 AM [facility] G56.03 Carpal tunnel syndrome, bilateral upper limbs Carpal tunnel syndrome, bilateral upper limbs Diagnosis 04/27/2019 11:52:20 AM [facility] M25.532 Pain in left wrist Pain in left wrist Diagnosis 11/2019 11:03:40 AM [facility] R11.2 Nausea with vomiting, unspecified Nausea with vo miting, unspecified Diagnosis 03/30/2019 07:18:14 PM [facility] R10.31 Right lower quadrant pain Right lower quadrant pain Di agnosis 03/30/2019 07:18:14 PM [facility] G43.809 Other migraine, not intractable, without status migrainosus Other migraine, not intractable, without status migrainosus Diagnosis 03/30/2019 07:18:14 PM [facility] stomache pain vomiting diarrhea migrain e stomache pain vomiting diarrhea migraine Diagnosis 03/30/2019 07:18:14 PM [facility] stomache apin pain vomiting diarrhea mi graine stomache apin pain vomiting diarrhea migraine Diagnosis 03/30/2019 05:20:00 PM [facility] increasing abd pain, vomiting and diarrh ea increasing abd pain, vomiting and diarrhea Diagnosis 03/30/2019 01:54:00 PM [facility] hosp fol hosp fol Diagnosis 03/29/2019 10:31:48 AM [facility] 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 I77 .79 - Dissection of other specified artery Diagnosis 03/24/2019 05:42:00 PM [facility] K81.9 Cholecystitis, unspecified K81.9 - Cholecystitis, unsp ecified Diagnosis 03/24/2019 05:42:00 PM [facility] Surgeries/Procedures Procedure Description Date Indications Data Source(s) PTT MIXING STUDIES PTT MIXING STUDIES Routine 04/30/2020 12:4 1 PM EST Hypercoagulable state 04/30/2020 12:41:00 PM EST Hypercoagulable [facility] Hypercoagulable state BETA 2 GLYCOPROTEIN I ANTIBODY EACH B2 GLYCOPROTEIN IGG/IGM Rou bryan 04/30/2020 12:41 PM EST Hypercoagulable state 04/30/2020 12:41:00 PM EST Hypercoagulable [facility] Hypercoagulable state THROMBOPLASTIN TIME PARTIAL PLASMA/WHOLE BLOOD HEXAGONAL PH ASE PHOSPHO NEUT Routine 04/30/2020 12:41 PM EST Hypercoagulable state 04/30/2020 12:41:00 PM EST Hypercoagulable [facility] Hypercoagulable state CARDIOLIPIN ANTIBODY EACH IG CLASS CARDIOLIPIN IGG/IGM AB Routi ne 04/30/2020 12:41 PM EST Hypercoagulable state 04/30/2020 12:41:00 PM EST Hypercoagulable [facility] Hypercoagulable state PROTHROMBIN TIME PROTIME INR STAT 04/30/2020 12:41 PM EST Hypercoagulable state 04/30/2020 12:41:00 PM EST Hypercoagulable [facility] Hypercoagulable state KAITLIN VIPER VENOM TIME DILUTED DRVVT Routine 021 12:41 PM EST Hypercoagulable state 04/30/2020 12:41:00 PM EST Hypercoagulable state [facility] Hypercoagulable state CLOTTING FACTOR VIII AHG 1 STAGE FACTOR 8 ASSAY Routine 04/30/2020 12:41 PM EST Hypercoagulable state 04/30/2020 12:41:00 PM EST Hypercoagulable state [facility] Hypercoagulable state BLOOD COUNT COMPLETE AUTO&AUTO DIFRNTL WBC COUNT CBC AND DIFFER ENTIAL STAT 04/30/2020 12:41 PM EST Hypercoagulable state 04/30/2020 12:41:00 PM EST Hypercoagulable state [facility] Hypercoagulable state HOMOCYSTEINE HOMOCYSTEINE, SERUM Routine 04/30/2020 12:41 PM EST Hypercoagulable state 04/30/2020 12:41:00 PM EST Hypercoagulable state [facility] Hypercoagulable state COMPREHENSIVE METABOLIC PANEL COMPREHENSIVE METABOLIC PANEL Rou bryan 04/30/2020 12:41 PM EST Hypercoagulable state 04/30/2020 12:41:00 PM EST Hypercoagulable state [facility] Hypercoagulable state MRI BRAIN BRAIN STEM W/O CONTRAST MATERIAL MR BRAIN WITHOUT CONTRAST [id number] Routine 04/15/2020 9:50 AM EST 04/15/2020 09:50:32 AM [facility] BLOOD COUNT COMPLETE AUTOMATED CBC Routine 04/15/2020 5:20 A M EST 04/15/2020 05:20:00 AM [facility] BASIC METABOLIC PANEL CALCIUM TOTAL BASIC METABOLIC PANEL Routi ne 04/15/2020 5:20 AM EST 04/15/2020 05:20:00 AM [facility] COVID-19 PCR COVID-19 PCR Routine 04/15/2020 3:51 AM EST 04/15/2020 03:51:00 AM [facility] DRUGS OF ABUSE, URINE DRUGS OF ABUSE, URINE Routine 04/14/2020 11 :31 PM EST 04/14/2020 11:31:00 PM [facility] URNLS DIP STICK/TABLET REAGENT AUTO MICROSCOPY URINALYSIS W ITH MICROSCOPIC STAT 04/14/2020 7:43 PM EST 04/14/2020 07:43:00 PM [facility] EKG ED PHYSICIAN INTERPRETATION EKG ED PHYSICIAN INTERPRETATION Routine 04/14/2020 6:23 PM EST 04/14/2020 06:23:45 PM [facility] EKG 12-LEAD - CMAXX REPORT EKG 12-LEAD - CMAXX REPORT 04/14/2020 6:21 PM EST 04/14/2020 06:21:05 PM [facility] EKG 12-LEAD - CMAXX REPORT EKG 12-LEAD - CMAXX REPORT 04/14/2020 6:21 PM EST 04/14/2020 06:21:05 PM [facility] EKG 12-LEAD EKG 12-LEAD Routine 04/14/2020 6:21 PM EST 04/14/2020 06:21:05 PM [facility] EKG 12-LEAD - CMAXX REPORT EKG 12-LEAD - CMAXX REPORT 04/14/2020 6:19 PM EST 04/14/2020 06:19:56 PM [facility] EKG 12-LEAD - CMAXX REPORT EKG 12-LEAD - CMAXX REPORT 04/14/2020 6:19 PM EST 04/14/2020 06:19:56 PM [facility] EKG 12-LEAD EKG 12-LEAD STAT 04/14/2020 6:19 PM EST 04/14/2020 06:19:[address] [facility] [address] ANGIOGRAPHY NECK W/CONTRAST/NONCONTRAST CT ANGIOGRAPHY NECK [id number] CODE 04/14/2020 6:14 PM EST 04/14/2020 06:14:[address] [facility] [address] ANGIOGRAPHY HEAD W/CONTRAST/NONCONTRAST CT ANGIOGRAPHY HEAD [id number] CODE 04/14/2020 6:14 PM EST 04/14/2020 06:14:04 PM [facility] GLUCOSE QUANTITATIVE BLOOD XCPT REAGENT STRIP POCT GLUCOSE, DOC KED Routine 04/14/2020 6:13 PM EST 04/14/2020 06:13:00 PM [facility] COMPREHENSIVE METABOLIC PANEL METABOLIC PANEL, COMPREHENSIVE Ro utine 04/14/2020 6:12 PM EST 04/14/2020 06:12:00 PM [facility] THROMBOPLASTIN TIME PARTIAL PLASMA/WHOLE BLOOD PARTIA L THROMBOPLASTIN TIME (PTT) STAT 04/14/2020 6:12 PM EST 04/14/2020 06:12 :00 PM [facility] PROTHROMBIN TIME PROTIME INR STAT 04/14/2020 6:12 PM EST 04/14/2020 06:12:00 PM [facility] BLOOD COUNT COMPLETE AUTO&AUTO DIFRNTL WBC COUNT CBC AND DIFFER ENTIAL Routine 04/14/2020 6:12 PM EST 04/14/2020 06:12:00 PM [facility] TROPONIN QUANTITATIVE TROPONIN T STAT 04/14/2020 6:12 PM EST 04/14/2020 06:12:00 PM [facility] THYROID STIMULATING HORMONE TSH TSH Routine 04/14/2020 6:12 PM EST 04/14/2020 06:12:00 PM [facility] MAGNESIUM MAGNESIUM LEVEL STAT 04/14/2020 6:12 PM EST 04/14/2020 06:12:00 PM [facility] HEMOGLOBIN GLYCOSYLATED A1C HEMOGLOBIN A1C Routine 04/14/2020 6:12 PM EST 04/14/2020 06:12:00 PM [facility] HEPATIC FUNCTION PANEL HEPATIC FUNCTION PANEL A STAT 0 6:12 PM EST 04/14/2020 06:12:00 PM [facility] LIPID PANEL LIPID PANEL Routine 04/14/2020 6:12 PM EST 04/14/2020 06:12:00 PM [facility] BASIC METABOLIC PANEL CALCIUM TOTAL BASIC METABOLIC PANEL STAT 04/14/2020 6:12 PM EST 04/14/2020 06:12:00 PM [facility] EKG ED PHYSICIAN INTERPRETATION EKG ED PHYSICIAN INTERPRETATION Routine 03/29/2020 7:45 AM EST 03/29/2020 07:45:[address] [facility] [address] ABDOEN & PELVIS W/CONTRAST MATERIAL CT ABDOMEN PELVIS WI TH CONTRAST [id number] STAT 03/29/2020 7:33 AM EST 03/29/2020 07:33:58 AM [facility] XR CHEST FRONTAL ONLY [id number] XR CHEST FRONTAL ONLY [id number] STAT 03/29/2020 6:10 AM EST 03/29/2020 06:10:45 AM [facility] EKG 12-LEAD - CMAXX REPORT EKG 12-LEAD - CMAXX REPORT 03/29/2020 6:06 AM EST 03/29/2020 06:06:25 AM [facility] EKG 12-LEAD EKG 12-LEAD STAT 03/29/2020 6:06 AM EST 03/29/2020 06:06:25 AM [facility] BLOOD COUNT COMPLETE AUTO&AUTO DIFRNTL WBC COUNT CBC AND DIFFER ENTIAL Routine 03/29/2020 5:52 AM EST 03/29/2020 05:52:00 AM [facility] LIPASE LIPASE LEVEL STAT 03/29/2020 5:52 AM EST 03/29/2020 05:52:00 AM [facility] HEPATIC FUNCTION PANEL HEPATIC FUNCTION PANEL A STAT 0 5:52 AM EST 03/29/2020 05:52:00 AM [facility] BASIC METABOLIC PANEL CALCIUM TOTAL BASIC METABOLIC PANEL STAT 03/29/2020 5:52 AM EST 03/29/2020 05:52:00 AM [facility] RESPIRATORY PATHOGEN PANEL RESPIRATORY PATHOGEN PANEL Routine 03/29/2020 5:22 AM EST 03/29/2020 05:22:00 AM [facility] UPPER GI ENDOSCOPY UPPER GI ENDOSCOPY 03/28/2020 12:[address] 03/28/2020 12:00:00 AM [facility] Screening colonoscopy (procedure) COLONOSCOPY 03/28/2020 12 :00 AM EST 03/28/2020 12:00:[address] [facility] [address] ABDOEN & PELVIS W/CONTRAST MATERIAL CT ABDOMEN PELVIS WI TH CONTRAST [id number] STAT 01/27/2020 1:13 AM EDT 01/27/2020 01:13:03 AM [facility] EKG 12-LEAD - CMAXX REPORT EKG 12-LEAD - CMAXX REPORT 01/27/2020 12:04 AM EDT 01/27/2020 12:04:19 AM EDT [facility] EKG 12-LEAD EKG 12-LEAD STAT 01/27/2020 12:04 AM EDT 01/27/2020 12:04:19 AM [facility] BLOOD GASES ANY COMBINATION PH PCO2 PO2 CO2 HCO3 POCT ISTAT VBG /LAC Routine 01/26/2020 11:29 PM EDT [facility]/26[facility]2020 [facility] RESPIRATORY PATHOGEN PANEL Routine 01/26/2020 11:27 PM EDT 01/26/2020 11:27:00 PM EDT [facility] COVID-19 PCR COVID-19 PCR Routine 01/26/2020 11:27 PM EDT 01/26/2020 11:27:00 PM [facility] URNLS DIP STICK/TABLET REAGENT AUTO MICROSCOPY URINALYSIS W ITH MICROSCOPIC STAT 01/26/2020 11:27 PM EDT 01/26/2020 11:27:00 PM [facility] PROTHROMBIN TIME PROTIME INR STAT 01/26/2020 11:27 PM EDT 01/26/2020 [facility] BLOOD COUNT COMPLETE AUTO&AUTO DIFRNTL WBC COUNT CBC AND DIFFER ENTIAL STAT 01/26/2020 11:27 PM EDT 01/26/2020 11:27:00 PM [facility] BLOOD TYPING ABO TYPE AND SCREEN STAT 01/26/2020 11:27 PM EDT 01/26/2020 11:27:00 PM [facility] TROPONIN QUANTITATIVE TROPONIN T STAT 01/26/2020 11:27 PM EDT 01/26/2020 11:27:00 PM [facility] LIPASE LIPASE LEVEL STAT 01/26/2020 11:27 PM EDT 01/26/2020 11:27:00 PM [facility] BASIC METABOLIC PANEL CALCIUM TOTAL BASIC METABOLIC PANEL STAT 01/26/2020 11:27 PM EDT 01/26/2020 11:27:00 PM EDT [facility] RADEX ANKLE COMPLETE MINIMUM 3 VIEWS 12/01/2019 12:00: 00 AM EDT [facility] ([facility]) RADEX FOOT COMPLETE MINIMUM 3 VIEWS 12/01/2019 12:00:0 0 AM EDT [facility] ([facility]) SIGMOIDOSCOPY FLX DX W/WO COLLJ SPECIMENS 11/22/2019 1 2:00:00 AM EDT [facility] ([facility]) Magnetic Resonance Angiography Neck W/O Contrast Materials 08/12/2019 12:00:00 AM EDT [facility] ([facility]) Magnetic Resonance Angiography Neck W/O Contrast Materials 08/12/2019 12:00:00 AM EDT [facility] ([facility]) MRI BRAIN BRAIN STEM W/O CONTRAST MATERIAL 08/12/2019 12:00:00 AM EDT [facility] ([facility]) MRI BRAIN BRAIN STEM W/O CONTRAST MATERIAL 08/12/2019 12:00:00 AM EDT [facility] ([facility]) RADEX ANKLE COMPLETE MINIMUM 3 VIEWS 06/23/2019 12:00: 00 AM EST [facility] ([facility]) RADEX FOOT COMPLETE MINIMUM 3 VIEWS 06/23/2019 12:00:0 0 AM EST [facility] ([facility] Decompression of median nerve (procedure) History of d ecompression of median nerve at carpal tunnel 05/31/2019 right 06/15/2019 12:00:00 AM EST [facility] ([facility]) Ekg With Interpretation and Report Ekg With Interpretation a nd Report 05/19/2019 12:00:00 AM EST [facility] ([facility]) Ekg With Interpretation and Report Ekg With Interpretation a nd Report 05/19/2019 12:00:00 AM EST [facility] ([facility]) SURGERY CASE REQUEST OUTSIDE FACILITY ONLY SURGERY CA SE REQUEST OUTSIDE FACILITY ONLY Routine 04/27/2019 11:53 AM EST Bilateral carpal tunnel syndrome 04/27/2019 04:53:29 PM EST Bilateral carpal tunnel syndrome [facility] Bilateral carpal tunnel syndrome SURGERY CASE REQUEST OUTSIDE FACILITY ONLY SURGERY CA SE REQUEST OUTSIDE FACILITY ONLY Routine 04/27/2019 11:53 AM EST Bilateral carpal tunnel syndrome 04/27/2019 04:53:29 PM EST Bilateral carpal tunnel syndrome [facility] Bilateral carpal tunnel syndrome US RETROPERITONEAL REAL TIME W/IMAGE COMPLETE US RENAL OR A TERESSA COMPLETE [id number] STAT 03/31/2019 12:43 AM EST 03/31/2019 05:43:[address] [facility] [address] ANGIO ABD&PLVIS CNTRST MTRL W/WO CNTRST IMGES CT A NGIOGRAPHY ABDOMEN AND PELVIS [id number] STAT 03/30/2019 10:46 PM EST 03/31/2019 03 :46:08 AM [facility] BLOOD COUNT COMPLETE AUTO&AUTO DIFRNTL WBC COUNT CBC AND DIFFER ENTIAL STAT 03/30/2019 8:52 PM EST 03/31/2019 01:52:00 AM [facility] MAGNESIUM MAGNESIUM LEVEL STAT 03/30/2019 8:52 PM EST 03/31/2019 01:52:00 AM [facility] COMPREHENSIVE METABOLIC PANEL COMPREHENSIVE METABOLIC PANEL STA T 03/30/2019 8:52 PM EST 03/31/2019 01:52:00 AM EST [facility] Injection, ondansetron hydrochloride, per 1 mg 019 12:00:00 AM EST [facility] ([facility]) THERAPEUTIC PROPHYLACTIC/DX INJECTION SUBQ/IM 03/30/20 19 12:00:00 AM EST [facility] ([facility]) ECG ROUTINE ECG W/LEAST 12 LDS W/I&R 03/30/2019 12:00: 00 AM EST [facility] ([facility]) RADEX ABD COMPL AQT ABD W/S/E/D VIEWS 1 VIEW CH 2018 12:00:00 AM EST [facility] ([facility]) Immunization Administration (includes Percutaneous, In blank driller Immunization Administration (includes Percutaneous, Intrader 03/24/2019 12:00:00 AM EST [facility] ([facility]) Pneumococcal Polysaccharide Vaccine, 23-Valent, Adult or Imm Pneumococcal Polysaccharide Vaccine, 23-Valent, Adult or Imm 03/24/2019 12:00:00 AM EST [facility] ([facility]) Immunization Administration (includes Percutaneous, In blank driller Immunization Administration (includes Percutaneous, Intrader 03/24/2019 12:00:00 AM EST [facility] ([facility]) Flu, 3 Years and Up (adults included) Flu, 3 Years and Up (a dults included) 03/24/2019 12:00:00 AM EST [facility] ([facility]) Routine Venipuncture or Finger/heel/ear Stick for Merced ection Routine Venipuncture or Finger/heel/ear Stick for Collection 03/24/2019 12:00:00 AM EST [facility] ([facility]) Pneumococcal Polysaccharide Vaccine, 23-Valent, Adult or Imm Pneumococcal Polysaccharide Vaccine, 23-Valent, Adult or Imm 03/24/2019 12:00:00 AM EST [facility] ([facility]) Flu, 6months and up, .5ml Flu, 6months and up, .5ml 03/24/2019 1 2:00:00 AM EST [facility] ([facility]) Routine Venipuncture or Finger/heel/ear Stick for Merced ection Routine Venipuncture or Finger/heel/ear Stick for Collection 03/24/2019 12:00:00 AM EST [facility] ([facility]) Results ID Date Data Source [id number] 05/08/2020 03:26:55 PM [facility] Name Value Range Interpretation Code Description Data Viktoriya rce(s) Supporting Document(s) Progress Note [facility] XYQPDg5wGrJJBnUi90/FIFngLUAnb4EvTRsnUZf0IJpdHRIeM6SgEBI1kM2zMDM5AEtPQjEhSlMqQDD4 lbm [file] MReurmk6VYR9IgMnkVtP3mulkRvXXPQsWQ6F+O/speech 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 [file] TIxqGVV9SFFzTdX0ZpZ0NBL7DoJzCO6RMa1RHiN9AXH0jJPvBy9OHbF5KsJFWaIoVY1WDDz= ID Date Data Source [id number] 05/01/2020 11:12:03 AM EST [facility] Name Value Range Interpretation Code Description Data Viktoriya rce(s) Supporting Document(s) Progress Note [facility] MRNPDj9nNgYJXqNp06/AWZwsMLJvl4AkYOihEQf4QHicZRBbJ4XwNYP8eB8gRDQ7VDvQHhMqMaKuGPPz lbm [file] ICAgICAgICAgICAgICAgICAgICAgICAgICAgICAgICAgICAgICAgICAgICAgICAgICAgICAgICAgICAg ICAgICAgICAgICAgICANCiAgICAgICAgICAgICAgIC AgICAgICAgICAgICAgICAgICAgICAgICAgICAgICAgICAgICAgICAgICAgICAgICAgICAgICAgICAgIC AgICAgICAgICAgICAgICAgICAgICAgICANCiAgICAgICAgICAgICAgICAgICAgICAgICAgICAgICAgIC AgICAgICAgICAgICAgICAgICAgICAgICAgICAgICAg ICAgICAgICAgICAgICAgICAgICAgICAgICAgICAgICAgICANCiAgICAgICAgICAgICAgICAgICAgICAg ICAgICAgICAgICAgICAgICAgICAgICAgICAgICAgICAgICAgICAgICAgICAgICAgICAgICAgICAgICAg ICAgICAgICAgICAgICAgICANCiAgICAgICAgICAgIC AgICAgICAgICAgICAgICAgICAgICAgICAgICAgICAgICAgICAgICAgICAgICAgICAgICAgICAgICAgIC AgICAgICAgICAgICAgICAgICAgICAgICAgICANCiAgICAgICAgICAgICAgICAgICAgICAgICAgICAgIC AgICAgICAgICAgICAgICAgICAgICAgICAgICAgICAg ICAgICAgICAgICAgICAgICAgICAgICAgICAgICAgICAgICAgICANCiAgICAgICAgICAgICAgICAgICAg ICAgICAgICAgICAgICAgICAgICAgICAgICAgICAgICAgICAgICAgICAgICAgICAgICAgICAgICAgICAg ICAgICAgICAgICAgICAgICAgICANCiAgICAgICAgIC AgICAgICAgICAgICAgICAgICAgICAgICAgICAgICAgICAgICAgICAgICAgICAgICAgICAgICAgICAgIC AgICAgICAgICAgICAgICAgICAgICAgICAgICAgICANCiAgICAgICAgICAgICAgICAgICAgICAgICAgIC AgICAgICAgICAgICAgICAgICAgICAgICAgICAgICAg ICAgICAgICAgICAgICAgICAgICAgICAgICAgICAgICAgICAgICAgICANCiAgICAgICAgICAgICAgICAg ICAgICAgICAgICAgICAgICAgICAgICAgICAgICAgICAgICAgICAgICAgICAgICAgICAgICAgICAgICAg ICAgICAgICAgICAgICAgICAgICAgICANCjw/eHBhY2 khgYPidoY2B0tjEf2RWy4BGJ1kn3EiJKZtPQnvibIbEllGGqXqCTZoQdtKKdx7YPskKW4WrTBmS8ItI5 SjWXvvAO4SRMZfEMUqqSXrLMFfCPDrAjD0KHCnYVpnZF9OgEPcEOhfCSEfTRUbUpXmOUOpMAErPHDrSN LrEYDORQYxNZHrReLiQNBwYOUqLKpkAPLCEZS6GWXe TaPzIZgqDN9Up9EnpJT9KXg+Rv9FPI3bn9IwJJiiUUJwGV9phr7QCLgGMwByE5WvtqD7VEYePGMlQl9H FDJmYKFviHA8HHLmRGAJLyBpE2AfpR35WVSSAq4+EAfvfbKzBkvVFtKjGQWkq8UhZUo0TL6TNIFnBBe8 gXVnSTYnT3Deo2ZbBl09BCNbEfrdQdSrpKXePQifMP 8tTM5HQAO1JEVsQVVtHoPqFVBmOWjiJEHYVQnBNcMgA5Lcj2AgDaZ1NQTqQyOiYBwxMQLvJrD5GB98mZ pvPD7DJNYzLPYdTE04AJS0KCEpZb3XYr6SMuSvSC7lds4WGZZjCISeYxhYPbt2KLtsWV6XmIYqK4XzlN Opd1sUJxEwF2YDPTE0UQWuIq4WROJqZpSsHKMuLTyi VB4fZUHrMRRSdCxhgpB0VF5GMA1jvpNhEC2KYcWeBf1qLx6MUvPyD0VlC4CvQOXyITMFDBokHH9SZVwc UL7pWY1Gq9VDjSLplR2qda2EQWRlVVXyLjucca2MStkfS2N0cOdmOLBqNlvpAYYBFLkzHA9PHQBwFIR0 WYVxENLyWELOKvKvK64nNA6UE6Twe00qGjN4WEAwPu LsFWgmML69lJqbccVxfKKifDreVL8WZc9+DQplbmRvYmoNCnhyZWYNCjAgNDINCjAwMDAwMDAwMDAgNj Q7GwUsFk1TBLKxEUWyAVBtRkXdNAUxCLYdKKhgBJAfYHCjRpnyVGPzIXEjDQ6XYhFqOBLmKFDoUaYcEM IkXLEcbp0RQBEbTDIhDEY7WvCmSWDiANPvTEjmNIGe OGM0SjI7WFYuQQSzMU0SSsLdQXPkSCN2HYLlGHYhLTYfow4UFVFkVSVcAqPoLkTtXAWjQCGbSUqoRAPk XUN7IDH6GNCjNXYuDK0FLdObHQBmBML1JVZyXRGhUQAylq7AUVPzLPWmLKQ5EIZwEFLwLAZtPRigZRAe TSP9ADJ6DNIbEHBpNC1EEoXqTGObRCXeCcMqNXTeZH Pbox6GCMPhBQRvGem1AKIzHPWyVLEfPQkpSUTtPLS2OBU0PQYvNKQaGQ8YMbZmUXKeFfDhZcQfGGXaLP Yueb8ILOSwKHHcPFW9STVhWHIzSHXsGShdHPMvTTPgYTr0COZnOFMgEW6WDsZiSYBoPuN8CPDnRLIaYC Shke7QFOXhYBJbCUQ1MMTdRXStOWHmHTweXIDmZXT9 NLquPIGwZIScYP2QXdNlKYXtLxX4DAVdQSHdJFAcxc2XCKGdRVDiApruHtNkOFFqWTHnULddDKDsMNW1 ZUEkHWRjJFHuTC1WBqJoRNWgPwe2CqxrPHGbDKUqnv4LLGIpCYCbHOP4GGWmRAYjVPXxUWfgEHIqXSV2 NjM4XJOjOGZaSR2TKpCrTNEiQok8NSvaPDWcCGBrzv 6DIJNeWCI4NSOkKAHfMQYzGNBgGBkiCNImNLMrOhOiQICrYYHhXG1NEcCzYKNbMOO5OQQkGLMmYZWhcy 6UHAIrMYS9CBUyHIHnMACeCDKeHPjlIZFcTQGbXNamQYRkCQPiYN0JLeUtMHNnCPK3UuTvEUPwFVToyu 1BRONqPZU9UCylSXXsPEDxHTZlZMqlHSAnQDQxEGox TJUvIHEqXH9FXrKkQKLgZJAcTfQnLBOyBCUmff6KYWPoZCH4MpT9UXOeEHQnQILkRNezLIDkIEQcJeku DGEqUESlUM3LOpOuTEQoMWZvUsUzKMFoMLWrny4TOAFiPBS4CVQ8GpBxIWBcQNQpJAtfCUNtEDL5Baxw YASeWNHcTK8EWmYyROniFJEWQqv9VOxyR2v4BVB2Cg 0JS0Fpx4LvBIOaXNZFOEncWR8eytZtBSQqNf8IJ5bLDxygCNyuDBZeSPN0YCMiRPO0Z4L7K1Y7ASH7LL QoHHCtKW3tSFEhK9D3IvVmYbF8RYN5AkTlHPztTWD8Jzc3B9EfIhI5VpWcCQ4IMg1ENyJ2BUU5vHKsJj 5WUNH4ZavUJyHrMG5ALGl= ID Date Data Source [id number] 04/30/2020 01:01:24 PM [facility] Name Value Range Interpretation Code Description Data Viktoriya rce(s) Supporting Document(s) Leukocytes [#/volume] in Blood by Automated count 10.9 10*3/uL 4-10 [facility] Erythrocytes [#/volume] in Blood by Automated count 5.05 10*6/uL 4.6- 6.1 [facility] Hemoglobin [Mass/volume] in Blood 16.2 g/dL 13.5-18 [facility] Hematocrit [Volume Fraction] of Blood by Automated count 48.0 % 4 1-53 [facility] Erythrocyte mean corpuscular volume [Entitic volume] by Auto mated count 95.0 fL 80-96 [facility] Erythrocyte mean corpuscular hemoglobin [Entitic mass] by Automated count 32.0 pg 27-33 [facility] Erythrocyte mean corpuscular hemoglobin concentration [Mass/volume] by Automated count 33.7 g/dL 32.0-[facility] distribution width [Ratio] by Automated count 13.4 % 11.5-14.5 [facility] Platelets [#/volume] in Blood by Automated count 328 10*3/uL 150-400 [facility] Differential cell count method - Blood [facility] Neutrophils/100 leukocytes in Blood by Automated count 63 % [facility] Lymphocytes/100 leukocytes in Blood by Automated count 24 % [facility] Monocytes/100 leukocytes in Blood by Automated count 9 % [facility] Eosinophils/100 leukocytes in Blood by Automated count 3 % [facility] Basophils/100 leukocytes in Blood by Automated count 1 % [facility] Neutrophils [#/volume] in Blood by Automated count 6.84 10*3/uL 1.8-7 .0 [facility] Lymphocytes [#/volume] in Blood by Automated count 2.63 10*3/uL 1.2-4 .0 [facility] Monocytes [#/volume] in Blood by Automated count 0.95 10*3/uL 0-0.8 H [facility] Eosinophils [#/volume] in Blood by Automated count 0.36 10*3/uL 0-0.5 [facility] Basophils [#/volume] in Blood by Automated count 0.11 10*3/uL 0-0.2 [facility] Nucleated erythrocytes/100 leukocytes [Ratio] in Blood by Automated count 0 /100{WBCs} 0-0 [facility] ID Date Data Source [id number] 04/30/2020 01:23:55 PM [facility] Hospital Name Value Range Interpretation Code Description Data Viktoriya rce(s) Supporting Document(s) Prothrombin time (PT) 13.8 s 12.5-14.9 [facility] INR in Platelet poor plasma by Coagulation assay 1.05 [facility] Routine intensity oral anticoagulation I NR is typically 2.0-3.0. Target INR must be clinically individualized. ID Date Data Source [id number] 04/30/2020 01:31:32 PM EST [facility] Name Value Range Interpretation Code Description Data Viktoriya rce(s) Supporting Document(s) Albumin [Mass/volume] in Serum or Plasma by Bromocresol green (BCG) dye binding method 4.7 g/dL 3.5-5.2 [facility] Bilirubin.total [Mass/volume] in Serum or Plasma 0.4 mg/dL <1.2 [facility] Calcium [Mass/volume] in Serum or Plasma 9.5 mg/dL 8.6-10.0 [facility] Chloride [Moles/volume] in Serum or Plasma 103 mmol/L 98-107 [facility] Creatinine [Mass/volume] in Serum or Plasma 1.37 mg/dL 0.70-1.20 [facility] Glucose [Mass/volume] in Serum or Plasma 96 mg/dL 70-140 [facility] Alkaline phosphatase [Enzymatic activity/volume] in Serum or Plasma 91 U/L 40-129 [facility] Potassium [Moles/volume] in Serum or Plasma 4.5 mmol/L 3.4-5.1 [facility] Protein [Mass/volume] in Serum or Plasma 7.7 g/dL 6.4-8.3 [facility] Sodium [Moles/volume] in Serum or Plasma 138 mmol/L 136-145 [facility] Aspartate aminotransferase [Enzymatic activity/volume] in Serum or Plasma 13 U/L <40 [facility] Urea nitrogen [Mass/volume] in Serum or Plasma 15 mg/dL 6-20 [facility] Osmolality of Serum or Plasma by calculation 287 mosm/kg 275-300 [facility] Creatinine/Urea nitrogen [Mass Ratio] in Serum or Plasma 11 [facility] Bicarbonate [Moles/volume] in Serum 25 mmol/L 22-29 [facility] Alanine aminotransferase [Enzymatic activity/volume] in Seru m or Plasma 18 U/L <41 [facility] Anion gap 3 in Serum or Plasma 10 mmol/L 8-15 [facility] Glomerular filtration rate/1.73 sq M pre dicted among non-blacks [Volume Rate/Area] in Serum or Plasma by Creatinine-based formula (MDRD) 61 mL/min/1.73m2 >60 [facility] Glomerular filtration rate/1.73 sq M pre dicted among blacks [Volume Rate/Area] in Serum or Plasma by Creatinine-based formula (MDRD) 71 mL/min/1.73m2 >60 [facility] ID Date Data Source [id number] 04/30/2020 01:50:42 PM [facility] Value Range Interpretation Code Description Data Viktoriya rce(s) Supporting Document(s) aPTT in Platelet poor plasma by Coagulation assay 28.0 s 24.0-33. 0 [facility] aPTT.factor substitution in Platelet poo r plasma by Coagulation assay --immediately after addition of normal plasma [facility] aPTT.factor substitution in Platelet poo r plasma by Coagulation assay --1H post incubation with normal [facility] Path[facility] review of Blood tests [facility] ID Date Data Source [id number] 04/30/2020 02:10:15 PM [facility] Value Range Interpretation Code Description Data Viktoriya rce(s) Supporting Document(s) Lupus anticoagulant neutralization plate let [Time] in Platelet poor plasma by Coagulation assay 3.7 sec <8.0 [facility] ID Date Data Source [id number] 04/30/2020 02:10:15 PM [facility] Value Range Interpretation Code Description Data Viktoriya rce(s) Supporting Document(s) dRVVT/dRVVT W excess phospholipid (screen to confirm ratio) 1.09 Ra ricki <1.20 [facility] ID Date Data Source [id number] 05/01/2020 12:33:28 PM [facility] Value Range Interpretation Code Description Data Viktoriya rce(s) Supporting Document(s) Coagulation factor VIII activity actual/ normal in Platelet poor plasma by Coagulation assay 292 U/dL 50-150 H [facility] ID Date Data Source [id number] 05/01/2020 11:00:10 AM [facility] Value Range Interpretation Code Description Data Viktoriya rce(s) Supporting Document(s) Beta 2 glycoprotein 1 IgM Ab [Units/volume] in Serum 3.3 U/mL <20.0 [facility] Negative results do not rule out Antipho spholipid syndrome. Other APL testing should be considered. Beta 2 glycoprotein 1 IgG Ab [Units/volume] in Serum <20.0 [facility] Negative results do not rule out Antipho spholipid syndrome. Other APL testing should be considered. ID Date Data Source [id number] 05/01/2020 11:00:15 AM [facility] Name Value Range Interpretation Code Description Data Viktoriya rce(s) Supporting Document(s) Cardiolipin IgM Ab [Interpretation] in Serum 9.8 U/mL <20.0 [facility] Negative results do not rule out Antipho spholipid syndrome. Additional APL testing should be considered. Cardiolipin IgG Ab [Interpretation] in Serum <20.0 [facility] Negative results do not rule out Antipho spholipid syndrome. Additional APL testing should be considered. ID Date Data Source [id number] 04/30/2020 01:30:42 PM [facility] Value Range Interpretation Code Description Data Viktoriya rce(s) Supporting Document(s) Homocysteine [Moles/volume] in Serum or Plasma 37.8 umol/L <15.0 [facility] Hemolyzed ID Date Data Source [id number] 04/16/2020 01:50:43 PM [facility] Value Range Interpretation Code Description Data Viktoriya rce(s) Supporting Document(s) Discharge Summary [facility] IZWACh9pUzVTKpLy88/OLZzfAPJpx7CuIYrrPPm1BMrsGOSiX1NsFXH2nW3eIYH2KOgIRyRtNqZxJkN8 [facility] [file] BRvgoDVC7REvOtV5OE+vehicle upholsterer+102KqV4FUt0DhOSXLA94DSadYXAUWli+4rUwbmHpzYIq1DHjI3AE8C6vbI [file] /U767oqMG85KSGkEq7l6r6XjnpWPcTktpCZ [file] AgICAgICAgICAgICAgICAgICAgICAgICAgICAgICAg ICAgICAgICAgICAgICAgICAgICAgICAgICAgICAgDQogICAgICAgICAgICAgICAgICAgICAgICAgICAg ICAgICAgICAgICAgICAgICAgICAgICAgICAgICAgICAgICAgICAgICAgICAgICAgICAgICAgICAgICAg ICAgICAgICAgICAgDQogICAgICAgICAgICAgICAgIC AgICAgICAgICAgICAgICAgICAgICAgICAgICAgICAgICAgICAgICAgICAgICAgICAgICAgICAgICAgIC AgICAgICAgICAgICAgICAgICAgICAgDQogICAgICAgICAgICAgICAgICAgICAgICAgICAgICAgICAgIC AgICAgICAgICAgICAgICAgICAgICAgICAgICAgICAg ICAgICAgICAgICAgICAgICAgICAgICAgICAgICAgICAgDQogICAgICAgICAgICAgICAgICAgICAgICAg ICAgICAgICAgICAgICAgICAgICAgICAgICAgICAgICAgICAgICAgICAgICAgICAgICAgICAgICAgICAg ICAgICAgICAgICAgICAgDQogICAgICAgICAgICAgIC AgICAgICAgICAgICAgICAgICAgICAgICAgICAgICAgICAgICAgICAgICAgICAgICAgICAgICAgICAgIC AgICAgICAgICAgICAgICAgICAgICAgICAgDQogICAgICAgICAgICAgICAgICAgICAgICAgICAgICAgIC AgICAgICAgICAgICAgICAgICAgICAgICAgICAgICAg ICAgICAgICAgICAgICAgICAgICAgICAgICAgICAgICAgICAgDQogICAgICAgICAgICAgICAgICAgICAg ICAgICAgICAgICAgICAgICAgICAgICAgICAgICAgICAgICAgICAgICAgICAgICAgICAgICAgICAgICAg ICAgICAgICAgICAgICAgICAgDQogICAgICAgICAgIC AgICAgICAgICAgICAgICAgICAgICAgICAgICAgICAgICAgICAgICAgICAgICAgICAgICAgICAgICAgIC AgICAgICAgICAgICAgICAgICAgICAgICAgICAgDQogICAgICAgICAgICAgICAgICAgICAgICAgICAgIC AgICAgICAgICAgICAgICAgICAgICAgICAgICAgICAg PWMrTWUsOWOuLFGuXJWoKYGfSQLvUXMcEDFcOKYzTFZmIWDqZFJuDEq9D6ktPDKcKOZtDR6xFEg3Jg2+ UMeKMpArAVS7ruXyxK2WJK0jo3LgUZviQMZeu4FpFKc6XC7YMSDtEBjuSU6RKQafvf9ILKZiQRGarYOF e4gjBjLlUDV3VPVqPewxXW3WJPKhP7cfemItPBZkLI TEUNjnUJMMOZgdRURJSTXaKHEdQzMuKoLwCKHsXTKdNPBCTL9JWpMqS3FhmU92BTYCAl4+DQplbmRvYm xBPfWmNNVkh1ApUTs2EQ0SWSVjStoha1KnYvRyFAOSWLcwZK3CJXO9JHQaKGAvZq0OKMMiW454ffKhSX 0LRp5GQwViZM6jba1SZaCbTCIwObmROcb0YFqgQY2Z aTCaTIdFxUBpzOLwF9PdM9JbvRCmqKSfpBXGWPMcvRDmLToxXUGpDA4WHTT0THNcAuG5KsFeSoOiRXQ2 FbfiFS3pLIacIU8GRXD2APodOQDlYUSrB5sHRxEyOQMpSDEvpNdnXD9QKmMoM8DdevDusWMqEsMwJTSI Cj4+ALlocsYvBmxGEbO3KBVow0KnRSy9FV4YCQTmTX kuID9RACEsyO1kWKdeLA6XIeDjMFPyJJYJEhXwP15plEFlKOa1T9PbFdLpNLCfVafcKRClAJdqLqBjWK MgWyBdDQogID4+ID4+JQqwYS5JCQuwfbBwNZWyAf5EGBNmHKUpDW8gHYNfDHTrW2E5eVqwRFLRUxCbR1 ylhtsjCU5vVIHtT206bFaypxDhYMUuXZJpRx0LSMQg LAC3OOGyyXJsOmWtQMQJHFmgDZ0HfFSqCTW1wL4uHIrxKVJnXALcC8jPVzBxhSmpDY04kGlzyjHqsJOd DQo+Ho0BKI5mq3WpGWb5jtOiPYtpFLP8VUcvIJUeVVKcWPPuJVD5HSG2QONSIiAoKMHgXHBoZTvdQHQf ELEehb3KDZTzZDL7VIH9VVPkTUWmKBLxHUyzBNIzNO MeGNN6EAHiHJZuBI2QZpAhWMHfUFWfBMlsMMEiWBDwvg5LCKOuPADnKkUcPxDhVWQsJZYtQLbcFDIzCY EcTiW0LRNkVYLuZQ7RTjFrZAKzDPl2LKNwJEXoMWEfvq3BCPSwQNHwHgC0ZXCsIYDiUOXuWLwcXTMiDF XhWDN9WVMbFKMiPP1UIpSoEOFhVQTcWlovRWVjHJMq qe7HUBLeMEOtZvl4DuIzRMDzPRJvQGexLSWbHRV0JWY2VIGzRCUrCK1YNrCvLONfRSjiANVsDHApGGEg yb4MKAZuJCSaUlLaPcRaZWPwTDTrGIxcJNQlLJF5SrowAOPfCTMeCM3IFdZbJUSuYJo3PBUkZNHqZTRv bz7IAXMrYDFjPTS7VyQcCDUmJCBlIBarCBEjQYM6Wf UhBFHiHVZeKN3KCuTpZOTkTFm7PaGiKQRtSNFcsh1ULBNdGQRqBKj3KSAvRZKcZBEmIHzqXTUjFLPyBV q9PCPtUPAeIY1OGaGrLHBwCdQbEKTvGIHoCLDbtf3OFWAaTTVoAwM6ZRGzSFWqCOCbPPleEYMoBCYgAq BwEYZpYVKrGA3DQvWbFNEcRwA0AiQbXBYxFEUqzt7P SLNdUIQ3BBA1GfRjGAOcBJKdPBeaUDMbSSFdNZv9LEBsPWVmJT6VQpAzGUKkUZO2QUSdTQXqTWPedu7P PMQwAQP8ZHJpKaTeZOIvBMZdXUijAGGrTHWtVjYsEJHgPOLoYH3QSyWiXYJfXFT2XpnhIKWaMEAnui0W YDHjOAZ4MuH8NCZiEQLpUYOeFYkeLLTkYOTcVoQpDQ WbGABmNM7BUyIwSJGsRLP0OsTiJGGsINCogt6RnOBhkPtwvj8MQEeCTl0PoTgxVAB0TEisXz5gfVVdPW JaMALMPu0ApoZuHOQmPBVXOBhnJOKvTUrmNxWjSGFmKhH1EFJ2AYZ7LjF1DQOqYMLeSjTgArG5XzN4CG ZtL4LxQlN4IMBqRWc0PoRbUWhlEDUsKQV2XzGfJDy+ GD2kYKe+Lu6Jz0TtvjS1hdIyXOe9XbwdLk7YTQXAR1TRYi== ID Date Data Source [id number] 04/16/2020 03:04:37 AM EST [facility] Name Value Range Interpretation Code Description Data Viktoriya rce(s) Supporting Document(s) ED Provider Note [facility] OESGPb9cMzTAQeMo87/VFXghLNDbm9LtUPrgEKq3KWtiJZKlR3YoLFB2hE4tMFI6ASlFWoXxSpMkCoN8 lbm [file] evp and chief operating officer+n9Lf+bo4m88efERrI3G2T/1d6b8IM280xIDTQ4daeulhTyKeuew1/ICS7V372cgSmneLgyJ+fnqiX 89WyyPbMqA/АЛЕКСАНДР/vbuqvW7p7uFsRoMjhGqpTVAXsVGO [file] QiNgZ0PoNPBqUqKtOP8TEd2EQxY6JKP8vWNrUo1USTz4CQjNCuXsGF6TKUd= ID Date Data Source [id number] 04/15/2020 03:29:57 PM [facility] Name Value Range Interpretation Code Description Data Viktoriya rce(s) Supporting Document(s) Progress Note [facility] GHEHUd6jNmPYJeLg76/EIHpmRRWrg5EoZMtwHUu5KFoiFOTiL4QkFNA4eR5rEVE0KJjFJpNhMbItCrR4 lbm [file] ID Date Data Source [id number] 04/15/2020 12:44:34 PM EST [facility] Name Value Range Interpretation Code Description Data Viktoriya [facility](s) Supporting Document(s) History and Physical [facility] IFKRLb5kOrAGApXr91/JPHhrTGXct8XpUNgqKIv4CNquWNSkY7JvFQV5vK8yTQA6PXkJBzDkNaSnPfO7 lbm [file] AgICAgICAgICAgICAgICAgICAgICAgICAgICAgICAgICAgICAgICAgICAgICAgICAgICAgICAgICAgIC AgICAgICAgICAgICAgICAgDQogICAgICAgICAgICAgICAgICAgICAgICAgICAgICAgICAgICAgICAgIC AgICAgICAgICAgICAgICAgICAgICAgICAgICAgICAg ICAgICAgICAgICAgICAgICAgICAgICAgICAgDQogICAgICAgICAgICAgICAgICAgICAgICAgICAgICAg ICAgICAgICAgICAgICAgICAgICAgICAgICAgICAgICAgICAgICAgICAgICAgICAgICAgICAgICAgICAg ICAgICAgICAgDQogICAgICAgICAgICAgICAgICAgIC AgICAgICAgICAgICAgICAgICAgICAgICAgICAgICAgICAgICAgICAgICAgICAgICAgICAgICAgICAgIC AgICAgICAgICAgICAgICAgICAgDQogICAgICAgICAgICAgICAgICAgICAgICAgICAgICAgICAgICAgIC AgICAgICAgICAgICAgICAgICAgICAgICAgICAgICAg ICAgICAgICAgICAgICAgICAgICAgICAgICAgICAgDQogICAgICAgICAgICAgICAgICAgICAgICAgICAg ICAgICAgICAgICAgICAgICAgICAgICAgICAgICAgICAgICAgICAgICAgICAgICAgICAgICAgICAgICAg ICAgICAgICAgICAgDQogICAgICAgICAgICAgICAgIC AgICAgICAgICAgICAgICAgICAgICAgICAgICAgICAgICAgICAgICAgICAgICAgICAgICAgICAgICAgIC AgICAgICAgICAgICAgICAgICAgICAgDQogICAgICAgICAgICAgICAgICAgICAgICAgICAgICAgICAgIC AgICAgICAgICAgICAgICAgICAgICAgICAgICAgICAg ICAgICAgICAgICAgICAgICAgICAgICAgICAgICAgICAgDQogICAgICAgICAgICAgICAgICAgICAgICAg ICAgICAgICAgICAgICAgICAgICAgICAgICAgICAgICAgICAgICAgICAgICAgICAgICAgICAgICAgICAg ICAgICAgICAgICAgICAgDQogICAgICAgICAgICAgIC AgICAgICAgICAgICAgICAgICAgICAgICAgICAgICAgICAgICAgICAgICAgICAgICAgICAgICAgICAgIC JdSGExTFSoSGLqCEYqBNUpRHPmRDGtWCUjFBz1J3npLPLsIVOoQK3iOVk8Zg6+TNbQPbCkWWZ0wcCwzJ 9FQD2tl9XcBFfaEMNjt9XgNSk3YA0AIUXxSMvcEI0T CCorpw6PDCHyWUQhvCVMw5lkCxPbXXN0JCQbKasrSP9YPJSuU3wsunVlRJWoALIAJAzeSPFCVQHsUQNu KgMmPlGuVGAqDLMmUPTVPRF7QVKxLxZeTCYgIASsSoOfRPDOZFCdILJaDyXjSAepDY6Ln3TylAH5SBo+ Fg3LPA0yx2EkPYr7VcGiVX2zlr4MJOwJLnRzA6Quzx I6DNOlMOEsFp3CUICqGTKwiKP6GzAuHOGYFjZuH4UzaY65LPNULk0+FWqjjrUuZikKYuNlAQFns7PcCJ y7LN8BWPKvETp6qUPhABSUEHX4SOOanrhxlWLIzn5yOUGVZTXtrWArKp6bDq2yGBYaWDQ1ZhE1JYWCHF 5DVXKoWFFurDKoMYThBCPPSF9WXJgxHOV5BJKnlpQb xNOrLLmbZB7ILQOegyAxDKKtHJQGDAw+Ke8KJY0wg1KuNFi2AZUap8OaRDx4MD8ZXVTaRNwnETKhHD5p u2DhV7X3SvR9xNNzW2ermfwxT1McqgZyjaFiEGVyVUBbXR9DMX3ZDN4ZLOIbXPkpFC6WREL0IYrqMkLh Efd8YLF0BeA8GwZhRV1HBFJwSJA6JP5RYS3OLsnoT9 JAQDpVtZypOCJZBpXCEmvlRJYzW8LGP2iUO0hFQ7CvA82JG12nP5TDHT0JQ9AOMYzrTs7rEOh+Pg0KZW 9um5HtBEn3GXMsZZ8gkz8MHBdIRcOiG9O8wUFwW3M4JUmcAm7LWPAnOPJhUBVpANCAJPflJM4DNL7otp Z9HU9BgVNyBYRwGVBipZAtJBx6J90nmXPaSRfdGW8F ICA+Jayla+Kb8CKUCdBEHcXSFlYcZfJMSZYvCvF3PzH6NUu6PqH7AhUH43kBgjrdVuZSasPU6YLU9uUAJa IJILDP6OeSRrpY4mwqA9CpAbVZTXUcBhB37fiSNmENHhMNTlKAQiYg9LWIGbU8VspvTziPqlxwSxAEXs JMSGVA6OOWwqclQtvSEimEcaHP04pUowRS3UWd8JTj AtKV6kyc6VaLNhBh0FGHY3TN0GJCXiSCVrWNSnBPX2JCOpWxDuHPbyOQLqNYCeCNU2OLKoAWZlDJ3KGb HlWKNsFOy5KrQaBFOgVNVdah0FIXRzVDH2FMT3MfHcYOXiWARfXXntUMCtTZTtDTF3CSHgFDBoWU4HTl SpBALtTVP3DPCyDJHgKPJsco0UDYIaEFUtFGbjHWOj MBRpIZIiOInfKOYfJJI8VdfnWHRaIWJhFS1TUgKrWXIpVcK3QFiwZSCaMPCzve4LPGFmBCNmHXYiPkDu ZSSuTUSlIBjgXMEkHLBjOkJ1APRzLFLdZE6XQxYgRHEbTOA5QoBkWNIzCWJfev4BRRRaXTYcVJP9UPYb JKMbZMSiESowVWGlDNZ4YBq9XFAwBLWjPQ4QEzFvJY TtVHo4LmrcYRHiWDXsnl1WEELiDLYwRZU6OCMhRKNzAJVmTLzeLDEnAAXvCRv3BBVxFEHkRM7XJkWhQW IsEyV9JJQfCZUjYCDxsd2DBRMcXBZoMMP5VjIrCIXlOWCqEHkhBUCyPCQ9RnCaVUFcGMHjJY0ZCuTlWM YbEsNdROteOTQiIIKxdi4JPJYgQUYeGrTzQSAsQSMh BTJxKLurJFOfDPJ2VpBuSAJcNIPtKX3EAzDbGTSoTzL9ABzrECQnRDDjxz6VQNIvXBEoZtG1ZPVxHZOw WZRkTNtxAFJiHCM3JqD0MPFfJAQqGJ2LUnNqFTSjDjP5ZFivDOLdROHkaf1FDSPeRBJwHquzCQGkACNo URCcJDvcORNoBGZ3APJgTDIjOIUtGG7QPuZdGIMcGu oqXRgoBYUpVHTmdo9QIIAdZIVyUKW6VlMcTKCkRJJbRVwpZVRaNTL0ArQ1NQHdZXCzVP7YVtKlLJOqMx u9YFrfXIUvUXMvyw6HMIQbDGO6BGUgGzQhGVYbZIUiXSopMTGjLHBwTxU3ROEqPABuMG6KTlKyOKQeVZ T6KRxeLLHsONFrij7AEDHpQPM2YIE5KNLyIMVgBYCj JLyqZZHfFVG7GMY3YCOfEZSiEH9WLiKpGZNsEHqhFaiqLLFrRKUiel4LKHVrAIM3MET0BYDeYZHmQYSg XZdpMMAmFKW7NoN6PSBpULWfNI7XXdJoNBQqQiAlDFaaRDRpXDCstd1QJPVpQPL0YST3YBWcFVHaISQf PYpoKGGxKJBrKmXaLZJeHZXfWQ5MFzUxBRBkBlQwAj IhDFXrZIByac2OqBDbeCxpur1HAUaYEp4PyJbdTBM3SHyhVh9rsLO2GEUvWMWFDu0ExwDmMRYiWKYFVV qzEVHbGNVtTbO7PjKqGCKuKVYoQZG4OeefYcGoGckzECH0VsVqRfH1QgGpCPl1XSPmS6NuI8BoAKs8Gw VmNCWeJFUmXhi8OrZ+LA1sUFu+Hg0Az2GeioV4egInEQx4OiT0JF0NGCZIC5DPUu== ID Date Data Source [id number] 04/15/2020 12:36:44 PM [facility] Name Value Range Interpretation Code Description Data Viktoriya rce(s) Supporting Document(s) [facility] VMTRSa0wYmTCMbDzy5CuEeAiGAWzHH5mder2U2B0tUKiJ1RxyUIeb2ieO6MlD3CsUOXpHCVNWQ7TsGPh jb2 [file] XLkXWoqTblkigRPukSMn69KyQ/YqN/Daniel+G9d4USaHJOosRX+qyUP5AOCFAyRkpLJJSCDCiQSeOVmW+C a68ZpNlyxONynNzyQy2S36QMXkJU8YZnmO+kKL/M5b QM+H/M7i+ViCc/T0YUnDCP/o+P40PPkx7Mt7nPvsrsDISXyvzvMblhe4PPKqgk1diDWSaSi0hqI1q9MB ZCT/1gNcBBwlP6yaIQiKncq7Ix7UthvWsj2kxbOtV3xQHr0wFVyefxTJ77xDQJjjVJX/8xaSr/J8LEFr iW0R8D81Q9wzV96V9RUx/+kKYRAZRCaRSWQRWenpF/ cP0pDXUhtcnW2m8KTrXh3kqefwfNmm82GZ6wR5gt8MEN4NnQKjhxDIDn/HEi/Y87HEq/i4JMWsMD/Lbi 9Ff6NuzMdLWDAQSeNod+j9QmMUeWepAgQayxMtICNm9sigY7L6ZYJqcjSgefE/qtAOEGXzeii6okZucy FYU9tDvP/J58DOhk/1UIPs2CvjPwh0LvBTr2JgkpqR N3o+ncbmGZ5StScqzjTPRfAAZZHLRe+ahL8XGE07K1nQKzECUTvblE5m0b6VNhiHwSFdjzq2H77YqVZP ryoSuXSpOGXnnD90EjfWQPk+dwB3bVo9R6jRiDhW6ED7fSDrVTz8pbqbih5tpoFZhSLUDc5yxxHUtnQi fBUHfKIgrRkaLLirhUXUeXHHMMhUQTKRSUH6FRY+C5 6eWfg39OehiB4VdJkq1QGjQrp53QqYvlODJZeSj1UfX+s1CzrsIu/YcozS36iJTTMvs/Z1VRixFVcLjQ 1UsWLus7G+hKqPcPJVtcxYSfUEaYF0Gpe/cUUUOVZWEPaIkc4hsStQcDHjwGmbnSgpAGOJdm/lCOwPnE /c/4x5FzB41D3D4yQeA6ghU2DgXrRHCxC5i/Ox7OFj znj0wNi4rVJ+M0e7TCIEUa9I+Pt1TSJUAAVJxZMluxfNsw/ThZmy3OAwK6jFKvDKYT6AdRtywY0blyFu gE9M4TgkP/WF7nYizBNZ57wk3ZHnNgyWKwiaX8t1z2aEPt3plq4pLz8lA9wO4omBlld3AjCdQOLkRR// 3a8+v/lelrt7/vxvb//t9+Xt798+/z9v7z/f2D0I+T bMG/ai1gezuhz8/af3//Y98i3qva7v/Cs91BFp9axozfeg7oIbEQXJTC/gWQk9R135/+UvzIPzrcwvpH xxKc9/fdIV53//u4//2sg6034//O7z+7ffvv/zp0vruhf88ytOu5//6fsPn//lF+8//rcsO811h8p83C 3vPn/4+P7t0/vPnz68//82i10Pp4xyzL/3kLj8uHbI A7vbh4+/+/7t09f/8vnr3/7MafcwfJ/69aDywr610o5/+VY460akp//h7pdA4899haEUCioGO3/97Xff vH/VwP/5q999/Oqb92+/+lEh28zal/3qm2+//Y7d6789/Pn9p5+5jAXoui/z8duPv/ixb5csxLr0+88f paq4b5r/uez102+/ffj46/bhQzi79b0p6++++v5n/n +bCPH/7797/+WHX7/+/P3r8T9+8lbAidW39yibt94u9UwXYz/m/7fxfv9/n/X2/svf/ET1fku1g/bPX7 //+HZX+N2n91+9/fOHz1/ac6l85iqpcMyrY6/WP/yWPA2dbI/27fsPv/l4P+27j5/kTy7p94/evx73+7 dff/tS38/845tP870++de//Psf//bnH//t7f/832+/ /+Of/vTD3/724w9/+tr1o936gl6//NPbv/63Mv/179/++pe3Ir+U8Ut/HvlC+xevDvHdb/0Gyjl1qkZ/ /vMv/3V4ZbTqQG5D/OffA6+3c8bB2/X1/xhL3yqBFC36/eMAatl/8tLy/Fy5XijgTs/LrlbJLEfzoK3e X9/l2/VTfVmqHmvNP/21bi7M6zd01e8yi8/7/r9/eL MQa2117c++lqwipJ05TuV1v/t/odzUN/9qO+3zM/yYe6QfnURLdIMdxG4+z9//+Jf//Me3v/3wnz8+rv 9n8K063G812t/5vlm2vBN3K2++we8+vf3xL//549/+1395eL/40zwIUS7zyI78/Ab/6dP3b//2P18P/8 e//qTg84eQsP+5vl/iYP/0+Zf/9RnJmPZzLcGjfk1s +uh/kFn3s0B7cjS+2yFUL9t5sYDHDc/3MEw55xuipnG50Ee/98f/+K/eskkzZv6w5+9/6Yq6Cm1zG7ub 7X//7V///azg8htn5y/+1GgT62F++cP//MMP//HHH/7yk/9vVY/dzz4Cg4X+/fWvf/2i8v3nDaflO+ib v/7hC+WwZD4/nh3hxj//+If/+y9//KEfJk91T5xE9U 9OtUQkfup//CkeIb0aAtgcgzqF12k+/bsf/t5i93vwS//9rbDO/mKZmbq31ie+Hl/n2/uvPr8+5+vVW7 8AuA31956ixn/0+cbF323YG646whe6R/+2eivlvMD/H/MIme1PJA1wm8AeBIUiXpVxVW6fscisQPIpOH 6lkoc4F8DmmAczZCaDRJCzPn9mnBSyFR3DKUV5ZNhp OUTdMNOhC1PumV2mQ84wpRNkYxWyKLOHRH4NfvL0YOC0WWI8ANCeSgXhITXxZQ64EZIvZVVOKe9oprOo ZftFGuGcGB7ijma9Z6P0rMXrY601dCuupgLuCH4Qd3ZmoMJjIU2EiAOlgWNbRFMnUSEyI7sxn9JoLKme XPTLIb1pvoYcEpnXMrUrHF0kxro9B6E0bJxenzLuGC BKEMcvEfjwAH7wiAujihbjN0HovPTyVWZaJ6XnUVZlg20XHLKuMVaTErUpKtSfVeW1COUjHahxYtWmMZ OjMLGqNLHmUG8OaHXoONHyPQGGXWrxOawqQGKjqN9wsHMIc2IaFLVIJFZQDRZITFDIBZJKHCSOTFSdQT HqTZVyPH5JtSScVLA9HFbOZRWAFJhLVMzzVoKsc0S0 WMGeT8ThIHNavnPgMSTECIzpGckpVN8ymRgbfqqdY4RqhSLzNGSLSTXtMAQnQQHeAKLqL4Mpe1M0R4Qa PMjSMZGRRNvXYMyaOnW0h12zhqIKZPZeEXMtGN2+DZ4xa6NdTs5IOQYwZN1rldh1NA1RxIAsXY1LWToz cnLmP3rlzuEsAqSvNGHGQM7mC6ZecR40MBI+PmVuZG 2cjll6vtPxQqFqDBXmUNLxDWJuBJorPHUnAPTmJQZfOBK2CRT0LYNkJtXcQYFdOdE1RJRpPTFnRWSraz HNKTVzCTX9OgR6TiUfOIHuQXDdCIehFMOoWRumEbM8ZTSuINHvAW4pIdXcHNMsVMXxNJYkWbM5WyJhKy AKMDAwMDAwMDAxNiAwMDAwMCBuIAowMDAwMDAwMDc5 XWPaTQYwQI5hAoYnEBUpMSCpGOGhVLAxPBDebkBDOBHjAEOnSYP1IEHfSUWkFEYhSVsfUFCxAAQbJHW3 LSAsLCZiWL3zOpNnOXDvVJC0KyIuKCFsEVPwhtYECKIbQSKjANA4AMMaDKCdAOTpGUnbPLVdGGRyMtX4 HUHrMYKmRX8fSoVgCUJlAMP3TLSqMIAvEAVyvuPLDO VeCTSoXKv2FqDcWYKhCJQoYWayKRVfTMOzCWliVSVgNHGyIP4lMoYdVFLzTMAkHLFxSRTnHNZwroCGCK LpXYBcVNK8EqThWDTcBDTxWWlnRABoKRUaUOQ5PBUwSBOkQI8xJfYhAZIvNvRwRhksHLRbBNVijrCOMY AuMBHaKJEtTUBcMMYiAZKiHWwdTTCmQRRgNqA2UDMq DSHuVL3qOhVeIKNxXZP6COIeWSCaWNZygrYQXNUnVXLuSNJaJWH1FREiMOZfUAt6riYkkWDlRdi5Tm1L qEbdXTV8Ky7ByqRrFGVgAMIUUm2Wg261QYGfDPQVBtx+YmvjeXKgiWxxLMOCKeL8YbUXMMMJR7T= ID Date Data Source [id number] 04/15/2020 11:37:43 AM [facility] MR BRAIN WITHOUT CONTRAST [id number] RES ULTInterpreted by:Feli Carrera MDINDICATION:44-year-old male, evaluate for acute infarct (right arm numbness, unsteady gait)TECHNIQUE:Multiplanar multisequence MR images of the brain without intravenous contrast.COMPARISON:CT angiogram head, 04/14/2020; MRI brain with and without contrast, 01/13/2007.FINDINGS:There is small area of cystic encephalomalacia in the right cerebellum, right posterior putamen, right caudate nucleus as well as right anterior temporal lobe. There also multiple tiny foci of encephalomalacia in bilateral cerebella. There is subtle asymmetric foci of susceptibility in the right posterior putamen and caudate which likely represent hemosiderin deposition.There are no areas of restricted diffusion to suggest acute infarction. No extra-axial fluid collection or midline shift is identified. The basal cisterns and foramen magnum are patent.Normal flow voids of the major arteries in the skull base are well preserved suggesting patency. There is opacification of the left posterior ethmoid air cells and partial opacification of the anterior ethmoid air cells, unchanged from prior study. Minimal opacification of bilateral mastoid air cells are noted.IMPRESSION:1. No evidence of acute infarct.2. 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 Chronic ethmoid sinus disease.This document has been electronically signed by JORDY Carrera on 04/15/2020 11:35 AM Name Value Range Interpretation Code Description Data Viktoriya rce(s) Supporting Document(s) ID Date Data Source [id number] 04/15/2020 05:54:14 AM [facility] Name Value Range Interpretation Code Description Data Viktoriya rce(s) Supporting Document(s) Leukocytes [#/volume] in Blood by Automated count 7.0 10*3/uL 4-10 [facility] Erythrocytes [#/volume] in Blood by Automated count 4.38 10*6/uL 4.6- 6.1 L [facility] Hemoglobin [Mass/volume] in Blood 13.9 g/dL 13.5-18 [facility] Hematocrit [Volume Fraction] of Blood by Automated count 41.5 % 4 1-53 [facility] Erythrocyte mean corpuscular volume [Entitic volume] by Auto mated count 94.7 fL 80-96 [facility] Erythrocyte mean corpuscular hemoglobin [Entitic mass] by Automated count 31.8 pg 27-33 [facility] Erythrocyte mean corpuscular hemoglobin concentration [Mass/volume] by Automated count 33.5 g/dL [facility] width [Ratio] by Automated count 13.3 % 11.5-14.5 [facility] Platelets [#/volume] in Blood by Automated count 266 10*3/uL 150-400 [facility] ID Date Data Source [id number] 04/15/2020 06:33:11 AM EST [facility] Name Value Range Interpretation Code Description Data Viktoriya rce(s) Supporting Document(s) Bicarbonate [Moles/volume] in Serum 21 mmol/L 22-29 L [facility] Chloride [Moles/volume] in Serum or Plasma 107 mmol/L 98-107 [facility] Creatinine [Mass/volume] in Serum or Plasma 1.21 mg/dL 0.70-1.20 H [facility] Glucose [Mass/volume] in Serum or Plasma 90 mg/dL 70-140 [facility] Potassium [Moles/volume] in Serum or Plasma 4.5 mmol/L 3.4-5.1 [facility] Sodium [Moles/volume] in Serum or Plasma 136 mmol/L 136-145 [facility] Urea nitrogen [Mass/volume] in Serum or Plasma 13 mg/dL 6-20 [facility] Anion gap 3 in Serum or Plasma 8 mmol/L 8-15 [facility] Osmolality of Serum or Plasma by calculation 282 mosm/kg 275-300 [facility] Creatinine/Urea nitrogen [Mass Ratio] in Serum or Plasma 11 [facility] Calcium [Mass/volume] in Serum or Plasma 9.1 mg/dL 8.6-10.0 [facility] Glomerular filtration rate/1.73 sq M pre dicted among non-blacks [Volume Rate/Area] in Serum or Plasma by Creatinine-based formula (MDRD) 71 mL/min/1.73m2 >60 [facility] Glomerular filtration rate/1.73 sq M pre dicted among blacks [Volume Rate/Area] in Serum or Plasma by Creatinine-based formula (MDRD) 83 mL/min/1.73m2 >60 [facility] ID Date Data Source [id number] 04/15/2020 03:51:00 AM EST [facility] Name Value Range Interpretation Code Description Data Viktoriya rce(s) Supporting Document(s) SARS-CoV-2 RNA [facility] This lab was ordered by [facility] and reported by [facility]. ID Date Data Source [id number] 04/15/2020 01:27:01 PM [facility] Name Value Range Interpretation Code Description Data Viktoriya rce(s) Supporting Document(s) Specimen source [Identifier] of Unspecified specimen [facility] SARS-CoV-2 RNA 2018 nCoV Real-Time RT-PCR: NOT DETECTED [facility] Assay Performed [facility] Patients first test for [facility] Patient employed in healthcare setting [facility] Patient has symptoms related to [facility] When did you start to experience these symptoms [Date and time] [Phen X] [facility] Patient was hospitalized because of this condition [facility] patient was admitted to ICU for [facility] Patient resides in a congregate care setting [facility] status [facility] ID Date Data Source [id number] 04/15/2020 12:55:42 AM [facility] Name Value Range Interpretation Code Description Data Viktoriya rce(s) Supporting Document(s) [facility] PXQUKn6uJiZXWnLqe3MaUpXsLZGkSN9temb4F7S5pRGoL8XexUJff2voF6IcE7WvWCEvRSVBPQ5VtOUj jb2 [file] 33/8j93emdCf6udIy64/0fDtC3p4kicmOp05geh1s8 7fYG93mg/7u797++7bb79/++LDpw9v//yrD1+/nrT8t2492+nj99+2mvpf63hdjoF5na//+bpln60rei hv4uPX//r24Re/+Ry7k88m/HWa175id6lF4/iox1npw/zXT1/+8q/8rERzv//pn0342Gqgy/lvn1lgMy 76K7/eT3/rDbz0v9/5/Dkxdch2y3kl3V7//0S4D4x8 8e3n33/80fQg384+9bef/4+68i58la3+XzvNbTzcp/nm229++O7j51/79odO5n45/smTW19f1/Nvvn11 7d3+v/LH+011//Txqln6vpm5Tn++//iF66475zvJp7+f/9Xyd403WfH1fix29Lh//9PTeCJaXf/th6/+ 6Zv7+h+++tG7Uigt/HNR72761QkVr76U+iv/vI2b+5 +f/+mP//G7P//hx39/+9//19uvf/f73//mz3/+8Te///u9Z55ba5/9+Pu3f/jlCx7t37278J9ujt6Z5c /6/ZQ3sBsI0os13Gt/Zgj1IXxKmm/DH/0uU2ctaRkH9FlRd/i76Kgd9m+8XV/+fwB9P/eA+x+qo5jKih JPntp++JrzcexZcV+cmQ6RDwyB2/X5aw6+XT/tLy/L 4+Prx//74zUQj5v20gh82m/88N+/nu05L88+8D++/PXanrFh79Swi98/Lzo3+5t/1kv2yXQ//91d1Zmn Epyc+m7/JvbrH//4l394+/Nv/vLju7O/XuxvSvNz/+gWuWjdZqksQk844Pr60oc23/3xLz/++f/5Lzev 05/+/IufqcQpjik6L/7z9z+8/fv/fN387/70x5+e37 Pk/gE2IcVE/fOnf/znT7/sr46QSC/eGu5lqsCn2Y26giOi/kVtP+n8F4uejV/OA2N246s86Fe/+/5nn9 5+8//++J//vbd5M58zk/3i489/diejec2/1t7+15//7W9/9rvsGR39c2+/g7B7Chu2v/7nb3/zn7/7zR 9/8v/T0/P63U/Ap4++/9Of/vDZHYlqP/nJadDXf/rt wpRyEBTdQSxG8gsQ7/6ff/zdb1+91Vldyv0Xg/JTrzmin/1bE99p4h2/++Evf/7T/55I0Puwf4nqnb/3 m//xs1ct5yz/dQg62IGVY3pu52aM+4W63j5+8ek1p6/Q5BuiI8Ffq//i4/sakn2z37Hn4h548Hroh9Gf 1fypoO8rcUMV6d9/5b2Q/HshfoGfcBYhYI7FTD8xm6 SdShG2NZTwm3AyEJuoMEa6yWInFWomduGuy2XehzpqZ1Cpa5OxOdToKBHqLiPkPpf7XIPxEuW2mMCbQz GmRAZeJ5IwRGKnWyJ3MxLfUDFMJX6RZBMuvyPkLeZpPMI+DsWwRK6igqmdTVHur0DtEMnhXQjiAFEsQ8 V7uNqiIVKoR0NayH19DGQyX2UpbuE3YHS4JGSzCyNy TGFzdCAxOSAwIFI+DnSgUZ9mtfasVSCkj4HbJQyoISU5uE7uYSxEFMLHGApOJQbsWtQ5g46qseHSGLIj BMXfUB4KbjSfdPxvmtXuvUJqQOR1XhJlVQAuErvuGYN2TDJBQXKeVUIpTUEhWQWsC6YwkNqrLIfSTPSV VOpDGZrjMgWwa5U1ETNbotANYB8UZPnRZyEgCQ7RS5 nTQHkcNUNbGCK4TyttG5X5VraaO6ItTI5TV9VjCNLjFDGEEBSsnoIyRL8OzaYlxB7lABaVFCGGTUcGHC xtEwG4p53sifAXSVDbSXXlASohWDHpVFZpWRXhSMXnFTSsSEUyAKSlRQ9BU2UxTZYoHDRSBIH0e8OuXG XfapncjstjIc4ayaNcSfv+SlhgDMOtj5PpOVzhR6V9 cCFeB7ZxR1OrBV9LeGFgBSyqDTHmYUAqBLKtI719szVwFX0+FI5al4IzCsveLGFXSNQkBHPsNTUiLRG8 UoMyQWUrIVDoVHLdQnH9JvBaJxPADCMhBOJ8LKR3PvOvASFmAAGsYZylNYHhGEfsVhI8XRLpXOJwRX1i CjAwMDAwNzAzMTYgMDAwMDAgbiAKMDAwMDAwMDAwMC D9STHqKHTaHFkeEGErBFNlMQL4XSXwWNEgIE8zUgLiNEKlMKKnGdwsLNShFLRhzgGFIXFqBWLrEYH0Vs ZyMIXdRUFaQPsvQPLmOFZdHrw7GOItGYZtBB4cHyDzMYTaORQ6FJmsTTEvNNBzmgVEEMUnIWDiOMGdMo AwZDBgEVFqEFhgJLLvVMZcUiXtFBPbESHhCI8tYjLm MQRfCCS4BTHaTLCyVSWbbuSYQTFvYNWaDAp3HWUvMECvZBWcYJqhUUSpEUEsFHT2JNRlJEJmNY6tVxVl FTRdAIEvBPBlBUHzLMWevaACXWCsUBFlVVL9PNRySRBwVMMjOEkqYOQdIDYtJhw1EYXpVBCkXB0zEyWv JUAbDPD7IOZpAPTaOXAvveYEENRwKWF3CLF0YiLtGA BqVSFaPOzgGCJkESJrDwN8QGEnJLVxUP7iHqUlVRCkTXA1WkTvXRVmGCJjxlWEBKDsCOImFJJ1GoPyCM WcJEMtVQdwBJRmSLUkZMCqXLF9FRJ7MOMgUrFyKGxtOMXEEKuFD5DsxiBbRwISE5yiAo8gGyLiHWOWZ2 Csu8EkRTOnWIZIFr1+KtT5DJT9yIQsFmk0MIV4FdrcDAZGWg== ID Date Data Source [id number] 04/15/2020 12:39:06 AM [facility] Name Value Range Interpretation Code Description Data Viktoriya rce(s) Supporting Document(s) Progress Note [facility] SZUYAf7tWaKQUcCa48/HZAxoEANsf7GzCBytWQx6MKcwVRXvX3KeCCK8qT0kOBX5GGeSOsFoKjCbHpJ4 lbm OmStmIEwEyAFJjUyjBNjLgSYewZzbksDRyIY2DjOL8BMTcZ99cDCDaOURdJ8VvZQZ6NNS+Ys3TGPLeeT XiHU5KRgxY5MdKzif7BK1y5U4DiVIpLGGYgk+8DeODm8GDH4YABBRGkuOAIlhQ5bR+9+XucrWayWbggz DOhMBa5sNV408MD5vzLosCS33OCtv511w25g9FKwcl F+qYF2guEYisbBVeWgBnXV9naGxa6bfa78C9I9J4z4vJhmBfO3yoMJTxLBAiU76XncWvuJ77zYuDefy3 55WK4Fg3CJyz8OpXodevp984UlK/2SbASS0zXxQSdg82ZPkedVVlXJW7EE39OvFQKrS4Mrn6Qms3ZU6D POVJ5NCUA22hD/qBnp1zhPxZZ/mVi3DQqjWN/GkMZW gEDJwA7ekE6cvLN6Mdhc54RuP9OvcG4VXH96FP8lmfkjpnQyrtW8flOOZYkPdgYYJsOT5kE2YanL7ufK 9UKzmk+mej02bHJRhrbl6zhq/+JHPqhZfw0beC3U9hoo8ymDVv+ZGjd4625m3P1NOM/fOuXoel+ijcb5 rTHMbB95GDFHGihsQg3RyZoFAH1JVg6gXBAcm1d/LO 3FM6iqV/qqlzQyacj9X+LIGM1LU/wSxiF2uvR1UA1sFoqUzdNJTCRsYvZ1LcVavDWV9kvU5shMDkaNSc 28uXj0vf53tAPe1zRvvsZ4QrfDPIlK9/i+BzK3TmJpqi457kd4GHoUDIavMgZYMW5xLYWdrJJCGQVtD5 JlBlpBcQCi5BjOGQJuOH7mgtHlDCB2uWkERkr2FqFP 6+Teague/D46Q8L2ElRdTKjamoAmdC/O+1WkwRJbO7YqhNUwcjAG3a7ZI0GndjcPlwqEd4mb2yiI/AWwdhDn [file] NuM2NAF+SS8jVBq+Fh9Up4JemnE1qsJeVVx9NIAkJYseQGQMXs9Z ID Date Data Source [id number] 04/15/2020 12:29:45 AM [facility] Name Value Range Interpretation Code Description Data Viktoriya rce(s) Supporting Document(s) Amphetamine [Presence] in Urine by Screen method Negative [facility] Benzodiazepines [Presence] [facility] Cann[facility]oids [Presence] in Urine by Screen method Negative [facility] (NOTE)Positive results are presumptive a nd unconfirmed;confirmatorytesting can be ordered at the [facility] at [address] [place] [address] at [facility]79 within 5 days of collection. Benzoylecgonine [Presence] in Urine by Screen method Negat [facility] Methadone [Presence] in Urine by Screen method Negative [facility] Opiates [Presence] in Urine by Screen method Negative [facility] Oxycodone [Presence] in Urine by Screen method Negative [facility] (NOTE)Positive results are presumptive a nd unconfirmed;confirmatorytesting can be ordered at the [facility] at [address] [place] [address] at [facility]-40 within 5 days of collection. Fentanyl+Norfentanyl [Presence] in Urine by Screen method Negative [facility] Service comment [facility] Results below the indicated cutoff (ng/m L), are reported as"Negative." Note: for medical purposes only; not valid for legalor employment testing. ID Date Data Source [id number] 04/14/2020 11:06:42 PM [facility] Name Value Range Interpretation Code Description Data Viktoriya rce(s) Supporting Document(s) Progress Note [facility] KPNVRu8nGoKYMzMw69/NNAqiQQFpp4AlHWvwNOc1PGocLHNmB4QyJNM1rT5yMOQ7LDxGUmOrQoTfYqT1 [facility] [file] CGXvUwFwKxb5FcN2BmCoTJHsQy6cNPAHEe3+HAgdgCHugWaqTLLISxH9ShhPMxPgBJ3EITh= ID Date Data Source [id number] 04/14/2020 08:17:30 PM [facility] Name Value Range Interpretation Code Description Data Viktoriya rce(s) Supporting Document(s) Color of Urine [facility] Clarity of Urine [facility] Specific gravity of Urine by Refractometry automated 1.043 1.003 -1.030 H [facility] pH of Urine by Automated test strip 6.0 5.0-8.0 [facility] Protein [Mass/volume] in Urine [facility] test [facility] Glucose [Mass/volume] in Urine by Automated test strip Neg ative [facility] Ketones [Mass/volume] in Urine by Automated test strip Neg [facility] Bilirubin.total [Presence] in Urine by Automated test strip Negative [facility] Hemoglobin [Presence] in Urine by Automated test strip Neg ative A [facility] Leukocyte esterase [Presence] in Urine by Automated test strip Negative [facility] Nitrite [Presence] in Urine by Automated test strip Negati ve [facility] Leukocytes [#/area] in Urine sediment by Automated count 0 -5 [facility] Erythrocytes [#/area] in Urine sediment by Automated count 1 /HPF 0-3 [facility] ID Date Data Source [id number] 04/14/2020 07:10:24 PM [facility] CT ANGIOGRAPHY HEAD [id number] RESULTInt erpreted by:Brain Carrera MBBSCT ANGIOGRAPHY HEAD [id number], CT ANGIOGRAPHY NECK [id number] INDICATION: Stroke codeTECHNIQUE: Contiguous axial CT images of the head were acquired from the base of the skull to the vertex without intravenous contrast administration. CT angiography of the head and neck was performed following intravenous administration of 75 mL of Omnipaque 350 injected at a rate of 5 cc/sec. Multiple MIP images in axial, coronal, and sagittal planes and 3D surfaced rendered images were then acquired using the source data. Automated dose lowering techniques and/or adjustment according to patient size were utilized for this examination.COMPARISON: CT head dated 03/04/2019.FINDINGS: NON-ENHANCED CT HEAD:There is no acute intracranial hemorrhage or evidence of acute infarction. There is chronic encephalomalacia in the right temporal lobe. Chronic lacunar infarct in the right basal ganglia. There is asymmetry of the lateral ventricles; however the ventricle system is grossly unchanged in size. The basal cisterns and foramen magnum are patent. No edema or midline shift is seen. No extraaxial fluid collections.There is opacification of the ethmoidal air cells bilaterally. On the left side the ethmoid air cell opacification is slightly expansile in nature and possibility of for mucocele cannot be excluded. The remaining paranasal sinuses and mastoid air cells are clear. The orbits appear normal. There are no acute fractures of the calvaria or scalp swelling.CTA NECK:GREAT VESSELS: The origins of the great vessels are patent. RIGHT INTERNAL CAROTID ARTERY there is approximately 50% stenosis at the origin of the right internal carotid artery with associated atherosclerotic ulceration. LEFT INTERNAL CAROTID ARTERY: No hemodynamically significant diameter stenosis or dissection.VERTEBRAL ARTERIES: Patent extracranial segments without significant stenosis. No dissection. Right vertebral artery is dominant.CTA HEAD: No large vessel occlusion or hemodynamically significant stenosis. No aneurysm, dissection or arteriovenous malformation. Right the proximal MCA appears slightly smaller due to anatomical variation and also due to previous infarct.There is a small filling defect in the right transverse sinus representing pacchionian granulation. The remaining dural venous sinuses and internal cerebral veins are patent.OTHER: Imaged portions of the lung apices are clear. Multilevel degenerative changes are present in the cervical spine.IMPRESSION: 1. No acute intracranial hemorrhage or evidence of acute infarction. There is a right temporal encephalomalacia and chronic lacunar infarct in the right basal ganglia.2. There is approximately 50% stenosis at the origin of the right internal carotid artery with associated atherosclerotic ulceration.3. Opacified left ethmoid air cells with slight expansile in nature and possibly to early mucocele cannot be excluded.Assessment of stenosis of the internal carotid arteries is based on NASCET criteria.The critical findings were discussed with Dr. Michel Landry by Dr Elsa Savage on 04/14/2020 at 6:07 PM. This document has been electronically signed by JORDY Carrera on 04/14/2020 7:08 PM Name Value Range Interpretation Code Description Data Viktoriya rce(s) Supporting Document(s) ID Date Data Source [id number] 04/14/2020 07:10:24 PM [facility] CT ANGIOGRAPHY NECK [id number] RESULTInt erpreted by:Brain Carrera MBBSCT ANGIOGRAPHY HEAD [id number], CT ANGIOGRAPHY NECK [id number] INDICATION: Stroke codeTECHNIQUE: Contiguous axial CT images of the head were acquired from the base of the skull to the vertex without intravenous contrast administration. CT angiography of the head and neck was performed following intravenous administration of 75 mL of Omnipaque 350 injected at a rate of 5 cc/sec. Multiple MIP images in axial, coronal, and sagittal planes and 3D surfaced rendered images were then acquired using the source data. Automated dose lowering techniques and/or adjustment according to patient size were utilized for this examination.COMPARISON: CT head dated 03/04/2019.FINDINGS: NON-ENHANCED CT HEAD:There is no acute intracranial hemorrhage or evidence of acute infarction. There is chronic encephalomalacia in the right temporal lobe. Chronic lacunar infarct in the right basal ganglia. There is asymmetry of the lateral ventricles; however the ventricle system is grossly unchanged in size. The basal cisterns and foramen magnum are patent. No edema or midline shift is seen. No extraaxial fluid collections.There is opacification of the ethmoidal air cells bilaterally. On the left side the ethmoid air cell opacification is slightly expansile in nature and possibility of for mucocele cannot be excluded. The remaining paranasal sinuses and mastoid air cells are clear. The orbits appear normal. There are no acute fractures of the calvaria or scalp swelling.CTA NECK:GREAT VESSELS: The origins of the great vessels are patent. RIGHT INTERNAL CAROTID ARTERY there is approximately 50% stenosis at the origin of the right internal carotid artery with associated atherosclerotic ulceration. LEFT INTERNAL CAROTID ARTERY: No hemodynamically significant diameter stenosis or dissection.VERTEBRAL ARTERIES: Patent extracranial segments without significant stenosis. No dissection. Right vertebral artery is dominant.CTA HEAD: No large vessel occlusion or hemodynamically significant stenosis. No aneurysm, dissection or arteriovenous malformation. Right the proximal MCA appears slightly smaller due to anatomical variation and also due to previous infarct.There is a small filling defect in the right transverse sinus representing pacchionian granulation. The remaining dural venous sinuses and internal cerebral veins are patent.OTHER: Imaged portions of the lung apices are clear. Multilevel degenerative changes are present in the cervical spine.IMPRESSION: 1. No acute intracranial hemorrhage or evidence of acute infarction. There is a right temporal encephalomalacia and chronic lacunar infarct in the right basal ganglia.2. There is approximately 50% stenosis at the origin of the right internal carotid artery with associated atherosclerotic ulceration.3. Opacified left ethmoid air cells with slight expansile in nature and possibly to early mucocele cannot be excluded.Assessment of stenosis of the internal carotid arteries is based on NASCET criteria.The critical findings were discussed with Dr. Michel Landry by Dr Elsa Savage on 04/14/2020 at 6:07 PM. This document has been electronically signed by JORDY Carrera on 04/14/2020 7:08 PM Name Value Range Interpretation Code Description Data Viktoriya rce(s) Supporting Document(s) ID Date Data Source [id number] 04/14/2020 06:14:53 PM [facility] Name Value Range Interpretation Code Description Data Viktoriya rce(s) Supporting Document(s) Glucose [Mass/volume] in Capillary blood by Glucometer 108 mg/dL 70- 140 [facility] ID Date Data Source [id number] 04/14/2020 10:13:09 PM [facility] Name Value Range Interpretation Code Description Data Viktoriya rce(s) Supporting Document(s) Albumin [Mass/volume] in Serum or Plasma by Bromocresol green (BCG) dye binding method 3.5[facility].2 [facility] Bil[facility].total [Mass/volume] in Serum or Plasma <1.2 [facility] Calcium [Mass/volume] in Serum or Plasma 8.6-10.0 [facility] SEE [id number] Chloride [Moles/volume] in Serum or Plasma 98-107 [facility] Creatinine [Mass/volume] in Serum or Plasma 0.70-1.20 [facility] Glucose [Mass/volume] in Serum or Plasma 70-140 [facility] Alkaline phosphatase [Enzymatic activity/volume] in Serum or Plasma 40-129 [facility] Potassium [Moles/volume] in Serum or Plasma 3.3-5.1 [facility] Protein [Mass/volume] in Serum or Plasma 6.4-8.3 [facility] Sodium [Moles/volume] in Serum or Plasma 133-145 [facility] Aspartate aminotransferase [Enzymatic activity/volume] in Serum or Plasma <40 [facility] Urea nitrogen [Mass/volume] in Serum or Plasma 6-20 [facility] Osmolality of Serum or Plasma by calculation 275-300 [facility] Creatinine/Urea nitrogen [Mass Ratio] in Serum or Plasma [facility] Bicarbonate [Moles/volume] in Serum 22-29 [facility] Alanine aminotransferase [Enzymatic activity/volume] in Serum or Pl asma <41 [facility] Anion gap 3 in Serum or Plasma 8-15 [facility] Glomerular filtration rate/1.73 sq M pre dicted among non-blacks [Volume Rate/Area] in Serum or Plasma by Creatinine-based formula (MDRD) >6 0 [facility] Glomerular filtration rate/1.73 sq M pre dicted among blacks [Volume Rate/Area] in Serum or Plasma by Creatinine-based formula (MDRD) >60 [facility] ID Date Data Source [id number] 04/14/2020 07:45:36 PM [facility] Name Value Range Interpretation Code Description Data Viktoriya rce(s) Supporting Document(s) Hemoglobin A1c/Hemoglobin.total in Blood by HPLC 5.6 % 4.0-6.0 [facility] (NOTE)<5.7% Average risk of diabetes (ADA)5.7-6.4% Increased risk of diabetes(ADA)>/= 6.5% Diagnostic for diabetes(ADA) Glucose mean value [Mass/volume] in Blood Estimated fr om glycated hemoglobin 113 mg/dL <126 [facility] ID Date Data Source [id number] 04/14/2020 06:28:41 PM [facility] Name Value Range Interpretation Code Description Data Viktoriya rce(s) Supporting Document(s) Leukocytes [#/volume] in Blood by Automated count 7.9 10*3/uL 4-10 [facility] Erythrocytes [#/volume] in Blood by Automated count 4.29 10*6/uL 4.6- 6.1 L [facility] Hemoglobin [Mass/volume] in Blood 14.0 g/dL 13.5-18 [facility] Hematocrit [Volume Fraction] of Blood by Automated count 40.5 % 4 1-53 L [facility] Erythrocyte mean corpuscular volume [Entitic volume] by Auto mated count 94.3 fL 80-96 [facility] Erythrocyte mean corpuscular hemoglobin [Entitic mass] by Automated count 32.6 pg 27-33 [facility] Erythrocyte mean corpuscular hemoglobin concentration [Mass/volume] by Automated count 34.6 g/dL 32.0-36.0 [facility] E[facility]th[facility] distribution width [Ratio] by Automated count 13.1 % 11.5-14.5 [facility] Platelets [#/volume] in Blood by Automated count 304 10*3/uL 150-400 [facility] Differential cell count method - Blood [facility] Neutrophils/100 leukocytes in Blood by Automated count 49 % [facility] Lymphocytes/100 leukocytes in Blood by Automated count 34 % [facility] Monocytes/100 leukocytes in Blood by Automated count 12 % [facility] Eosinophils/100 leukocytes in Blood by Automated count 4 % [facility] Basophils/100 leukocytes in Blood by Automated count 1 % [facility] Neutrophils [#/volume] in Blood by Automated count 3.95 10*3/uL 1.8-7 .0 [facility] Lymphocytes [#/volume] in Blood by Automated count 2.69 10*3/uL 1.2-4 .0 [facility] Monocytes [#/volume] in Blood by Automated count 0.94 10*3/uL 0-0.8 H [facility] Eosinophils [#/volume] in Blood by Automated count 0.28 10*3/uL 0-0.5 [facility] Basophils [#/volume] in Blood by Automated count 0.07 10*3/uL 0-0.2 [facility] Nucleated erythrocytes/100 leukocytes [Ratio] in Blood by Automated count 0 /100{WBCs} 0-0 [facility] ID Date Data Source [id number] 04/14/2020 06:49:31 PM [facility] Name Value Range Interpretation Code Description Data Viktoriya rce(s) Supporting Document(s) Prothrombin time (PT) 13.1 s 12.5-14.9 [facility] INR in Platelet poor plasma by Coagulation assay 0.98 [facility] Routine intensity oral anticoagulation I NR is typically 2.0-3.0. Target INR must be clinically individualized. ID Date Data Source [id number] 04/14/2020 06:49:31 PM [facility] Value Range Interpretation Code Description Data Viktoriya rce(s) Supporting Document(s) aPTT in Platelet poor plasma by Coagulation assay 26.3 s 24.0-33. 0 [facility] ID Date Data Source [id number] 04/14/2020 06:52:55 PM [facility] Value Range Interpretation Code Description Data Viktoriya rce(s) Supporting Document(s) Albumin [Mass/volume] in Serum or Plasma by Bromocresol green (BCG) dye binding method 3.6 g/dL 3.5-5.2 [facility] Bilirubin.total [Mass/volume] in Serum or Plasma 0.2 mg/dL <1.2 [facility] Bilirubin.direct [Mass/volume] in Serum or Plasma <0.3 [facility] Hemolyzed Alkaline phosphatase [Enzymatic activity/volume] in Serum or Plasma 83 U/L 40-129 [facility] Aspartate aminotransferase [Enzymatic activity/volume] in Serum or Plasma 17 U/L <40 [facility] Alanine aminotransferase [Enzymatic activity/volume] in Seru m or Plasma 26 U/L <41 [facility] Protein [Mass/volume] in Serum or Plasma 6.2 g/dL 6.4-8.3 L [facility] ID Date Data Source [id number] 04/14/2020 06:52:55 PM [facility] Value Range Interpretation Code Description Data Viktoriya rce(s) Supporting Document(s) Bicarbonate [Moles/volume] in Serum 23 mmol/L 22-29 [facility] Chloride [Moles/volume] in Serum or Plasma 105 mmol/L 98-107 [facility] Creatinine [Mass/volume] in Serum or Plasma 1.26 mg/dL 0.70-1.20 H [facility] Glucose [Mass/volume] in Serum or Plasma 90 mg/dL 70-140 [facility] Potassium [Moles/volume] in Serum or Plasma 4.1 mmol/L 3.4-5.1 [facility] Hemolyzed Sodium [Moles/volume] in Serum or Plasma 137 mmol/L 136-145 [facility] Urea nitrogen [Mass/volume] in Serum or Plasma 11 mg/dL 6-20 [facility] Anion gap 3 in Serum or Plasma 9 mmol/L 8-15 [facility] Osmolality of Serum or Plasma by calculation 283 mosm/kg 275-300 [facility] Creatinine/Urea nitrogen [Mass Ratio] in Serum or Plasma 9 [facility] Calcium [Mass/volume] in Serum or Plasma 7.6 mg/dL 8.6-10.0 L [facility] Glomerular filtration rate/1.73 sq M pre dicted among non-blacks [Volume Rate/Area] in Serum or Plasma by Creatinine-based formula (MDRD) 68 mL/min/1.73m2 >60 [facility] Glomerular filtration rate/1.73 sq M pre dicted among blacks [Volume Rate/Area] in Serum or Plasma by Creatinine-based formula (MDRD) 79 mL/min/1.73m2 >60 [facility] ID Date Data Source [id number] 04/14/2020 06:52:55 PM [facility] Value Range Interpretation Code Description Data Viktoriya rce(s) Supporting Document(s) Magnesium [Mass/volume] in Serum or Plasma 1.9 mg/dL 1.6-2.6 [facility] ID Date Data Source [id number] 04/14/2020 06:52:55 PM [facility] Name Value Range Interpretation Code Description Data Viktoriya rce(s) Supporting Document(s) Troponin T.cardiac [Mass/volume] in Serum or Plasma <0.01 [facility] ID Date Data Source [id number] 04/14/2020 07:36:35 PM [facility] Name Value Range Interpretation Code Description Data Viktoriya rce(s) Supporting Document(s) Cholesterol [Mass/volume] in Serum or Plasma 178 mg/dL <200 [facility] Triglyceride [Mass/volume] in Serum or Plasma 343 mg/dL <150 [facility] Cholesterol in HDL [Mass/volume] in Serum or Plasma 28 mg/dL >40 L [facility] Cholesterol in LDL [Mass/volume] in Serum or Plasma by calcu lation 81 mg/dL <100 [facility] Cholesterol in VLDL [Mass/volume] in Serum or Plasma by calc ulation 69 mg/dl 16-42 [facility] Cholesterol non HDL [Mass/volume] in Serum or Plasma 150 mg/dL <130 [facility] ID Date Data Source [id number] 04/14/2020 07:36:35 PM [facility] Name Value Range Interpretation Code Description Data Viktoriya rce(s) Supporting Document(s) Thyrotropin [Units/volume] in Serum or Plasma 2.240 u[IU]/mL 0.270-4. 200 [facility] ID Date Data Source [id number] 04/10/2020 03:36:32 PM [facility] Name Value Range Interpretation Code Description Data Viktoriya rce(s) Supporting Document(s) ED Provider Note [facility] VZGXRj1uQzUCUiGw81/YVBykJQEvo1NsBKquUCt7FPurDBNvN1CeRSR8gH4yBYQ6SWtNImKtQgHhMpMr lbm XpHflMPnChAEDtPaiNJiIbJBbmBdxjvQWvOD9ViZX3UHAbZ96sRPQhNOPdQ9NuNACbSNX+Mr6APMQekP MnNS6EDmtG7V8uu9v2Zq8joc5VqRvyMcnEQNS6oOeDhnSkZUyICRhpPJ0BgSs5lAnhZRep/lpt1rL4rg +XILa7h9jpV7C7tEnTTdCHVHD3q6/RXgU5kpLev95/ ScUF0hei21+Er8jrdu1170E1Lq6HV5ij8QY6eZX8Ic3nxGPfRXPOWa6ak8fhXPgXx5SKk8nOb7MRPjyW ecC6AGdQ81ctpkjV5aDB8aenZKU0lOy+/RWZvBbJmKOm9tfKOEzcIq0grHuBe+skjVbiZJRGRxnAQ+александр [file] LoXYv9ZCqfQQ4RFKTJI4QQUt== ID Date Data Source [id number] 03/31/2020 02:42:35 AM EST [facility] Name Value Range Interpretation Code Description Data Viktoriya rce(s) Supporting Document(s) ED Provider Note [facility] TUFLQd8vReHRCoSa80/DDDyeMYZdn2EgOHmbEJd6AIamMGQjQ5PrHBN9lP3eAJL1YTlIHuMpYzIcHhAw lbm VxWagOIeCfZULbVhuGQnXvIBnfFsvzlQMpQB5IfXR1LIGaU46kQCPlWQNiV5QtJWE0PmW+Kw5PKLNotO EgHE3ITkuH6O5aD8f8SB/oUH7ZjNKBOHAF48gQOnoNM6fYJnnB7TW3K2vFolaumkU/gh6JIlgV24Yhiw ewqzfrWsk5y/1eSbaUsv/+Bhsx4SsbVun/8jNOjTo+ V99/p26G+ytNrQcaxGK5qGlGY5lW6v++qu9Jd0Mhvq7cPUbiaHRsdnsUWrJCmyKuAO+6PCdWs2qJVcSO 8G4Keu5tD+qt+vhkb/+s3vF6NvYrap6Ueq/UvpE85Gn72cmbHKb0Bj7egWeq1VRfP90i5ugWAb5sKi12 yOUdCtOo07HSt/9tkVNThJHRKwy09pyUyiJilLOqoc ZICjbh7fyY7ZZWC1tBEb2DnSWylq45BJOYzsGvshpnE4euCGJimxHAqSma2VuhzXQm0hKLHInxFmDpNd uD3koTaHfQTySdzUxKYP5HzSOiT1aT9XINUULFl6UXMjTPugiVptc6vSRZDsUfaWTilCXsDQaVJSXZLT GLuxqA3TMPJnuavZjWxl8RcWKoT3+AfXQ7MYO8bbGj d0NCY97+9rOyZPjsS8ghoCJ8BNeuyAD8JcADpk/KXfZaKlNlz4bm1qUL3pS36KsdFeUYOhtQuCv02lMm tqA7BLEJ5jQt6NyeqT+ehY9dfmzBxfYkUg4Q8K8QLnIcncfOjhn8Pf6d7Wfg3/QLOBgs2Q8pU3wb43ui /EI/oN6I2CzbT2bY+Xjx1EGI3iPdhDJ0jrNmoYzSCy 7zGcaKvbNWpV8dq2C2tb0LSU6O9bUN88QZ2oTsUrcqVnmT0s1/YcPftXgCorYFv3k5DQDhmgax6OfZum WWCAngkAVW1ZPdTchbfQSLMDxCf1JybUbgN2ZtbAXxmXdkzNywiJ8xV8gBP027kvUiK/MtaPGUl4ODG+ Amrik/WZjIzbq04YhWj8Ma7fjisinJ10SiN29Ohv2wUwx [file] xHyP5mXC6zDCQ0Y0sqRkSJNH9ApfnC2Q3sU7rBk/[employer]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 [file] ExIQMfmZQiLXp5A90haTUfWPoxMK0NTFZ+Jayla+Jr5CCIPlRGXrSALdTvPiBMYRKkIbS9GnW1AHc5HmZ0 QzJU61yLtfyaZtTBmvOV1MFQ8cFDSeDQJLKD1BhEMinO3hmeWgGcXrNCJXIxHjS79vkOQiFSMkEVW6BZ NpZe5MSUHgB4JvucXimAzwtsVtZTOuNRZBNF1YILvy xyKodCEyfQftKV39qUkfTD4MOw5GLhXaIG7klw6KyEBeQf2CPUXeQN2XTOVxULVwSSZsZFS2DDAzFmTl BMgiDTVmCJIeUDT0KCYhROWeVX8QIkSpJCYwDaR4LVSiNMLdJONwdi0BONVjIZNhWsZmIYBmQWWnDINi VLozSCDzIPPiBPW4VOCtSDCjOC4TCeVkUBFuCUN2WL lnERCkONChxx4VHJTqWWUiFkOzYuEdQULdHGFmVDdcNDDiQJJ4JWScKAJsJYLdBC7ZIvRsSUWgJBT6UC WwMMDrHXTvaw0BHOJsDUEgFDJ1InYoJCFeSWZnVAurFEUwBDR4CnE3ILXuSQAyED8IXuZvHFOjNCJ2ZR caTBYsWPNlps5YTVXwFCZnJGaaRLHlCLYxMDHjTDfh HCJkUAAlGKo2XVVpAYAsFH1TQnVtSBTzDBX8PNVvAVQiPJWtms5JVRWxHWBrFmE9NHKcWSFkIYXqMVzr NPPtGSGiXaX4FUHeFGFwHU5CFuUgGAJhFOYaDMJiKZMpTARmfo0HNJXcNEErWhYrQiKePOPiEGGwNXae XVPiKKJdYke5MCIcALUxJG4XGrWuWDOiWfG8ARHzKR RrWYMooi0DNLYdUWGzYEI9MEGyACHeWURjQKgzQPVwSUU8MINfGBQkKJWjJC0GTeNaFKCqJaI9NzWdBF VoUGVmkv7USJBqMBJaJQp7XMMnBYTiWLKsWGfbKJHeXYE9Egs8SCLjFYUpDM0AZgYtQFHvOiw5DWXtXR BeZSJzfc3QTEEcJMBzVshjCaKxZZXaJOPkARwoHFYs QUK8GRo0PKGzYIPhZO2VCjPnRZOsHzigLfNbZJKmFVJtjb3MEXEbMRIvPSR5GHLwKVZwFFEpFVpeMKWw RIA7AGK8HFPrWEIdQX2TFtJyZSVuLoq2UKgaKZViGVCmsi0OBLMlBXSzLJd3KBGyJEDtUADeEFl6fmXd fNMoBIe9DX0FT0PfgyJgMqXEDm0Xl271AWSxYHNbLm 4RV5lpOf4yUVPhZPIGJb4MNMu6EOZ7YCI2KSVsRaQtISljWbkqHHS6T9P8TPQeYEA2G1K+IDwxZDgxNj AoS2RzPEYvGVCvBNVaRdseMXi0IeE2XsCaKI5wQWJZTs9+XCyskSPaxMnuFFRDAfG5JBO7NCphPMTJJz 0K ID Date Data Source [id number] 03/30/2020 01:45:58 PM [facility] Name Value Range Interpretation Code Description Data Viktoriya rce(s) Supporting Document(s) Progress Note [facility] OVTOYz0oWbPNGoUm93/NHFqmUFRjo7IoAEayBCz5DPusRZWeC6KcVSI9nJ5mWFI2ZCkFYgRoWuVeUuOq lbm [file] hYNnOzVV6JUFp= ID Date Data Source [id number] 03/29/2020 12:08:36 PM [facility] Name Value Range Interpretation Code Description Data Viktoriya rce(s) Supporting Document(s) [facility] OWDJPv1bNgPRNlYdu9FpPuHtTENfHC2rvnf4P4K5dEDdL6TwpPPev6ocH9DwH6IcSWYwHYHWBR2McSUd jb2 [file] mycVNZImGvMSgDJPL3Y5mTOLNQABnDHCUyXrYkrZGk NJXFCOEYBLFouNX5M2nDO5MTwZuXO4iV4G7qV8rTNPVBxBIpcrNWQJlIICgVShK7QcUGtGOPaYQtSP6k 8nxHbCgSbCwZq8vtaTq+eYhSmQNftgPKBUNosXielyQxBTnZbNgcw7SWzfNl9OPEQJ8rWQ4aZDcKaYXJ KTMTvxEAPNVZT0mmb1XBLPrvWk0Yng8GTfZ5lC+MIU xXbLf40JEwbWxrSIR5haX90+rkwjLSp2V77prWsJOmeWKFGgy+T8tzi0GNUkAGqcqOwUH3xAMoBx6gmw 27KUhkOVuBxqRG8vEzhPcmJbDIaMHqGLEiEbOUcOlGY//ed//K9/coq7/QnVf/7r//director of programming/+F/+ef/+M9/ /X/++iui6LF6rYw5957k96+a+80NTSkJktlv0j8ruk +V5iupqQo/ggeVi1ZvP20Z0QQXXaJNx7ZCougugEPeInrKeDVwHbMbxAhi9E6UG/s9lZ6CGjgtqfsKdR ELqEROxZ/+rhZbc9/iSAoDYbrDQFGQYy8QbECwc9C2bSMKO6UVwgnTNMfmDGD4jOIqITcQEaFq2cMCJX DMKSyUHNGL7OW3WMmhPoUAfAHIHzPGsHZXSiEYZw0K MCt4SIQe6HOOnPOMJsuRTkexEVmT0NHHo2KRFlkB7BXSc1WEVigP5PNNc2EJKwiX1BHEn9QUZyyQ9ERF a0OCWbrmvkVwrGqYfrAlEg17BcKKILqpYBULPWXzjBSHZhGvFurJZsJYSUFKLAY7kIGPNjMIpSPVQOzO TiU6qWSCAwurndFeNHdAyIIvrGjrc0hnldvrPIL5tP KPXjXqLJTJ2fEYBzzKeeDNUUXMQ+UVntmZeJRazXWlHrcEHtB3BIHSLPLywcAOuQBIqcyhnaWUvZEGqc realANbJYUydpflvURpZPVaevciqQKvLPKemxwzuWJdPTBwgha3cGB+KL9iTTa246OWDsAjPbnMmnTHy OHLW6n794lr6hQXTEXRLjBRKXrlPzqLmDIHNUuRoqQ [file] jz5VdkpsmI3/n+j97n7/1AokuZ947rC95jq4y3fu203j5637Erjf9b09p8Wuy4sKbwyUy39BM4ay1Xfb 1T/5xtpa/hDSV29pu88e7H0OD3/Y/Nth/9eB1+Latoya+ PZX3+zcGd7/xo9i45ZbKjgdSfPnu/p2p9xt8/ZWn+Tgmdn/IyF0hQ6tPrZoyu+05JNdooa8u0w+rvNbm fe+ri70yzjXmWquq3uI3a778R6fbN9cPiVwkptWmCg+pL4YZw9Dt+8MdgGHsaSiR47XoICJJRNtTTvdy uhS4nv0lsT5Z0iGNqrLWwYYjvdYdWSQMuFPU8l1u1W igcXnl2n2ztHRqf+pd31WOyuB5c3s8CwZccg+9i8kGNReaIgMKxerAsDOwMwH9D9842Nn3bHns80OJTD PMcm71W8ukHVdj4upflsX0Wfw0qp7t7NP1n0y8h4OnLudJZM+jDh76bs2lX2kpibyW/field technical assistant+1kR8w35al [file] cvGq32snYA57k4jA796gaCe791fTo34oarc46aydre 99zrFz05pfId0NKGzpHrkWMyvKb/Ycf/vTAODly4g78/8hceaclbbHXdgztPy5W3wKS5VzlwsvjPbKo8 p1Tbh/XcfJhFTM4L4c0EFBVuG9uolRrR92mGAX4o1f3BHJRUU4wYnxirruv2FRKdbDzu00vrO4otqmzA JOP2tzfWeUUp1rJEsa4uDLjVgkoo5t+1usyDnvoppp WscHyR3tNKqp+w9x3TpM0px3ecCUt+D+lfAcG+xRn3VriXzLdYF6sqb5t1/7GPYJ+1E4ji6HkK5AynRF 2VO4lX0xq9U31C70w80ou5b56IV2oq0Xfbu6mpL6ib1Gxt6+Gvw1+Gvw1+CvwV+DvwZ/Df4a/DX4a/DX 4K/BX4O/Bn8N/bf5Jblw0Dlyc8Xtw47Rzx3+Ovx1+O vw1+Gvw1+Hvw5/Hf46/HX46/DX4a/DX4e/Dn87/Q2lv8AhUn20+lg8pXwY8vSrnHg0gS4zF+kPo2j5hg 8dQ2IAv7OoSOlFMj3GIEp/+/mWi7VzJHwZYLGJ2RW9VvhJ9FZ68L91u46C5uThxL/YJ+wnv9WqLJ9j/J 9zh0OpUO4q/V5fi5JcMP9q/Y2hu5TvVT9u/X7pu6Oa CX8n/X4xb9KzCP1V/T8ll3BdMS5M/Q7up2KwHA3F/L8ss5CnMO9F/Q7kn1VsYB1M+MieZxXzy6eZx/fx J4gFseZb9KM6mB6vI+nY2oo1rJ4nI+fJu4m7bu1lE8XH2CueL9y9Y/BX4K/AX4G/An8F/vd4Fwbr8Dvt q1Gctb9RroP+CvwV+CvwV+CvwF+Bvwp/Ff4q/FX4q/ BX4a/CX4W/Cn8V/vt0Rbiz9Ifzt5Wuhk1XzeH+KvxV+Nvgb4O/Df42+Nvgb4O/Df42+Nvgb4O/Df42+N vgb4O/Df42+Nvgb4O/Df42+Gvw1+CvwV+DvwZ/Df4a/DX4a/DX4K/BX4O/Bn8N/sl5Mlun5Nedb0QvjB /hQrm3kA0hebfXk/Zi32Zya5bIeugTO10xRT56yNi8 wW6wO+mi94T4OSisvjv8OwCdn+Irzfiq/mbidcLfatwY/uZxxlf7+Px9P7+TjPwlRuvX9yWciKfvJgn0 3Dts9Q3wBn5jvbfg0X/GV/plWYdN1mkoI+69msd851K+DqkHTL9lckutc1xFY2bzfx4A+UtUeXw9kO5P doPdYXfYO+ih2uA2uJ6Fvtis3Ly94hpl+NgjvnqOYR zIIBpIRZRgfFiJDFx6L+HvhL8T/k74O+HvhL8T/hK0pI3D5ZqPG966lf/nXOnvzOPbnhngiK+46vCst3 yDRY1A8/7Fc7yqw4IMb/FtzxLciK/1z4Z6am/7J+Ge2KoTN4BSBcRKTN2US3Ilh4tHd/+L/XbHV/FB4v tBwmb8GGTXwWLEvL1ziV2mGuzbs3FKUpOBcJyv6Pbc OSE9ghz4JW21AWVq+H7fOL+iuKY+H1a6SiNeTv9H0ut+RdDE8FE6Xs5T79/+0kj1hDlqnjxoaF63jj20 +83m/1FS07I+GekeEc7PsRHakg2qKL7SK11m+/nl12m8Na+MvOHcsaCOqrgh2SUpjAKeQqemQb1Mv7+I r/N6nvao99dzs/H9JleS/eWq6vhO3+e60Sq+quPnut Horwi96aA8iwlF6kBbh5wv7K8+rntNz+/dwtT4tv1oS0nJ/tcctP25Vnzt0uX/sbduOu8oqlwwwA/YJ+ mM0cS3omu3jaV0pA9hB+oTi6BekWvZD+qRu2WgkEZvPs1l/I75Tw2dInCoXb4lB4nr/pv/Nu+/cZzx1T 8MKevLmZwkWJ2m3Pl9bs94jzf07k1+ht2f60+zk49t GV/kQ1dB6UQo4ANqcnl9HhN8joe1ihw5+Csntqx2pPg7og9IomN8/L3y30b+Oc/ZiK+zcS8RjRB21Ez0 YzsByYOSFq7p0qb0AL090F+p4oM5or4GaGoHmJzvbt1jl2dWoLyn8rMSdt7l+76iJ7VIV62+ir8r3f2u Vcr4IaBA1nMq4DAc2FYw6mmeRcm2i3jvgO+uK+3hb1 5/8fmC29ZMHHOTfDevheX4SzP4gg24KmZ2hL008b8af34g4kht4qFI9cwi5/nO10of1Tls8cVivx33V2 1HvgjDmUaW2bA7uGlPoglNLQDXKzL+vu9H+FCH5WLzqkaQ0oMQWybizryzzS49ZM8tGhwbk+1kIq6kF4 gH7OFv/bhG6370/DR3Uz6iBrfdt+d3ZjJru+PDzwx/ wg2cdkd2Q+r4fF8z/K14fX47zJ1ue3R3Dvpd4zeyraOt2E2d2Z0LP9B+j/iqzouIr+qcyvzVVcfn/M38 VfKQ+avkIfNXyUPmr+pYz/Vn4XqV+avkJ/HQzUpYup2G8+eF6/PC9Xnh+yhglP47Gt7djnluSvp3s4ye 5X5eJ/9s17n/UpwtAqvB83KG/FUdK+wKe4O9+XlNw+ ll4G13e58p01IE2ZuwB/YJ+0N0uIgh8XwyL9EwxDgrIgvS4jUYcsN/Bf4K/BX4K/BX4K/AXzm/B02Ovm AyYV+w4/vVoy+Ywl+Fvwp/Ff4q/FX4q/BX4a/CX4W/6vg8HZ+len4or8/QB03x/Sq+24mogx7mzAXMVi d+nsuPPxn5LB487KzAQPlDKYxQ0JZniWhHF+wD9gn7 qW8CYf5U/vhN25xLV/sYdoVdYW+wJ4tQtrYhBKdSY+qi3lA6jM4YDfFsoG4ip/xVHcMOf/3oC+ZHXzBX 4XdkDKeI7CJ07J62VamUkyE+YD/6gmX+na8X5SpgA8i/2sewC+uOq2WciEnYR+dRt6MhnLopVdNW+4B9 wA5/O/ci7EwmhKuzi9FPNquvWrMYhtUoJR+dN9uUyk PdYXfYO+sx9cE7yE3NGeUkkAKjNG8d/P7xn8PkYN0t/G0ag8UhVL7t/B8sr9IqXO4t/W0wa1LiVM5q/J 1py2XlTI0D/H9rx2XrZF1M/Y9wc6UnXM6U/J6ju6GsEJ9C/X3zw8BhOO+cOet4BUL+2HKUIflmAp495W NDqnWtIot5TKr+3MAFDolzPk299CFXdoPqGvf4DWp+ 5QCPQcoxCc410CISvkAsAni2PRx+6ZCKYlgoOo689XOAnsCeMzt3GEs+8IFyPw7bpqJNrlsenauCW1fq y3mjHhe84kl+qo5hP/kcx/NXjuevXBV/f/NVvco4KYo+fxU8ilW7I6u+ypG/cuSvHPkrR/4Mrv7h5J0h +StH/szOb4Zru6ikP69B2/Pj+DpJ96yK83+8nXjSEV 95O/GGt3M/qclJahVKBubqA6Vd+jd8S074gfqzF07sYTfr+Atc5SnmUhI8AimBcbLdZX+uG5xAtwNbTX fYO+qm6cG7gV4INd1N/qp2xofc1Ackg7Gbt04Ihh4+Ovx1+Ovw1+Gvw1+UkxTmyb6IONzhj3DMNoUch0 Gs8wvCG9OaYRAWaC8W9ZZOC2/kjmNtWw4vmKXcc0Fm zC5evPtSllPglkhmgfy+Ch9s01i2wjLzi/k7r0uFZWHejB+/8zlT8+/8f7zTLXPyPEVW6Bwe3czs1xc3 jNc5+RzP/FV+4cfhGralZL2K6lAMpSnbuoKg/8NKdQdEqQYJUwBRfaKDbXKVDdfHJDMGerwx2ddsitFR 2cdl4Go001anYtIEcK0BqTLzu4gF6CFQ7izHJEGeCk XZwGsNFNCMfi516tPrO044l7Mo8AibJ/KL5F6P41/pg3ms5/qA+Mrx/JXP8/kGO68Z6/z+9XmeJ/SMr/ XqRQS4efw+J6mdP56KE0ndxhmmrZK75ep9tL3uiV8n2B4Q8plM22PW/hdi3Y06mz49D+SvHPkrR/7Kkb 9y5K8c+StH/sqRv/OLz3fsc+Cq7j3wkNxyOglEQa5L Ge9ysXBYYIaMg2/Lfxv+aqC7ya04xS/8WmxE5xW4hU3OZe4A+hUzjjd5IG/4ah/UMdSL7Lp1zl6xG9/j WuDsjnT1Ta98Y8t3l2/7lX8f/b6zeGvlFY31tY0rpBggrW7evsuuzNB+ft2uk4pg5rlt1nRhCzN/JvSF kfbQF/qt04oem/fsh9s59iw0FulEn5DF7JHa1yUPC7 ztrZh3yQyIt/gub2R34kmQZZiSY6uw2ZoeWxehI78MgbDAaFX9hr4pSnu1h5SRcYO3bf504V9v343VXh l5yWX3hhl42QLA9j4b5ARmcK/vaW/Pfac3e/HlwfY2dHJm43Z4R6tiT8qaC8/y/T5BluX9zwG+kHu1hb 3Jd7LCC6ki9yeVkg8fkahvzoGLecwBV1mAvaZsUFfK G+xSsuEuGe4ybd/3x25+Pr/868j5G9/pNg4/Vn6kkMe8OYj67PPu10zajd5iwcf6Fd59yFf9DcJ+qv0T 8VXtsYivah+eYpa16vWwRx/MPV/9MR3z8ef8uQtNPr/HsyWaS6hBSj8y+oy5ewlfR2qzd/Aq55p0D/zo vx3PX/SL6uZca+p4/qrj+ztK27857oeM4946ic/qeP 8f94Kqwik/8mI9MsjfDj5RK/WFN2LuP5xQfH7GkxF/eqy4IK6O+1ecT2dIuhVvOC+nZ0aPgyu92N8y8V kk5PydyGaxU/YJ+8J4bS04aV0DomZeExuDDzNc8Sb7z18XjvYx3H11vo+M96fA4fd/J/up3KqY6vj/J/ kb6NoG3wV/F/jc3YfE2jK/F/kg7ZdU4rA/F/xd8HfB 3wV/F/wi3KaQ5qI/oQ+O6/r8otg5iG4tR1rS8oQ4j95rJ1ngzzy81EQJ+zZREpciEu4zuhE93KD+OKAP DuiDA/fugWKaXHx07WWkisl4inmEfr5i+VuQ6ZU36V00EflTerC+YJ+pJ7uW2Yu/Cii3l5FS1VTB4g2l 7PBXz++bcKmvVWc4jiVFa3MxyLhBZ+kJ4gC8oT5Yxf A/ifheQ38I5bPjhOoyS0EJ3DJ0lM6+ruk9cN3qN+lFv4f0lr3xZ6BY9BabD/EIrfGlYU10XP9q/DX4a/ DX4K/BX4O/Bn8N/mj2Bxfc7Iymu5Mwy81Qsk0+Gvw1+Wlv22eDW9o/0NoY6ULAkHXJEpiHNhe5wEY8mU AfHNAHB/DSIA8lFD6t8CaIp5+Hvw5/Hf52+Nvhb4e/ Hf52+Nvhb4e/Hf52+Nvhb4e/Hf52+Nvhb4e/Hf52+Xr1fHBq0yzpKnfcErwdLzrpFnbbOdpcKvirYvag ZawiBjhsPaxvMiohSotoKyzuKuxgGcpfDscxNekcNyapCzgzUjczCrdoZ3v1mlgZfH9D1/lQISr88jcx rpaz78jalb1ZKOcXMPaKglCcDN+jV3mq6SQ4Mrw4hF KWdP05tIR72Pn0ho/j78/wdNF86ZA+aiB/NZC/GshfDeSvBvJXA/qxtkgPGZ2gJZ241oo8UREycSU1H3 5739xY3dmzDz/tnFE8ts6t3vg1tQT1ohRdyz38QbfAoqlvSz+iGe9xMeh4n4TtdU/YF+zr2DO+2se+c6 1TUl+sV6yOicE5zq4oG5mVjfqkFl+ei8fX7GD4DEe9 Zmlm5Ywon2PBfUptp789vkgP+Qqp5TKtk8tHq4vfIp84CN/ov8Bief5W3mOg2SmZPaG+6hsvhwOwxyr4 TuUIRa7TA2/WW622q0U/Y+j41r8t06k691U/Sw2jXe0pUf3qWu1eCjZKpM8bQneK/FXqHTPyV/vvW9Rx xOfP/DKeT6uyd6e+ronbWa6im5/yr863GCQ+Kt9TH0 vyEc7LLGZRdPEfr2j1ihYmiZgE+myBx0ThJdxNbObq0ouqYKuaozp/j/quvF3M5KO8jrpTY7M4tz14mp qM+NuzjQhf75aDe+89B6Aem/Bn3d8RmdlxPut0pZ2naA/xeUBDV637ssAi/M8Hoo0iCHB2dn/vo4n+DN JGofW9rfmPN2hx3Pj7t35QmlMq7A71k11u94XW1LXb [facility]+YV+iT21pUw38es+ouW4V7Q4p5bhV+auJ/NVE/moifzVRPzg7/O3wN+At8JNRK2oup7Tu5ZKvz97/ 3jTk30m7uWwYD8E+v5VidTjk8KQFJ5/ernbitGKfYRvBHHfN4PZXn/Wmofqmya3PA+8e2DP8zwpyectp 53nvOU+4bti5Uy4vBT5zynPTdTANFYyF/dRrzHnqNe Y8+cyXv8ykiVDqt8/J00lfa1pyR7tA2UF78LigHoJJv+i8QPg2PofEL9c3kwz6gEvYst9fZQ/XyT/PiK 1V92wGE7KTqzT2Eew/bY4irz5Q2fcpCm/uu2jcApGFt046+Mq5wjDNyi+0mzcn6WVkNxx+sk6+fWb9YF 2Ejh0xy2Pk5Fbw61NkyApBy6jk4Szt93VeaRrBe2gc 1GusqB/M+9rK+kFJ+8HO0qV7mmfyJjIMjT83r1809H12KpbRxgV+YV+fh6QF52u/ResC5aH4aOjp7Ww6 6DT67H2W2zD/skXnJ0srufGWCd/3rlRc04USkAYf3Lg4AeqYjghx69dRguQLco+8v6PxiY16Jh+Mvb1S Hxx1/JxfK/XB9F3P+ss18TdoyT0eN0k35DVvwvFub7 FrBK4pYhs8Sg0OObiibkaZspEgaebdt0s5/mrh+auF+Grh+duF522Oyo2wjZ8a3nnentihYlvSDfSQVL eYfvWfTQsWu17k3bEQTcCYX+um4dQ3tH7GGkPgwO66KwmFX6OztWffTswIceO57FskKog2Gwgs8Fngf0 Uft77Nnn6+Gvw1+Gvw1+Gvw1/ZL3rri6Gc7RfN9M+w 0J9hoT/DQn+Ghf4My+Gvw1/4Y6dPyn4+oj/Bwxqv4Tsly8k/6H+08J8ajc/Y3jf6kf1hk7Tk9XVE+uDq 8LfDX+iDC/6DXixsbM0jd4Rr8S+ywovSW5pYizT+mrAJMuGS83mgeHcXM+uST0sk5DrvUWxMi4p0hm2k P/Oyn4hpQ0hR9Bwrs25hbJWbYSmqrFxqL+wQi8IdXU +wG+bUe2IrnOjJD+pQzxr00f+EvxP+Tvi74O+Cvwv+Lvi74O+Cvwv+Lvi74O+Cvwv+Lvi74O+Cvwv+Lv i74O+Cvwv+nyMi0a9t6fQWvZe8/WjeAcXAmGhj3jrGYKMjIUdLA4FEMQYXsOCblRfo1Oa5MCzdLUEUqM pIHEGqWPPWxJKMUuMYRj5FIIa3TDNx5DYDsPCTDGtG SrCtSUcSpaZcNMnQtuCnK3kWhJeZH4fkhUDQg+BZRGBu2kw8MpSSHVDSPKVSjVRS2vn8kxcRNGRSDYr0 Rq5YRXivmURGXu2lTKqgnGNKFj6dLIewvKKXSt8RQOv4JNXr6XBYvTFJQkdEBxxsAFkwkdKaxJlJmZUc Z2WSkRoEGINuXNRWhWVLEnqGWl9gTTk5mVXn3IPDhY MDP/O4ciDS9xsLtv+iZXK4dEM0f/F6LctjmM5u75BWVzP+xBcSZ/sHMWbLP9d2djUSkHNWGjuiJN854n rtKIE1V12PRxeEWzCKoF39/hwPXvk4Y2TMwIItG56xfUHouCPdR1XhGJGqwIXkE6Dh2Avy02Yato4NDg F9lziujj5NMwUh00jfZ02vlBgLs3VW/lYhR/14XRz5 318BlgzIIEHggqOJ41KSKp8SK9UnnY9Dh5IMQIUk6bN3lE1iFPfEZlXRMMCVKKE3440PnzPGcHy0XNCt VKVPnWFfGd7YmKNrlCl8WOsK4aTynvjjiG564IPEWIA27ErvxFhLm0JMvnJcLEg1diqetk0UShN6g2sW 8vlOhcY0JcjWd4EEA0+NDdhpyMuo0pOtaNpwacO2vo hFY2x2bs02co8tlELC3bzXXc1PWAaz2zePs9OFIFs749iCn9Krrp4iBd+UMbvl43rvi/yf2OFBkwoUwN r85wt3CGhp2Bg26cWrptaXj2AYGxIXo55LvyZdv177md9z+Pc+sI5W849YwfWMR408Kl2lXO/7iBNbNc PTLYTsC17XuM4P4+wMgMnoffi79i+vXk/HTwdd7wKd 48TqWl+gQm2gKPH3UvS9/xuSsQTSaJE96Q9UzV2JqE2EYYXZBVy2GzCbTJAJQ6XIXhYJVAZf6UOElcWS Na0EqTuGsWSHaIhULKASOO1HPTXHWVS1oQHTPDbJAoML0PGJVY6IMUGTCDHdzbGb6j6NGHScIMf4elY6 [file] ID Date Data Source [id number] 03/29/2020 08:10:38 AM [facility] CT ABDOMEN PELVIS WITH CONTRAST [id number] AL RESULTInterpreted by:BRAULIO MccormackROCEDURE INFORMATION: Exam: CT Abdomen And Pelvis With Contrast Exam date and time: 03/29/2020 7:26 AM Age: 44 years old Clinical indication: Abdominal pain; Additional info: Abdominal pain, evaluate for colitis, diverticulitis TECHNIQUE: Imaging protocol: Computed tomography of the abdomen and pelvis with intravenous contrast. Radiation optimization: All CT scans at this facility use at least one of these dose optimization techniques: automated exposure control; mA and/or kV adjustment per patient size (includes targeted exams where dose is matched to clinical indication); or iterative reconstruction. Contrast material: OMNI 300; Contrast volume: 100 ml; Contrast route: INTRAVENOUS (IV); COMPARISON: CT ABDOMEN PELVIS WITH CONTRAST [id number] 01/27/2020 1:00 AM FINDINGS: Liver: Normal. No mass. Gallbladder and bile ducts: Normal. No calcified stones. No ductal dilation. Pancreas: Normal. No ductal dilation. Spleen: Normal. No splenomegaly. Adrenal glands: Normal. No mass. Kidneys and ureters: The kidneys are lobulated, possibly secondary to scarring from previous urinary tract infections. Stomach and bowel: Radiodensities are seen associated with loops of small bowel in the left mid abdomen from previous surgery. Appendix: The appendix is normal in appearance. Intraperitoneal space: Unremarkable. No free air. No significant fluid collection. Vasculature: Stent is identified at the origin of the superior mesenteric artery. Scattered arteriosclerotic changes are identified. Lymph nodes: Unremarkable. No enlarged lymph nodes. Urinary bladder: Unremarkable as visualized. Reproductive: Unremarkable as visualized. Bones/joints: Unremarkable. No acute fracture. Soft tissues: Small linear foreign body is identified in the proximal transverse colon, possibly representing ingested bone or other foreign body. IMPRESSION: 1. Lobulated kidneys. 2. Status post small bowel surgery. 3. Superior mesenteric artery stent. 4. Small linear foreign body in the proximal transverse colon. THIS DOCUMENT HAS BEEN ELECTRONICALLY SIGNED BY ALESSIA DAVEY MDThis document has been electronically signed by Alessia Davey MD on 03/29/2020 8:10 AM Name Value Range Interpretation Code Description Data Viktoriya rce(s) Supporting Document(s) ID Date Data Source [id number] 03/29/2020 06:31:17 AM [facility] XR CHEST FRONTAL ONLY [id number] RESULTI nterpreted by:BRAULIO MccormackROCEDURE INFORMATION: Exam: XR Chest, 1 View Exam date and time: 03/29/2020 6:10 AM Age: 44 years old Clinical indication: Other: Abdominal pain, eval for free air; Patient HX: HX of endoscopy/colonoscopy x1 day ago TECHNIQUE: Imaging protocol: XR of the chest Views: 1 view. COMPARISON: CR XR CHEST FRONTAL ONLY [id number] PORTABLE 03/07/2019 9:19 AM FINDINGS: Tubes, catheters and devices: Implantable loop recorder is seen over the left chest. Lungs: Unremarkable. No consolidation. Pleural space: Unremarkable. No pleural effusion. No pneumothorax. Heart/Mediastinum: The patient is rotated, limiting evaluation of the mediastinum. The patient is rotated, limiting evaluation of the heart size. Bones/joints: Unremarkable. Intraperitoneal space: There is no pneumoperitoneum identified IMPRESSION: No pneumoperitoneum identified.THIS DOCUMENT HAS BEEN ELECTRONICALLY SIGNED BY ALESSIA DAVEY MDThis document has been electronica lly signed by Alessia Davey MD on 03/29/2020 6:31 AM Name Value Range Interpretation Code Description Data Viktoriya rce(s) Supporting Document(s) ID Date Data Source [id number] 03/29/2020 06:21:36 AM [facility] Name Value Range Interpretation Code Description Data Viktoriya rce(s) Supporting Document(s) Leukocytes [#/volume] in Blood by Automated count 9.4 10*3/uL 4-10 [facility] Erythrocytes [#/volume] in Blood by Automated count 4.50 10*6/uL 4.6- 6.1 L [facility] Hemoglobin [Mass/volume] in Blood 14.4 g/dL 13.5-18 [facility] Hematocrit [Volume Fraction] of Blood by Automated count 42.4 % 4 1-53 [facility] Erythrocyte mean corpuscular volume [Entitic volume] by Auto mated count 94.2 fL 80-96 [facility] Erythrocyte mean corpuscular hemoglobin [Entitic mass] by Automated count 31.9 pg 27-33 [facility] Erythrocyte mean corpuscular hemoglobin concentration [Mass/volume] by Automated count 33.9 g/dL 32.0-[facility] distribution width [Ratio] by Automated count 13.1 % 11.5-14.5 [facility] Platelets [#/volume] in Blood by Automated count 268 10*3/uL 150-400 [facility] Differential cell count method - Blood [facility] Neutrophils/100 leukocytes in Blood by Automated count 69 % [facility] Lymphocytes/100 leukocytes in Blood by Automated count 17 % [facility] Monocytes/100 leukocytes in Blood by Automated count 9 % [facility] Eosinophils/100 leukocytes in Blood by Automated count 4 % [facility] Basophils/100 leukocytes in Blood by Automated count 1 % [facility] Neutrophils [#/volume] in Blood by Automated count 6.48 10*3/uL 1.8-7 .0 [facility] Lymphocytes [#/volume] in Blood by Automated count 1.61 10*3/uL 1.2-4 .0 [facility] Monocytes [#/volume] in Blood by Automated count 0.88 10*3/uL 0-0.8 H [facility] Eosinophils [#/volume] in Blood by Automated count 0.32 10*3/uL 0-0.5 [facility] Basophils [#/volume] in Blood by Automated count 0.06 10*3/uL 0-0.2 [facility] Nucleated erythrocytes/100 leukocytes [Ratio] in Blood by Automated count 0 /100{WBCs} 0-0 [facility] ID Date Data Source [id number] 03/29/2020 06:42:59 AM EST [facility] Name Value Range Interpretation Code Description Data Viktoriya rce(s) Supporting Document(s) Albumin [Mass/volume] in Serum or Plasma by Bromocresol green (BCG) dye binding method 4.0 g/dL 3.5-5.2 [facility] Bilirubin.total [Mass/volume] in Serum or Plasma 0.3 mg/dL <1.2 [facility] Bilirubin.direct [Mass/volume] in Serum or Plasma <0.3 [facility] Alkaline phosphatase [Enzymatic activity/volume] in Serum or Plasma 79 U/L 40-129 [facility] Aspartate aminotransferase [Enzymatic activity/volume] in Serum or Plasma 36 U/L <40 [facility] Alanine aminotransferase [Enzymatic activity/volume] in Seru m or Plasma 72 U/L <41 H [facility] Protein [Mass/volume] in Serum or Plasma 6.2 g/dL 6.4-8.3 L [facility] ID Date Data Source [id number] 03/29/2020 06:42:59 AM [facility] Value Range Interpretation Code Description Data Viktoriya rce(s) Supporting Document(s) Lipase [Enzymatic activity/volume] in Serum or Plasma 41 U/L 13-6 0 [facility] ID Date Data Source [id number] 03/29/2020 06:42:59 AM [facility] Value Range Interpretation Code Description Data Viktoriya rce(s) Supporting Document(s) Bicarbonate [Moles/volume] in Serum 26 mmol/L 22-29 [facility] Chloride [Moles/volume] in Serum or Plasma 105 mmol/L 98-107 [facility] Creatinine [Mass/volume] in Serum or Plasma 1.31 mg/dL 0.70-1.20 H [facility] Glucose [Mass/volume] in Serum or Plasma 98 mg/dL 70-140 [facility] Potassium [Moles/volume] in Serum or Plasma 4.2 mmol/L 3.4-5.1 [facility] Sodium [Moles/volume] in Serum or Plasma 139 mmol/L 136-145 [facility] Urea nitrogen [Mass/volume] in Serum or Plasma 15 mg/dL 6-20 [facility] Anion gap 3 in Serum or Plasma 8 mmol/L 8-15 [facility] Osmolality of Serum or Plasma by calculation 289 mosm/kg 275-300 [facility] Creatinine/Urea nitrogen [Mass Ratio] in Serum or Plasma 11 [facility] Calcium [Mass/volume] in Serum or Plasma 8.5 mg/dL 8.6-10.0 L [facility] Glomerular filtration rate/1.73 sq M pre dicted among non-blacks [Volume Rate/Area] in Serum or Plasma by Creatinine-based formula (MDRD) 65 mL/min/1.73m2 >60 [facility] Glomerular filtration rate/1.73 sq M pre dicted among blacks [Volume Rate/Area] in Serum or Plasma by Creatinine-based formula (MDRD) 75 mL/min/1.73m2 >60 [facility] ID Date Data Source [id number] 03/29/2020 05:22:00 AM EST [facility] Name Value Range Interpretation Code Description Data Viktoriya rce(s) Supporting Document(s) SARS-CoV-2 RNA [facility] This lab was ordered by [facility] and reported by [facility]. ID Date Data Source [id number] 03/29/2020 02:26:25 PM [facility] Name Value Range Interpretation Code Description Data Viktoriya rce(s) Supporting Document(s) Specimen source [Identifier] of Unspecified specimen [facility] SARS-CoV-2 RNA 2019 nCoV Real-Time RT-PCR: NOT DETECTED [facility] Assay Performed [facility] Patients first test for [facility] Patient employed in healthcare setting [facility] Patient has symptoms related to [facility] When did you start to experience these symptoms [Date and time] [PhenX] [id number] [facility] Patient was hospitalized because of this condition [facility] patient was admitted to ICU for [facility] Patient resides in a congregate care setting [facility] status [facility] ID Date Data Source [id number] 03/29/2020 07:00:58 AM [facility] Service Cmnt XXX-Imp : NoneRespiratory P CR Panel : PCR ResultsMicroorganism XXX Cult : This test does NOT include the virus that causes COVID-19. See separate test for this result.HAdV DNA QI NATHANIEL+non-probe : Not DetectedHCoV [id number] Nph QI NATHANIEL+non-probe : Not DetectedHCoV UFM3HUR Nph QI NATHANIEL+non-probe : Not VxjhyslwZEeLFC00 RNA Nph QI NATHANIEL+non-probe : Not [id number] RNA Upper resp QI NATHANIEL+probe : Not DetectedhMPV RNA Nph QINAA+non-probe : Not DetectedRV+EV RNA Nph QI NATHANIEL+non-probe : Not DetectedFLUAV RNA Nph QI NATHANIEL+ non-probe : Not DetectedFLUBV RNA Nph QI NATHANIEL+non-probe : Not DetectedHPIV1 RNA NphQINAA+non- probe : Not DetectedHPIV2 RNA Nph QINAA+non-probe : Not DetectedHPVI3 RNA Nph NATHANIEL+non-probe : Not DetectedHPIV4 RNA Nph Q NATHANIEL+non-probe : Not DetectedRSV RNA Nph Q NATHANIEL+non-probe : Not DetectedB pert.PT PrmtNph Q NATHANIEL+non-probe : Not DetectedC pneum DNA Nph Q NATHANIEL+non-probe : Not DetectedM pneum DNA Nph Q NATHANIEL+non- probe : Not Detected Name Value Range Interpretation Code Description Data Viktoriya rce(s) Supporting Document(s) ID Date Data Source [id number] 03/28/2020 10:23:56 AM EST [facility] Name Value Range Interpretation Code Description Data Viktoriya rce(s) Supporting Document(s) History and Physical [facility] EMJRYv8oIuWQNaXw53/VMHboIEDch7VwONasVLf1CJzrFHLzT8VdYRK1bW6bMQA6VLdOItRcJmFmJfW7 lbm [file] AgICAgICAgICAgICAgICAgICAgICAgICAgICAgICAg ICAgICAgICAgICAgICAgICAgICAgICANCiAgICAgICAgICAgICAgICAgICAgICAgICAgICAgICAgICAg ICAgICAgICAgICAgICAgICAgICAgICAgICAgICAgICAgICAgICAgICAgICAgICAgICAgICAgICAgICAg ICAgICANCiAgICAgICAgICAgICAgICAgICAgICAgIC AgICAgICAgICAgICAgICAgICAgICAgICAgICAgICAgICAgICAgICAgICAgICAgICAgICAgICAgICAgIC AgICAgICAgICAgICAgICANCiAgICAgICAgICAgICAgICAgICAgICAgICAgICAgICAgICAgICAgICAgIC AgICAgICAgICAgICAgICAgICAgICAgICAgICAgICAg ICAgICAgICAgICAgICAgICAgICAgICAgICANCiAgICAgICAgICAgICAgICAgICAgICAgICAgICAgICAg ICAgICAgICAgICAgICAgICAgICAgICAgICAgICAgICAgICAgICAgICAgICAgICAgICAgICAgICAgICAg ICAgICAgICANCiAgICAgICAgICAgICAgICAgICAgIC AgICAgICAgICAgICAgICAgICAgICAgICAgICAgICAgICAgICAgICAgICAgICAgICAgICAgICAgICAgIC AgICAgICAgICAgICAgICAgICANCiAgICAgICAgICAgICAgICAgICAgICAgICAgICAgICAgICAgICAgIC AgICAgICAgICAgICAgICAgICAgICAgICAgICAgICAg ICAgICAgICAgICAgICAgICAgICAgICAgICAgICANCiAgICAgICAgICAgICAgICAgICAgICAgICAgICAg ICAgICAgICAgICAgICAgICAgICAgICAgICAgICAgICAgICAgICAgICAgICAgICAgICAgICAgICAgICAg ICAgICAgICAgICANCiAgICAgICAgICAgICAgICAgIC AgICAgICAgICAgICAgICAgICAgICAgICAgICAgICAgICAgICAgICAgICAgICAgICAgICAgICAgICAgIC AgICAgICAgICAgICAgICAgICAgICANCiAgICAgICAgICAgICAgICAgICAgICAgICAgICAgICAgICAgIC AgICAgICAgICAgICAgICAgICAgICAgICAgICAgICAg ICAgICAgICAgICAgICAgICAgICAgICAgICAgICAgICANCjw/yMThK8dgfFHzpiZ7Z3brMe5IAv9JAI9z l3TmNMCtCQvrcxBaQctKAgInVBZlVyvXMvd0GBmhFB1ZoYTeV4BgV6FeMNbiDW0KCRRyZIBsrWGtKWSl HUNwCiN9FBKhLKkbCT7CpRAxNPaiVHIxRQIbJyScUQ VpDSApMSFaSX7NEUUzP808ohXfZe3UFw8WRmUiVA0cxe9MUjGsXQIrBytMUxi7NAurWW9QjVFwlXZtBx WuQIFKHrFzY6cmy9JhTvteJBFUAUthGT5Rh5YsbYHzQLr+Zg3TFT3mh8DuPDiwZrHrYM2wiw5IPYbSPh PzO6RloFdwPRqpRJNzgDLMSQSnzyKZn3wuSALNDLPb aRGkTu48XvGwTsGoWSQ7KrUgFF1tNWcqWI6VGIC3UFkpNYQrRGFkT6kENjMwCEBwEGYaoOanQJ0FCdZy Y9PwsqXfgRTuIyMnOHSBFa8+VJgrobApRynFUjR8WKAtj7AxAKr0UX6YWUKhTSvpKG4DDGGjtO6yRFll WB2CPzMdFGPwGAWVWyVcY69bqXOgFTj4G4HmKgEaUR VkRmlsZXMgPDwvTmFtZXMgWyBdDQogID4+ID4+FCawZI6XMAlrnwTgBBFeFf0HHLZdWBVtGA8qYKAsIU KoT7D5pYjpUYTPUeTqC8ovcjgcWS4dZIBoW758mGwrddZlUPE5BAFkJc5MOBVmSYZ8WCHvbQXcJiKfSB HFNKboKG3FtVSqRPW7qW6vCEghBLDwLACbT0fULbHj tOjeAJ14jBtaqnIwcLJtPAj+Qq8JAU9gm1HpLQe0fxAlGDswDLG7TQuvAUDsGMMqDSNwOZI7AFC6PIEV DyXbVLPsJLYfYHoxMHTmHKHftx7WCTNzFRMzORihWRNzJRMaWWVaTGbzBHYrKYD2WxX8AMEhOXYnVT3R FkLoVJOeCVQePJfnXGSaWNBqqs3FQWBgWSHhDuQbVk YvYXOnKPAaRVieBDJtIMOdMgSjRHPoKBAzSD4QIkGnRQFnTZE9AhJqKHOcHBMdyc8YXOHeBSEpMrAmCO KbSQAqZFSeEKhmWXXbGME0EkpiKYEsXEPyAF2JVrGcVTZdMRb7XBZyDWUxDKAgdq5JKNGvMWVpIAF4Li EvBLWyJLKdLVkbWIRaHENnVxDxYCRgATRiVH5DIsJm RNBiNXS2JhAjCIWrNAZzrh0VWZNjUUYkZHy5OLTsKHPvRPKvGRoxTCNjBVXcBQt5ZTWcPKRhOZ9UKlHy JYGsDMLrQOHgKDGtKQUfki8BQTBkRVTgBlC4OJKnWFEwMHQrFQjtCWHeRWRtSYr4RAIzDUYjKG5VQqRj CVOwAiTkIDtvODCtSLQhww9KLGHkHNBfUNCkBfYgZZ GyJGOzGKvrWMMmIJH6VYfwNRZjLVFmAS4IDfKvCXGvCgS2MpMjROZmGTNdro0ZZFTrRFXeUNmfQHGvDB JiYBHyXPqxEAGlZIQ8QWsmKYDwEBUvYO7QEnFuFVQuYdDwHJjzXLIkJCCagn4KLAQdUWCoQja7KYChEW OrTJZmXXyeCCVwVGU1LYOoZHQlVGSzMZ0EQnYxJLVb Emm1UsMfIZAeRIFfgi5WwGWccPgmgv8KVBrEGr9FxSzpMZO0VKmvYh7shNBnXBUiEIZBXb5AksUaSTMs JDDYIKeaMGBgBLKzSIG6MAE0F1NeTRYzGMCjUXN3LzFsKwNlPFd4FDawOgT1XPUuMQT6HgmdNJOnUaX9 NmExMDhiMmFmNmVlODdkODI+HN2fRRv+Cf1Pp8OwcbB9jwKyIZotDPUnNT3VRXSSL8ESFp== ID Date Data Source [id number] 03/28/2020 10:21:54 AM [facility] Name Value Range Interpretation Code Description Data Viktoriya rce(s) Supporting Document(s) History and Physical [facility] TZRNBf8uDaLSTmVv96/AZUuoKWPut7DgUDqrPGe6GYmsRUJtE2KoBYW3sK9cOGB6TCqGHfRlHyEvEvS1 lbm [file] EwRFHpDEOjOh9uIWIISr4+JStceXFmkKesBEVDNpLbUyJ4ZZxxMQDVMh8X ID Date Data Source [id number] 03/29/2020 11:42:00 AM EST [facility] Surgical Pathology ReportName: GILDA MILLERMRN: [id number] Number: [id number] Date: 03/28/2020 00:00Received Date: 03/28/2020 14:08Physician(s): YONATAN DURAN MD ALBRIGHT, JEFFREY B, MDSpecimepayal(s) ReceivedA: Proximal transverse colon polypsB: Sigmoid colon polypsC: Gastric biopsyClinical HistoryColonoscopy and EGD. DiagnosisA) COLON, PROXIMAL TRANSVERSE POLYPS, BIOPSY: TUBULAR ADENOMAS (NOHIGH-GRADE DYSPLASIA SEEN).B) COLON, SIGMOID POLYPS, BIOPSY: TUBULAR ADENOMA AND HYPERPLASTICPOLYPS (NO HIGH- GRADE DYSPLASIA SEEN). C) STOMACH, BIOPSY: NO SIGNIFICANT PATHOLOGIC CHANGES .Reported at [facility] [email or web address] Pathology Laboratory, [facility], [address] [place] [address]., [place] [address]. Electronically Signed By Keri Enriquez M.D., Attending Bsrunolwgxk08/10/2020 11:42:46 Unless 'gross-only' is specified, the final diagnosis is based on amicroscopic examination of account development representative sections of tissue.Gross DescriptionThe specimen is received in three parts.Part A is received in formalin labeled with the patient's name "Mindy" and "proximal transverse colon polyp". It consists of fourcircular-shaped french-brown soft tissues measuring in aggregate 1.0 x 0.5 x0.3 cm. Totally submitted in one cassette. Part B is received in formalin labeled with the patient's name "Mindy" and "sigmoid colon polyp". It consists of multiple french- browncircular shaped soft tissues measuring in aggregate 2.0 x 2.0 x 0.5 cm. The smallest of the specimen measures 0.2 x 0.2 cm and the largestmeasures 0.9 x 0.8 x 0.3 cm. Totally submitted in one cassette. Part C is received in formalin labeled with the patient's name "Mindy" and "stomach". It consists of three irregularly shapedtan-brown soft tissues measuring in aggregate 0.7 x 0.2 cm. Totallysubmitted in one cassette.MT/pmw This report may include one or more immunohistochemical stain results thatuse analyte specific reagents. All positive and negative controls havebeen reviewed by the attending pathologist and are satisfactory. The testswere developed and their performance characteristics determined by [facility] Pathology department. They have not been cleared or approved by the USFood and Drug Administration. The FDA has determined that such clearanceor approval is not necessary. Name Value Range Interpretation Code Description Data Viktoriya rce(s) Supporting Document(s) ID Date Data Source [id number] 03/23/2020 12:37:41 PM [facility] Name Value Range Interpretation Code Description Data Viktoriya rce(s) Supporting Document(s) Progress Note [facility] SCMKSg8rDoWXYlGe63/EYHbuTYLpo5SiBPuwJWx6NRsaLEVjR0SvQCR6xV0gNKU6RKxTFaTzIbTdPtG0 m [file] AzMDcwMiAwMDAwMCBuDQowMDAwMDMwOTExIDAwMDAw MF9XRtJqHYTsSfAqBmJuROVkDQKpye2YBGRwAALgWEOqItMpLHXxJOWyEGryYDPxCOOkAtXnJVThFCDh SQ8PCjQcSTGcNbT7DyepFTGlZALlux0PBHMpAIDfTuToAoTgGCVeKTDbVDqxWMCqAXBnSOF4CYYnWLWj RN9XItJvVNDtCkU5NVbuUXXsAXXbyp0MKIBuLDHeLW D5OFLoHMOyRXStTXgqVRKjZPD7XpA1CMLcHLJbKL0WIlCbJOcuZDVEKrq9DYamK5b0RVNcBf1PB6Liz1 QnNpBqDYHQJLgkYA0fnzGhHZOnEu9AF9qCWlfjDVLgZEDpUkK6W4FjFqOoYfWkDXMiGGFeNZVkNcafHZ 5gQYLiVCTkE6ZmLvE7OiXbZBYbHOC0SmPmViWqJFJf IOBkSaFbAX0OIk5XKcO7YVJ3kEYrRy1MXtI4VtALEqVmOW0FFMx= ID Date Data Source [id number] 03/23/2020 10:37:42 AM [facility] Name Value Range Interpretation Code Description Data Viktoriya rce(s) Supporting Document(s) Progress Note [facility] PQJOFu9qUpDBAeSz79/WFIltXHMma9NrAGbqRKr7PWvuFPQqR1VtSWG2fK7lBHE2THfCCoUuUlBbFnH3 lbm VkMfdRDeAtCNHkJgaDWsTjZZvmDncaeWUaPV9KyIO0BIOxM65yQHXhPTGiH4ClZSR9CuR+Je7SFPTbqV NrNV7SVmvY9EpkTttRNX1fem1jaMgCIhS78ge7K2XmGiuCwlZ2j9XCIsd4kU6alk9RHl331+18vO4HQ0 tJft4Jzarw8UzcRsqjuj4HGF/+YqrR5ZvaGW0cxbbC HhfY4gXXyogcc8Lh4rhNAP4aR/ll3wSi4Ct8O/cDIqdfAIHfap7GQQ3MQCOnOcFL8Q++BluPu9QQqquk jQI6nYFAf1KAEGn09D9QvcBkoBk886w0/aN4nxV98trZY0EjQF0QQhCuZOiYhr6FTj8TKvDbIZUcWPD7 TRhsqN13hYmSW80oxyRAa7lQgT5SBJ5YP7fhaRoGS2 bAqouT6DoHc8ro59AAEc7JwPyJQzfEz+g3RwhAEPvQK9nc0uu8y74JQGQ1IL39aY2iXEA+1sWBswT4Vj 1IbMYzoMV1FEdwyxGdMeoJ0gcCegyDkh22T2hfWvAOpKDWqFJ74ZbEOoI4CVG72HL3X7lwl7abuJi706 l7NdinYthgFzKClVFAY1Efkd77WZFs6gwoTnnX1MzK hVn95S8308yPDQ7U9+qqf6rY9W8m34JyGUbt5sD3ubjGSQkfA8Ea0zCpAKENyp6O0bXb2tGqTrYA/JpN RhlcuMZjuqGhz4cR1QPFc7frEK2EySoqd/I7Ah8twHb1QMHDk2E+M4ZQrV8XDLR8TAnVZbVEU5vENeZ6 tDHnJRVGFSWAtwfUtBKjVEVewIMZMvOSjOKKmlTMmh [file] ICAgICAgICAgICAgICAgICAgICAgICAgICAgICAgICAgICAgICAgICAgICAgICAgICAgICAgICAgICAg LSQhWNWhZH5ACECcIECuILVaFMVhWSRpJKSuXKSoPI AgICAgICAgICAgICAgICAgICAgICAgICAgICAgICAgICAgICAgICAgICAgICAgICAgICAgICAgICAgIC XuEBPkNIIxMSHyPPHsTTReYM4YUNPyRXLtQCFzYOQqUMGxXVWoTCRqRMKjUIJhIHSaHMQeVCFwUMQpZG AgICAgICAgICAgICAgICAgICAgICAgICAgICAgICAg LJXyPIFrEJSeWLAhKYRbPTUkGKGxFAJzHIGvEL5DRLXsFUScTAAbZXQzUENyCAFuNDYhUBQvQAExTNAm ICAgICAgICAgICAgICAgICAgICAgICAgICAgICAgICAgICAgICAgICAgICAgICAgICAgICAgICAgICAg EBYsWFSbGJBxBY6IGMCiVXZrRBCbLVBnUWFpPEGzUK AgICAgICAgICAgICAgICAgICAgICAgICAgICAgICAgICAgICAgICAgICAgICAgICAgICAgICAgICAgIC MsEJHeLWLtJWGhMTBrDYKcZYFpJO7ZAWEeKZMyCTGjNSJhZZUaNBGmZBUqPPBgNFIcZVQaEPKiZGJkWP AgICAgICAgICAgICAgICAgICAgICAgICAgICAgICAg JWTqZUPhKNRbPYNqQOTwUADdOSUtBWVjOCRuKJEpZG3YWMBsQUFxSMDyZHIzMIJtYBVpVJSxMESxVFCy ICAgICAgICAgICAgICAgICAgICAgICAgICAgICAgICAgICAgICAgICAgICAgICAgICAgICAgICAgICAg TKOgZPAiYBQkPEPsWQ7TTAPpPVXyZCAfVIKnCKRuWM AgICAgICAgICAgICAgICAgICAgICAgICAgICAgICAgICAgICAgICAgICAgICAgICAgICAgICAgICAgIC IjQJGjECKgURHzVSYhWOGjOTJsQMDwXT4FWDNrNSMkMNFrCNCxYDNyCIXnQOCdGAHwJDZbRZVeOXJmHG AgICAgICAgICAgICAgICAgICAgICAgICAgICAgICAg NKVqAYCwXDVbQTIgVKLwOESgFCZlBHOyLPVrJDHnFQVmUW5JJJDiSYVwAXClKITpAYSgWKGqCFUbICPv ICAgICAgICAgICAgICAgICAgICAgICAgICAgICAgICAgICAgICAgICAgICAgICAgICAgICAgICAgICAg PDSxYNOnSIVvYAPbALNxKL5JWE42iFQee4P4YRSrTR 0ndyc/Qq0IMIdqbyMxkIIyYG1RYgWnAA3wnl9MMsBuSQ6diu8BKDvHIrHhQ2R7yOGzBPTeDHQCOrLeN4 5fTWmhZc64JUdnYTNgEqYxCDb8Jv7RHmOnC2ebZJKyCzM5BAQpOwYcZIvoCW5Jb9GtqNAlWAf+Pg0KZW 8fc9PxYKptBEOdYF5aaz4QCSsIHkBgV3YnipX8SFLz TXSsOy7MRPPmDWYlrIRcXVRmJHWYAbUgB5OpvL21XSNFTv4+XBujuvTrSrzCCkYkMLAql7TyBCk2TN7K WZEeODl7oETtHERgC9Bhq5XgSp50GUXnCdtxSuluosBXNYxwckEgwfjoGd8kMINxKNHwPC4hFRBoLNLf AvC8GQJRGM8HZDJmMQUqiGZiMUSbVZEIEQ2FNGhjYL G5IYQbvvVdfAApBKtnXP6OXANpknMcPTznKWPYKQq+Eg0DAR0sw1GrQZkeEWKkXM9aem0NOMtDJiYvC5 U1eRPjZ3K6WKiiFp5MEJTqIJZdETwcUBTDZCqqOQ0CER3sceH9NP8YfKXoQKAhGUEegLVuNOt0F82dtH QfLNhwNY4XBND+Jayla+Ma9TAUHoUBDkKMVqIuJrUXQM FkObX0LlL6JLg3VgY4LbDU01dMktotVtDFxnKW6BJN6iCHTpSNLYXP5ZpHYvmK4qufFuKMArCLICKgRa R14utDYqKGIiBHW9PCIhLj2XDMTxV8DeqdTljJcdczAeAWIfUWARCZ1GTJccoxDaoYPpdKbiDJ51zGbg IL2SMo7NHpBgGH5yyr4AjVVzZq7BPTUrAk4RPUWbZW HeFMUbKMJ4KGDtWaSbEMwdFLYlCIJbNSC4MKMzICDsPP9QTtWcLHOlNDroVQbvNWOtLWCbcu2JPJKhLW BjRLs7ZrKlIUAvIRDhJBbgTGQhNJYwXEM1UGDwRQRyBN0GFrPyFDEiJHRzZmSwVGNkZATbyw2WCOPaIM OrHfK9NPUyJIDuLHBwSQijVAWhASQzBbC3HGSdABCa GW4HWtMiXRKcLIT0ZsLtZXVgEZZnak8SRTQsPTNfOqPbMrLuZOCdHVFvUZjoUKQbUCN4NJqbHYPmMLTm BX7HOlEtHFSqDDG2OnGeTQYsTPSjwf0HGOBvMAZkUGm3UVXnGQOaVPHmNUcbGOWbEHM7CaC9FAPrCJFb TG6QXsEsEMVeFRA5XjBsAZReTEQwwp7OYFCgLMBvNf s9YRSpVPZsIPQmVQshXCRuMZH3VBkfNRLwTKJiQI7HSpAuRJJtIJsqDmDmTTElFIOtmh3DZCBsONHzJo YoFlWeWIDnZWQzARryNLVxSDY9XIN1IOWyHJJsEF2XYjGvFRKwULtkWaHcFPKjXOAvzw1DHXVhNHQnWX W2BxZuAYJcPAYfKUj6iyBlbIGtYSb9HQ1PZ7PowdTk FaRTAw5Fb872IEMcHMXeUs5QX5vfCh6sEMCtWIYACc3QJKf9FJFaEcRoJHP8IiQtZZLcPHHwWYWzLAF1 YSAdTqO9LPN+CTb7WxYkTBNoJFHiQeB6EHE1L6G4AsT6DTfqJoSbFIXuNb2oEKQUNb6+DQpzdGFydHhy VIPJHfS7OPZ0BHrhBSIUGh0Q ID Date Data Source [id number] 03/23/2020 10:37:00 AM EST [facility] Name Value Range Interpretation Code Description Data Viktoriya rce(s) Supporting Document(s) SARS-CoV-2 RNA [facility] This lab was ordered by [facility] and reported by [facility]. ID Date Data Source [id number] 03/23/2020 07:59:14 PM EST [facility] Name Value Range Interpretation Code Description Data Viktoriya rce(s) Supporting Document(s) Specimen source [Identifier] of Unspecified specimen [facility] SARS-CoV-2 RNA 2018 nCoV Real-Time RT-PCR: NOT DETECTED [facility] Assay Performed [facility] Patients first test for [facility] Patient employed in healthcare setting [facility] Patient has symptoms related to [facility] When did you start to experience these symptoms [Date and time] [Phen X] [facility] Patient was hospitalized because of this condition [facility] patient was admitted to ICU for [facility] Patient resides in a congregate care setting [facility] status [facility] ID Date Data Source [id number] 03/14/2020 06:22:12 PM EST [facility] Name Value Range Interpretation Code Description Data Viktoriya rce(s) Supporting Document(s) PTH, INTACT @ 45.6 pg/mL (18.5-88.0) [facility] ID Date Data Source [id number] 03/14/2020 06:35:36 PM EST [facility] Name Value Range Interpretation Code Description Data Viktoriya rce(s) Supporting Document(s) MAGNESIUM 2.1 mg/dL (1.7-2.4) [facility] [place] [facility] ID Date Data Source [id number] 03/14/2020 06:35:36 PM EST [facility] Name Value Range Interpretation Code Description Data Viktoriya rce(s) Supporting Document(s) SODIUM 139 mmol/L (136-145) [facility] [place] [facility] POTASSIUM 4.3 mmol/L (3.6-5.2) [facility] [place] [facility] CHLORIDE 106 mmol/L (100-108) [facility] [place] [facility] CO2 25 mmol/L (22-31) [facility] [place] [facility] ANION GAP 8 mmol/L (7-16) [facility] [place] [facility] UREA NITROGEN 13 mg/dL (7-24) [facility] CREATININE 1.40 mg/dL (0.80-1.30) H [facility] BUN/CREAT RATIO 9.3 RATIO (10.0-20.0) L [facility] GLUCOSE 90 mg/dL (70-99) [facility] [place] [facility] CALCIUM 9.2 mg/dL (8.4-10.2) [facility] [place] [facility] PHOSPHORUS 2.6 mg/dL (2.5-4.5) [facility] [place] [facility] ALBUMIN 3.9 g/dL (3.5-4.6) [facility] [place] [facility] GFR 55 ml/min/1.73m2 (>59) L [facility] GFR ( AMER) >60 ml/min/1.73m2 (>59) [facility] [place] [facility] GFR INTERPRETATION [facility] [place] [facility] --NORMAL KIDNEY FUNCTION OR MILD DISEASE - GFR >OR= 60CHRONIC KIDNEY DISEASE - GFR 15 - 59RENAL FAILURE - GFR <15 Est. GFR calculation based on the MDRDstudy equation, which assumes a steadystate for creatinine. Est. GFR should notbe used for medication dosing. ID Date Data Source [id number] 03/14/2020 07:07:48 PM EST [facility] Name Value Range Interpretation Code Description Data Viktoriya rce(s) Supporting Document(s) PROTEIN,URINE 8 mg/dL [facility] URINE PROTEIN MAY BE FALSELY ELEVATEDDUR ING TREATMENT WITH AMINOGLYCOSIDESDUE TO METHOD INTERFERENCE. CREATININE,URINE 67.80 mg/dL [facility] [place] [facility] [place] [facility] URINE TP/CR RATIO 0.12 RATIO (0.00-0.20) [facility]ator [facility] [place] [facility] [place] [facility] ID Date Data Source [id number] 03/14/2020 08:18:30 PM EST [facility] [place] [facility] Name Value Range Interpretation Code Description Data Viktoriya rce(s) Supporting Document(s) ALBUMIN, URINE <0.50 mg/dL [facility] [place] [facility] CREATININE,URINE 67.70 mg/dL [facility] [place] [facility] [place] C[facility] ALB/CREATININE RATIO (0.0-29.9) Laborato [facility] [place] [facility] [place] [facility] URINE ALBUMIN IS LESS THAN LINEAR LIMIT. ID Date Data Source [id number] 03/14/2020 12:00:00 PM EST [facility] Name Value Range Interpretation Code Description Data Viktoriya rce(s) Supporting Document(s) WBC,URINE RARE [facility] EPI RARE [facility] ID Date Data Source [id number] 03/14/2020 12:00:00 PM EST [facility] Name Value Range Interpretation Code Description Data Viktoriya rce(s) Supporting Document(s) COLOR Yellow [facility] _CLARITY Not Entered [facility] GLU,URINE Negative [facility] BROOKE,URINE Negative [facility] KET,URINE Negative [facility] SG 1.010 [facility] pH,URINE 6.0 [facility] PRO,URINE STRIP Negative [facility] URO 0.2 E.U./dL [facility] NIT Negative [facility] BLO,URINE Negative [facility] KELLI Negative [facility] ID Date Data Source [id number] 01/30/2020 07:26:08 AM EDT [facility] Name Value Range Interpretation Code Description Data Viktoriya rce(s) Supporting Document(s) ED Provider Note [facility] VRCMCp3zZhNVTkMq76/SMHbiEONvn2RzOXqjOCy4IRqrOTFjP1JbXNG3gV7tCEZ8QCqHUnBzQrMlKYGc lbm [file] ZeGhNR0GQi9WYfS5VQI9uEAhNi8LEKbhBRUOHcOvQU4TFJl= ID Date Data Source [id number] 01/29/2020 11:33:23 PM EDT [facility] Name Value Range Interpretation Code Description Data Viktoriya rce(s) Supporting Document(s) ED Provider Note [facility] XNPNHf1bCyLATfEy63/VKWhjBZOvc5CoYFhlAJv2MDhpWUXeU0JtKDB8lG3jKGD2IVuQJzIqZdLeUWXc lbm [file] F4WCK8iOXwMl5ZWCk9JmKWIuJrSR6XGWo= ID Date Data Source [id number] 01/27/2020 09:03:49 AM EDT [facility] Name Value Range Interpretation Code Description Data Viktoriya rce(s) Supporting Document(s) [facility] UTLVPw9tYuULCkKzr8KyPcKnDYKqFG0jcpp0C7N5xYPsT5CzxBQrf6kzU7DxS2ZyAOFmDUBFAX9TfQDp jb2 [file] 0Dz8v8b8Ud7a5o6Fe6qac4zf1eRu0e93mtz0S/DH5Z 35tpl4W/DG3G04gfuICt+VApY2So2u1t+TFaO9ss9k8p+XSiF7ny5z9q+CErL7bv/kGVqasjwep76d6X wy/qaf77jiurU71k4scDI4t3neEC4o7p+LW6Xwt+xH7braH060mUj1P74zCnu460/Nrdrw2//d /drwa3e/Zyru7b8Sj/eG39tIg+5XwK/zfmA6zg7KbE /zpnK7qu7WdZ/dusP2fp7DjM/qjzT1qn/ncnsw/wgWIj1gn12x09VE2/YxqV76fL5+wi4NO2FGfoL91J P6+KwAX1bJGs1Z5HkX1imKbxMB/xkL6mEXs59AgRydoLPEztRATfS/CzADaA1p9xMTfxgodwMPjlaRiy blBqKsNw0FCe9d/fhJWSI/sdBtMAPJzEvhyrpyH5O5 uB41DuXd8tRSwBMAkfNZTDSMb9KWzoCFr2zchxqoBscX1KeiDWBA/AfVkSqMO0LzcBzjp0nMvfF+FItQ ssiPZhGKFvlRLULZIj+7RSbe5Mw1FLXM/GgXoXiRH/UilC/yo1+EAkZ+FIxQwsiPhhGKGPlRMUIZI/bf vScQ/PGTUkZ+gJjXeUeYfaXADolGF6RIDw+ZXwpt5P fTCEWN/QncuzqDF02cPFshl73P6LYW1wfCnaysE8W8eL09OaU84cNwxOBStxFAVYLZj1oRzss99RbYuL M/DpphfeKA3fqZhiflCzMlqR+1XoA30zH0oQXYqkLYHNPIm+uMcf905Y3F4XQ/ykcofeRH+wjFj/yoH6 H8kR/8CiHK6mIHwWJHscWESSYHmiyUvqX01FODHER/ IbevwxDBNtyGsRlaXhBtjp94yTCR+qOHlHpIf/SQUg/oza9M1kJ11BQMBaY/ekiph/OXDwj0mF2wXgTi 7i74gSMZ+qOHlHpIf/SQUg/ymn5K1gQ14CVWNiG/ekiph/MZMoi0wB8nMnUi4h/8TEvQ/ZVfRihte9qE gVMWu06pPmHgn8iYzt8ZYNjS/TIcXrVzX3kT5lR/ek iph/PBCka2wP5vUvRj7b75hVSN+qOHlHpIf/SQUg/bgh9Y7yL93RXUCnZ/ekiph/NFPgp8qG7oAlXn0s 89pNRD+qOHlHpIf/SQUg/mkk5O9uA46KRXWhL/ekiph/VISxh0uL2iWpNh8i14fEIF+qOHlHpIf/SQUg /tsc3A9wJ09DRMQtK/ekiph/ESFio6zH7fCuDd1k29 pNRD+qOHlHpIf/SQUg/nkm3J2sD76HOLEyL/ekiph/HPXmi7jQ9hweucRlD8Tc0yW0xIrxyQEwBvidfg iygRJTKIDCKTyCRiRIwI/VH6o/RH6Y/SH6U/g/4M+jPoz6A/g/4M+jPoz6A/g/4M+jPoz6A/g/4M+jPo z6A/k/5M+jPpz6Q/k/5M+jPpz6Q/k/5M+jPpz6Q/k/ 5M+jPpz6Q/Rn+M/sb4Kfqi4Mhjg5Vdbh7Qx9t+ZT3gCxvwk3Ltzr9Iz7i+OP1x+uP0x+mP0x+nP05/director of 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 44/XH64/TH6Y/TH6c/Tn8W/Ki9B9LxNB8B/Di6B7TdVM3M/Ho2R2ImBR5J/Zb5J8OnKE91/va0F9EpDL 82/yd7H8XuNL23/xf7Y6YzRB26/ru9I7NaQW+C/gT9 JqnX9XofJ5GbdN8Qv6I+BP0J+hP0J+hP0J+gP0F/Lb79oVX6G9Y3Majs7yWOmJcs3TFzhTHuBIpi0vp4 2sP1aU/Xpz1en+afNP+k+SfNP2n+SfNPmn/S/JPmnzT/nYfTfDBJBk63oAUC3AMNO4MWdKNXFR1CZCNJ 5tYIDUXmBYQG0mAHxUO0UVERAfeKAoPTqXW6BQ9MJY GS8gICWSAhHIOF0tKZLEE7WGYJBfwXAgFPtFHnNZ9tGEOW5vJLZMZbSV3T7tmNZBT5gRDHOdgWMJJSdf [file] 57Xf6fiV09iQtX35yDe7H6kuO4M89bAoC71iUegTe+terrazzo worker+terrazzo worker+terrazzo worker+vMiCVx3FJhLTcuhIxgH9T8CL6t [file] 1+42Qdf4+YY9kpoT6mauZA9M8ag+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/DfnUaxRzgzd04X/k9c6Ct8417PXxWbQ+7v1Xv8+/s4sH3+9yp /3kG1BMz1QroqG8Qmj/zX/x3We86/59fc+eMp/Li2p 3//8qSgux8+/F1Lop8kQ5qn00vGExkH0w0k6d4I9IM7/d51xNjFZjq/6Wl8EE7Af+AD1xIqg1Eq03sex cdo/Uhye6QySV9bQ8+/+ahWzaaKh7xzN/G68vAntStoFH6Df/7ZupH80m11OlQ5K4R/92Rzhlr/jxtka baiF6ZvyuxVdlERGsfBYzGx+2sReByrx7daaPhKZkd d6l26qqjF+f/zv8VttEr8Y8/33IcN7t0MqikdE5WT3nmfCdUbp/j14VIhQR6+f+D6r7fScvTeKH9RBP3 l2cg02NS0nxlL/esers+EAa04z3/oV/irur+L+Ku6vwl+gEK86v1Gy21EkauJ8Oo24zsH++FvlhfqF+o 05goiGevj73Unj44aA6ruex07Jm1/+uGI3uKUVS9SN 1MPfo6/eohSjRn4Wz4N4L3dbTA+oj1uf+vqbq81xG6ujgfsvW7NA8V5/B46nqrsmV0Fw8ENnfYuRB+qP d3eiJV6JrmV+4/xU60QeL/qqfn/01basP/561h9/Eli6JRf1Y/LU9RX4w4+UKDfeDtmy3u+/uZz/6Ksc 589WBX/PuCp/ngtPlj/+wbc6Nil06c14Zqaq0Avz4V 0ffVW/OfrqLQvqBb/X89zJ+pY8qyHC/CQ3QR3HwOlj//jt50h3OrECQh98/DQ3nSX4Ppdi1XjJ4RaIKa w92etneRg2vsj3lI12qibn7VCv63NNQcIiD0sb1vCsAh5R8dhYdvqkrNMYB/O54LE3mBmH2PjjYrkU3B Sul63k4jm56GIA2HI2DT659zV7e85Lwyo90gZ2t67L gkx84qD0X9Jq1MZqAA16/J1mUDm5xehVkvVhZU5Xm/Zu0MBJG1khqxlSmuQEAs+ox/MoFs6P+xu4vwF/ A/4N4tmyFdRDaVcUL+pH5Vc4gtj8g+I26hywaGuJfuItIo+/w7Fpo4RfNOR6ktAsOotuNdtDL9V4/9dJ KqIKTbdv9QuHFnsZBZSBX/m1u277+PeAfw/494R/// tmsS80kqqj7st3+4R/X/DvC/59w7/D/H853wx6V/6q9Cl/0p2d7E2G/+7w7w7//vmNnJ/fyJnw75/fyP WNv7m+8TfXhH+f8O/f+AiGko2Ib++C+44tebech5L5mj+dssa6FxgoosdcmB1n7M7Q/d7u03U8d1xAE7 xkabg2xJ1sjW8z7kdJ/e4N//49v1n+qv9f4d/h993Q flh72b8gwGY72wKfY4ZtOm23K0fIrQ2B4WzvVEs5H4D3HNFoCsvjxR/b/mrX/3/1GmR1VstrJIyM+H0F fl+O82xs0aY3bFQ+X/BXqXC/VcxzoH4F45xugzh3r6Q/Spld3T9N0hZDq9VVEwh9mow/r8Lvq/D7Kvy+ Cr+vwu+hbZ6T83idjkw1o0J/ImwhhZ2B96aWkqd/tf v/X/+d4m2ksKa0u6M/G/y7w3G+96M0+W3Y6njguz5s4+F+Wz0V8zj9mN5c+iv/3hfSN/z7hn+H59fh+X L8si42Z3c+yg3+He7Xv/ej9IB/D/j3/HQrf1X/X/7qvJNm+av+//l9PqB/ra45YWnn0r2h+PcN/w6/bw j8u8K/K/w73G/A8xvw/AY8vwG/b8DvG/D7Bvy++b0f WO3dZ7r+6v4//TdOk7S4FsfLZe4z2G2q1psIvU0Omt+F5zpnhwV448+E9pww/ib8vgm/b36/b23G7x+1 9uJ/gRVpsMzAkbjF45lmcjy7ldPA/pgYoHhspMSuLnHGoZU2TfrUAOHIqd5J9qi/iaYdYk1dHTXSqX+s eRGVpMDtGMOOTCEwSfXlmuTLFNtrnVRAWvccI0rEOS IopFFgnWdQqqGbY0lPnR3t56lykiJfNlij7R6caC21bNMlqnJvNk0q1D1HaR07ZlLAVw1YK133tExhby Fm92NRh0qtI3xhJl9cTwrQtQB6GnppOp/pd1+03mu3rsW/PV04cDIbze7QAY0wzs428/E1cnv1sUexKa cVLe749xHpLQShs68tzIN0HqOM61+f0O3Dc2onHv8u W9/rZ2u6lKoHk0ShcrkHnpZi3vI/8LwJ8sdFWXTaIklgWnF3Sjg9pu49fGgp4X00z6ume3Rcf2q+ts73 oT7mzA50h6p0/5YH2bNrPjL8LDyWM4Ua8gaZfyJWzuy/iapauvUFG7+oeM8MbNrGDXktxoIq7+UYXhs+ C+zZWEjbpEualiAlQP33lR4gYrs3J9EVJSiBo+Pf2z bUwDaSjUSQfBn/2hb/ouE7wC08Ea/2xL+oat0hxBiIv3UxBRFMKAN6TGnxmCcmprTSo0avvNZQ/guwT/ PtNuf7pXSHkYZREdulTQHXatiI36IlkHQJBjeZU6HkNkN5EMitCE1Aoj7V0CcYjsan8/4F6A8C/UHg2B r1BjpSxMJnV+DYGKgBpNxql/rgDXKf7sa/AWqQqEGi HalzKDxR4F8C/UG5w+7wyx6+QVYyEMpr6JS1LPeE+JJEOrbRtIy9pat2YEFAG+zG3HZODZe+9i+YSObX +8/yiW/zhNuziZH4fuubJbutKfwkmVubynOjr8d9q7FoNscgsC494H0Yvh1ja2U8Q7br4Lf1cHHmTEpw 1h8idy/2W5fC3zCB2Jmvig/G8wX5sZWTsvrX9Hfbi5 7hOJZYFWROgcMCejztIbUjhjDqs8+89zNRg+ILlktNRdlhEL7SKM9htl355d6Pwm+8v8/nzG8myNkiR7 wYQr2nY74nnXasw0Pikv40vhn+uhFKEK2hOSwNAdzazAVjJWsHYQ6zQeTVn4gEqnvhTIHFBGfkXld+5t ZyUhaSEZUDHvCvwlRmvxnekPDBOkrMor5juMIJvwV2 GqoAQsDGkGNmt56pnq+8gSARJIpEkRgSQ+JIHEngtQVeW+V6Ge3Owt44MHAqoF2mrzgkomJNwYlmH7+A 0LAzRQc6K2W41HYvuIAO98NzMQy3r8d+8y1GXwT9N9U9YKkMiHVBRRHBZu9KPtVC53I7CSvnTIbLwIuV Ghg+A1TOXQhjtDAASwP/Z4J7EBnDRTpFSevzgKZsIE uZXeINXNTSCGr3xRLEEEFZQDo7sSWCGPJWFOyycjZGmtUtFNMYWSQ7EXPePWMavlkGmrpZDTXVMcITLV [file] e42lMU37029mgnLUmrwGoRnc4Dy7wcqde2+pediatric dentist+q8U [file] PM1I25T0GffwmNsTlm7VTbTosLcTdb0oQ8c3Q1HWYExNl505+ToUEoHPE7bEl9pfG9b+lnNR+NaTj+Gr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 Mechanic BPjToERyoZ44ZopGiS/qJPfD1gy4xFoO4wbmyR73AdfBT2HTBMoyyHZLjozB6chvwO6zl7qwMIkkYEz9 NnPhPpwurJCxjt2WWL/L+Rn8iZ3+xE5/Yqc/MflYzh 8XS4w8FLUA/Ymd/vXFs8JOQrnbM7aw2l2fImc4AoLN+WsStMmSDyMbT5opH8zIUMXMoHpzvENwPbiIQd lJ6yKdy46vjjP0EyiAM8RRPEFXxBWXhLbAVpxujCA0Jqj+cdrn8QF6EcXPgTUfGcZkIorQLsDVQVAfKv o10OeYDo6Ld8r1YC+HKLJKcWJMGBMcnCLUsElo0JMx Hsk46TwRecqBoFxG+H9cgO8MRuhlgRJxkHZnx9WCo0EqYfgoBhDFQ3bRGgcIvl1XXHe2YLPVYNeCENa5 XT4OSWtokXgd3xOnkQfr5BWB2qXT+ViEfCxy+HiPSxFxbTFD9odFLt995tNJC101FS5YEK95JmOnxFxm eInxK4prKs955iI8EkjbjCxmOaazo0qxDO8AQXKgdX DHkrIQ1qGfREz0+FjSdA8+roDwp36jt/qOs3Aujm/YnqO4CT/ZsEcz+Notv1TGIiDSHqO7AIXAsyQCht XkNV1Yid/c2OGaV4eRA/CEEDiPrmY131LLP596hHN0MIMnVl/u9CTSDW703ySI+TtQsIzUkChbnEp9SW NyuhzpO1OEYRn6OSj+lqdBZBAZRJSIEjEiRmQSmUQW 145aUXPE47oQqaBlC/ZE9YC2TtZKcXmG4eolSJtjPmlAs2NwcF32+Gtxn91nrYLFnfFcQ2ZnEFXelC46 +JoE6y76FPyDTU9S2J7YA2gg9c9+die5OfSBOdFJQfmn951Ek91+ljx17E/M21nYq+y1QTs15RvbR4/l oKcu2NuVVIa0kGMj5sgaN2ED9dpM0g/wIzkfy/FKBR /Lcwf+AbFWY9up2XIN/Zfc6NjTzbkm/I/HF/Ji5U8DADCbslG735dJgQYU3PZTlSM5U6HX65Sy7b8psX tzSN8T2wF5QMadjKkHl46Ymdup2qfvqoX5TFvwSZkQvZvNpdumwXzPJr5QhtcPV3XbI6lTDyCnjCjQnu AKEfOdoKLGBcI7kGbotmzZB9dbduZNPZhf0RYneNsm EbMKZKPxVvpZVqhTHnJXjV7Zdf3XcD0zuDrq7e2JC1Nsshkwmo7mgxe4bPr708Ygfy6NJFCabayEz3L9 ShNPIUDJqYMqeaMTUqQspBWHOzXMErhGul3CtOWWCaieq1BPuidVO9hlZdziSY3NfmTXt2BPGee/EHws E9RSGSZ2ZvuKuxtSvY9F8D3LOyA3cQRBZYVhUG9cE1 eZTGEA3RV3DyAgBiJbJ5oSukkvYY6d9a6dFdZox3JX8+BKxOMLOxGPL+qGSE2GO08hpgEpAysTGbISkH wZ+wg+oux1UT8RfwPFirN3mwtuGbJ1nTzZV4zU46VRpc9i5LEMqZbcejLsUmnBQgtboVpptzCYFqIci6 46rAocqO0orgEKa8Ks5I2GqlN+nI/l+Mmdj+UkgTgf d5yiDYrn7jXA+tf5BQtlHBAyrzwnXe+qWBs1+R7HMbJ771VeYwuix6j4qA/lhAecj+HYUipJ0LGXnN/l xD6cj+OELiqSQY3In/gIN3q3GgEdJeZC7AvfTgHnGCL7Gz4nd1XZzvur4OPl6xTWQpjxANfB+Vgevdmo EEyuZnwqGZvesO0VIYeD+Xpgd59rNlMTfgBXWcMwxH 6SjyWRjdEbfCyp+Iq1DFFVV/qQnlb1yxCjJ5asyBvjxsG3qM68U+gpqE8o1hbOvVRY+PX9DmExRz+yTu cH7yuKNQPeVMhcfvZy05VYvJ8GMMoMtLYeJD7dFe4SJUqBpx8ZbR1D1C/XjrPRsdASVIzwVSW0HBn2YJ iC/0RC2VEVomNm4E+nA14JidCdB5B2U41CcH4qBTFl A46yGDv96wg+cBTswCjPHYsWLQPikHmqcWH8iCvOj7Pn4ePlKLEJ9GfGoO7v+Fvo1MI1VabPJnnCc7CZ IoP/JDtt7ELvaYc5S755bvKBVYoAG4/p831uljjn24D+/dvbf/tde/u7t0//06m0Kst1D6BJmatkY5/7 5ovvvnz/4f0/vP32q8+/fPf+a/uRz9iZj1/63qF8rN JT8KgDg9uSk237m28///EO02G8av9dCbZkmyk68pam9zwT25/zL2/ff/mr59dL020++/6Lrz5/9/Xb99 435oa4Hx8+9elffvn+w2/azqQ377tlf2+///TVN+/fPrz/4DQg28376/XP+fIopDekx3I70/wFyei94B d///dvH7//+N37zz+9ccfa00xx52/74nXG+0Ymhf1U t6+++fT+j7zlA3a42ZC825b4+/jx+9++//k1iqxTh/7Gue+042pm6Puvx8h12VJ/fPryt3/jZy07/OGr //7l6+L/+0pk3875/7uv/Eo//3cH6SRwt/P5t7/97uv3L+3EP3/9/TdffP3+9jla6d8c+Zdvv/7628// k3gc5r609wbgOy8kCxcl+e7bjx+/+vXrf1+//82nt1 uu7gzmbr1r5ba2El//2yUti878QC94P21oR+z3Kd79+ptvXw/j67f3n//3n//Mi87eP/vnL99/83bf87 jK9628++evPn15/+Ht29+7eiQZw0996O/uGLT86D/J/oe/cZrbqvGB+f9/n29f3Y/ln99eD+vj+28+/Y 1W0OhAocPM//Lnf//DX//047+9/R//6+13f/jjH3/4 619//OGP//D2xQ9//jLUm3q88//W1r/+3dtf/sb7i713z+YRr7283z1h5mb25/6XQdbOWUX/9Kdf/Qcv s9xxyN0r+E+/A95vm+fBx/Xl/wvQvwcfcP/t2K6TgNAL8poc15p8t63Bjsui3o6HKkBqdfu0/PUOv10/ 15bT+vjo/WYxo8ji82vRU18fT649jGjfD+++/vYnT9 yLF9V/SsO/vv+Jwq6B40+ekl/v46+/o4h5nXeD4uad3XKC+Xc//vk///Htrz/8548/CorFUttXOhC7s/ 7EB+TSwprKz8/+nB6w7i1l6//88a//87/cfJz+PLHren7FmU053Zd2sz1c0/7tf7xu/g9/+fPPz+8l9n 52/jjFg/3Tp1/214bm4ulxF7E/iqqvje4QkpdMdcPS po+e8rM4m4B93z7N/PYv58w9sN9++eGXn95++H9+/I//+cX4H09cZ/7m/a9/bKplvb32B3n7a5/+69/9 2UsqCdc3rn/+9Atph7Ot//A/fv/Df/zhhz//8/evjwl7/29uVfybi1g/7D0a5V7KuwGofW/vvTj7// v/78h9+/LvDZS3+7/JIzp591KRt17l/+8zVq/u2z33 z9/VdfvL3/+l9eU/BDT5695rVU9z/gb/f0y2jQdE5/++H//DKnzg9l67163P8BEdb22t9m/b85jxf5B9 u1fx515NFPunNk0ciQnn8OvMMx8r1//Zmtv8x18cEj4cWmobr3/qQXWzMxLjTdXXU0hoNqhAblxjKxIb kINEfzYHGfVrs7XL7RnPKtONNqK5Z9QDZkon0lXVKb EEKmoJDzBeTpRZNQAM6UpHCrDQ9TTQf4JSGoXHTsNpJlHQJvrjY3NXUzETNsCDCwO3DgbkMggFIkSQUv Uj4+RR9ln6PmVbFmASRpNzp1MA0BqMExNW2RiESolN5ykzAtA650urCuIXTfUvyww2YkYApbOTROIX5N HKL7BHV4EODbWy0+FB3qe5KfNpRoXCHaSsu8KH5QjF Cga4SmMH5AP5OuUBAfRDEQLFC6o2KtVLWjsvzdtvjaK2SoGET0aP4wDOP8TOLjOJhrRWYzTJLqVNV9OO VzPCiuMPVrOKPyRODmSWVoSNb6cEXnUE4SI3MfEXPhJPTJWZCjleWgVu5yDDtGSnDRGAXQYJspGAcBOP GWAZNeTrAmZmPhGJWuA3GwwvOzgYTtHHACZBaxCyxo KKTjzX3sgQmgB3WuTNT0b5CnJI2IS3GbVOEtAOJACHU3u9OlQJJmgizutispUyOsFYFhFMKkPEEbLA5Q bk4zxLQthkVlNMZLZYuzVoluAQ4ciGcgreuvU5GocXVfSSP+GsNuAR6clq7+MgRdEBYeDav9TNEnQTpv OXTpWCZtHRVdA0uxIPHxRmYqQWNfAmCnXF7Sr5OadK FeHy3tmiHlForDnWCjTuhhOKOsSERjDLWbUkRMPRZtUJNzCHXiUTS7DNHuTTHeWXlyRFTgHRJ3JlDmUA TzGIFhHZ6wQoImFNVxYbX6XRWsNVNnQHHswpJCZWDqWQB1UNf6MXSmQMZaSBKiFJaaMREaGIDtAXJnTI Z6QQW9RGNrOnPoASPyQDQoRQYpGJOsFKJpxfFMCTRg JJKvJEX9HWJiAYQuHBEiLEewLHRiTTZsAPcsNONpKDWvLZ6iLuPsVXTwUSLeFFxxVZAtOBYbwdDESWRa GZJbQYKvTERkOAGjQOBpVHjwGZJtPCGgHTMmZBLtXOBfFZ5cYaPkVXZiWPQ0MFNgNCIrSQMbshDUQSCu PTKlFJw7SUIxATIoLUWgUDpzGHDjMRSqAVO2OLHtBV WjZB3kKkYfKIXyWGA2LdHuPXIxHEZswyBLXSSnEKDfMOG4DdXpKXTnRZMjLVrlMBLsNYEvXCagAOKiWJ BuRA4uZoBlOKHaYTUyFVlsPGIgRGApbqOKFXVcUSKjWUTjUjQjIZWiJVHdJHnaDCGrRVB0GONhCRGfMR RyPV8yFeKrDPVsFVW4PQfzOPPjBLVgvuSPQCEkJAJd NDrdJVCrVWNkAHEyZOgqCXHnMJOqIEH4KWYbAPSgNG9bRgPyTZUsBOHnRFPuYlY4RsKoOsQYaZVlwQln eoe6MGjsH2e0CYLrFDcvDJ4cpwRgJOGzEkqdSw6buKF3MWIwWgaJNf9Ob6OjohX4mgIrXnU7PhL0KjSp RU9G ID Date Data Source [id number] 01/27/2020 02:07:49 AM EDT [facility] CT ABDOMEN PELVIS WITH CONTRAST [id number] RAUL RESULT - FINALInterpreted by:Larry Travis BeginsSigned on ThuJan 27, 2020 2:07 AM by ARELI Travisase discussed with clinician, at approximately 1:05 a.m., CSTTHIS DOCUMENT HAS BEEN ELECTRONICALLY SIGNED BY MONTY Juarez EndsPROCEDURE INFORMATION: Exam: CT Abdomen And Pelvis With Contrast Exam date and time: 01/27/2020 1:08 AM Age: 44 years old Clinical indication: Pain; Other: Rlq ttp TECHNIQUE: Imaging protocol: Computed tomography of the abdomen and pelvis with intravenous contrast. Radiation optimization: All CT scans at this facility use at least one of these dose optimization techniques: automated exposure control; mA and/or kV adjustment per patient size (includes targeted exams where dose is matched to clinical indication); or iterative reconstruction. Contrast material: OMNI 300; Contrast volume: 100 ml; Contrast route: INTRAVENOUS (IV); COMPARISON: CT ABD/PEL W/IV ORAL CONTRAS 12/24/2019 12:05 AM FINDINGS: Pleural space: No pleural effusion Heart: No pericardial effusion Adrenals: No evidence of acute pathology to the liver, spleen, gallbladder, pancreas, or adrenal glands Kidneys and ureters: Again noted is bilateral renal scarring. No evidence of hydroureter. No pneumatosis Appendix: Partial visualization of normal caliber appendix. However, there is an acute inflammatory process at the cecum. Considerations include typhilitis, inflammatory bowel disease, diverticulitis. Intraperitoneal space: No free air Mild mesenteric hyperemia No evidence of ascites Vasculature: Atherosclerotic changes to the abdominal aorta Again noted is a stent at the superior mesenteric artery Lymph nodes: Small mesenteric lymph nodes. There is 1 in the right lower quadrant measuring approximately 7.5 mm in short axis dimension Urinary bladder: No calcifications within the urinary bladder Reproductive: Prostate gland impresses upon the base of the urinary bladder Bones: No acute compression fracture Soft tissues: No evidence of anasarca. Again noted is a focus of high density along the periphery of the spleen. Difficult to rule out possibility of renal cyst, secondary to renal scarring. Possible small hiatal hernia. Other findings: Mild ileus IMPRESSION: Acute inflammatory process at the cecum. Consider typhilitis. May lead to secondary appendicitis.THIS DOCUMENT HAS BEEN ELECTRONICALLY SIGNED BY MONTY KHAN MDThis document has been electronically signed by Monty Khan MD on 01/27/2020 1:49 AM Name Value Range Interpretation Code Description [facility] Supporting Document(s) ID Date Data Source [id number] 01/26/2020 11:35:36 PM T [facility] Name Value Range Interpretation Code Description Data [facility](s) Supporting Document(s) pH of Venous blood 7.36 7.36-7.41 [facility] Carbon dioxide [Partial pressure] in Venous blood 44 mmHg 40-45 [facility] Oxygen [Partial pressure] in Venous blood [facility] Base excess standard in Venous blood by calculation [facility] Oxygen saturation Calculated from oxygen partial pressure in Venous blood 60-85 [facility] Lactate [Moles/volume] in Venous blood 0.6 mmol/L 0.5-2.2 [facility] Bicarbonate [Moles/volume] in Venous blood 26 mmol/L [facility] ID Date Data Source [id number] 01/27/2020 01:17:17 AM EDT [facility] Name Value Range Interpretation Code Description Data Viktoriya rce(s) Supporting Document(s) Specimen source [Identifier] of Unspecified specimen [facility] SARS-CoV-2 RNA 2018 nCoV Real-Time RT-PCR: NOT DETECTED [facility] Assay Performed [facility] Patients first test for [facility] Patient employed in healthcare setting [facility] Patient has symptoms related to condition [facility] When did you start to experience these symptoms [Date and time] [PhenX] [id number] [facility] Patient was hospitalized because of this condition [facility] patient was admitted to ICU for [facility] Patient resides in a congregate care setting [facility] status [facility] ID Date Data Source [id number] 01/26/2020 11:27:00 PM EDT [facility] Name Value Range Interpretation Code Description Data Viktoriya rce(s) Supporting Document(s) SARS-CoV-2 RNA [facility] This lab was ordered by [facility] and reported by [facility]. ID Date Data Source [id number] 01/27/2020 01:18:14 AM EDT [facility] Service Cmnt XXX-Imp : NoneRESPIRATORY P TSEVE PLACEHOLDER : PCR ResultsMicroorganism XXX Cult : See Labs Tab for 2019 nCoV RT-PCR resultsHAdV DNA QI NATHANIEL+non-probe : Not DetectedHCoV 229ERNA Nph QI NATHANIEL+non-probe : Not DetectedHCoV OZM5TUM Nph QI NATHANIEL+non-probe : Not AzqqbnayDZzGAZ87 RNA Nph QI NATHANIEL+non-probe : Not WlatxetcEYcQKW46 RNA Upper resp QI NATHANIEL+probe : Not DetectedhMPV RNA Nph QINAA+non-probe : Not DetectedRV+EV RNA Nph QI NATHANIEL+non- probe : Polymerase chain reaction is POSITIVE for Rhinovirus/Enterovirus.FLUAV RNA Nph QI NATHANIEL+ non-probe : Not DetectedFLUBV RNA Nph QI NATHANIEL+non-probe : Not DetectedHPIV1 RNA NphQINAA+non-probe : Not DetectedHPIV2 RNA Nph QINAA+non-probe : Not DetectedHPVI3 RNA Nph NATHANIEL+non-probe : Not DetectedHPIV4 RNA Nph Q NATHANIEL+non-probe : Not DetectedRSV RNA Nph Q NATHANIEL+non-probe : Not DetectedB pert.PT PrmtNph Q NATHANIEL+non-probe : Not DetectedC pneum DNA Nph Q NATHANIEL+non-probe : Not DetectedM pneum DNA Nph Q NATHANIEL+non-probe : Not DetectedB blxsjFT674 DNA Nph NATHANIEL+non-probe : Not Detected Name Value Range Interpretation Code Description Data Viktoriya rce(s) Supporting Document(s) ID Date Data Source [id number] 01/27/2020 12:34:19 AM [facility] Name Value Range Interpretation Code Description Data Viktoriya rce(s) Supporting Document(s) ABO and Rh group [Type] in Blood [facility] Blood group antibody screen [Presence] in Serum or Plasma [facility] Performed at [facility], [place] Abrams [place] Type Confirmed ID Date Data Source [id number] 01/27/2020 12:01:50 AM [facility] Name Value Range Interpretation Code Description Data Viktoriya rce(s) Supporting Document(s) Leukocytes [#/volume] in Blood by Automated count 8.6 10*3/uL 4-10 [facility] Erythrocytes [#/volume] in Blood by Automated count 4.72 10*6/uL 4.6- 6.1 [facility] Hemoglobin [Mass/volume] in Blood 15.0 g/dL 13.5-18 [facility] Hematocrit [Volume Fraction] of Blood by Automated count 44.7 % 4 1-53 [facility] Erythrocyte mean corpuscular volume [Entitic volume] by Auto mated count 94.6 fL 80-96 [facility] Erythrocyte mean corpuscular hemoglobin [Entitic mass] by Automated count 31.8 pg 27-33 [facility] Erythrocyte mean corpuscular hemoglobin concentration [Mass/volume] by Automated count 33.6 g/dL 32.0-36.0 [facility] distribution width [Ratio] by Automated count 13.2 % 11.5-14.5 [facility] Platelets [#/volume] in Blood by Automated count 280 10*3/uL 150-400 [facility] Differential cell count method - Blood [facility] Neutrophils/100 leukocytes in Blood by Automated count 51 % [facility] Lymphocytes/100 leukocytes in Blood by Automated count 32 % [facility] Monocytes/100 leukocytes in Blood by Automated count 11 % [facility] Eosinophils/100 leukocytes in Blood by Automated count 5 % [facility] Basophils/100 leukocytes in Blood by Automated count 1 % [facility] Neutrophils [#/volume] in Blood by Automated count 4.39 10*3/uL 1.8-7 .0 [facility] Lymphocytes [#/volume] in Blood by Automated count 2.77 10*3/uL 1.2-4 .0 [facility] Monocytes [#/volume] in Blood by Automated count 0.97 10*3/uL 0-0.8 H [facility] Eosinophils [#/volume] in Blood by Automated count 0.39 10*3/uL 0-0.5 [facility] Basophils [#/volume] in Blood by Automated count 0.08 10*3/uL 0-0.2 [facility] Nucleated erythrocytes/100 leukocytes [Ratio] in Blood by Automated count 0 /100{WBCs} 0-0 [facility] ID Date Data Source [id number] 01/27/2020 12:11:46 AM [facility] Name Value Range Interpretation Code Description Data Viktoriya rce(s) Supporting Document(s) Lipase [Enzymatic activity/volume] in Serum or Plasma 54 U/L 13-6 0 [facility] ID Date Data Source [id number] 01/27/2020 12:11:46 AM [facility] Name Value Range Interpretation Code Description Data Viktoriya rce(s) Supporting Document(s) Bicarbonate [Moles/volume] in Serum 25 mmol/L 22-29 [facility] Chloride [Moles/volume] in Serum or Plasma 103 mmol/L 98-107 [facility] Creatinine [Mass/volume] in Serum or Plasma 1.28 mg/dL 0.70-1.20 H [facility] Glucose [Mass/volume] in Serum or Plasma 94 mg/dL 70-140 [facility] Potassium [Moles/volume] in Serum or Plasma 4.4 mmol/L 3.4-5.1 [facility] Hemolyzed Sodium [Moles/volume] in Serum or Plasma 138 mmol/L 136-145 [facility] Urea nitrogen [Mass/volume] in Serum or Plasma 17 mg/dL 6-20 [facility] Anion gap 3 in Serum or Plasma 10 mmol/L 8-15 [facility] Osmolality of Serum or Plasma by calculation 287 mosm/kg 275-300 [facility] Creatinine/Urea nitrogen [Mass Ratio] in Serum or Plasma 13 [facility] Calcium [Mass/volume] in Serum or Plasma 8.8 mg/dL 8.6-10.0 [facility] Glomerular filtration rate/1.73 sq M pre dicted among non-blacks [Volume Rate/Area] in Serum or Plasma by Creatinine-based formula (MDRD) 67 mL/min/1.73m2 >60 [facility] Glomerular filtration rate/1.73 sq M pre dicted among blacks [Volume Rate/Area] in Serum or Plasma by Creatinine-based formula (MDRD) 77 mL/min/1.73m2 >60 [facility] ID Date Data Source [id number] 01/27/2020 12:11:46 AM [facility] Value Range Interpretation Code Description Data Viktoriya rce(s) Supporting Document(s) Troponin T.cardiac [Mass/volume] in Serum or Plasma <0.01 [facility] ID Date Data Source [id number] 01/27/2020 12:13:36 AM [facility] Value Range Interpretation Code Description Data Viktoriya rce(s) Supporting Document(s) Prothrombin time (PT) 12.5 s 12.5-14.9 [facility] INR in Platelet poor plasma by Coagulation assay 0.92 [facility] Routine intensity oral anticoagulation I NR is typically 2.0-3.0. Target INR must be clinically individualized. ID Date Data Source [id number] 01/26/2020 11:55:30 PM [facility] Value Range Interpretation Code Description Data Viktoriya rce(s) Supporting Document(s) Color of Urine [facility] Clarity of Urine [facility] Specific gravity of Urine by Refractometry automated 1.012 1.003 -1.030 [facility] pH of Urine by Automated test strip 6.0 5.0-8.0 [facility] Protein [Mass/volume] in Urine by Automated test strip Neg [facility] Glucose [Mass/volume] in Urine by Automated test strip Neg [facility] Ketones [Mass/volume] in Urine by Automated test strip Neg [facility] Bilirubin.total [Presence] in Urine by Automated test strip Negative [facility] Hemoglobin [Presence] in [facility]rine [facility]ukocyte ester[facility] [Presence] in Urine by Automated test strip Negative [facility] Nitrite [Presence] in Urine by Automated test strip Negati [facility] Leukocytes [#/area] in Urine sediment by Automated count 0 /HPF 0 -5 [facility] Erythrocytes [#/area] in Urine sediment by Automated count 0 /HPF 0-3 [facility] ID Date Data Source [id number] 01/18/2020 11:16:12 AM EDT [facility] Name Value Range Interpretation Code Description Data Viktoriya rce(s) Supporting Document(s) Progress Note [facility] SZXYCz1tJeMNXePg41/INLrrCXYsx9EuWQxfSUs5EYhdOIOiL0PkZJH8bB6pVXC6FRmKHxSzXyVzVZCj lbm [file] 4UZvLsThXENsMdYN7RQVs= ID Date Data Source [id number] 12/08/2019 05:40:38 PM EDT [facility] Name Value Range Interpretation Code Description Data Viktoriya rce(s) Supporting Document(s) Progress Note [facility] WLIPZw2aXlOUWuAt70/XNChaNVXis3EqDVikXNa9TLliLUHjI8OtOSF8sD9yTOR6WPoEWuLoBoTjVJWw lbm [file] Q+WX7gNEz+Wa5Ww3CzcgG0kfXuMPnzOFFuZZ3CHXXEE5JVEt== ID Date Data Source [id number] 12/08/2019 05:37:52 PM EDT [facility] Name Value Range Interpretation Code Description Data Viktoriya rce(s) Supporting Document(s) Progress Note [facility] OYNJBu7rTgVNNjBy10/VDHneHVGnz3ZaNOvnOWb9TFqlYAReA1MsZDD0sZ8fKSF1XDsQPgIrPxOxTACc lbm [file] ICAgICAgICAgICAgICAgICAgICAgICAgICAgICAgICAgICAgICAgICAgICAgICAgICAgICAgICAgICAN CiAgICAgICAgICAgICAgICAgICAgICAgICAgICAgIC AgICAgICAgICAgICAgICAgICAgICAgICAgICAgICAgICAgICAgICAgICAgICAgICAgICAgICAgICAgIC AgICAgICAgICANCiAgICAgICAgICAgICAgICAgICAgICAgICAgICAgICAgICAgICAgICAgICAgICAgIC AgICAgICAgICAgICAgICAgICAgICAgICAgICAgICAg ICAgICAgICAgICAgICAgICAgICANCiAgICAgICAgICAgICAgICAgICAgICAgICAgICAgICAgICAgICAg ICAgICAgICAgICAgICAgICAgICAgICAgICAgICAgICAgICAgICAgICAgICAgICAgICAgICAgICAgICAg ICANCiAgICAgICAgICAgICAgICAgICAgICAgICAgIC AgICAgICAgICAgICAgICAgICAgICAgICAgICAgICAgICAgICAgICAgICAgICAgICAgICAgICAgICAgIC AgICAgICAgICAgICANCiAgICAgICAgICAgICAgICAgICAgICAgICAgICAgICAgICAgICAgICAgICAgIC AgICAgICAgICAgICAgICAgICAgICAgICAgICAgICAg ICAgICAgICAgICAgICAgICAgICAgICANCiAgICAgICAgICAgICAgICAgICAgICAgICAgICAgICAgICAg ICAgICAgICAgICAgICAgICAgICAgICAgICAgICAgICAgICAgICAgICAgICAgICAgICAgICAgICAgICAg ICAgICANCiAgICAgICAgICAgICAgICAgICAgICAgIC AgICAgICAgICAgICAgICAgICAgICAgICAgICAgICAgICAgICAgICAgICAgICAgICAgICAgICAgICAgIC AgICAgICAgICAgICAgICANCiAgICAgICAgICAgICAgICAgICAgICAgICAgICAgICAgICAgICAgICAgIC AgICAgICAgICAgICAgICAgICAgICAgICAgICAgICAg ICAgICAgICAgICAgICAgICAgICAgICAgICANCiAgICAgICAgICAgICAgICAgICAgICAgICAgICAgICAg ICAgICAgICAgICAgICAgICAgICAgICAgICAgICAgICAgICAgICAgICAgICAgICAgICAgICAgICAgICAg ICAgICAgICANCjw/qFElQ2fwjARnpjA0T5xoCp1MDr 0NFB5gm8GqMWKrNTozwaLpWbtWHmLvKXJpRxpDVyj3NSzgDQ9FhFLoG5PpN4VtDYnnAD6TTRQgTXAyyG SgNCKfFDCeIlB6NRDgJKlaJZ7CnHXuUKfkVCOhRSBpAY8SSTDbL907doYkSM0QAe0LDvDuSG9psi2WMl VlJJXbOjpFPjv8JZbzBT7UdCUysKKtKqFqHIDALpAc T5chd9FrNuZdMLENLHvgBC3Es0IjvGWtVQc+Mp1HHH1qe6JxHBizKcEcQI0eri9NWNcNBwSvC6LewTih PQBiz0urOBHqRX9jbYJjUUL4CEzvIuYrRCdqMmRGiBAneHsfbJtyCIIrIHHvSK0mOC0nVEQxXMZ0UoUx JKUFYY9ZDKCoOWLalLQyRSTaAJXDNZ0CDXtvQZF2GS MbiyFsdVNjTXnfRQ2YWXNihgVpAzEkORKWVZu+Ro0ZJZ3md7YoIYfwYMQcJA2idx8KERyVFuHfM8G2dJ TyX4W8BKraBm8NUPSiCTSyRhFxVXCZKTtyHR5ZDC6hxcQ9XC9WoICgOHNfWCYwwJGySHk9G74klQEnPD xfCA8WUDI+Jayla+Gf1ELRAdIFUwLWJiDgKmWOAHPgNf Z9FuB2LDs2UeA3OrNG32lRgdewBqUFedCN8QBN4pKQJdKTSYNQ1GrQDibT6arxIvTpOnGSRAUnVuI02p tBFuARKsLAGdRDRkHk5GURWgF5MjqoNydUsiekYiOSJdZDFNZB6EUNdkbaGxvGKjsVoxTI99aVrfNS9P Ay8QAnUtEM4csl1WkLTzIk1PJJZdQP6RJFRyOXUnDS DyICF6RUYiFiBbRMiuMSJsPKCaBFP8KKKtZWOzBS6URvFtSRWxHInvPbCiROJtVLJdxz0VKRFrERShNP p0GfKaHMMkSLSaHXirNOGvFSIhHXJ1FLWxAHWgTQ6TOxMbHJEzJTI8GpDsJAFiRYCgmw9WWAEaKGGhQD m4ZzYyCKTjIPGhOLokOCPqCQYnIEF4FOGcTFBfPX5Y FkCpFSUcYSUvRwWyUCYdRYTldg4TBZUyEBEuIfDbHtZeCQCiWTAzGPpcMEOsMBF4JKDhMPCqWFLdYS0Z PtLgGBOcARAsXhQvTIBfSMFhmp5ICNRlBYTjCYE1BSDhQIDgOJBhHFyvUUWeIGG8GIK1DLWxKASwSQ6T BxUhJDKpAJUeQeLiNGUqJCDijj1VLIHmXSRpTvSoBY QrBMUkWQTmFHcxYCDwYZH6FpO5CPZjXNIrBF8XUuHfIRFfEAR7MTEkDEUbWOXpto4BGCWlWCQaXnb7SB FzHQLqQHMnKKruWMCmYXM2DDZlIDHxQYUfHX5UIyZaCHWaVHteTHKeILFyKDPhff3LJPEuYBUkNTMqRz CbFPOfHBFwDHtfUPKaWGW4NCP4YQLkHDCyQR2DXdOu OAGdZfHrDoOlMUWoFMHjpr5KGNQlADDwCXY5PXJzOIXyGWVsZVo0wiSwqFPmSBw8MV2IB9UbvhJtPuPE Di6Dl968LAA3ZWBpGi7TW4mcPf4oWIQlLCKHOw8KYZq9JaF8UxKzSQLvApM9EmsiZCL9PBDiSjGrHzw4 ZAU9ATd+NKhgLyr8SXQ6LQQ4XaonLRU1Qis6PjPoCY UbWeudOOh4LC8uJKUSTi4+GRxssHYjcBqmNTUYJsBxZDWhVHlyVNEPNb2R ID Date Data Source [id number] 11/21/2019 12:00:00 AM EDT [facility] Imaging Charles Meehan MD Patient Name: GILDA MILLER [id number] [facility] 1975[facility] [id number] Date of Exam: 11/21/2019#: Fax: [phone] EXAM: ARTHROCENTESIS SMALL JOINT W/O US GUIDLEFT CALCANEOCUBOID JOINT INJECTION:The procedure was performed by NICHOLAS Mckeon under the generalsupervision of Dr. Hylton.The benefits and risks including, but not limited to pain, infection,bleeding, and anaphylaxis were explained to the patient and informedconsent was obtained.The left calcaneocuboid joint space was localized using fluoroscopicguidance. The skin was prepped and draped in a sterile fashion. 1%Lidocaine was used as a local anesthetic. Using fluoroscopic guidance, a#25 gauge needle was inserted and advanced into the joint. 0.5 cc ofOmnipaque 300 was injected to verify placement. 36 cc of a solutioncontaining 2 cc of 1% Lidocaine and 1 cc of Kenalog 40 mg was injected intothe joint space. The needle was then removed.The patient tolerated the procedure well and there were no immediatecomplications.Fluoroscopy time was 2 seconds at 3 pulses/second. This is equal to .5seconds continuous fluoroscopy time which is a 75% reduction in radiation.YARA Taylor/Sherie pederson for referring GILDA MILLER to our office. Electronically Signed - YONATAN HYLTON MD 12/06/19 12:44 Name Value Range Interpretation Code Description Data Viktoriya rce(s) Supporting Document(s) ID Date Data Source [id number] 11/21/2019 12:00:00 AM EDT [facility] Imaging Charles Meehan MD Patient Name: GILDA MILLER [id number] [facility] Date of : 1975[place] [address] Date of Exam: 11/21/2019#: Fax: [phone] EXAM: ARTHROCENTESIS SMALL JOINT W/O US GUIDLEFT CALCANEOCUBOID JOINT INJECTION:The procedure was performed by Paul Padilla [facility] under the generalsupervision of Dr. Hylton.The benefits and risks including, but not limited to pain, infection,bleeding, and anaphylaxis were explained to the patient and informedconsent was obtained.The left calcaneocuboid joint space was localized using fluoroscopicguidance. The skin was prepped and draped in a sterile fashion. 1%Lidocaine was used as a local anesthetic. Using fluoroscopic guidance, a#25 gauge needle was inserted and advanced into the joint. 0.5 cc ofOmnipaque 300 was injected to verify placement. 36 cc of a solutioncontaining 2 cc of 1% Lidocaine and 1 cc of Kenalog 40 mg was injected intothe joint space. The needle was then removed.The patient tolerated the procedure well and there were no immediatecomplications.Fluoroscopy time was 2 seconds at 3 pulses/second. This is equal to .5seconds continuous fluoroscopy time which is a 75% reduction in radiation.YARA Taylor/Sherie pederson for referring GILDA MILLER to our office. Electronically Signed - YONATAN HYLTON MD 12/06/19 12:44 Name Value Range Interpretation Code Description Data Viktoriya rce(s) Supporting Document(s) ID Date Data Source [id number] 11/16/2019 01:36:00 PM EDT [facility] ([facility]) Name Value Range Interpretation Code Description Data Viktoriya rce(s) Supporting Document(s) Reported Physicians See Note Reported Physicians [facility] Note: Reported Physicians:Ordering: Batool Aguilar LAttending: Batool Aguilar ID Date Data Source [id number] 11/16/2019 01:36:00 PM EDT [facility] ([facility]) Name Value Range Interpretation Code Description Data Viktoriya rce(s) Supporting Document(s) Levetiracetam [Moles/volume] in Serum or Plasma 10.9 ug/mL Levetiracetam [facility] Note: This test was developed and its p erformance characteristics determined by [facility]. It has not been cleared or approved by the Food and Drug Administration. Performed at: [address] [id number] [employer] Process Operator: Madyson Chavarria MD, Phone: [phone] Observer: LEVETIRACETAM LEVETIRACETAM [id number] 800.9000 (A) ID Date Data Source [id number] 11/16/2019 01:36:00 PM EDT [facility] Name Value Range Interpretation Code Description Data Viktoriya rce(s) Supporting Document(s) Thyrotropin [Units/volume] in Serum or Plasma by Detec tion limit <= 0.05 mIU/L 1.480 uIU/ML Normal TSH [facility] ([facility]) Note: Patients should not be tested for 72 hours post fluorescein dye angiography. A false depression of result may occur.Responsible Observer: TSH TSH 300.5500 (A) ID Date Data Source [id number] 11/16/2019 01:36:00 PM EDT [facility] ([employer]) Name Value Range Interpretation Code Description Data Viktoriya rce(s) Supporting Document(s) Albumin/Globulin [Mass Ratio] in Amniotic fluid 1.8 G/DL Normal ALB/GLOB RATIO [facility] ([facility]) Note: Responsible Observer: A/G RATIO AL B/GLOB RATIO 300.4100 (A) Albumin [Mass/volume] in Synovial fluid 4.6 G/DL Normal ALBUMIN [facility] ([facility]) Note: Responsible Observer: ALB ALBUMIN 300.3900 (A) Alkaline phosphatase isoenzyme [Units/volume] in Serum or Plasma 116 U/L Normal ALKALINE PHOSPHATASE [facility] ([facility]) Note: Responsible Observer: ALK PHOS ALK CAMRYN PHOSPHATASE 300.3110 (A) Alanine aminotransferase [Enzymatic activity/volume] in Seru m or Plasma 34 U/L Normal ALT [facility] ([facility]) Note: Responsible Observer: ALT/SGPT ALT 300.3100 (A) Urea nitrogen/Creatinine [Mass Ratio] in Serum or Plasma 10 Normal BUN/CREAT RATIO [facility] ([facility]) Note: Responsible Observer: BUN/CREAT RA RICKI BUN/CREAT RATIO 300.0450 (A) Aspartate aminotransferase [Enzymatic activity/volume] in Serum or Plasma 20 U/L Normal AST GAVIN ([facility]) Note: Responsible Observer: AST/SGOT AST 300.3050 (A) BLOOD UREA NITRO 13 MG/DL Normal BLOOD UREA NITRO [facility] ([facility]) Note: Responsible Observer: BUN BLOOD UR EA NITROGEN 300.0350 (A) Bilirubin.total [Mass/volume] in Serum or Plasma 0.4 MG/DL Normal BILIRUBIN,TOTAL ARMSTRONG ([facility]) Note: Responsible Observer: TOTAL BILI T OTAL BILIRUBIN 300.2700 (A) CA 9.5 MG/DL Normal CA GAVIN ([facility]) Note: Responsible Observer: CA CALCIUM 300.2200 (A) Chloride [Moles/volume] in Serum, Plasma or Blood 105 MEQ/L Normal CHLORIDE GAVIN ([facility]) Note: Responsible Observer: CL CHLORIDE 300.0200 (A) Carbon dioxide, total [Moles/volume] in Serum or Plasma 22 MEQ/L Normal CARBON DIOXIDE GAVIN ([facility]) Note: Responsible Observer: CO2 CARBON D IOXIDE 300.0250 (A) Creatine/Creatinine [Mass Ratio] in Urine 1.2 MG/DL Katharine l CREATININE [facility] ([facility]) Note: Responsible Observer: CREAT CRELAQUITA NINE 300.0400 (A) GFR 65.8 ML/MIN GFR ARM[facility]ONG ([facility]) Note: Stage G2 - Mildly decreased kidne y function The GFR is an estimate of the Glomerular Filtration Rate. It is an aid to assess a patient's renal function. It is not a conclusive diagnosis of kidney disease. GFR normal is >=90 The MDRD GFR calculation is considered valid between the ages of 18 and 75 years only.Responsible Observer: GFR GFR 300.0410 (A) Anion gap in Blood 18 Above high normal ANION GAP GRE [facility] ([facility]) Note: Responsible Observer: ANION GAP AN ION GAP 300.0300 (A) Globulin [Mass/volume] in Serum by calculation 2.5 G/DL Normal GLOBULIN [facility] ([facility]) Note: Responsible Observer: GLOB GLOBULI N 300.4050 (A) Glucose [Presence] in Urine 90 MG/DL Normal [facility]CO[facility] ([facility]) Note: Responsible Observer: GLU GLUCOSE 300.0500 (A) Potassium [Mass/volume] in Blood 4.2 MEQ/L Normal POT ASSIUM [facility] ([facility]) Note: Responsible Observer: K POTASSIUM 300.0150 (A) Protein [Mass/volume] in Synovial fluid 7.1 G/DL Normal TOTAL PROTEIN [facility] ([facility]) Note: Responsible Observer: TP TOTAL PRO TEIN 300.3750 (A) Sodium [Moles/volume] in Serum, Plasma or Blood 141 MEQ/L Normal SODIUM [facility] ([facility]) Note: Responsible Observer: NA SODIUM 3 00.0100 (A) ID Date Data Source [id number] 11/16/2019 01:36:00 PM EDT [email or web address] Name Value Range Interpretation Code Description Data Viktoriya rce(s) Supporting Document(s) BASO # (AUTO) 0.09 3/uL Normal BASO # (AUTO) [facility]AVIN [facility] Note: Responsible Observer: BASO # (AUTO ) BASO # (AUTO) 100.1500 (A) BASO % (AUTO) 1.0 % Normal BASO % (AUTO) GAVIN ([facility]) Note: Responsible Observer: BASO % (AUTO ) BASO % (AUTO) 100.1250 (A) EOS # (AUTO) 0.22 3/uL Normal EOS # (AUTO) GAVIN [facility] Note: Responsible Observer: EOS # (AUTO) EOS # (AUTO) 100.1450 (A) GRAN # (AUTO) 4.93 3/uL Normal GRAN # (AUTO) GAVIN ([facility]) Note: Responsible Observer: GRAN # (AUTO ) GRAN #(AUTO) 100.1325 (A) EOS % (AUTO) 2.5 % Normal EOS % (AUTO) GAVIN ([facility]) Note: Responsible Observer: EOS % (AUTO) EOS % (AUTO) 100.1200 (A) GRAN % (AUTO) 56.9 % Normal GRAN % (AUTO) GAVIN ([facility]) Note: Responsible Observer: GRAN % (AUTO ) GRAN % (AUTO) 100.1000 (A) Hematocrit [Volume Fraction] of Blood by Automated count 45.5 % Normal HEMATOCRIT GAVIN ([facility]) Note: Responsible Observer: HCT HEMATOCR IT 100.0400 (A) Hemoglobin [Mass/volume] in Blood 15.5 G/DL Normal HE MOGLOBIN GAVIN ([facility]) Note: Responsible Observer: HGB HEMOGLOB IN 100.0300 (A) IG # (AUTO) 0.0 3/uL IG # (AUTO) GAVIN ([facility]) Note: Responsible Observer: IG # (AUTO) IG # (AUTO) 100.1260 (A) IG % (AUTO) 0.3 % IG % (AUTO) GAVIN ([facility]) Note: Responsible Observer: IG % (AUTO) IG % (AUTO) 100.1255 (A) LYMPH # (AUTO) 2.5 k/uL Normal LYMPH # (AUTO) GAVIN ( [facility]) Note: Responsible Observer: LYMPH # (AUT O) LYMPH # (AUTO) 100.1350 (A) LYMPH % (AUTO) 29.3 % Normal LYMPH % (AUTO) GAVIN ( [facility]) Note: Responsible Observer: LYMPH % (AUT O) LYMPH % (AUTO) 100.1100 (A) Erythrocyte mean corpuscular hemoglobin concentration [Mass/volume] by Automated count 34.1 G/DL Normal MCHC [facility] ([facility]) Note: Responsible Observer: MCHC MCHC 1 00.0650 (A) Erythrocyte mean corpuscular hemoglobin [Entitic mass] by Automated count 32.2 PG Normal MCH [place] ([facility]) Note: Responsible Observer: MCH MCH 100 .0600 (A) Erythrocyte mean corpuscular volume [Entitic volume] by Auto mated count 94.4 FL Normal MCV [facility] ([facility]) Note: Responsible Observer: MCV MCV 100 .0550 (A) MONO # (AUTO) 0.87 k/uL Normal MONO # (AUTO) GAVIN ([facility]) Note: Responsible Observer: MONO # (AUTO ) MONO # (AUTO) 100.1400 (A) MONO % (AUTO) 10.0 % Normal MONO % (AUTO) [facility]ONG ([facility]) Note: Responsible Observer: MONO % (AUTO ) MONO% (AUTO) 100.1150 (A) MPV 9.3 FL Normal MPV ARMSTRONG ([facility]) Note: Responsible Observer: MPV MPV 100 .0950 (A) Platelets [#/volume] in Plasma by Automated count 332 3/uL Normal PLATELET COUNT [facility] ([facility]) Note: Responsible Observer: PLT PLATELET COUNT 100.0850 (A) Erythrocytes [#/volume] in Blood by Automated count 4.82 6/uL Normal RED BLOOD COUNT [place] ([facility]) Note: Responsible Observer: RBC RED BLOO D COUNT 100.0250 (A) Leukocytes [#/volume] in Blood by Automated count 8.68 3/uL Normal WHITE BLOOD COUNT [place] ([facility]) Note: Responsible Observer: WBC WHITE BL OOD COUNT 100.0150 (A) Erythrocyte distribution width [Ratio] by Automated count 12.2 % Normal RDW [place] ([facility]) Note: Responsible Observer: RDW RDW 100 .0700 (A) ID Date Data Source [id number] 11/16/2019 05:51:00 PM [facility] Has Patient Fasted For The Past 12 Hour s? N Has Patient Fasted For The Past 12 Hour s? N Name Value Range Interpretation Code Description Data Viktoriya rce(s) Supporting Document(s) WHITE BLOOD COUNT 8.68 10^3/uL 4.00-10.50 N [facility] RED BLOOD COUNT 4.82 10^6/uL 4.30-5.80 N [facility] th HEMOGLOBIN 15.5 G/DL 13.0-17.5 N [facility] HEMAT[facility]IT 45.5 % 41.0-53.0 N [facility] MCV 94.4 FL 80.0-100.0 N [facility] MCH 32.2 PG 27.0-34.0 N [facility] MCHC 34.1 G/DL 32-36 N [facility] RDW 12.2 % 11.5-14.5 N [facility] PLATELET COUNT 332 10^3/uL 130-400 N [facility] MPV 9.3 FL 8.7-13.2 N [facility] GRAN % (AUTO) 56.9 % 42.0-75.0 N [facility] LYMPH % (AUTO) 29.3 % 20.0-51.0 N [facility] [employer] MONO % (AUTO) 10.0 % 2.0-15.0 N [facility] [employer] EOS % (AUTO) 2.5 % 0.0-11.0 N [facility] [employer] BASO % (AUTO) 1.0 % 0.0-2.0 N [facility] [employer] IG % (AUTO) 0.3 % 1.00-5.00 [facility] [employer] IG # (AUTO) 0.0 10^3/uL <0.5 [facility] GRAN # (AUTO) 4.93 10^3/uL 1.50-6.50 N [facility] [employer] LYMPH # (AUTO) 2.5 k/uL 1.0-5.0 N [facility] [employer] MONO # (AUTO) 0.87 k/uL 0.20-1.50 N [facility] [employer] EOS # (AUTO) 0.22 10^3/uL 0.00-1.10 N [facility] [employer] BASO # (AUTO) 0.09 10^3/uL 0.00-0.20 N [facility] [employer] ID Date Data Source [id number] 11/16/2019 05:55:00 PM EDT [facility] Has [facility] Fasted For The Past 12 Hour s? N Has Patient Fasted For The Past 12 Hour s? N Name Value Range Interpretation Code Description Data Viktoriya e(s) Supporting Document(s) SODIUM 141 MEQ/L 135-145 [facility] POTASSIUM 4.2 MEQ/L 3.5-5.3 [facility] CHLORIDE 105 MEQ/L 94-110 [facility] CARBON DIOXIDE 22 MEQ/L 22-33 [facility] ANION GAP 18 5-16 H [facility] BLOOD UREA NITRO 13 MG/DL 7-25 N [facility] CREATININE 1.2 MG/DL 0.6-1.4 [facility] GFR 65.8 ML/MIN [facility] Stage G2 - Mildly decreased kidney func tion The GFR is an estimate of the Glomerular Filtration Rate. It is an aid to assess a patient's renal function. It is not a conclusive diagnosis of kidney disease. GFR normal is >=90 The MDRD GFR calculation is considered valid between the ages of 18 and 75 years only. BUN/CREAT RATIO 10 8-36 [facility] GLUCOSE 90 MG/DL 70-100 [facility] CA 9.5 MG/DL 8.7-10.5 [facility] BILIRUBIN,TOTAL 0.4 MG/DL 0.1-1.3 [facility] AST 20 U/L 5-40 [facility] ALT 34 U/L 5-48 [facility] ALKALINE PHOSPHATASE 116 U/L 40-140 [facility]th TOTAL PROTEIN 7.1 G/DL 5.9-8.3 [facility] ALBUMIN 4.6 G/DL 3.0-5.1 [facility] GLOBULIN 2.5 G/DL 1.5-3.5 [facility] ALB/GLOB RATIO 1.8 G/DL 1.0-3.0 [facility] ID Date Data Source [id number] 11/20/2019 06:03:00 AM EDT [facility] Has Patient Fasted For The Past 12 Hour s? N Has Patient Fasted For The Past 12 Hour s? N Name Value Range Interpretation Code Description Data Viktoriya rce(s) Supporting Document(s) Levetiracetam 10.9 ug/mL 10.0-40.0 [facility] This test was developed and its perform ance characteristics determined by [facility]. It has not been cleared or approved by the Food and Drug Administration. Performed at: - [facility] [id number] Chemical Process Operator: Madyson Chavarria MD, Phone: [phone] ID Date Data Source [id number] 11/16/2019 05:55:00 PM EDT [facility] Has Patient Fasted For The Past 12 Hour s? N Has Patient Fasted For The Past 12 Hour s? N Name Value Range Interpretation Code Description Data Viktoriya rce(s) Supporting Document(s) TSH 1.480 uIU/ML 0.470-4.200 N [facility] Patients should not be tested for 72 ho urs post fluorescein dye angiography. A false depression of result may occur. ID Date Data Source [id number] 08/10/2019 04:39:21 PM EDT [facility] Name Value Range Interpretation Code Description Data Viktoriya rce(s) Supporting Document(s) WBC 7.3 10*3/uL (4.1-11.0) [facility] RBC 5.13 10*6/uL (4.60-6.10) [facility] HGB 16.7 g/dL (13.5-18.0) [facility] HCT 49.4 % (41.0-53.0) [facility] MCV 96.2 fL (80.0-95.0) H [facility] MCH 32.5 pg (27.0-32.0) H [facility] MCHC 33.8 g/dL (32.0-36.0) [facility] RDW 13.8 % (10.5-14.5) [facility] PLT 311 10*3/uL (150-450) [facility] MPV 7.4 fL (7.1-10.7) [facility] [place] [facility] NEUT % 62.2 % (35.0-75.0) [facility] LYMPH % 26.1 % (16.0-52.0) [facility] MONO % 9.1 % (0.0-8.0) H [facility] [place] [facility] EOS % 1.6 % (0.0-5.0) [facility] [place] [facility] BASO % 1.0 % (0.0-4.0) [facility] [place] [facility] NEUT # 4.5 10*3/uL (1.8-7.7) [facility] LYMPH # 1.9 10*3/uL (1.2-4.8) [facility] MONO # 0.7 10*3/uL (0.0-0.8) [facility] Eosinophils [#/volume] in Blood by Automated count 0.1 10*3/uL (0.0-0 .5) [facility] [place] [facility] BASO # 0.1 10*3/uL (0.0-0.2) [facility] ID Date Data Source [id number] 08/10/2019 05:18:31 PM EDT [facility] Name Value Range Interpretation Code Description Data Viktoriya rce(s) Supporting Document(s) PROTEIN,URINE <6 mg/dL [facility] URINE PROTEIN MAY BE FALSELY ELEVATEDDUR ING TREATMENT WITH AMINOGLYCOSIDESDUE TO METHOD INTERFERENCE. CREATININE,URINE 34.60 mg/dL [facility] [place] [facility] - CORE URINE TP/CR RATIO (0.00-0.20) [facility] [place] [facility] [place] TOTAL PROTEIN IS LESS THAN 6 mg/dL . ID Date Data Source [id number] 08/10/2019 05:20:06 PM EDT [facility] [employer] [facility] Name Value Range Interpretation Code Description Data Viktoriya rce(s) Supporting Document(s) SODIUM 138 mmol/L (136-145) [facility] [place] [facility] - CORE POTASSIUM 5.2 mmol/L (3.6-5.2) [facility] [place] [facility] CHLORIDE 104 mmol/L (100-108) [facility] [place] [facility] - CORE CO2 26 mmol/L (22-31) Laboratory [place] of [facility] CORE ANION GAP 8 mmol/L (7-16) Laboratory [place] of [facility] - CORE UREA NITROGEN 16 mg/dL (7-24) [facility] [employer] [facility]ORE CREATININE 1.31 mg/dL (0.80-1.30) H Laboratory [facility] [place] - [place] BUN/CREAT RATIO 12.2 RATIO (10.0-20.0) [facility] [place] [facility] [employer] - CORE GLUCOSE 76 mg/dL (70-99) [facility] [place] [facility] [employer] - CORE CALCIUM 9.2 mg/dL (8.4-10.2) [facility] [place] [facility] [employer] - CORE PHOSPHORUS 3.0 mg/dL (2.5-4.5) [facility] [place] [facility] [employer] - CORE ALBUMIN 4.0 g/dL (3.5-4.6) [facility] [place] [facility] [employer] - CORE GFR 59 ml/min/1.73m2 (>59) L [facility] [employer] - CORE GFR ( AMER) >60 ml/min/1.73m2 (>59) Laboratory [place] [facility] [employer] - Near Page GFR INTERPRETATION [facility] [place] [facility] [employer] CORE --NORMAL KIDNEY FUNCTION OR MILD DISEASE - GFR >OR= 60CHRONIC KIDNEY DISEASE - GFR 15 - 59RENAL FAILURE - GFR <15 Est. GFR calculation based on the MDRDstudy equation, which assumes a steadystate for creatinine. Est. GFR should notbe used for medication dosing. ID Date Data Source [id number] 08/10/2019 05:20:06 PM EDT [facility] [employer] Name Value Range Interpretation Code Description Data Viktoriya rce(s) Supporting Document(s) MAGNESIUM 2.1 mg/dL (1.7-2.4) [facility] [place] [employer] ID Date Data Source [id number] 08/10/2019 05:23:16 PM EDT [facility] [employer] Name Value Range Interpretation Code Description Data Viktoriya rce(s) Supporting Document(s) ALBUMIN, URINE 0.96 mg/dL [facility] [employer] CREATININE,URINE 37.00 mg/dL [facility] [place] [facility] ALB/CREATININE RATIO 25.9 ug/mg (0.0-29.9) Labo [facility]atory [place] [facility] ID Date Data Source [id number] 08/10/2019 05:28:33 PM EDT [facility] Name Value Range Interpretation Code Description Data Viktoriya rce(s) Supporting Document(s) PTH, INTACT @ 61.3 pg/mL (18.5-88.0) [facility] ID Date Data Source [id number] 08/11/2019 02:00:30 PM EDT [facility] Name Value Range Interpretation Code Description Data Viktoriya rce(s) Supporting Document(s) KEPPRA @ 12 ug/mL (5-30) [facility] [place] [facility] ID Date Data Source [id number] 07/12/2019 03:07:15 PM EDT [facility] Name Value Range Interpretation Code Description Data Viktoriya rce(s) Supporting Document(s) Progress Note [facility] INEQSm5qOuLKTiUw03/OSErzKPCvl3OyBJdhEXj4XEnzKZPiM9MuIXE1tZ4xHVO2GFwXEyCgFfAiOaS1 lbm [file] PeURX0PPZ+TD2aZYp+Kz5Rc6RzyxN8euHgSUupPHZ6Pn5LJCUHK6NKWo== ID Date Data Source [id number] 07/12/2019 03:07:09 PM EDT [facility] Name Value Range Interpretation Code Description Data Viktoriya rce(s) Supporting Document(s) Progress Note [facility] FICLRi3nDfZHUhBr05/ZAFilJRBuk8KzEByjKSe9GZziGUViR2PaKFJ9jO8mNBO6IPiXUhKtQlYoYrI9 lbm [file] TomGG/naopWAordcfbf/7uee/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/4rLn/pTpqxkiG2 [file] VN+nTXoVLYT/ZmPctwT84jOWp7mvPThImq/iZyJsPWgt/A/KGA07xjjqj6aB5LBQvIT0wuXsql+3o/Yoni 8feeGc6Y67MIY57IUbEPrdL4oGzdpDBtDVnOCuKE4xduWeNX7y1brtALN8B0VR5rVEg5MYAjnb6WeUDQ D/4H0yYETZVTkcYMx73GjfF6X7TeK0fT2kN3Z75C2b pyeKAeNd4ESbl7BJYIx5euwR9TcuXnwgFJLAoMUbM4CPXxEn5SY6JeMTL58u7jQ5AoGaN0et17S12v3v WSdJtHuFnjj27yVNCIPyB4C44MgfC/nZ9gd2B3JRT9tyOcM9U1ORRHA+w62Mf3ti2GUE3gxyX4mFBwsv rzsQ9ME8KFDyDlOedzmAhtahN/Iti9CBd8do8of4HD PAy0qgOEbRLD+BOf8fut6dVgJmT0jtEEOUuHUxJ7M36jYx0EQ1RurOlquyYUiPoReu5SipDZBLwPgc8h YC1YSFjE6MF0GBijPRDCiT6ZBALG9RsoLC2h+GD8c6kl+WT6dc8OBaFiSK3z20Zn5Ql0Pp6jv7MuHYwQ 03wbRfxMHi/Xi1zMBmtQYAeZDnch+Hu+4Pu/8nsyTy Rbmc04CM0lAymqOC4sMG910DaLl2v8Xq6Q9FE5yAkR3+qNdtnwNqOyPXO4UMvzil5HBCTHkNS4b8/gUK mhoqTFRDEn6vcXGzZnqXDz6VRyaR9mYD+igpFAfeB8Wxljf2RE+RVl033JznEKQ+C/X00wI0wBV/O0/X uJNBuFw1O/5sOQ7nTmuY2YUW2O+sYC3rHpe6pewX1O 0yHtt+TGRnUkawj3UbJ0IZ7FMLLI1bVefQguhF0fXvC3NHbEDP5E6LyMhHHjq4U2ym1z0n2xFAIr1Kvf CR1AFZ6A/fE64D4fpZkVKKQM7o3T4ygd9Es3aSfVoFRHtphetFyOSzboLtKQhjhX9wBj93ByjpBFbDdv eVzx4rZlTwKUq/IXF9Jx5++JrnX9yvv+Ah+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 Hylton.The benefits and risks including, but not limited to pain, infection,bleeding, and anaphylaxis were explained to the patient and informedconsent was obtained.The left calcaneocuboid joint space was localized using fluoroscopicguidance. The skin was prepped and draped in a sterile fashion. 1%Lidocaine was used as a local anesthetic. Using fluoroscopic guidance, a#25 gauge needle was inserted and advanced into the joint. 0.5 cc ofOmnipaque 300 was injected to verify placement. 3 cc of a solutioncontaining 2 cc of 1% Lidocaine and 1 cc of Kenalog 40 mg was injected intothe joint space. The needle was then removed.The patient tolerated the procedure well and there were no immediatecomplications.Fluoroscopy time was 2 seconds at 3 pulses/second. This is equal to .5seconds continuous fluoroscopy time which is a 75% reduction in radiation.YARA Taylor/Sherie pederson for referring GILDA MILLER to our office. Electronically Signed - YONATAN HYLTON MD 07/01/19 12:41 Name Value Range Interpretation Code Description Data Viktoriya rce(s) Supporting Document(s) ID Date Data Source [id number] 06/30/2019 12:00:00 AM EDT [facility] Charles Meehan MD Patient Name: GILDA MILLER [id number] [facility] Date of : 1975[place] [address] Date of Exam: 06/30/2019#: Fax: [phone] EXAM: ARTHROCENTESIS SMALL JOINT W/O US GUIDLEFT CALCANEOCUBOID JOINT INJECTION:The procedure was performed by Paul Padilla [facility] under the generalsupervision of Dr. Hylton.The benefits and risks including, but not limited to pain, infection,bleeding, and anaphylaxis were explained to the patient and informedconsent was obtained.The left calcaneocuboid joint space was localized using fluoroscopicguidance. The skin was prepped and draped in a sterile fashion. 1%Lidocaine was used as a local anesthetic. Using fluoroscopic guidance, a#25 gauge needle was inserted and advanced into the joint. 0.5 cc ofOmnipaque 300 was injected to verify placement. 3 cc of a solutioncontaining 2 cc of 1% Lidocaine and 1 cc of Kenalog 40 mg was injected intothe joint space. The needle was then removed.The patient tolerated the procedure well and there were no immediatecomplications.Fluoroscopy time was 2 seconds at 3 pulses/second. This is equal to .5seconds continuous fluoroscopy time which is a 75% reduction in radiation.YARA Taylor/Sherie pederson for referring GILDA MILLER to our office. Electronically Signed - YONATAN HYLTON MD 07/01/19 12:41 Name Value Range Interpretation Code Description Data Viktoriya rce(s) Supporting Document(s) ID Date Data Source [id number] 06/21/2019 12:17:13 PM [facility] Name Value Range Interpretation Code Description Data Viktoriya rce(s) Supporting Document(s) Operative Note [facility] UYBQPl6dCxHAKeZa16/WNAguSTXnh7QoFDugXNy2HFjuUUCcH7TzMOU3uE4gHEX4XMxCPzCbGcMcSaFg [facility] [file] XsZDU1QZuzAreiEbCmNPR0UMBgHXH4GcNyMR9JTv3PUdV8AST8pHYwZh1ZTKOvERZUHvPnZU5WBZv= ID Date Data Source [id number] 06/20/2019 02:32:38 PM [facility] Name Value Range Interpretation Code Description Data Viktoriya rce(s) Supporting Document(s) Progress Note [facility] EBFDIp6dFfWCWfEb98/RCZufOFRun0YlDKilOId1JJxdHUYiP3DlYJR3gD3zQTK4HJdQCeHuCcGuBsGu lbm [file] AgICAgICAgICAgICAgICAgICAgICAgICAgICAgICAgICAgICAgICAgICAgICAgICAgICAgICAgICANCi AgICAgICAgICAgICAgICAgICAgICAgICAgICAgICAg ICAgICAgICAgICAgICAgICAgICAgICAgICAgICAgICAgICAgICAgICAgICAgICAgICAgICAgICAgICAg ICAgICAgICANCiAgICAgICAgICAgICAgICAgICAgICAgICAgICAgICAgICAgICAgICAgICAgICAgICAg ICAgICAgICAgICAgICAgICAgICAgICAgICAgICAgIC AgICAgICAgICAgICAgICAgICANCiAgICAgICAgICAgICAgICAgICAgICAgICAgICAgICAgICAgICAgIC AgICAgICAgICAgICAgICAgICAgICAgICAgICAgICAgICAgICAgICAgICAgICAgICAgICAgICAgICAgIC ANCiAgICAgICAgICAgICAgICAgICAgICAgICAgICAg ICAgICAgICAgICAgICAgICAgICAgICAgICAgICAgICAgICAgICAgICAgICAgICAgICAgICAgICAgICAg ICAgICAgICAgICANCiAgICAgICAgICAgICAgICAgICAgICAgICAgICAgICAgICAgICAgICAgICAgICAg ICAgICAgICAgICAgICAgICAgICAgICAgICAgICAgIC AgICAgICAgICAgICAgICAgICAgICANCiAgICAgICAgICAgICAgICAgICAgICAgICAgICAgICAgICAgIC AgICAgICAgICAgICAgICAgICAgICAgICAgICAgICAgICAgICAgICAgICAgICAgICAgICAgICAgICAgIC AgICANCiAgICAgICAgICAgICAgICAgICAgICAgICAg ICAgICAgICAgICAgICAgICAgICAgICAgICAgICAgICAgICAgICAgICAgICAgICAgICAgICAgICAgICAg ICAgICAgICAgICAgICANCiAgICAgICAgICAgICAgICAgICAgICAgICAgICAgICAgICAgICAgICAgICAg ICAgICAgICAgICAgICAgICAgICAgICAgICAgICAgIC AgICAgICAgICAgICAgICAgICAgICAgICANCiAgICAgICAgICAgICAgICAgICAgICAgICAgICAgICAgIC AgICAgICAgICAgICAgICAgICAgICAgICAgICAgICAgICAgICAgICAgICAgICAgICAgICAgICAgICAgIC AgICAgICANCjw/eYEwN6cknPAtmeV2M6vpCx9WEz1I YA9qe3FxUDWnFSzuvyUdAkoQMgIxMKXsDpzFRph3BUnzZC5YuVHtM2VyG8UvYVssSD9UWSTkKFPwiFSg QVKgRYRwYoX6XYWiWCjaHQ6FoGHxDIgpVWInNPKgWP2NOCEdD117lnNzPK4UFo9CZuHmNO6brd1AKNFr HIYmRijAEef1AUlfXJ6VnPRzwGNlDTKtFXLWVwUeP8 fnz2UkPWCkRVJBFGjbIF2Ho3AgoBSxZXj+Kx9EWT1qk6FpLYicQXDwWX3tug4HTGkNHqEeF6KhrZleHA Hgo9teRVTxAZ7dcQNgVKJ5PZ1jU6crzaGTYKAbvOWtQOTFMDQ2PUDeRv4fNWLyKXGtBkN8GDHOES5MKQ MnYYRpnXWwDCVlYMDNVS3RKXveRLX0BFIiurYgfVMh XHwmUL3YBAFjikCmJMGcVNXLUYk+Sw0TPR0mz4QxXWtdJrKuXG1egs8YYOcPFnRyQ9Z7fXFzO0L4WWfh Td6OVIMxFCZgMLJtBKVAZXnrIG3IUF1fmiL8AY0ZhBFlSGWdADObeCCbFEg2J69hwVNeKFodKV9TQFO+ Jayla+Qn9KNGDnXCCkHUWzDmEsEXNCVbJaN4TpN3TQt8 TlT9XrYT08sEgxkiJgOOxnYY6DDZ8hGBCsSPDJBQ9MlKKljE2jyzKfQTIkBNZZTfCnZ82qzJEhPRVlZQ ZtVBTlVn8WUXMkM1YqvfQvbHtbcjSvOFCrUGITMG6CFJmzfbZcnWStkJyqWG75dLsdIP1WNv6GWxDeLR 8ckg0YzGVtSy3GUQObYz8LZWVqGFMyIJTsCSD8SCXl CdXhIIjvDAOxXKLbLFV6NQFpGRSeGJ8TSfYqRBMeEGJ7YhVeVCXtWQUscc1OTUBeELRdWdM5EgOsSRNd DVCqRDmiSRKqIGSqAWI3ZFZbJHJuJL9LFoAyRNCzOIX5MWLsHCTxINTcss6LVWXqKQLcBKa4IoNvXJSq DFVzJPrgAUDjQJPiDOP7BWAnPEDtIF4OBqRzBYCrOO BmZLWaMJAxWUDspz0WAOTeROKsEsY4JFTnQIStQKEnFQjmWSIbCLR4DkZ0JOIzRZIjWZ4TOaFhNDIxKG P5QYRxPMItRTTnns3ZXUCzLEJrJVMgYRNyGIDeJXQlQXgwJYJmZTJ7KBFlFLKsRBPaAN0LMkHrTYHrPD D5AWCaQEMiCMJszq0VMUMmYAQkWtX0CEHnEDApPTWy IOqgSIGlZKM8Wum1UKClMGRnJQ1MQnNcUHyvAXMASbt7YTgmS6p5HPSqBh7JJ4Yjc5TjJSLlZETYWMbc CC5ywfKqEQWkRr2DU8fTJqjgYkA2JBX2OAPeKRAuHEMqEhU3MhBuUnEbV3H2SnXrXv7uMXVxKsiyUFC4 SYA2HeNlD1AlBXVcEUMgXCB1VIZcCTHhEwXpVG3HBi4GNkV4SWJ6fIRdVo2HSco2Ia3GAMIGN8RFAl== ID Date Data Source [id number] 06/20/2019 12:00:00 PM [facility] Name Value Range Interpretation Code Description Data Viktoriya rce(s) Supporting Document(s) History and Physical [facility] CDMRWb1mGpPDMzVz19/BQPorYJCzh7OePVlmUHw3LIezQPDsU3WgKOP8jL2iCVQ3CNgZXxJdOyBzJoUy lbm GsLktHGbTpMDNcJbjBLrIbEKhgEabkeBYlXA5RpQR5JOAvG54tOKAfQTJhP1SqIASzXJS+Vr7UBRLbwS AuJT6SMxgE6V7hilt56PeV/swhLM9DPfz39JocOMTaRi5t46bb3Kax4XoEKqz7STTtC61/500c9qCE7f zPP0HJ540tslsBBfV6G89VD0ZjoOP1293aG1414ms/ [file] 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+E9WmW9T1Wt0HknRIAiFq62uyJO1TXN3oAeYDFSWocH9XU/rgmkJCbjy0w292CAK0wtiHcL [file] AgICAgICAgICAgICAgICAgICAgICAgICAgICAgICAgICAgICAgICAgICAgICAgICAgICAgICAgICAgIC AgICAgICAgICAgDQogICAgICAgICAgICAgICAgICAg ICAgICAgICAgICAgICAgICAgICAgICAgICAgICAgICAgICAgICAgICAgICAgICAgICAgICAgICAgICAg ICAgICAgICAgICAgICAgICAgICAgDQogICAgICAgICAgICAgICAgICAgICAgICAgICAgICAgICAgICAg ICAgICAgICAgICAgICAgICAgICAgICAgICAgICAgIC AgICAgICAgICAgICAgICAgICAgICAgICAgICAgICAgDQogICAgICAgICAgICAgICAgICAgICAgICAgIC AgICAgICAgICAgICAgICAgICAgICAgICAgICAgICAgICAgICAgICAgICAgICAgICAgICAgICAgICAgIC AgICAgICAgICAgICAgDQogICAgICAgICAgICAgICAg ICAgICAgICAgICAgICAgICAgICAgICAgICAgICAgICAgICAgICAgICAgICAgICAgICAgICAgICAgICAg ICAgICAgICAgICAgICAgICAgICAgICAgDQogICAgICAgICAgICAgICAgICAgICAgICAgICAgICAgICAg ICAgICAgICAgICAgICAgICAgICAgICAgICAgICAgIC AgICAgICAgICAgICAgICAgICAgICAgICAgICAgICAgICAgDQogICAgICAgICAgICAgICAgICAgICAgIC AgICAgICAgICAgICAgICAgICAgICAgICAgICAgICAgICAgICAgICAgICAgICAgICAgICAgICAgICAgIC AgICAgICAgICAgICAgICAgDQogICAgICAgICAgICAg ICAgICAgICAgICAgICAgICAgICAgICAgICAgICAgICAgICAgICAgICAgICAgICAgICAgICAgICAgICAg ICAgICAgICAgICAgICAgICAgICAgICAgICAgDQogICAgICAgICAgICAgICAgICAgICAgICAgICAgICAg ICAgICAgICAgICAgICAgICAgICAgICAgICAgICAgIC AgICAgICAgICAgICAgICAgICAgICAgICAgICAgICAgICAgICAgDQogICAgICAgICAgICAgICAgICAgIC AgICAgICAgICAgICAgICAgICAgICAgICAgICAgICAgICAgICAgICAgICAgICAgICAgICAgICAgICAgIC XoCQNtTQQrZHGnMEJtCPVvDGCzQGu0F0kjYWPrHYCy AU9dHEp6Ty6+SPaOScCkRSD4wgNvdE3IIY0ge6MeBTurLZLbg6JaLRt2OO9XMDZjUGfpJM1WLFywgl0A RABnPEVxdBEGl1klQcTdTFW9XNFpFdhxBJ1CGOIiW0gsogQjYUYzINFLYAmxLNIVTE9QNnQdU9FidK09 IDINCj4+QKwzosWoTbiHUuEhYKAke0TsTRy8LU5NUB MmHwiot4ChPbUgJCCSKCrhOP3WMLP9RHTbQKWfLm5TLGPyW071boItGO9GXo3POdVhGY5nmn0HGzCbUX RpYdrELje1TXpiAJ2YlVLvVOaUKqVmPobzWQzkvISkjRRHRCWcvZZhZ6rmTL4IDNN0OLNpRj6aYROqIU WjEwQcZYSBYC2SCWGgGYKlwVLzCKOjQWQRNT7YREvv UTF8UXExjdEljZCaSJewOZ2PJHTlzhQlEjQsTSXAUEb+Xy9BRC8dp3TxCAlpWtVcJV5mhx8PMXlZWfMv C3E6rZDqO9K3HBfwGx7NUYFuGVPbSwjoRQWYXUvoRX7DPT9dipE0DZ5LoSQtVSStUNYefJDqOXz8G95z gXBpAWonCN6WXWK+Jayla+Nf7PHEClEQOwLDXeVvAtYB ZRZxChP0IwB7CHn8DtL2UdCG20uLzatxCsODlbJP6RRK7fXTZxRNCTXX9BlMZupS4scdHdAEYkBILUTh XnG96bsAAuOABcAAP1EENkHp4TIMGvF8RxhnXexTlisxCxOPIdVIXMCR0AZLmxgyPeuSNyuGrkAY47hT mwZC4KEr5CBlBqNT0una8GcSIdHo4DLBQyGa3AMKYz FHJyYPAzMBY9KGGbHuSkBGbqNPAyXUOmITW1CQEwLNPuWA6HRbPjENWvDbk3TKPdXTLnXYHwcd1NMVJl TNZlOQB7QSPyIJHrBSNdQMaxFQKpMREnDWI3NMPpDCLxAN5DCdVkHMZmWMOzHQpkJCRzOOXqhu3QYAYs PSNyMfZ1NhNpAFCxREBhFLsdTNQgQVM8REXrDMArMB SpQX3HKmZsYIShAYBdUZItQRViXMRusk8ATUWhWEXbUbZ0KORmEHLaEVUxBSyqXQNpPJO8QSftXVFiHT McRH0QAoWsXZIhRZN2MDLtYLGxILLeid1OOXAtKFMlYePxBMLeDHBbBUWjSJyvQRCwBNU2FZSnYAUcVE DuZT2IRcFgKQXfTFlgYCMoHBNnTTNezk9JQHRlCMJn LPF2WtPxYXYzPVEnQHkiQMUsYCA4VsB4IJUgFSTsMJ8IVwKeEENdIZc1CBNdQAWyERKehf8OQZXvWHFl GYQ1XgIcNWBfKKUbDTcbZEWbMSDzLpw0OLXeXNFvFV3LYlFtUZKvXlBoQGYlAKNeEVRzlz0WWPHtKNMw CXYjEPCjVOOyCGDrDSgqGAZyVGXtQlV0PDLdBKImLL 8SMoHwBQDbVsR6QoftENWhPHMxrz2QJFWhGTUfPKDnZVKdMFXyXNYeJQhyNQQlPTL7AnTjDKPcZMNkAG 3EWeNxCPEpFej9OBKoKOApLTRddj7RRZKzYUIdJTBbOUBvZTCxJEUtCLphAIVsVUA1BinmWFGmIIKiTK 7HJlXrXUScAys5QEDnJEIpAYOsgn3TVMYbNNSyGWB6 BIMaBHEdKSIeALlvAXLmZRHvCER2KAAgNPCiCA8QQvNyUVHjKnB9ECOrQQJaGXArwi1YkCPsvUhoyv6G VOvCEi7GpZggTGLcGLeeUb6hzZGyXgEaUKFRHo7QysTtXMXiNRZIJDraNEMhVFCkCdLpUdArWEXcGqVl RGA8OSO8BPI5G5C9XkSsTjq1WoG9LBW1YLObVtJfBY P7TwVyAWWbFiaqKPKzHiuqQwLuOQG+LR2kFHo+Lm4Xr5QedeX6pzUrSDrrTGdfSL0LUTACX3HBMt== ID Date Data Source [id number] 06/14/2019 07:17:44 PM [facility] Name Value Range Interpretation Code Description Data Viktoriya rce(s) Supporting Document(s) Progress Note [facility] FEZLUi2rWpKBIrGl31/JTTffNVBst2CjQFvlKJr6HZecVBQzY1LvOPW4yU5tVFY9YEjHBlKdRfVrNoJ2 lbm [file] AgICAgICAgICAgICAgICAgICAgICAgICAgICAgICAgICAgICAgICAgICAgICAgICAgICAgICAgICAgIC AgICAgDQogICAgICAgICAgICAgICAgICAgICAgICAg ICAgICAgICAgICAgICAgICAgICAgICAgICAgICAgICAgICAgICAgICAgICAgICAgICAgICAgICAgICAg ICAgICAgICAgICAgICAgDQogICAgICAgICAgICAgICAgICAgICAgICAgICAgICAgICAgICAgICAgICAg ICAgICAgICAgICAgICAgICAgICAgICAgICAgICAgIC AgICAgICAgICAgICAgICAgICAgICAgICAgDQogICAgICAgICAgICAgICAgICAgICAgICAgICAgICAgIC AgICAgICAgICAgICAgICAgICAgICAgICAgICAgICAgICAgICAgICAgICAgICAgICAgICAgICAgICAgIC AgICAgICAgDQogICAgICAgICAgICAgICAgICAgICAg ICAgICAgICAgICAgICAgICAgICAgICAgICAgICAgICAgICAgICAgICAgICAgICAgICAgICAgICAgICAg ICAgICAgICAgICAgICAgICAgDQogICAgICAgICAgICAgICAgICAgICAgICAgICAgICAgICAgICAgICAg ICAgICAgICAgICAgICAgICAgICAgICAgICAgICAgIC AgICAgICAgICAgICAgICAgICAgICAgICAgICAgDQogICAgICAgICAgICAgICAgICAgICAgICAgICAgIC AgICAgICAgICAgICAgICAgICAgICAgICAgICAgICAgICAgICAgICAgICAgICAgICAgICAgICAgICAgIC AgICAgICAgICAgDQogICAgICAgICAgICAgICAgICAg ICAgICAgICAgICAgICAgICAgICAgICAgICAgICAgICAgICAgICAgICAgICAgICAgICAgICAgICAgICAg ICAgICAgICAgICAgICAgICAgICAgDQogICAgICAgICAgICAgICAgICAgICAgICAgICAgICAgICAgICAg ICAgICAgICAgICAgICAgICAgICAgICAgICAgICAgIC AgICAgICAgICAgICAgICAgICAgICAgICAgICAgICAgDQogICAgICAgICAgICAgICAgICAgICAgICAgIC AgICAgICAgICAgICAgICAgICAgICAgICAgICAgICAgICAgICAgICAgICAgICAgICAgICAgICAgICAgIC AaSVBcQFKjJVMtKVOyNHy1C1tjIPPpFMYhQV8rIRn2 Jz8+IUrHQvFyEHQ7niBfiM1OZO8do9TuDMajSRZos9MoUTl2MH8YNSNqVKwwMO3ZNBwesj7ESIMbCUNf fZTHs7pbRmUaAHS7STOqWpcfNS9LTKAgT8qxyuRxEXMlTUKVED5NJaTlC6RflW93ZXXRGm1+DQplbmRv SwoRQqP9YLHlc2JvURp2TM3ZCSCpSlqxq1GkFjVrJZ UGTRhiDX3QUHB0GEW0OGHrMv5SCZJfQ009tsAcWP4VNd7MOdNfOM9uxk2EYcLxHVMeCvpPIyl8XHkrMT 4DpTTxPXmStu2zbbDuwkGDn9VbsbZvfOKGsOIdWQRiMMfgJ2XacxQgaqchFPYrEWJdVd5mVP1hYUGqOZ H5DpXcINXUPW7HJRMcSYHauQFvXRAsPPARII2VIWfh JLP7TXEkvrDodZVwRWkyCJ4QJFJgimQuSqCdOJLCJJl+Xr9NTG0ob2BeHBpqLtBuYD2dzh8XJShGVyKn T5O7kENaB6C8EMkoHo8CBURlUTFnQrAyQKDHPPfdAJ4NAK9heaX8XV4ZbEAoPMErFPXhsBTaYJp0G97d kRUeLGkkYV1KZUA+Jayla+Oa5PKBGkLZHfLSOwUhDxFC EBNuTmK0UjT8EXf6MeW6JhGX18oDntyaVtDSwoGA7WIJ5pEEFuLCZXXQ7MqIRmbF8umrPyPVBsLDUCPw WnS97caUBfXKWcMOH0PRAwAc8UJVJyQ5JzfhXjuYjcpaJkYEQoJPHXCH3YOGnidbPhvUBsxBywFG74wB ysOB6ELp9SVaSpFG4xyt4DuFDySj0UNFMbFG2KWMDa EQLuLXOqZZK7ANAiXvLuJOclXRSyMDSxKOS9VJHyBVHtFO3ATbAcTRNuAzPcXAExBVNsXNSxck8LFMCr SAVtXjb7BUApIKGvDDIqVNwaJOPlRHQqIZJ1QEVnIUKyHB9JUwDyHPCxDGHnHwpbMADxTEAnoo3NVJMj XRYkHbTtGVFjOVFfTXSrGZjnMONqXFP2OfxwZGCkMI PvMH3KMdDqMFTdEUW3HALxVVMrAYNsim9DAINeVVMcDVR0UiOvMNVgJDSyIXhzRILtFPP6OlL4UANxPM LmSS5YJqXlRGUgNHC9HzAySIVvRSPomz3JKHOqIAIrJkTxOtKiXMNxWSWbIBehWTCeCBG7KLFmAWLxQP SoKG1OAzAnBSIcASx9SfhaBSUqYYPapo9WMDAeGDKt Qbq1WiWtYKGqAMPuBBesYLRzOOM1BiL0YXOcWPVbLK3YPtPgKDVwLUynFtEsQWSeDWLvrz5CLJDeLQTs YANnDlKuBXJhSXLsBMuvCJSmEVE5WCJ1MSAcGOSiFC6DNuXyOLIcJVq9OITqFQXiEKBije2ASHHaRIZc PCWzFaUiCDXyOAHhLVmhARFxBOXgUTU1XJDoXDIrRG 0DAaFaQJMkVzQ1DbwyUSUoYAMoml8WAKTqLFOdHJQmOZPxQKBpIXZaXJpyXRRmJOMuMWZ2RIZvVJRxDJ 9CXzXpSFPqNrP2RrTtYXThMZNxnp3AWETmIEJlLeS0SrJvEBLkGHTaEEa5gqAtwGXtYNg7QM5HE3Ycct KnNtuNFm0Nj004UZN5CXVnKk1DO7fnSf0gWGHzIJDV Ft8MAYs0HJKaUKWfExX8IbD6SQWaUkZ6WtvyRAP9PIJ3KauyCNz+LGqvCND2MLWdANUqIwxwHsZ3AOzx SUA6LceaHiR3KNU1Ss6hUAYQEs3+CWrmuSSepDwiFELKXhCbGsV5ZNnyNQXVBz2G ID Date Data Source [id number] 06/06/2019 01:23:00 PM [facility] Name Value Range Interpretation Code Description Data Viktoriya rce(s) Supporting Document(s) WHITE BLOOD COUNT 7.42 10^3/uL 4.00-10.50 N [facility] ealt RED BLOOD COUNT 4.92 10^6/uL 4.30-5.80 N [facility] th HEMOGLOBIN 15.8 G/DL 13.0-17.5 N [facility] HEMATOCRIT 46.2 % 41.0-53.0 N [facility] MCV 93.9 FL 80.0-100.0 [facility] MCH 32.1 PG 27.0-34.0 [facility] MCHC 34.2 G/DL 32-36 [facility] RDW 12.8 % 11.5-14.5 [facility] PLATELET COUNT 285 10^3/uL 130-400 N [facility] MPV 9.3 FL 8.7-13.2 [facility] GRAN % (AUTO) 62.4 % 42.0-75.0 N [facility] LYMPH % (AUTO) 22.4 % 20.0-51.0 N [facility] MONO % (AUTO) 12.7 % 2.0-15.0 N [facility] EOS % (AUTO) 1.3 % 0.0-11.0 N [facility] BASO % (AUTO) 0.9 % 0.0-2.0 N [facility] IG % (AUTO) 0.3 % 1.00-5.00 [facility] IG # (AUTO) 0.0 10^3/uL <0.5 [facility] GRAN # (AUTO) 4.63 10^3/uL 1.50-6.50 N [facility] LYMPH # (AUTO) 1.7 k/uL 1.0-5.0 N [facility] MONO # (AUTO) 0.94 k/uL 0.20-1.50 N [facility] EOS # (AUTO) 0.10 10^3/uL 0.00-1.10 N [facility] BASO # (AUTO) 0.07 10^3/uL 0.00-0.20 N [facility] ID Date Data Source [id number] 05/31/2019 08:03:07 AM EST [facility] Name Value Range Interpretation Code Description Data Viktoriya rce(s) Supporting Document(s) Operative Note [facility] HOHTQx0uGuPSNqEx36/ZDKotPCZzo3XvYIqyFNf8TRxkXSVtR7ZfVTQ4dW7tYWX3DNgHSxHjGnLsIoPi [facility] [file] DQo= ID Date Data Source [id number] 05/30/2019 10:25:25 AM EST [facility] Name Value Range Interpretation Code Description Data Viktoriya rce(s) Supporting Document(s) History and Physical [facility] IOMHHf0qCmCEVsFk26/FVZhkJBLbu1OjBDwpNNg3ZAfqXNUbE3KfYFM2vG7sXVD1XAaRFrGyLmSdNnTd lbm [file] cPkrPMMWMaXiHuFdSLriBXVXBj2I ID Date Data Source [id number] 05/20/2019 10:58:00 [place] [address] Patient Name: Gilda Miller Exam Date: 05/20/19 : 1975 Ordering Doctor: Batool Aguilar DO Attending Doctor: Batool Aguilar DO CC: EXAM: Chest Radiograph 2 views PA and Lateral. HISTORY: N28.0 evaluation prior to carpal tunnel surgery COMPARISON: 02/20/2019 FINDINGS: A loop recorder is seen in the left anterior chest wall. Heart is not enlarged. The pulmonary vessels are within normal limits. The lungs are clear. No pleural fluid. IMPRESSION: No acute disease Professional interpretation performed at [facility] Office Building . End of diagnostic report: [id number] Signed: Monty Charles MD 05/20/19 1105 Interpreted by: Monty CharlesTranscribed by: Monty Charles Name Value Range Interpretation Code Description Data Viktoriya rce(s) Supporting Document(s) ID Date Data Source [id number] 05/20/2019 10:55:00 AM EST [place] ([facility]) Name Value Range Interpretation Code Description Data Viktoriya rce(s) Supporting Document(s) Reported Physicians See Note Reported Physicians [facility] ([facility]) Note: Reported Physicians:Ordering: Batool Aguilar LAttending: Batool Aguilar ID Date Data Source [id number] 05/20/2019 10:55:00 AM EST [facility] ([facility]) Name Value Range Interpretation Code Description Data Viktoriya rce(s) Supporting Document(s) Albumin/Globulin [Mass Ratio] in Amniotic fluid 2.1 G/DL Normal ALB/GLOB RATIO [facility] ([facility]) Note: Responsible Observer: A/G RATIO AL B/GLOB RATIO 300.4100 (A) Albumin [Mass/volume] in Synovial fluid 4.8 G/DL Normal ALBUMIN [facility] ([facility]) Note: Responsible Observer: ALB ALBUMIN 300.3900 (A) Urea nitrogen/Creatinine [Mass Ratio] in Serum or Plasma 11 Normal BUN/CREAT RATIO [facility] ([facility]) Note: Responsible Observer: BUN/CREAT RA RICKI BUN/CREAT RATIO 300.0450 (A) Alkaline phosphatase isoenzyme [Units/volume] in Serum or Plasma 122 U/L Normal ALKALINE PHOSPHATASE [facility] ([facility]) Note: Responsible Observer: ALK PHOS ALK CAMRYN PHOSPHATASE 300.3110 (A) Aspartate aminotransferase [Enzymatic activity/volume] in Serum or Plasma 27 U/L Normal AST [facility] ([facility]) Note: Responsible Observer: AST/SGOT AST 300.3050 (A) Alanine aminotransferase [Enzymatic activity/volume] in Seru m or Plasma 51 U/L Above high normal ALT [facility] ([facility]) Note: Responsible Observer: ALT/SGPT ALT 300.3100 (A) Chloride [Moles/volume] in Serum, Plasma or Blood 107 MEQ/L Normal CHLORIDE [facility] ([facility]) Note: Responsible Observer: CL CHLORIDE 300.0200 (A) BLOOD UREA NITRO 15 MG/DL Normal BLOOD UREA NITRO [facility] ([facility]) Note: Responsible Observer: BUN BLOOD UR EA NITROGEN 300.0350 (A) Bilirubin.total [Mass/volume] in Serum or Plasma 0.3 MG/DL Normal BILIRUBIN,TOTAL [facility] ([facility]) Note: Responsible Observer: TOTAL BILI T OTAL BILIRUBIN 300.2700 (A) CA 9.7 MG/DL Normal CA [facility] ([facility]) Note: Responsible Observer: CA CALCIUM 300.2200 (A) GFR 60.2 ML/MIN GFR [facility] ([facility]) Note: Stage G2 - Mildly decreased kidne y function The GFR is an estimate of the Glomerular Filtration Rate. It is an aid to assess a patient's renal function. It is not a conclusive diagnosis of kidney disease. GFR normal is >=90 The MDRD GFR calculation is considered valid between the ages of 18 and 75 years only.Responsible Observer: GFR GFR 300.0410 (A) Carbon dioxide, total [Moles/volume] in Serum or Plasma 26 MEQ/L Normal CARBON DIOXIDE [facility] ([facility]) Note: Responsible Observer: CO2 CARBON D IOXIDE 300.0250 (A) Anion gap in Blood 12 Normal [facility]ION GAP [facility] Note: Responsible Observer: ANION GAP AN ION GAP 300.0300 (A) Creatine/Creatinine [Mass Ratio] in Urine 1.3 MG/DL Katharine l CREATININE [facility] ([facility]) Note: Responsible Observer: CREAT CREATI NINE 300.0400 (A) Potassium [Mass/volume] in Blood 4.4 MEQ/L Normal POT ASSIUM [facility] ([facility]) Note: Responsible Observer: K POTASSIUM 300.0150 (A) Globulin [Mass/volume] in Serum by calculation 2.3 G/DL Normal GLOBULIN [facility] ([facility]) Note: Responsible Observer: GLOB GLOBULI N 300.4050 (A) Sodium [Moles/volume] in Serum, Plasma or Blood 141 MEQ/L Normal SODIUM [facility] ([facility]) Note: Responsible Observer: NA SODIUM 3 00.0100 (A) Glucose [Presence] in Urine 90 MG/DL Normal GLUCOSE GR [place] ([facility]) Note: Responsible Observer: GLU GLUCOSE 300.0500 (A) Protein [Mass/volume] in Synovial fluid 7.1 G/DL Normal TOTAL PROTEIN [facility] ([facility]) Note: Responsible Observer: TP TOTAL PRO TEIN 300.3750 (A) ID Date Data Source [id number] 05/20/2019 10:55:00 AM EST [facility] ([employer]) Name Value Range Interpretation Code Description Data Viktoriya rce(s) Supporting Document(s) PTT 34.5 SEC Normal PTT [facility] ([facility]) Note: Responsible Observer: PTT PTT 150 .0200 (B) ID Date Data Source [id number] 05/20/2019 10:55:00 AM EST [facility] ([facility]) Name Value Range Interpretation Code Description Data Viktoriya rce(s) Supporting Document(s) INR 1.1 Normal [facility]R [facility] Note: Therapeutic Values of INR are gen erally between 2.0-3.0 except for Prosthetic Valves (High Risk 2.5-3.5) The use of INR is restricted to patient on stable oral anticoagulant therapy.Responsible Observer: INR INR 150.0150 (B) PROTHROMBIN TIME 12.1 SEC Normal PROTHROMBIN TIME [facility] ([facility]) Note: Responsible Observer: PT PROTHROMB IN TIME 150.0100 (B) ID Date Data Source [id number] 05/20/2019 10:55:00 AM EST [facility] ([facility]) Name Value Range Interpretation Code Description Data Viktoriya [facility](s) Supporting Document(s) BASO # (AUTO) 0.10 10\\^3/uL Normal BASO # (AUTO) [facility] ([facility]) Note: Responsible Observer: BASO # (AUTO ) BASO # (AUTO) 100.1500 (A) EOS % (AUTO) 1.7 % Normal EOS % (AUTO) [facility] ([facility]) Note: Responsible Observer: EOS % (AUTO) EOS % (AUTO) 100.1200 (A) BASO % (AUTO) 1.3 % Normal BASO % (AUTO) [facility] ([facility]) Note: Responsible Observer: BASO % (AUTO ) BASO % (AUTO) 100.1250 (A) EOS # (AUTO) 0.13 10\\^3/uL Normal EOS # (AUTO) [facility] ( [facility]) Note: Responsible Observer: EOS # (AUTO) EOS # (AUTO) 100.1450 (A) GRAN % (AUTO) 56.3 % Normal GRAN % (AUTO) [facility] ([facility]) Note: Responsible Observer: GRAN % (AUTO ) GRAN % (AUTO) 100.1000 (A) GRAN # (AUTO) 4.33 10\\^3/uL Normal GRAN # (AUTO) [facility] ([facility]) Note: Responsible Observer: GRAN # (AUTO ) GRAN #(AUTO) 100.1325 (A) Hematocrit [Volume Fraction] of Blood by Automated count 46.7 % Normal HEMATOCRIT [facility] ([facility]) Note: Responsible Observer: HCT HEMATOCR IT 100.0400 (A) Hemoglobin [Mass/volume] in Blood 15.8 G/DL Normal HE MOGLOBIN [facility] ([facility]) Note: Responsible Observer: HGB HEMOGLOB IN 100.0300 (A) IG # (AUTO) 0.0 10\\^3/uL IG # (AUTO) [facility] ([facility]) Note: Responsible Observer: IG # (AUTO) IG # (AUTO) 100.1260 (A) LYMPH % (AUTO) 30.6 % Normal LYMPH % (AUTO) [facility] ( [facility]) Note: Responsible Observer: LYMPH % (AUT O) LYMPH % (AUTO) 100.1100 (A) IG % (AUTO) 0.3 % IG % (AUTO) [facility] ([facility]) Note: Responsible Observer: IG % (AUTO) IG % (AUTO) 100.1255 (A) LYMPH # (AUTO) 2.4 k/uL Normal LYMPH # (AUTO) [facility] ( [facility]) Note: Responsible Observer: LYMPH # (AUT O) LYMPH # (AUTO) 100.1350 (A) Erythrocyte mean corpuscular hemoglobin concentration [Mass/volume] by Automated count 33.8 G/DL Normal MCHC [facility] ([facility]) Note: Responsible Observer: MCHC MCHC 1 00.0650 (A) Erythrocyte mean corpuscular volume [Entitic volume] by Auto mated count 94.2 FL Normal MCV [place] ([facility]) Note: Responsible Observer: MCV MCV 100 .0550 (A) Erythrocyte mean corpuscular hemoglobin [Entitic mass] by Automated count 31.9 PG Normal MCH [place] ([facility]) Note: Responsible Observer: MCH MCH 100 .0600 (A) MPV 9.6 FL Normal MPV [facility] ([facility] e) Note: Responsible Observer: MPV MPV 100 .0950 (A) MONO % (AUTO) 9.8 % Normal MONO % (AUTO) [facility] ([facility] Note: Responsible Observer: MONO % (AUTO ) MONO% (AUTO) 100.1150 (A) MONO # (AUTO) 0.75 k/uL Normal MONO # (AUTO) [facility] ([facility]) Note: Responsible Observer: MONO # (AUTO ) MONO # (AUTO) 100.1400 (A) Erythrocyte distribution width [Ratio] by Automated count 13.0 % Normal RDW [place] ([facility]) Note: Responsible Observer: RDW RDW 100 .0700 (A) Platelets [#/volume] in Plasma by Automated count 292 10\\^3/uL Normal PLATELET COUNT [place] ([facility]) Note: Responsible Observer: PLT PLATELET COUNT 100.0850 (A) Erythrocytes [#/volume] in Blood by Automated count 4.96 10\\^6/uL Normal RED BLOOD COUNT [place] ([facility]) Note: Responsible Observer: RBC RED BLOO D COUNT 100.0250 (A) Leukocytes [#/volume] in Blood by Automated count 7.68 10\\^3/uL Normal WHITE BLOOD COUNT [place] ([facility]) Note: Responsible Observer: WBC WHITE BL OOD COUNT 100.0150 (A) ID Date Data Source [id number] 05/20/2019 01:34:00 PM [facility] Site: HOSPITAL Transportation: [facility] Site: HOSPITAL Transportation: [facility] Site: HOSPITAL Transportation: [facility] Has Patient Fasted For The Past 12 Hours? N Site: HOSPITAL Transportation: [facility] Name Value Range Interpretation Code Description Data Viktoriya rce(s) Supporting Document(s) WHITE BLOOD COUNT 7.68 10^3/uL 4.00-10.50 N [facility] RED BLOOD COUNT 4.96 10^6/uL 4.30-5.80 [facility] th HEMOGLOBIN 15.8 G/DL 13.0-17.5 [facility] HEMATOCRIT 46.7 % 41.0-53.0 [facility] MCV 94.2 FL 80.0-100.0 [facility] MCH 31.9 PG 27.0-34.0 [facility] MCHC 33.8 G/DL 32-36 [facility] RDW 13.0 % 11.5-14.5 [facility] PLATELET COUNT 292 10^3/uL 130-400 N [facility] MPV 9.6 FL 8.7-13.2 [facility] GRAN % (AUTO) 56.3 % 42.0-75.0 [facility] LYMPH % (AUTO) 30.6 % 20.0-51.0 [facility] MONO % (AUTO) 9.8 % 2.0-15.0 N [facility] EOS % (AUTO) 1.7 % 0.0-11.0 N [facility] BASO % (AUTO) 1.3 % 0.0-2.0 [facility] ([facility] 0.3 [facility]00[facility] # (AUTO) 0.0 10^3/uL <0.5 [facility] GRAN # (AUTO) 4.33 10^3/uL 1.50-6.50 [facility] LYMPH # (AUTO) 2.4 k/uL 1.0-5.0 [facility] MONO # (AUTO) 0.75 k/uL 0.20-1.50 [facility] EOS # (AUTO) 0.13 10^3/uL 0.00-1.10 [facility] BASO # (AUTO) 0.10 10^3/uL 0.00-0.20 N [facility] ID Date Data Source [id number] 05/20/2019 01:39:00 PM [facility] Site: HOSPITAL Transportation: Ambulato ry Site: HOSPITAL Transportation: Ambulato ry Site: HOSPITAL Transportation: Ambulato ry Has Patient Fasted For The Past 12 Hours? N Site: HOSPITAL Transportation: Ambulato ry Name Value Range Interpretation Code Description Data Viktoriya rce(s) Supporting Document(s) PROTHROMBIN TIME 12.1 SEC 8.9-13.3 [facility] INR 1.1 0.0-3.6 [facility] Therapeutic Values of INR are generally between 2.0-3.0 except for Prosthetic Valves (High Risk 2.5-3.5) The use of INR is restricted to patient on stable oral anticoagulant therapy. ID Date Data Source [id number] 05/20/2019 02:08:00 PM [facility] Site: HOSPITAL Transportation: Ambulato ry Site: HOSPITAL Transportation: Ambulato ry Site: HOSPITAL Transportation: Ambulato ry Has Patient Fasted For The Past 12 Hours? N Site: HOSPITAL Transportation: Ambulato ry Name Value Range Interpretation Code Description Data Viktoriya rce(s) Supporting Document(s) SODIUM 141 MEQ/L 135-145 N [facility] POTASSIUM 4.4 MEQ/L 3.5-5.3 [facility] CHLORIDE 107 MEQ/L 94-110 [facility] CARBON DIOXIDE 26 MEQ/L 22-33 [facility] ANION GAP 12 5-16 N [facility] BLOOD UREA NITRO 15 MG/DL 7-25 [facility] CREATININE 1.3 MG/DL 0.6-1.4 [facility] GFR 60.2 ML/MIN [facility] Stage G2 - Mildly decreased kidney func tion The GFR is an estimate of the Glomerular Filtration Rate. It is an aid to assess a patient's renal function. It is not a conclusive diagnosis of kidney disease. GFR normal is >=90 The MDRD GFR calculation is considered valid between the ages of 18 and 75 years only. BUN/CREAT RATIO 11 8-36 [facility] GLUCOSE 90 MG/DL 70-100 [facility] CA 9.7 MG/DL 8.7-10.5 [facility] BILIRUBIN,TOTAL 0.3 MG/DL 0.1-1.3 N [facility] AST 27 U/L 5-40 N [facility] ALT 51 U/L 5-48 H [facility] ALKALINE PHOSPHATASE 122 U/L 40-140 [facility] alth TOTAL PROTEIN 7.1 G/DL 5.9-8.3 [facility] ALBUMIN 4.8 G/DL 3.0-5.1 [facility] GLOBULIN 2.3 G/DL 1.5-3.5 [facility] ALB/GLOB RATIO 2.1 G/DL 1.0-2.7 [facility] ID Date Data Source [id number] 05/20/2019 01:39:00 PM [facility] Site: HOSPITAL Transportation: Ambulato ry Site: HOSPITAL Transportation: Ambulato ry Site: HOSPITAL Transportation: Ambulato ry Has Patient Fasted For The Past 12 Hours? 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 Today's films do not demonstrate any interval change in the appearance of the scaphoid or carpal bones as compared with the previous study. There is no collapse noted or any change in alignment of the scaphoid. The bony anatomy is normal in appearance.Impression: Normal left wrist x-rays.This document has been electronically signed by Gilda Cervantes MD on 04/28/2019 2:49 PM Name Value Range Interpretation Code Description Data Viktoriya rce(s) Supporting Document(s) ID Date Data Source [id number] 04/27/2019 12:17:24 PM [facility] Name Value Range Interpretation Code Description Data Viktoriya rce(s) Supporting Document(s) Progress Note [facility] CKDJSn3eFiOUMxMj37/IQHykBZVca0GcCHhdGTh1AJaqRQXjD1ClNSG8aF9vIMA7XBaQJcEvPxOsQPV6 [facility] VuOuzONdHdNECqCnpZRvMdUIhuRpxhbICfHO0LxET8QROkG48wIZAiVSVuZ3CsUOKoZGQ+An6KEDAanJ MvVC0MNcuW6Q2jtce1Xs4nhW8CoIS84UIZthr7arTWqCud+pXEbRE0/EARb6lTJzbV4Yc+20qyy4ZGYg +Ti3WfY0gPaDfyxgwdRJXkWSG+3x9iJ/QdxxHT/939 M4yVaF+KOFFI/4WtZ0h9m5rh4+el8nFnjeqQO4L/1MC5455bKV76ydQHaXdU1osMmVDS8DlOqYvuAxRnRZp [file] АЛЕКСАНДР/vY+/lH2On+66aSuti8z+mdT5lUibVICkjQV93bL [file] HJYnOgEgPUB4TPClXbEePV7PBp6EOkY0YNH7tZNqMi2NEoItLVULPeHeDL7ZOFx= ID Date Data Source 04/26/2019 12:00:00 AM EST [facility] Janis Cowart MD Patient Name: JARAD MILLER Monty Strong Date of : 1975[place] [address] Date of Exam: 04/26/2019#: Fax: [phone] EXAM: WRIST(COMPLETE) X-RAYCLINICAL INFORMATION: Disability determination.Four views.There is no acute fracture or destructive osseous lesion.DMITRI Feng/Sherie you for referring GILDA MILLER to our office. Electronically Signed - TODD BAILON MD 04/27/19 9:34 Name Value Range Interpretation Code Description Data Viktoriya rce(s) Supporting Document(s) ID Date Data Source 04/26/2019 12:00:00 AM EST [facility] Janis Cowart MD Patient Name: JARAD MILLER Monty Strong Date [facility] : 1975[place] [address] Date of Exam: 04/26/2019PH#: Fax: [phone] EXAM: FOREARM LEFT X-RAYCLINICAL INFORMATION: Disability determination.Two views.There is no acute fracture or destructive osseous lesion.DMITRI Feng/jmcTemmanuel you for referring GILDA MILLER to our office. Electronically Signed - TODD BAILON MD 04/27/19 9:34 Name Value Range Interpretation Code Description Data Viktoriya rce(s) Supporting Document(s) ID Date Data Source [id number] 04/26/2019 12:00:00 AM EST [facility] Janis Cowart MD Patient Name: GILDA MILL[address] [place] [address] Date of : 1975[place] [address] Date of Exam: 04/26/2019PH#: Fax: [phone] EXAM: FOOT COMPLETE LEFT (MIN 3 VIEWS) X-RAYCLINICAL INFORMATION: Disability determination.Four views.There is no acute fracture or dislocation. The previously identifiedhealed calcaneal fracture with metallic internal fixation is again notedwith flattening of the superior aspect of the calcaneus. There is milddorsal navicular spurring with mild narrowing at the talonavicular jointwith associated subchondral sclerosis. A few tiny punctate metallicdensities are seen in the soft tissues lateral to the calcaneus.Metatarsal phalangeal joints are unremarkable in appearance.IMPRESSION:Old healed fracture calcaneus with metallic internal fixation. Superioraspect of the calcaneus is flattened. There is mild degenerative change atthe talonavicular joint.DMITRI Feng/Sherie you for referring GILDA MILLER to our office. Electronically Signed - TODD BAILON MD 04/27/19 9:34 Name Value Range Interpretation Code Description Data Viktoriya rce(s) Supporting Document(s) ID Date Data Source [id number] 04/06/2019 03:58:32 PM EST [facility] Name Value Range Interpretation Code Description Data Viktoriya rce(s) Supporting Document(s) ED Provider Note [facility] LSSMFu5mVjROJbNx55/PLZpkNBMcf9SfNLmvHCi1CNfuJUBbU6KfERZ6nF9tTAH0DApAOqHuAFukVtV2 lbm [file] [place]/FzxKebayP8VYyIxYt9iwYEwmIfjwNB6778/lyD [file] JFwrzAJvkNohCCWKMmUvCZuiISyoZWKAJl2P ID Date Data Source [id number] 03/31/2019 01:33:35 AM [facility] US RENAL OR AORTA COMPLETE [id number] RE SULTInterpreted by:John Crain, MDPROCEDURE INFORMATION: Exam: US Retroperitoneal Complete. Exam date and time: 03/31/2019 12:19 AM Age: 43 years old Clinical history: Abnormal findings; Abnormal lab test; Other: Serg TECHNIQUE: Imaging protocol: Real-time ultrasound of the retroperitoneum with image documentation. Complete exam. COMPARISON: NoneFINDINGS: Right kidney: Right kidney measures up to 4.2 x 4.7 x 10.2 cm. Mild cortical scarring. Left kidney: Left kidney measures up to 4.5 x 5.6 x 10.7 cm. Bowel: Bladder is mildly fluid filled and appears normal. Bilateral ureteral jets seen. Aorta: Not evaluated. Common iliac arteries: Not evaluated. Inferior vena cava: Not evaluated. Bladder: Bladder prevoid 196 mL. Prostate: Prostate 3.8 x 3.7 x 5 cm3. IMPRESSION: Normal size bilateral kidneys and bladder. No evidence of obstructive uropathy or obstructive nephropathy. THIS DOCUMENT HAS BEEN ELECTRONICALLY SIGNED BY JOHN CRAIN MDThis document has been electronically signed by John Crain MD on 03/31/2019 1:33 AM Name Value Range Interpretation Code Description Data Viktoriya rce(s) Supporting Document(s) ID Date Data Source [id number] 03/30/2019 11:26:10 PM [facility] CT ANGIOGRAPHY ABDOMEN AND PELVIS [id number] INAL RESULTInterpreted by:BRAULIO BaezROCEDURE INFORMATION: Exam: CT Angiography Abdomen and Pelvis With Contrast Exam date and time: 03/30/2019 10:42 PM Age: 43 years old Clinical history: Abdominal pain; Generalized; Additional info: Generalized abd pain, vomiting, 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 3D rendering: MIP reconstructed images were created and reviewed. Radiation optimization: All CT scans at this facility use at least one of these dose optimization techniques: automated exposure control; mA and/or kV adjustment per patient size (includes targeted exams where dose is matched to clinical indication); or iterative reconstruction. Contrast material: OMN; Contrast volume: 100 ml; Contrast route: IV; COMPARISON: CT ANGIOGRAPHY ABDOMEN AND PELVIS [id number] 03/02/2019 9:09 PM FINDINGS: Aorta: Chronic atherosclerotic calcification of the vasculature. 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 Renal arteries: No occlusion or significant stenosis. Right iliac arteries: No occlusion or significant stenosis. Left iliac arteries: No occlusion or significant stenosis. Liver: No mass. Gallbladder and bile ducts: Gallbladder appears contracted, limits evaluation. Pancreas: Unremarkable. No mass. No ductal dilation. Spleen: Unremarkable. No splenomegaly. Adrenals: Unremarkable. No mass. Kidneys and ure ters: Multifocal scarring bilateral kidneys. Stomach and bowel: No evidence of small bowel obstruction. Sutures involving small bowel. Appendix: Appendix - visualized portions appear normal. Intraperitoneal space: Unremarkable. No free air. No significant fluid collection. Lymph nodes: Unremarkable. No enlarged lymph nodes. Bladder: Unremarkable. No mass. Reproductive: Prostate appears within normal limits. Bones/joints: Chronic degenerative changes of the lumbar spine. Soft tissues: Unremarkable. IMPRESSION: 1. 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 2. No evidence of small bowel obstruction. THIS DOCUMENT HAS BEEN ELECTRONICALLY SIGNED BY JOHN CRAIN MDThis document has been electronically signed by John Crain MD on 03/30/2019 11:26 PM Name Value Range Interpretation Code Description Data Viktoriya rce(s) Supporting Document(s) ID Date Data Source [id number] 03/30/2019 09:04:04 PM [facility] Name Value Range Interpretation Code Description Data Viktoriya rce(s) Supporting Document(s) Leukocytes [#/volume] in Blood by Automated count 11.0 10*3/uL 4-10 [facility] Erythrocytes [#/volume] in Blood by Automated count 4.82 10*6/uL 4.6- 6.1 [facility] Hemoglobin [Mass/volume] in Blood 15.5 g/dL 13.5-18 [facility] Hematocrit [Volume Fraction] of Blood by Automated count 45.7 % 4 1-53 [facility] Erythrocyte mean corpuscular volume [Entitic volume] by Auto mated count 94.8 fL 80-96 [facility] Erythrocyte mean corpuscular hemoglobin [Entitic mass] by Automated count 32.2 pg 27-33 [facility] Erythrocyte mean corpuscular hemoglobin concentration [Mass/volume] by Automated count 34.0 g/dL 32.0-36.0 [facility] distribution width [Ratio] by Automated count 13.1 % 11.5-14.5 [facility] Platelets [#/volume] in Blood by Automated count 286 10*3/uL 150-400 [facility] Differential cell count method - Blood [facility] Neutrophils/100 leukocytes in Blood by Automated count 76 % [facility] Lymphocytes/100 leukocytes in Blood by Automated count 15 % [facility] Monocytes/100 leukocytes in Blood by Automated count 7 % [facility] Eosinophils/100 leukocytes in Blood by Automated count 1 % [facility] Basophils/100 leukocytes in Blood by Automated count 1 % [facility] Neutrophils [#/volume] in Blood by Automated count 8.42 10*3/uL 1.8-7 .0 [facility] Lymphocytes [#/volume] in Blood by Automated count 1.61 10*3/uL 1.2-4 .0 [facility] Monocytes [#/volume] in Blood by Automated count 0.77 10*3/uL 0-0.8 [facility] Eosinophils [#/volume] in Blood by Automated count 0.08 10*3/uL 0-0.5 [facility] Basophils [#/volume] in Blood by Automated count 0.09 10*3/uL 0-0.2 [facility] Nucleated erythrocytes/100 leukocytes [Ratio] in Blood by Automated count 0 /100{WBCs} 0-0 [facility] ID Date Data Source [id number] 03/30/2019 09:27:08 PM EST [facility] Name Value Range Interpretation Code Description Data Viktoriya rce(s) Supporting Document(s) Albumin [Mass/volume] in Serum or Plasma by Bromocresol green (BCG) dye binding method 4.4 g/dL 3.5-5.2 [facility] Bilirubin.total [Mass/volume] in Serum or Plasma 0.3 mg/dL <1.2 [facility] Calcium [Mass/volume] in Serum or Plasma 9.4 mg/dL 8.6-10.0 [facility] Chloride [Moles/volume] in Serum or Plasma 101 mmol/L 98-107 [facility] Creatinine [Mass/volume] in Serum or Plasma 1.41 mg/dL 0.70-1.20 [facility] Glucose [Mass/volume] in Serum or Plasma 106 mg/dL 70-140 [facility] Alkaline phosphatase [Enzymatic activity/volume] in Serum or Plasma 112 U/L 40-129 [facility] Potassium [Moles/volume] in Serum or Plasma 4.7 mmol/L 3.4-5.1 [facility] Protein [Mass/volume] in Serum or Plasma 7.5 g/dL 6.4-8.3 [facility] Sodium [Moles/volume] in Serum or Plasma 137 mmol/L 136-145 [facility] Aspartate aminotransferase [Enzymatic activity/volume] in Serum or Plasma 22 U/L <40 [facility] Urea nitrogen [Mass/volume] in Serum or Plasma 16 mg/dL 6-20 [facility] Osmolality of Serum or Plasma by calculation 286 mosm/kg 275-300 [facility] Creatinine/Urea nitrogen [Mass Ratio] in Serum or Plasma 11 [facility] Bicarbonate [Moles/volume] in Serum 26 mmol/L 22-29 [facility] Alanine aminotransferase [Enzymatic activity/volume] in Seru m or Plasma 56 U/L <41 [facility] Anion gap 3 in Serum or Plasma 10 mmol/L 8-15 [facility] Albumin/Globulin [Mass Ratio] in Serum or Plasma 1.0 [facility] Glomerular filtration rate/1.73 sq M pre dicted among non-blacks [Volume Rate/Area] in Serum or Plasma by Creatinine-based formula (MDRD) 60 mL/min/1.73m2 >60 L [facility] Glomerular filtration rate/1.73 sq M pre dicted among blacks [Volume Rate/Area] in Serum or Plasma by Creatinine-based formula (MDRD) 69 mL/min/1.73m2 >60 [facility] ID Date Data Source [id number] 03/30/2019 09:27:08 PM [facility] Name Value Range Interpretation Code Description Data Vitkoriya rce(s) Supporting Document(s) Magnesium [Mass/volume] in Serum or Plasma 1.9 mg/dL 1.6-2.6 [facility] ID Date Data Source [id number] 03/30/2019 12:58:00 PM [facility] ([facility]) EXAM: Surgical Abdomen W PA Chest INDIC ATION: ABDOMINAL PAIN VOMITING COMPARISON: Chest x-ray 02/20/2019, surgical abdomen radiographs 06/09/2017 NUMBER OF IMAGES: Four views FINDINGS:There is a loop recorder overlying the left lower lung. Normal heart size. Normal pulmonary vascularity. The lungs are clear. No pneumothorax, pleural effusion, or focal consolidation. Nondilated loops of bowel. No pathologic calcifications. Surgical suture projects over the left lower abdomen. No subdiaphragmatic free air. No acute osseous abnormality. No aggressive osseous lesions. IMPRESSION:Negative. Pr ofessional interpretation performed at [facility] . Name Value Range Interpretation Code Description Data Viktoriya rce(s) Supporting Document(s) ID Date Data Source [id number] 03/29/2019 12:39:16 PM [facility] Name Value Range Interpretation Code Description Data Viktoriya rce(s) Supporting Document(s) Progress Note [facility] AHKWOo2bFcXAXmKv47/CIGjmINKui2GpUAusLQt8JObaTCMnE0QmBRZ0tD2oQMQ7USxFJiUqFPizJhSv lbm [file] QAJ1jF3gN9wBM/bark tanner+2ggHdZmB/upgZ7rDwyJHStkRCtudHH/SjeKVpRvZRV+blNUKZpMyejnEOCk7MD [file] AgICAgICAgICAgICAgICAgICAgICAgICAgICAgICAgICAgICAgICAgICAgICAgICAgICAgICAgICAgIC AgICAgICAgICAgICAgICAgICAgICAgICAgICAgICAg ICAgICAgDQogICAgICAgICAgICAgICAgICAgICAgICAgICAgICAgICAgICAgICAgICAgICAgICAgICAg ICAgICAgICAgICAgICAgICAgICAgICAgICAgICAgICAgICAgICAgICAgICAgICAgDQogICAgICAgICAg ICAgICAgICAgICAgICAgICAgICAgICAgICAgICAgIC AgICAgICAgICAgICAgICAgICAgICAgICAgICAgICAgICAgICAgICAgICAgICAgICAgICAgICAgICAgDQ ogICAgICAgICAgICAgICAgICAgICAgICAgICAgICAgICAgICAgICAgICAgICAgICAgICAgICAgICAgIC AgICAgICAgICAgICAgICAgICAgICAgICAgICAgICAg ICAgICAgICAgDQogICAgICAgICAgICAgICAgICAgICAgICAgICAgICAgICAgICAgICAgICAgICAgICAg ICAgICAgICAgICAgICAgICAgICAgICAgICAgICAgICAgICAgICAgICAgICAgICAgICAgDQogICAgICAg ICAgICAgICAgICAgICAgICAgICAgICAgICAgICAgIC AgICAgICAgICAgICAgICAgICAgICAgICAgICAgICAgICAgICAgICAgICAgICAgICAgICAgICAgICAgIC AgDQogICAgICAgICAgICAgICAgICAgICAgICAgICAgICAgICAgICAgICAgICAgICAgICAgICAgICAgIC AgICAgICAgICAgICAgICAgICAgICAgICAgICAgICAg ICAgICAgICAgICAgDQogICAgICAgICAgICAgICAgICAgICAgICAgICAgICAgICAgICAgICAgICAgICAg ICAgICAgICAgICAgICAgICAgICAgICAgICAgICAgICAgICAgICAgICAgICAgICAgICAgICAgDQogICAg ICAgICAgICAgICAgICAgICAgICAgICAgICAgICAgIC AgICAgICAgICAgICAgICAgICAgICAgICAgICAgICAgICAgICAgICAgICAgICAgICAgICAgICAgICAgIC AgICAgDQogICAgICAgICAgICAgICAgICAgICAgICAgICAgICAgICAgICAgICAgICAgICAgICAgICAgIC AgICAgICAgICAgICAgICAgICAgICAgICAgICAgICAg KKIfZQDgSHZtZDKzVCAsPKk4X3kqSFEhIKFxSH6qFFw1Pz6+DWuIEnUnFMO2euKsoZ7LBM9xg5SxSCdf JPBtb0BfYDz0KF7PZYQhPBtwKI2LWHdlek9BCQZoPLRucPIAe1swGbYsSQY1GHUcSdusUT9VBHTaH0dt snLjZKVwDWYJHMvvFVHYDFfqOVEZPB3YHtHdM8CrxI 94BEMYQg6+CVpsouFfTtbPMbHrGEHiz2KiTEz6BY0CYPAbTkxhu5VeSwVkECDYFXxvEI0LIUT4EUV4YC EeRo9JCFKkA110zqYjJT0OFr7YCoEtQK7eze0QEfYsJASjDqxBOka3LQsxWU7TlCSiBKwUtu2uocLblg HUu6IrhvSxrKMYJMNmIJZMTNoiSEHkSH1SMEG3NGXz YpEsGuDaYBdbUWX9SkKnAO9xMQmfWC6BCKQ4KOaiWODjMVKsZ5vVCwGkSTUvDRTvbIysJQ3VCnLjI9Zs cmVudCAyMyAwIFINCj4+NCvikvDkYuqPYoR7LJQre9WjFUz2ZA4BHIDaUEasMM3EXDYtmN6pTThjCQ7M EzFsMIGkCATMVgYuC26acTCcGWp0I3DbXmHrOAEhRg lsZXMgPDwvTmFtZXMgWyBdDQogID4+ID4+UQrlUY0CYFcyxlRqGVHcSo3NQFDeBKFbUT8jOIEbDVGcQ1 M7zBmeDLZPNlWfA0emydyjWD5mLRQgS682lQsjtwRkKMXuJJZsFq3RDEUzZFE5AYNhqRAyClDnFSBNPF iiHT6ZwVNyZBY2lY3vAJwyEUTpSNDeH1rXUpUmrZkw XB16yNcsteUbuCAyQSm+Ki7BFT0ps7KbKSk9nqHnYRsuAYT0EZdbTFHoQNWgJYOcOUD9POH4JQDFMeXp ETNuFXNrBUgoOLSaEIQpxu2VYKSkOGDlSNecBfKpOXVvESDuHHigGGPwREB8DvFxTFYnPOZiUI6HUvUc FUJcKSAsOIgiZJAtBPBvpc4RGMZiONVsVJY5LNTsBA TvAKGcAZppTREpDOE0Nao1PICiANPeNX7KErWlIWGdIMzuIKOwQPHsIYMvra9IEWClZLCqHXUcNHVoPL WrZZQpKOtlQFKvFTGqPbM6TJXzZQYyAX5XQiWlIYDkDWY5RIGwAKJhLPBrte1YVGKuVRVtIEreScDtVJ VzKKPoBDviAMIoEUSsMZu8AGJrJYBmSD2ODrZzNIBi LOFoPOOuNIRgWMJdut2ROLSqVVPwItV6XMRwFSYcQFYpTVspYGJzEFMoHlMoTFWgYALzLH7ZTaHcENYe AMX5MoWnFXQiDKBmrs4PIRMoAYZaQCn4YUCyAEZhSIQhQJdcBXNmTEU2Bxv9SJHbGXSrTV4XSqNqNJIc MzP5HVTkLUOcWJUzoz3EAZYgLMPaOXx3DZCeQYZjKV AcTGimAJCrOKW1PIxeECNrYMYmCE0RTvVvAQSyWsLxYEHtPEHfTRGiqr9HRVXtPKTgGzq8ShNnLGHhZJ WbIAigLINtOST2JECuIHUbVNLtZG0ACiBgUNKzHvv9TfLpZUPrIXYsvg7TxBFfdFkyeo2YFZkKMj2WaO fbSMF2GPgzZk5uaRFsHYAbGDEZNw7PnkThLQZrSWBB WFjtLWGxNRZfIOTlCnfcHcGeWPakEzE3KLg1MQY7AyOeHpMnUwjkCeG0PEUhWDIwYbVtUyBiL4Z7CAkq SCtrVKToI6SpEGSuTXI+PZ5iCTt+Ws1Mw4GrmgM0ayGnLQvlNIFmGJ4FMHSZI5FCYl== ID Date Data Source [id number] 03/24/2019 04:48:00 PM EST [employer] ([facility]) Name Value Range Interpretation Code Description Data Viktoriya rce(s) Supporting Document(s) Reported Physicians See Note Reported Physicians [facility] ([facility]) Note: Reported Physicians:Ordering: Batool Aguilar LAttending: Batool Aguilar ID Date Data Source [id number] 03/24/2019 04:48:00 PM EST [facility] Name Value Range Interpretation Code Description Data Viktoriya rce(s) Supporting Document(s) Magnesium [Mass/volume] in Urine collected for unspecified durat ion 2.2 mg/dl Normal MAGNESIUM [facility] ([facility]) Note: Responsible Observer: MG MAGNESIUM 300.2350 (A) ID Date Data Source [id number] 03/24/2019 04:48:00 PM EST [facility] Name Value Range Interpretation Code Description Data Viktoriya rce(s) Supporting Document(s) Albumin/Globulin [Mass Ratio] in Amniotic fluid 1.9 G/DL Normal ALB/GLOB RATIO [facility] ([facility]) Note: Responsible Observer: A/G RATIO AL B/GLOB RATIO 300.4100 (A) Albumin [Mass/volume] in Synovial fluid 4.6 G/DL Normal ALBUMIN [facility] ([facility]) Note: Responsible Observer: ALB ALBUMIN 300.3900 (A) Alkaline phosphatase isoenzyme [Units/volume] in Serum or Plasma 125 U/L Normal ALKALINE PHOSPHATASE [facility] ([facility]) Note: Responsible Observer: ALK PHOS ALK CAMRYN PHOSPHATASE 300.3110 (A) Alanine aminotransferase [Enzymatic activity/volume] in Seru m or Plasma 110 U/L Above high normal ALT [facility] ([facility]) Note: Responsible Observer: ALT/SGPT ALT 300.3100 (A) Aspartate aminotransferase [Enzymatic activity/volume] in Serum or Plasma 37 U/L Normal AST [facility] ([facility]) Note: Responsible Observer: AST/SGOT AST 300.3050 (A) Urea nitrogen/Creatinine [Mass Ratio] in Serum or Plasma 16 Normal BUN/CREAT RATIO [facility] ([facility]) Note: Responsible Observer: BUN/CREAT RA RICKI BUN/CREAT RATIO 300.0450 (A) Bilirubin.total [Mass/volume] in Serum or Plasma < 0.2 MG/DL Normal BILIRUBIN,TOTAL [facility] ([facility]) Note: Responsible Observer: TOTAL BILI T OTAL BILIRUBIN 300.2700 (A) CA 10.0 MG/DL Normal CA [facility] ([facility]) Note: Responsible Observer: CA CALCIUM 300.2200 (A) BLOOD UREA NITRO 21 MG/DL Normal BLOOD UREA NITRO [facility] ([facility]) Note: Responsible Observer: BUN BLOOD UR EA NITROGEN 300.0350 (A) Chloride [Moles/volume] in Serum, Plasma or Blood 106 MEQ/L Normal CHLORIDE [facility] ([facility]) Note: Responsible Observer: CL CHLORIDE 300.0200 (A) Carbon dioxide, total [Moles/volume] in Serum or Plasma 25 MEQ/L Normal CARBON DIOXIDE [facility] ([facility]) Note: Responsible Observer: CO2 CARBON D IOXIDE 300.0250 (A) Creatine/Creatinine [Mass Ratio] in Urine 1.3 MG/DL Katharine l CREATININE [facility] ([facility]) Note: Responsible Observer: CREAT CREATI NINE 300.0400 (A) Anion gap in Blood 16 Normal ANION GAP [facility] ([facility]) Note: Responsible Observer: ANION GAP AN ION GAP 300.0300 (A) Globulin [Mass/volume] in Serum by calculation 2.4 G/DL Normal GLOBULIN [facility] ([facility]) Note: Responsible Observer: GLOB GLOBULI N 300.4050 (A) GFR > 60.0 ML/MIN GFR [facility] ([facility]) Note: GFR normal is >60 The MDRD GFR ca lculation is considered valid between the ages of 18 and 75 years only. The GFR is an estimate of the Glomerular Filtration Rate. It is considered accurate in evaluating patients with Chronic Kidney Disease,but may underestimate kidney function in Healthy Patients.Responsible Observer: GFR GFR 300.0410 (A) Potassium [Mass/volume] in Blood 4.7 MEQ/L Normal POT ASSIUM [facility] ([facility]) Note: Responsible Observer: K POTASSIUM 300.0150 (A) Glucose [Presence] in Urine 104 MG/DL Above high normal G LUCOSE [facility] ([facility]) Note: Responsible Observer: GLU GLUCOSE 300.0500 (A) Sodium [Moles/volume] in Serum, Plasma or Blood 142 MEQ/L Normal SODIUM [facility] ([facility]) Note: Responsible Observer: NA SODIUM 3 00.0100 (A) Protein [Mass/volume] in Synovial fluid 7.0 G/DL Normal TOTAL PROTEIN [facility] ([facility]) Note: Responsible Observer: TP TOTAL PRO TEIN 300.3750 (A) ID Date Data Source [id number] 03/24/2019 04:48:00 PM EST [facility] ([facility]) Name Value Range Interpretation Code Description Data Viktoriya rce(s) Supporting Document(s) BASO # (AUTO) 0.15 10\\^3/uL Normal BASO # (AUTO) [facility] ([facility]) Note: Responsible Observer: BASO # (AUTO ) BASO # (AUTO) 100.1500 (A) BASO % (AUTO) 1.4 % Normal BASO % (AUTO) [facility]: Responsible Observer: BASO % (AUTO ) BASO % (AUTO) 100.1250 (A) EOS # (AUTO) 0.18 10\\^3/uL Normal EOS # (AUTO) [facility] ( [facility] Note: Responsible Observer: EOS # (AUTO) EOS # (AUTO) 100.1450 (A) EOS % (AUTO) 1.7 % Normal EOS % (AUTO) [facility] Note: Responsible Observer: EOS % (AUTO) EOS % (AUTO) 100.1200 (A) GRAN % (AUTO) 53.8 % Normal GRAN % (AUTO) [facility] Note: Responsible Observer: GRAN % (AUTO ) GRAN % (AUTO) 100.1000 (A) GRAN # (AUTO) 5.71 10\\^3/uL Normal GRAN # (AUTO) [facility] ([facility]) Note: Responsible Observer: GRAN # (AUTO ) GRAN #(AUTO) 100.1325 (A) Hematocrit [Volume Fraction] of Blood by Automated count 45.5 % Normal HEMATOCRIT [facility] ([facility]) Note: Responsible Observer: HCT HEMATOCR IT 100.0400 (A) IG # (AUTO) 0.1 10\\^3/uL IG # (AUTO) [facility] ([facility]) Note: Responsible Observer: IG # (AUTO) IG # (AUTO) 100.1260 (A) Hemoglobin [Mass/volume] in Blood 15.6 G/DL Normal HE MOGLOBIN [facility] ([facility]) Note: Responsible Observer: HGB HEMOGLOB IN 100.0300 (A) IG % (AUTO) 0.7 % IG % (AUTO) [facility] ([facility]) Note: Responsible Observer: IG % (AUTO) IG % (AUTO) 100.1255 (A) LYMPH # (AUTO) 3.4 k/uL Normal LYMPH # (AUTO) [facility] ( [facility]) Note: Responsible Observer: LYMPH # (AUT O) LYMPH # (AUTO) 100.1350 (A) LYMPH % (AUTO) 31.6 % Normal LYMPH % (AUTO) [facility] ( [facility]) Note: Responsible Observer: LYMPH % (AUT O) LYMPH % (AUTO) 100.1100 (A) Erythrocyte mean corpuscular hemoglobin [Entitic mass] by Automated count 32.2 PG Normal MCH [facility] ([facility]) Note: Responsible Observer: MCH MCH 100 .0600 (A) Erythrocyte mean corpuscular hemoglobin concentration [Mass/volume] by Automated count 34.3 G/DL Normal MCHC [facility] ([facility]) Note: Responsible Observer: MCHC MCHC 1 00.0650 (A) Erythrocyte mean corpuscular volume [Entitic volume] by Auto mated count 94.0 FL Normal MCV [facility] ([facility]) Note: Responsible Observer: MCV MCV 100 .0550 (A) MONO % (AUTO) 10.8 % Normal MONO % (AUTO) [facility] ([facility]) Note: Responsible Observer: MONO % (AUTO ) MONO% (AUTO) 100.1150 (A) MONO # (AUTO) 1.15 k/uL Normal MONO # (AUTO) GAVIN [facility] Note: Responsible Observer: MONO # (AUTO ) MONO # (AUTO) 100.1400 (A) Platelets [#/volume] in Plasma by Automated count 441 10\\^3/uL Above high normal PLATELET COUNT GAVIN ([facility]) Note: Responsible Observer: PLT PLATELET COUNT 100.0850 (A) MPV 9.4 FL Normal MPV GAVIN ([facility] e) Note: Responsible Observer: MPV MPV 100 .0950 (A) Erythrocytes [#/volume] in Blood by Automated count 4.84 10\\^6/uL Normal RED BLOOD COUNT ARMSTRONG ([facility]) Note: Responsible Observer: RBC RED BLOO D COUNT 100.0250 (A) Leukocytes [#/volume] in Blood by Automated count 10.62 10\\^3/uL Above high normal WHITE BLOOD COUNT ARMSTRONG ([facility]) Note: Responsible Observer: WBC WHITE BL OOD COUNT 100.0150 (A) Erythrocyte distribution width [Ratio] by Automated count 12.0 % Normal RDW ARMSTRONG ([facility]) Note: Responsible Observer: RDW RDW 100 .0700 (A) ID Date Data Source [id number] 03/25/2019 12:34:00 PM [facility] Has Patient Fasted For The Past 12 Hour s? N Has Patient Fasted For The Past 12 Hour s? N Name Value Range Interpretation Code Description Data Viktoriya rce(s) Supporting Document(s) WHITE BLOOD COUNT 10.62 10^3/uL 4.00-10.50 H [facility] RED BLOOD COUNT 4.84 10^6/uL 4.30-5.80 [facility] th HEMOGLOBIN 15.6 G/DL 13.0-17.5 N [facility] HEMATOCRIT 45.5 % 41.0-53.0 N [facility] MCV 94.0 FL 80.0-100.0 N [facility] MCH 32.2 PG 27.0-34.0 N [facility] MCHC 34.3 G/DL 32-36 N [facility] RDW 12.0 % 11.5-14.5 [facility] PLATELET COUNT 441 10^3/uL 130-400 H [facility] [employer] MPV 9.4 FL 8.7-13.2 [facility] GRAN % (AUTO) 53.8 % 42.0-75.0 N [facility] LYMPH % (AUTO) 31.6 % 20.0-51.0 [facility] MONO % (AUTO) 10.8 % 2.0-15.0 [facility] EOS % (AUTO) 1.7 % 0.0-11.0 [facility] [employer] BASO % (AUTO) 1.4 % 0.0-2.0 [facility] IG % (AUTO) 0.7 % 1.00-5.00 [facility] [employer] IG # (AUTO) 0.1 10^3/uL <0.5 [facility] [employer] GRAN # (AUTO) 5.71 10^3/uL 1.50-6.50 [facility] LYMPH # (AUTO) 3.4 k/uL 1.0-5.0 [facility] MONO # (AUTO) 1.15 k/uL 0.20-1.50 [facility] EOS # (AUTO) 0.18 10^3/uL 0.00-1.10 [facility] BASO # (AUTO) 0.15 10^3/uL 0.00-0.20 [facility] ID Date Data Source [id number] 03/25/2019 01:02:00 PM [facility] F[facility] For The Past 12 Hour s? N Has Patient Fasted For The Past 12 Hour s? N Name Value Range Interpretation Code Description Data Viktoriya rce(s) Supporting Document(s) SODIUM 142 MEQ/L 135-145 N [facility] POTASSIUM 4.7 MEQ/L 3.5-5.3 N [facility] [employer] CHLORIDE 106 MEQ/L 94-110 [facility] CARBON DIOXIDE 25 MEQ/L 22-33 [facility] ANION GAP 16 5-16 N [facility] BLOOD UREA NITRO 21 MG/DL 7-25 N [facility] CREATININE 1.3 MG/DL 0.6-1.4 N [facility] GFR > 60.0 ML/MIN [facility] GFR normal is >60 The MDRD GFR calculat ion is considered valid between the ages of 18 and 75 years only. The GFR is an estimate of the Glomerular Filtration Rate. It is considered accurate in evaluating patients with Chronic Kidney Disease,but may underestimate kidney function in Healthy Patients. BUN/CREAT RATIO 16 8-36 N [facility] GLUCOSE 104 MG/DL 70-100 [facility] 10.0 MG/DL 8.7-10.5 N [facility] BILIRUBIN,TOTAL < 0.2 MG/DL 0.1-1.3 [facility] AST 37 U/L 5-40 [facility] ALT 110 U/L 5-48 [facility] ALKALINE PHOSPHATASE 125 U/L 40-140 N [facility] alth TOTAL PROTEIN 7.0 G/DL 5.9-8.3 N [facility] ALBUMIN 4.6 G/DL 3.0-5.1 N [facility] GLOBULIN 2.4 G/DL 1.5-3.5 N [facility] ALB/GLOB RATIO 1.9 G/DL 1.0-2.7 N [facility] ID Date Data Source [id number] 03/25/2019 01:02:00 PM EST [facility] Has Patient Fasted For The Past 12 Hour s? N Has Patient Fasted For The Past 12 Hour s? N Name Value Range Interpretation Code Description Data Viktoriya rce(s) Supporting Document(s) MAGNESIUM 2.2 mg/dl 1.8-2.4 N [facility] Procedure Social History Code Duration Value Status Description Data Source(s ) Alcohol intake 04/30/2020 12:00:00 AM EST Ex-drinker (finding) comp leted Ex- drinker (finding) [facility] Tobacco use and exposure 04/30/2020 12:00:00 AM EST Never used co mpleted Never used [facility] Cigarette pack-years 04/30/2020 12:00:00 AM EST UNK completed [facility] Cigarettes smoked current (pack per day) - Reported 04/30/19 12:00:00 AM EST UNK [facility] Smoking 04/30/2020 12:00:00 AM EST Current every day smoker co mpleted Current every day smoker [facility] Smoking 04/10/2020 12:00:00 AM EST Smokes tobacco daily (findi ng) completed Smokes tobacco daily (finding) GAVIN ([facility]) Alcohol intake 03/29/2020 12:00:00 AM EST Ex-drinker (finding) comp leted Ex- drinker (finding) [facility] Alcohol intake 03/21/2020 12:00:00 AM EST Current drinker of al cohol (finding) completed Current drinker of alcohol (finding) [facility] Smoking 01/31/2020 12:00:00 AM EDT Current Smoker completed [facility]re nt Sm[facility]CW[facility] Alcohol intake 01/26/2020 12:00:00 AM EDT Current drinker of al cohol (finding) completed Current drinker of alcohol (finding) [facility] Alcohol intake 01/18/2020 12:00:00 AM EDT Current drinker of al cohol (finding) completed Current drinker of alcohol (finding) [facility] Smoking 01/12/2020 12:00:00 AM EDT Occasional tobacco sm oker (finding) completed Occasional tobacco smoker (finding) GAVIN ([facility]) Alcohol intake 12/08/2019 12:00:00 AM EDT Ex-drinker (finding) comp leted Ex- drinker (finding) [facility] Smoking 12/06/2019 12:00:00 AM EDT Occasional tobacco sm oker (finding) completed Occasional tobacco smoker (finding) GAVIN ([facility]) Smoking 11/16/2019 12:00:00 AM EDT Occasional tobacco sm oker (finding) completed Occasional tobacco smoker (finding) GAVIN ([facility]) Alcohol intake 07/01/2019 12:00:00 AM EDT Ex-drinker (finding) comp leted Ex- drinker (finding) [facility] Cigarette pack-years 07/01/2019 12:00:00 AM EDT UNK completed [facility] Cigarettes smoked current (pack per day) - Reported 07/01/19 12:00:00 AM EDT UNK completed [facility] Smoking 07/01/2019 12:00:00 AM EDT Former smoker completed Former smoker [facility] Alcohol intake 06/20/2019 12:00:00 AM EST Ex-drinker (finding) comp leted Ex- drinker (finding) [facility] Cigarette pack-years 06/20/2019 12:00:00 AM EST UNK completed [facility] Cigarettes smoked current (pack per day) - Reported 06/20/19 12:00:00 AM EST UNK completed [facility] Smoking 06/20/2019 12:00:00 AM EST Former smoker completed Former smoker [facility] Alcohol intake 06/14/2019 12:00:00 AM EST Ex-drinker (finding) comp leted Ex- drinker (finding) [facility] Cigarette pack-years 06/14/2019 12:00:00 AM EST UNK completed [facility] Cigarettes smoked current (pack per day) - Reported 06/14/19 12:00:00 AM EST UNK completed [facility] Smoking 06/14/2019 12:00:00 AM EST Former smoker completed Former smoker [facility] Smoking 06/07/2019 12:00:00 AM EST Ex-smoker (finding) complet ed Ex-smoker (finding) GAVIN ([facility]) Alcohol intake 05/30/2019 12:00:00 AM EST Current drinker of al cohol (finding) completed Current drinker of alcohol (finding) [facility] Cigarette pack-years 05/30/2019 12:00:00 AM EST UNK [facility] Cigarettes smoked current (pack per day) - Reported 05/30/19 12:00:00 AM EST UNK completed [facility] Smoking 05/30/2019 12:00:00 AM EST Former smoker completed Former smoker [facility] Smoking 05/19/2019 12:00:00 AM EST Smokes tobacco daily (findi ng) completed Smokes tobacco daily (finding) GAVIN ([facility]) Smoking 05/13/2019 12:00:00 AM EST Smokes tobacco daily (findi ng) completed Smokes tobacco daily (finding) GAVIN ([facility]) Alcohol intake 04/27/2019 12:00:00 AM EST Current drinker of al cohol (finding) completed Current drinker of alcohol (finding) [facility] Cigarette pack-years 04/27/2019 12:00:00 AM EST UNK [facility] Cigarettes smoked current (pack per day) - Reported 04/27/19 12:00:00 AM EST UNK completed [facility] Smoking 04/27/2019 12:00:00 AM EST Former smoker completed Former smoker [facility] Smoking 04/08/2019 12:00:00 AM EST Ex-smoker (finding) complet ed Ex-smoker (finding) GAVIN ([facility]) Smoking 03/30/2019 12:00:00 AM EST Former smoker completed Former smoker [facility] ([facility]) Alcohol intake 03/30/2019 12:00:00 AM EST Current drinker of al cohol (finding) completed Current drinker of alcohol (finding) [facility] Cigarette pack-years 03/30/2019 12:00:00 AM EST UNK completed [facility] Cigarettes smoked current (pack per day) - Reported 03/30/20 12:00:00 AM EST UNK completed [facility] Smoking 03/30/2019 12:00:00 AM EST Former smoker completed Former smoker [facility] Alcohol intake 03/29/2019 12:00:00 AM EST Current drinker of al cohol (finding) completed Current drinker of alcohol (finding) [facility] Cigarette pack-years 03/29/2019 12:00:00 AM EST UNK completed [facility] Cigarettes smoked current (pack per day) - Reported 03/29/20 12:00:00 AM EST UNK completed [facility] Smoking 03/29/2019 12:00:00 AM EST Former smoker completed Former smoker [facility] Smoking 03/24/2019 12:00:00 AM EST Ex-smoker (finding) complet ed Ex-smoker (finding) GAVIN ([facility]) Vital Signs ID Date Data Source UNK Name Value Range Interpretation Code Description Data Source(s) Body weight 218 [lb_av] 218 [lb_av] GAVIN ([facility]) Body temperature 96.1 [degF] 96.1 [degF] GREEN AY ([facility]) Respiratory rate 20 /min 20 /min GAVIN ([facility]) Heart rate rhythm 1 1 GREENWA Y ([facility]) Inhaled oxygen concentration 21 % 21 % GAVIN ([facility]) Inhaled oxygen flow rate 0 L/min 0 L/min ARMSTRONG ([facility]) Oxygen saturation in Arterial blood by Pulse oximetry 97 % 97 % ARMSTRONG ([facility]) PhenX - pain, abdominal - type and intensity protocol 6 6 GAVIN ([facility]) Heart rate 73 /min 73 /min GAVIN ([facility]) Diastolic blood pressure 90 mm[Hg] 90 mm[Hg] GAVIN ([facility]) Systolic blood pressure 128 mm[Hg] 128 mm[Hg] G REENWAY ([facility]) Oxygen saturation in Arterial blood by Pulse oximetry 99 % 99 % eCW1 ([facility]) Respiratory rate 16 /min 16 /min eCW1 ([facility]) Heart rate 75 /min 75 /min eCW1 ([facility]) Body mass index (BMI) [Ratio] 31.56 kg/m2 31.56 kg/m2 eCW1 ([facility]) Body weight 220.0 [lb_av] 220.0 [lb_av] eCW1 ([facility]) Body height 70 [in_i] 70 [in_i] eCW1 ([facility] 2[facility] Respiratory rate 16 /min 16 /min MEDENT ( [facility] ) Heart rate 80 /min 80 /min MEDENT ([facility] ) Diastolic blood pressure 80 mm[Hg] 80 mm[Hg] MEDENT ([facility] ) Systolic blood pressure 130 mm[Hg] 130 mm[Hg] M EDENT ([facility] ) Body surface area Derived from formula 2.12 m2 2.12 m2 GAVIN ([facility]) Body mass index (BMI) [Ratio] 31.3 kg/m2 31.3 k g/m2 GAVIN ([facility]) Body weight 212 [lb_av] 212 [lb_av] [facility] Body height 69 [in_i] 69 [in_i] [facility] Body temperature 97.9 [degF] 97.9 [degF] [facility] Respiratory rate 18 /min 18 /min GAVIN ([facility]) Heart rate rhythm 1 1 GREENWA Y ([facility]) Inhaled oxygen concentration 21 % 21 % GAVIN ([facility]) Inhaled oxygen flow rate 0 L/min 0 L/min GAVIN ([facility]) Oxygen saturation in Arterial blood by Pulse oximetry 97 % 97 % GAVIN ([facility]) PhenX - pain, abdominal - type and intensity protocol 5 5 GAVIN ([facility]) Heart rate 88 /min 88 /min GAVIN ([facility]) Diastolic blood pressure 86 mm[Hg] 86 mm[Hg] GAVIN ([facility]) Systolic blood pressure 124 mm[Hg] 124 mm[Hg] G REENWAY ([facility]) Body weight 213 [lb_av] 213 [lb_av] GAVIN ([facility]) Temperature assessed by [place] Body temperature 98.2 [degF] 98.2 [degF] [facility] ([facility]) Temperature assessed by [place]ell [place] Respiratory rate 16 /min 16 /min GAVIN ([facility]) Temperature assessed by [place] Inhaled oxygen concentration 21 % 21 % GAVIN ([facility]) Temperature assessed by [place] Inhaled oxygen flow rate 0 L/min 0 L/min ARMSTRONG ([facility]) Temperature assessed by [place] Oxygen saturation in Arterial blood by Pulse oximetry 97 % 97 % ARMSTRONG ([facility]) Temperature assessed by [place] PhenX - pain, abdominal - type and intensity protocol 8 8 GAVIN ([facility]) Temperature assessed by [place] Heart rate 73 /min 73 /min GAVIN ([facility]) Temperature assessed by [place] Diastolic blood pressure 80 mm[Hg] 80 mm[Hg] GAVIN ([facility]) Temperature assessed by RPurtell [place] Systolic blood pressure 138 mm[Hg] 138 mm[Hg] [facility] ([facility]) Temperature assessed by RPurtell [place] Body mass index (BMI) [Ratio] 29.6 kg/m2 29.6 k g/m2 MEDENT ([facility]) Body weight 206.00 [lb_av] 206.00 [lb_av] MEDEN T ([facility]) Body height 70 [in_i] 70 [in_i] MEDENT ([facility]) 5'10" Respiratory rate 18 /min 18 /min MEDENT ( [facility]) Body temperature 99.0 [degF] 99.0 [degF] MEDENT ([facility]) Heart rate 73 /min 73 /min MEDENT ([facility]) Diastolic blood pressure 74 mm[Hg] 74 mm[Hg] MEDENT ([facility]) Systolic blood pressure 118 mm[Hg] 118 mm[Hg] M EDENT ([facility]) Body weight 206.2 [lb_av] 206.2 [lb_av] GREENWA Y ([facility]) Body temperature 98.2 [degF] 98.2 [degF] GREENW AY ([facility]) Respiratory rate 18 /min 18 /min GAVIN ([facility]) Heart rate rhythm 1 1 Y ([facility]) Oxygen saturation in Arterial blood by Pulse oximetry 97 % 97 % GAVIN ([facility]) PhenX - pain, abdominal - type and intensity protocol 2 2 GAVIN ([facility]) Heart rate 88 /min 88 /min GAVIN [facility] Diastolic blood pressure 78 mm[Hg] 78 mm[Hg] GAVIN ([facility]) Systolic blood pressure 120 mm[Hg] 120 mm[Hg] G REEWAY ([facility]) Body weight 211 [lb_av] 211 [lb_av] [facility]IN [facility] Body temperature 96.8 [degF] 96.8 [degF] GRE[facility]W AY [facility] Respiratory rate 18 /min 18 /min GAVIN ([facility]) Heart rate rhythm 1 1 Y ([facility]) Inhaled oxygen concentration 21 % 21 % GAVIN ([facility]) Inhaled oxygen flow rate 0 L/min 0 L/min GAVIN ([facility]) Oxygen saturation in Arterial blood by Pulse oximetry 98 % 98 % GAVIN ([facility]) PhenX - pain, abdominal - type and intensity protocol 5 5 GAVIN ([facility]) Heart rate 72 /min 72 /min GAVIN ([facility]) Diastolic blood pressure 74 mm[Hg] 74 mm[Hg] [facility]AVIN [facility] Systolic blood pressure 112 mm[Hg] 112 mm[Hg] G REENWAY [facility] Body weight 211 [lb_av] 211 [lb_av] GAVIN [facility] Body temperature 97.6 [degF] 97.6 [degF] GREENW AY [facility] Respiratory rate 18 /min 18 /min GAVIN ([facility]) Heart rate rhythm 1 1 GREENWA Y ([facility]) Inhaled oxygen concentration 21 % 21 % GAVIN ([facility]) Inhaled oxygen flow rate 0 L/min 0 L/min ARMSTRONG ([facility]) Oxygen saturation in Arterial blood by Pulse oximetry 97 % 97 % ARMSTRONG ([facility]) PhenX - pain, abdominal - type and intensity protocol 0 0 ARMSTRONG ([facility]) Heart rate 82 /min 82 /min GAVIN ([facility]) Diastolic blood pressure 82 mm[Hg] 82 mm[Hg] ARMSTRONG ([facility]) Systolic blood pressure 120 mm[Hg] 120 mm[Hg] [facility] ([facility]) Body surface area Derived from formula 2.16 m2 2.16 m2 ARMSTRONG ([facility]) Body mass index (BMI) [Ratio] 29.4 kg/m2 29.4 k g/m2 ARMSTRONG ([facility]) Body height 71 [in_i] 71 [in_i] GAVIN [facility] Body weight 211 [lb_av] 211 [lb_av] GAVIN ([facility]) Body temperature 97.6 [degF] 97.6 [degF] [facility] ([facility]) Respiratory rate 18 /min 18 /min ARMSTRONG ([facility]) Heart rate rhythm 1 1 GREEN Y ([facility]) Inhaled oxygen concentration 21 % 21 % ARMSTRONG ([facility]) Inhaled oxygen flow rate 0 L/min 0 L/min ARMSTRONG ([facility]) Oxygen saturation in Arterial blood by Pulse oximetry 96 % 96 % ARMSTRONG ([facility]) PhenX - pain, abdominal - type and intensity protocol 2 2 ARMSTRONG ([facility]) Heart rate 70 /min 70 /min ARMSTRONG ([facility]) Diastolic blood pressure 86 mm[Hg] 86 mm[Hg] ARMSTRONG ([facility]) Systolic blood pressure 136 mm[Hg] 136 mm[Hg] [facility] ([facility]) Respiratory rate 16 /min 16 /min MEDENT ( [facility]) Heart rate 76 /min 76 /min MEDENT ([facility]) Diastolic blood pressure 80 mm[Hg] 80 mm[Hg] MEDENT ([facility]) Systolic blood pressure 110 mm[Hg] 110 mm[Hg] M CEE ([facility]) Inhaled oxygen concentration 21 % 21 % GAVIN ([facility]) Inhaled oxygen flow rate 0 L/min 0 L/min GAVIN ([facility]) Oxygen saturation in Arterial blood by Pulse oximetry 97 % 97 % [facility]AVIN [facility] Heart rate 75 /min 75 /min GAVIN ([facility]) Diastolic blood pressure 86 mm[Hg] 86 mm[Hg] GAVIN [facility] Systolic blood pressure 114 mm[Hg] 114 mm[Hg] G REENWAY ([facility]) PhenX - pain, abdominal - type and intensity protocol 7 7 GAVIN ([facility]) Body weight 206.8 [lb_av] 206.8 [lb_av] GREENWA Y ([facility]) Body temperature 98.5 [degF] 98.5 [degF] [facility] Respiratory rate 18 /min 18 /min GAVIN ([facility]) Heart rate rhythm 1 1 GREENWA Y ([facility]) Inhaled oxygen concentration 21 % 21 % [facility]KER ([facility]) Oxygen saturation in Arterial blood by Pulse oximetry 96 % 96 % [facility] ([facility]) Body weight 208 [lb_av] 208 [lb_av] [facility]KER ([facility]) Diastolic blood pressure 88 mm[Hg] 88 mm[Hg] [facility]KER ([facility]) Systolic blood pressure 114 mm[Hg] 114 mm[Hg] C HARTMAKER ([facility]) Heart rate 104 /min 104 /min [facility]KER ([facility]) Body temperature 98 [degF] 98 [degF] [facility] [facility] ([facility]) Heart rate 91 /min 91 /min GAVIN ([facility]) Diastolic blood pressure 74 mm[Hg] 74 mm[Hg] GAVIN [facility] Systolic blood pressure 118 mm[Hg] 118 mm[Hg] G REENWAY [facility] Inhaled oxygen concentration 21 % 21 % GAVIN [facility] Inhaled oxygen flow rate 0 L/min 0 L/min GAVIN [facility] Oxygen saturation in Arterial blood by Pulse oximetry 98 % 98 % GAVIN ([facility]) PhenX - pain, abdominal - type and intensity protocol 6 6 GAVIN ([facility]) Body weight 213 [lb_av] 213 [lb_av] GAVIN ([facility] Body temperature 98.5 [degF] 98.5 [degF] GREENW AY ([facility]) Respiratory rate 19 /min 19 /min GAVIN ([facility]) Heart rate rhythm 1 1 GREENWA Y ([facility]) ID Date Data Source [id number] 05/08/2020 03:26:55 PM [facility] Value Range Interpretation Code Description Data Source(s) WEIGHT RECORDED 227.4 lb 227.4 lb [facility] Body height Measured 70 in 70 in [facility] ID Date Data Source [id number] 04/16/2020 01:50:43 PM [facility] Value Range Interpretation Code Description Data Source(s) WEIGHT RECORDED 222.6 lb 222.6 lb [facility] Body height Measured 70 in 70 in [facility] WEIGHT RECORDED 221.8 lb 221.8 lb [facility] Body height Measured 70 in 70 in [facility] ID Date Data Source [id number] 04/10/2020 03:36:32 PM [facility] Value Range Interpretation Code Description Data Source(s) WEIGHT RECORDED 215 lb 215 lb [facility] Body height Measured 70 in 70 in [facility] ID Date Data Source [id number] 03/29/2020 11:43:02 AM [facility] Value Range Interpretation Code Description Data Source(s) WEIGHT RECORDED 215 lb 215 lb [facility] Body height Measured 70 in 70 in [facility] ID Date Data Source [id number] 08/25/2019 08:26:14 AM [facility] Value Range Interpretation Code Description Data Source(s) WEIGHT RECORDED 205 lb 205 lb [facility] Body height Measured 70 in 70 in [facility] ID Date Data Source [id number] 06/21/2019 01:51:06 PM [facility] Value Range Interpretation Code Description Data Source(s) WEIGHT RECORDED 210 lb 210 lb [facility] Body height Measured 70 in 70 in [facility] ID Date Data Source [id number] 05/31/2019 08:03:07 AM [facility] Name Value Range Interpretation Code Description Data Source(s) WEIGHT RECORDED 210 lb 210 lb [facility] Body height Measured 70 in 70 in [facility] ID Date Data Source [id number] 05/05/2019 12:54:09 PM [facility] Name Value Range Interpretation Code Description Data Source(s) WEIGHT RECORDED 204 lb 204 lb [facility] Body height Measured 70 in 70 in [facility] ID Date Data Source [id number] 04/07/2019 12:36:54 PM [facility] [facility] Name Value Range Interpretation Code Description Data Source(s) WEIGHT RECORDED 204 lb 204 lb [facility] Body height Measured 70 in 70 in [facility] ID Date Data Source [id number] 03/30/2019 04:14:44 PM [facility] Name Value Range Interpretation Code Description Data Source(s) WEIGHT RECORDED 216.49 lb 216.49 lb [facility] Body height Measured 70 in 70 in [facility] Patient Treatment Plan of Care Planned Activity Planned Date Details Description Data Source (s) Folic Acid 1 MG Oral Tablet 05/08/2020 12:00:00 AM [facility] influenza vac split quad (FLUARIX) injection 6 months and older 0.5 mL 04/14/2020 11:37:34 PM [facility] 1 ML Enoxaparin sodium 100 MG/ML Prefilled Syringe 03/28/2020 12 :00:00 AM [facility] POLYETHYLENE GLYCOL 3350 59 MG/ML / Pota ssium Chloride 0.01 MEQ/ML / Sodium Bicarbonate 0.02 MEQ/ML / Sodium Chloride 0.025 MEQ/ML / sodium sulfate 0.04 MEQ/ML Oral Solution 03/21/2020 12:00:00 AM [facility] 1 ML Enoxaparin sodium 100 MG/ML Prefilled Syringe 03/21/2020 12 :00:00 AM [facility] Docusate Sodium 100 MG Oral Capsule 01/27/2020 12:00:00 AM [facility] Oxycodone Hydrochloride 5 MG Oral Tablet 01/27/2020 12:00:00 AM [facility] Amoxicillin 875 MG / Clavulanate 125 MG Oral Tablet 01/27/20 12:00:00 AM [facility] lansoprazole 15 MG Delayed Release Oral Capsule 11/16/2019 12:00:00 AM [facility] ([facility]) Rosuvastatin calcium 10 MG Oral Tablet 11/16/2019 12:00:00 AM [facility] ([facility]) clopidogrel 75 MG Oral Tablet [Plavix] 10/05/2019 12:00:00 AM [facility] ([facility]) fentaNYL (SUBLIMAZE) (PF) injection 25 mcg 06/20/2019 01:04:59 PM [facility] HYDROmorphone (DILAUDID) injection 0.5 mg 06/20/2019 01:04:59 PM [facility] ondansetron (ZOFRAN) injection 4 mg 06/20/2019 01:04:59 PM [facility] oxyCODONE (ROXICODONE) immediate release tablet 5 mg 12:01:50 PM [facility] Oxycodone Hydrochloride 5 MG Oral Tablet 06/20/2019 12:00:00 AM [facility] Escitalopram 10 MG Oral Tablet [Lexapro] 06/07/2019 12:00:[address] [facility] ([facility]) Rosuvastatin calcium 10 MG Oral Tablet 06/07/2019 12:00:[address] [facility] ([facility]) Trazodone Hydrochloride 50 MG Oral Tablet 06/07/2019 12:00:00 AM [facility] ([facility]) Ondansetron 8 MG Oral Tablet 05/30/2019 12:00:00 AM [facility] 8 HR Acetaminophen 650 MG Extended Release Oral Tablet 05/30/2019 12:00:00 AM [facility] Oxycodone Hydrochloride 5 MG Oral Tablet 05/30/2019 12:00:00 AM [facility] Oxycodone Hydrochloride 5 MG Oral Tablet 05/30/2019 12:00:00 AM [facility] Ondansetron 8 MG Oral Tablet 05/30/2019 12:00:00 AM [facility] 8 HR Acetaminophen 650 MG Extended Release Oral Tablet 05/30/2019 12:00:00 AM [facility] Ondansetron 8 MG Oral Tablet 05/30/2019 12:00:00 AM [facility] 8 HR Acetaminophen 650 MG Extended Release Oral Tablet 05/30/2019 12:00:00 AM [facility] Oxycodone Hydrochloride 5 MG Oral Tablet 05/30/2019 12:00:00 AM [facility] lansoprazole 15 MG Delayed Release Oral Capsule 05/20/2019 12:00:00 AM [facility] lansoprazole 15 MG Delayed Release Oral Capsule 05/19/2019 12:00:[address] [facility] Escitalopram 10 MG Oral Tablet [Lexapro] 04/08/2019 12:00:[address] [facility] clopidogrel 75 MG Oral Tablet [Plavix] 03/24/2019 12:00:[address] [facility]) Escitalopram 5 MG Oral Tablet [Lexapro] 03/24/2019 12:00:[address] [facility] Bisacodyl 10 MG Rectal Suppository 03/11/2019 09:51:38 AM [facility] Sodium Chloride 0.7207881 MEQ/MG Nasal Gel 03/04/2019 05:00:00 PM E [facility] Omeprazole 20 MG Delayed Release Oral Capsule 01/06/2019 12:00:00 A M [facility] Rosuvastatin calcium 10 MG Oral Tablet 12/30/2018 12:00:00 AM [facility] Trazodone Hydrochloride 50 MG Oral Tablet 12/30/2018 12:00:00 AM ED [facility] clopidogrel 75 MG Oral Tablet [Plavix] 09/29/2018 12:00:00 AM [facility] Potassium Chloride 20 MEQ Extended Release Oral Tablet 04/02/2018 12:00:00 AM EST [facility]) Trazodone Hydrochloride 50 MG Oral Tablet 02/17/2018 12:00:00 AM [facility] Omeprazole 20 MG Delayed Release Oral Capsule 02/17/2018 12:00:00 A M [facility] pantoprazole 20 MG Delayed Release Oral Tablet [facility] Escitalopram 10 MG Oral Tablet [facility]
== END 2020-04-24 03:10 | disposition home or self-care (01) ==
LOC: M ED 23:27
DX: R10.9 Unspecified abdominal pain (principal); R51.9 Headache, unspecified; Z95.828 Presence of other vascular implants and grafts; I10 Essential (primary) hypertension; E78.5 Hyperlipidemia, unspecified; Z86.73 Personal history of transient ischemic attack (TIA), and cerebral infarction without residual deficits; N28.9 Disorder of kidney and ureter, unspecified; F17.200 Nicotine dependence, unspecified, uncomplicated
CPT/HCPCS: 74177; 80048; 80076; 83690; 85025; 85610; 85730; 96361; 96374; 96375; 99283; J2270; J2765; Q9967

== ENCOUNTER → 2021-01-01 | Outpatient (CLI) | payer MEDICARE ==
[~2021-01-01] MED LIST changes: +ISOVUE-300 61% 50ML VIAL As Ordered ONE; -KLOR10TA76 PO; +LIDOCAINE 1% MDV 20ML VIAL As Ordered ONE; +LISI30TA4; -PEG1POW PO; +POLY17PO18 PO; +POTA-136 PO; +PROP10TA56; +methylPREDNISolone SUSP 40MG/ML 1ML VIAL (DEPO MEDROL) As Ordered ONE
--- NOTE | 2021-01-01 16:45 | REP ---
INDICATION: POST TRAUMATIC OSTEOARTHRITIS LT FOOT/ANKLE. COMPARISON: None TECHNIQUE: The procedure was performed by NICHOLAS Stafford, under the direct supervision of Dr. Zhou. The benefits and risks of the procedure were explained to the patient, and an informed consent was obtained. Directly prior to the start of the procedure, a formal time-out was completed in the procedure room. The left calcaneocuboid joint space was localized using fluoroscopic guidance. The skin was prepped and draped in a sterile fashion. Approximately 1 mL of 1% Lidocaine 10 mg/ml was used as a local anesthetic. Using fluoroscopic guidance, a #22 gauge spinal needle was inserted and advanced into the left calcaneocuboid joint space. Approximately 1 mL of Isovue 300 was injected to verify placement. Three mL of a solution containing 2 mL 1% lidocaine 10 mg/ml and 1 mL Depo-Medrol 40 milligrams/milliliter was injected into the joint space. The needle was removed and hemostasis was achieved. FINDINGS: The patient tolerated the procedure well and there were no immediate complications. IMPRESSION: 1. Fluoroscopically guided left calcaneocuboid intra-articular pain injection. 0.1 minutes of fluoroscopy time was utilized for this procedure. Some fluoroscopic images are performed with last image hold technology. These images require no additional radiation. <Electronically signed by Fatuma Nagel > 01/01/21 [id number] <Electronically signed by Domingo Zhou > 01/01/21 [id number]
== END ==
LOC: M RADPRO 11:14
PROVIDERS: ATTEND Physician Assistant
DX: M19.172 Post-traumatic osteoarthritis, left ankle and foot (principal)
CPT/HCPCS: 20605; 77002; J1030; Q9967

== ENCOUNTER 2021-01-08 12:02 | Emergency (ER) | payer MEDICARE ==
[~2021-01-08] VITALS: Ht 177.8 cm; Wt 103.6 kg
[~2021-01-08 12:02] MED LIST changes: -ISOVUE-300 61% 50ML VIAL As Ordered ONE; -LIDOCAINE 1% MDV 20ML VIAL As Ordered ONE; -methylPREDNISolone SUSP 40MG/ML 1ML VIAL (DEPO MEDROL) As Ordered ONE
[2021-01-08] MEDS ORDERED: LEVE250T5 PO (12:18)
[2021-01-08] MEDS ORDERED: PROP60CA (12:18)
[2021-01-08] MEDS ORDERED: FOLI1TAB11 (12:18)
[2021-01-08] MEDS ORDERED: AIMO70IN2 (12:18)
[2021-01-08] MEDS ORDERED: LEVE500T5 PO (12:18)
[2021-01-08] MEDS ORDERED: TRAZ-252 (12:18)
[2021-01-08 13:52] LABS: BASO # 0.1 10^3/uL (0.0-0.2); BASO % 0.6 % (0.0-1.0); EOS # 0.3 10^3/uL (0.0-0.5); EOS % 3.4 % (0.0-3.0); HEMOGLOBIN 14.6 g/dl (13.5-17.5); LYMPH # 2.4 10^3/uL (1.5-5.0); LYMPH % 28.7 % (24.0-44.0); MEAN CORPUSCULAR HEMOGLOBIN 32.2 pg (27.0-33.0); MEAN CORPUSCULAR HGB CONC 34.8 g/dl (32.0-36.5); MEAN CORPUSCULAR VOLUME 92.5 fl (80.0-96.0); MONO # 0.7 10^3/uL (0.0-0.8); MONO % 8.8 % (2.0-8.0); NEUTROPHILS # 4.8 10^3/uL (1.5-8.5); NEUTROPHILS % 58.3 % (36.0-66.0); PLATELET COUNT, AUTOMATED 269 10^3/uL (150-450); RED BLOOD COUNT 4.54 10^6/uL (4.30-6.10); WHITE BLOOD COUNT 8.2 10^3/uL (4.0-10.0)
--- NOTE | 2021-01-08 13:53 | REP ---
INDICATION: CHEST PAIN. COMPARISON: Comparison chest x-ray February 19, 2018. TECHNIQUE: Two views.. FINDINGS: The lungs are well inflated and free of infiltrate. The pleural angles are sharp. The heart size is normal. Pulmonary vasculature is not increased. No significant bony abnormality is seen. A loop recorder is seen projecting to the left of midline over the heart on the frontal view. IMPRESSION: Loop recorder visible. Otherwise negative chest x-ray. <Electronically signed by Edgar Hylton > 01/08/21 [id number]
--- NOTE | 2021-01-08 14:02 | ECGEPIP ---
[facility] - ED Test Date: 2021-01-08 Pat Name: GILDA GEIGER Department: Room: - Gender: Male Directory Operator: LAKESHIA : 1975 Requested By: Paras Gonzalez Order Number: [id number] Reading MD: Deya Aceves Measurements Intervals [place] Rate: 59 P: 11 GA: 160 QRS: 95 QRSD: 108 T: 14 QT: 414 QTc: 409 Interpretive Statements Sinus bradycardia Rightward axis Incomplete right bundle branch block similar 02/06/18 Electronically Signed on 01-08-2021 14:01:32 EDT by Deya Aceves
[2021-01-08 14:30] LABS: CK-MB VALUE MASS 2.7 NG/ML (<3.6); CPK CREATINE PHOSPHOKINASE 154 U/L (39-308); MB/CK RELATIVE INDEX 1.75 (< OR =4); TROPONIN I < 0.02 NG/ML (< 0.10)
[2021-01-08 15:06] LABS: ALBUMIN 3.5 GM/DL (3.2-5.2); ALT/SGPT 29 U/L (12-78); BILIRUBIN,TOTAL 0.4 MG/DL (0.2-1.0); BLOOD UREA NITROGEN 18 MG/DL (7-18); CALCIUM LEVEL 8.8 MG/DL (8.5-10.1); CARBON DIOXIDE LEVEL 27 MEQ/L (21-32); CHLORIDE LEVEL 106 MEQ/L (98-107); CREATININE FOR GFR 1.27 MG/DL (0.70-1.30); GLOMERULAR FILTRATION RATE > 60.0 (>60); GLUCOSE, FASTING 97 MG/DL (70-100); MAGNESIUM LEVEL 2.1 MG/DL (1.8-2.4); POTASSIUM SERUM 4.8 MEQ/L (3.5-5.1); SODIUM LEVEL 139 MEQ/L (136-145); TOTAL PROTEIN 6.9 GM/DL (6.4-8.2)
[2021-01-08 16:00] VITALS: BP 132/76
== END 2021-01-08 16:22 | disposition home or self-care (01) ==
LOC: M ED 12:02
DX: R06.09 Other forms of dyspnea (principal); M54.2 Cervicalgia; M25.519 Pain in unspecified shoulder; R00.1 Bradycardia, unspecified; I45.19 Other right bundle-branch block; I10 Essential (primary) hypertension; Z86.73 Personal history of transient ischemic attack (TIA), and cerebral infarction without residual deficits; E78.5 Hyperlipidemia, unspecified; Z95.5 Presence of coronary angioplasty implant and graft; Z95.818 Presence of other cardiac implants and grafts; F17.200 Nicotine dependence, unspecified, uncomplicated; F12.10 Cannabis abuse, uncomplicated; Z79.01 Long term (current) use of anticoagulants; Z79.899 Other long term (current) drug therapy; Z88.8 Allergy status to other drugs, medicaments and biological substances

== ENCOUNTER → 2021-10-25 | Outpatient (CLI) | payer MEDICARE ==
[~2021-10-25] MED LIST changes: +AIMO70IN2; +FOLI1TAB11; +ISOVUE-300 61% 50ML VIAL As Ordered ONE; +LEVE250T5 PO; +LEVE500T5 PO; +LIDOCAINE 1% MDV 20ML VIAL As Ordered ONE; +POTA-151 PO; -POTA20TA6 PO; +PROP60CA; +TRAZ-252; +methylPREDNISolone SUSP 40MG/ML 1ML VIAL (DEPO MEDROL) As Ordered ONE
== END ==
LOC: M RADPRO 15:28
PROVIDERS: ATTEND Physician Assistant
DX: M19.172 Post-traumatic osteoarthritis, left ankle and foot (principal)
CPT/HCPCS: 20605; 76000; J1030; Q9967

== ENCOUNTER 2022-06-13 17:55 | Emergency (ER) | payer MEDICARE ==
[~2022-06-13] VITALS: Ht 177.8 cm; Wt 102.2 kg
[~2022-06-13 17:55] MED LIST changes: -ISOVUE-300 61% 50ML VIAL As Ordered ONE; +LANS-74 PO; -LANS15CA PO; -LIDOCAINE 1% MDV 20ML VIAL As Ordered ONE; -methylPREDNISolone SUSP 40MG/ML 1ML VIAL (DEPO MEDROL) As Ordered ONE
[2022-06-13] MEDS ORDERED: FENO54TA2 (18:16)
[2022-06-13] MEDS ORDERED: XARE20TA (18:16)
[2022-06-13] MEDS ORDERED: ISOS1TAB36 (18:16)
[2022-06-13 20:03] LABS: BASO # 0.1 10^3/uL (0.0-0.2); BASO % 0.7 % (0.0-1.0); EOS # 0.2 10^3/uL (0.0-0.5); HEMATOCRIT 53.3 % (42.0-52.0); LYMPH # 2.2 10^3/uL (1.5-5.0); LYMPH % 18.5 % (24.0-44.0); MEAN CORPUSCULAR HEMOGLOBIN 31.8 pg (27.0-33.0); MEAN CORPUSCULAR HGB CONC 33.8 g/dl (32.0-36.5); MEAN CORPUSCULAR VOLUME 94.2 fl (80.0-96.0); MONO % 8.7 % (2.0-8.0); NEUTROPHILS # 8.4 10^3/uL (1.5-8.5); NEUTROPHILS % 69.9 % (36.0-66.0); PLATELET COUNT, AUTOMATED 315 10^3/uL (150-450); RED BLOOD COUNT 5.66 10^6/uL (4.30-6.10)
[2022-06-13 20:27] LABS: ALBUMIN 4.6 G/DL (3.2-5.2); BILIRUBIN,DIRECT 0.2 MG/DL (<0.4); BILIRUBIN,TOTAL 0.5 MG/DL (0.3-1.2); CALCIUM LEVEL 10.1 MG/DL (8.5-10.1); CREATININE FOR GFR 1.61 MG/DL (0.70-1.30); GLOMERULAR FILTRATION RATE 49.2 (>60); POTASSIUM SERUM 5.2 MMOL/L (3.5-5.1); TOTAL PROTEIN 8.1 G/DL (5.7-8.2)
[2022-06-13] MEDS ORDERED: MORPHINE 4 MG/ML 1ML VIAL IV ONE (20:30)
[2022-06-13] MEDS ORDERED: ONDANSETRON 4MG 2ML VIAL IV ONE (20:30)
[2022-06-13] MEDS ORDERED: ISOVUE-370 76% 100ML VIAL As Ordered ONE (20:30)
[2022-06-13] MEDS ORDERED: NS 1,000 ML IV ONE (20:30)
[2022-06-13 22:30] VITALS: BP 118/73
[2022-06-13] MEDS ORDERED: ONDA4TAB6 PO (23:13)
== END 2022-06-14 00:08 | disposition home or self-care (01) ==
LOC: M ED 17:55 → EDBD 17:55 → M ED 06-14 00:08
DX: K52.9 Noninfective gastroenteritis and colitis, unspecified (principal); I10 Essential (primary) hypertension; K21.9 Gastro-esophageal reflux disease without esophagitis; E78.5 Hyperlipidemia, unspecified; Z86.73 Personal history of transient ischemic attack (TIA), and cerebral infarction without residual deficits; R56.9 Unspecified convulsions; Z95.5 Presence of coronary angioplasty implant and graft; F17.200 Nicotine dependence, unspecified, uncomplicated; Z79.899 Other long term (current) drug therapy; Z88.8 Allergy status to other drugs, medicaments and biological substances
CPT/HCPCS: 74174; 80048; 80076; 83605; 83690; 85025; 87040; 87077; 87186; 93005; 93041; 96374; 96375; 99285; J2270; J2405; Q9967

== ENCOUNTER 2022-06-16 10:21 | Emergency (ER) | payer MEDICARE ==
[~2022-06-16] VITALS: Ht 177.8 cm; Wt 103.7 kg
[~2022-06-16 10:21] MED LIST changes: +FENO54TA2; +ISOS1TAB36; +ONDA4TAB6 PO; +XARE20TA
[2022-06-16 10:22] VITALS: BP 148/83
== END 2022-06-16 11:28 | disposition home or self-care (01) ==
LOC: M ED 10:21
DX: R79.9 Abnormal finding of blood chemistry, unspecified (principal); Z86.73 Personal history of transient ischemic attack (TIA), and cerebral infarction without residual deficits; F17.200 Nicotine dependence, unspecified, uncomplicated; Z79.899 Other long term (current) drug therapy; Z88.8 Allergy status to other drugs, medicaments and biological substances

== ENCOUNTER 2022-12-17 04:32 | Emergency (ER) | payer MEDICARE ==
[~2022-12-17] VITALS: Ht 177.8 cm; Wt 104.5 kg
[2022-12-17] MEDS ORDERED: ROSU20TA61 (04:54)
[2022-12-17] MEDS ORDERED: FLUT1BLS8 (04:54)
[2022-12-17] MEDS ORDERED: METH4PACK (04:54)
[2022-12-17] MEDS ORDERED: LANS30CA93 (04:54)
[2022-12-17] MEDS ORDERED: KETOROLAC 30 MG/ML 1ML VIAL IV ONE (06:40)
[2022-12-17] MEDS ORDERED: METOCLOPRAMIDE INJ 10MG/2ML VIAL IV ONE (06:40)
[2022-12-17] MEDS ORDERED: NS 1,000 ML IV ONE (06:40)
[2022-12-17] MEDS ORDERED: ACETAMINOPHEN *IV* 1,000 MG in IV 1 EA IV ONE (06:40)
[2022-12-17] MEDS ORDERED: diphenhydrAMINE 50MG/ML VIAL IV ONE (06:40)
[2022-12-17 08:38] VITALS: BP 170/90; TEMP 97.5; O2SAT 99
== END 2022-12-17 08:42 | disposition home or self-care (01) ==
LOC: M ED 04:32
DX: G43.909 Migraine, unspecified, not intractable, without status migrainosus (principal); Z86.73 Personal history of transient ischemic attack (TIA), and cerebral infarction without residual deficits; Z86.718 Personal history of other venous thrombosis and embolism; F17.200 Nicotine dependence, unspecified, uncomplicated; Z88.8 Allergy status to other drugs, medicaments and biological substances; Z79.899 Other long term (current) drug therapy
CPT/HCPCS: 96361; 96374; 96375; 99284; J0131; J1100; J1200; J1885; J2765

== ENCOUNTER → 2024-05-20 | Outpatient (CLI) | payer MEDICARE, MEDICAID ==
[~2024-05-20] MED LIST changes: +FLUT1BLS8; +LANS30CA93; +METH4PACK; +ONDA-282 PO; -ONDA4TAB6 PO; +ROSU20TA86
== END ==
LOC: M PLAIMG 11:10
PROVIDERS: ATTEND Otolaryngology
DX: J34.2 Deviated nasal septum (principal); J34.89 Other specified disorders of nose and nasal sinuses; J01.20 Acute ethmoidal sinusitis, unspecified; J01.10 Acute frontal sinusitis, unspecified